=== PATIENT | male | born 1970 | race Two or more races ===

== ENCOUNTER 2021-08-29 07:50 | Outpatient (REF) | payer MEDICARE, OTHER, SELFPAY ==
--- NOTE | ~2021-08-29 | XR_ITS ---
EXAMINATION: RIGHT SHOULDER. CLINICAL INFORMATION: Right shoulder pain COMPARISON: None TECHNIQUE: 2 views. FINDINGS: The glenohumeral joint space is maintained normal. No bony erosive changes seen. There is loss of joint space with inferior spurring right AC joint. The soft tissues are normal. XR/XR shoulder RT min 2V IMPRESSION: Moderate arthritic changes right AC joint. No visible acute fracture, loose bodies or joint effusion
--- NOTE | ~2021-08-29 | XR_ITS ---
EXAMINATION: RIGHT SHOULDER. CLINICAL INFORMATION: Right shoulder pain COMPARISON: None TECHNIQUE: 2 views. FINDINGS: The glenohumeral joint space is maintained normal. No bony erosive changes seen. There is loss of joint space with inferior spurring right AC joint. The soft tissues are normal. XR/XR shoulder LT min 2V IMPRESSION: Moderate arthritic changes right AC joint. No visible acute fracture, loose bodies or joint effusion
== END 2021-08-29 07:51 | disposition home or self-care (01) ==
LOC: HO.XRAY 07:50
PROVIDERS: PCP Nurse Practitioner Primary Care; Visit Provider Nurse Practitioner Primary Care
DX: M25.511 Pain in right shoulder (principal); M25.512 Pain in left shoulder
CPT/HCPCS: 73030

== ENCOUNTER → 2021-09-22 13:43 | Outpatient (BNVA) | payer MEDICARE, OTHER, SELFPAY | PROVIDERS: PCP Nurse Practitioner Primary Care; Visit Provider Physician Assistant | DX: K59.09 Other constipation (principal); K21.9 Gastro-esophageal reflux disease without esophagitis | CPT/HCPCS: 99202 ==

== ENCOUNTER 2021-09-24 07:25 | Outpatient (REF) | payer MEDICARE, OTHER, SELFPAY ==
[2021-09-24 08:01] LABS: MANUAL DIFF FLAG NO
[2021-09-24 08:39] LABS: Basophils Absolute Auto 0.1 X10*3/uL (0.0-0.2); Basophils Percent Auto 0.5 % (0-2); Eosinophils Absolute Auto 0.4 X10*3/uL (0.0-0.4); Eosinophils Percent Auto 3.7 % (0-4); Hematocrit 42.2 % (42.0-52.0); Imm Gran Abs Auto 0.04 X10*3/uL (0.00-0.03); Imm Gran Pct Auto 0.4 % (0.0-0.4); Lymphocytes Absolute Auto 2.4 X10*3/uL (1.2-4.9); Lymphocytes Percent Auto 20.9 % (20-40); Mean Corpuscular HGB Conc 33.2 g/dl (31.0-36.0); Mean Corpuscular Hemoglobin 31.3 pg (27.0-33.0); Mean Corpuscular Volume 94.4 fL (80.0-98.0); Mean Platelet Volume 11.9 fL (9.4-12.4); Monocytes Absolute Auto 0.7 X10*3/uL (0.1-1.2); Monocytes Percent Auto 6.3 % (2-11); Neutrophils Absolute Auto 7.8 x10*3/uL (2.0-8.3); Neutrophils Percent Auto 68.2 % (45-73); Platelet Count 229 X10*3/uL (160-400); Red Blood Count 4.47 X10*6/uL (4.60-5.80); Red Cell Distribution Width 13.2 % (11.0-16.0); White Blood Count 11.4 X10*3/uL (4.8-10.8)
[2021-09-24 09:05] LABS: Estimated Average Glucose 105 mg/dL; Hemoglobin A1c % 5.3 %
[2021-09-24 09:15] LABS: Alanine Aminotransferase 20 U/L (0-40); Alkaline Phosphatase 93 U/L (39-117); Anion Gap 11 (12-20); Aspartate Amino Transferase 16 U/L (5-37); Bilirubin Total 0.3 mg/dL (0.0-1.0); Blood Urea Nitrogen 10 mg/dL (9-16); Carbon Dioxide 23 mmol/L (22-29); Chloride 109 mmol/L (96-108); Cholesterol 172 mg/dL; Estimated Glomerular Filt Rate > 60; Glucose Fasting 95 mg/dL (60-99); HDL Cholesterol 34 mg/dL; LDL Cholesterol Calculated 119 mg/dl; Potassium 4.2 mmol/L (3.3-5.1); Sodium 139 mmol/L (135-145); Total Protein 7.3 g/dL (6.5-8.0); Triglycerides 96 mg/dL
[2021-09-24 09:23] LABS: TSH reflex Free T4 0.82 uIU/mL (0.32-4.0); Vitamin D 25-OH Total 14.7 ng/mL (>30)
[2021-09-24 09:30] LABS: Thyroid Stimulating Hormone 0.83 uIU/mL (0.32-4.0)
[2021-09-26 03:59] LABS: ~HepC Num1 0.07 S/CO (0.00-0.79); ~Hepatitis C Antibody Nonreactive (Nonreactive)
[2021-09-26 04:00] LABS: HIV AB/AG Nonreactive (Nonreactive); HIV Num 1 0.06 S/CO (0.00-0.99)
[2021-10-01 14:00] LABS: RPR Quantitative Non-Reactive (Nonreactive); T.Pallidum Particle Agg Test Non-Reactive (Nonreactive)
== END 2021-09-24 07:26 | disposition home or self-care (01) ==
LOC: HO.LAB 07:25
PROVIDERS: Absent Provider Nurse Practitioner Primary Care; PCP Nurse Practitioner Primary Care; Visit Provider Physician Assistant
DX: Z00.00 Encounter for general adult medical examination without abnormal findings (principal); Z11.4 Encounter for screening for human immunodeficiency virus [HIV]; K21.9 Gastro-esophageal reflux disease without esophagitis; K59.09 Other constipation; E55.9 Vitamin D deficiency, unspecified; I10 Essential (primary) hypertension
CPT/HCPCS: 36415; 80053; 80061; 82306; 83036; 84443; 85025; 86592; 86780; 86803; 87389

== ENCOUNTER → 2021-10-24 07:38 | Outpatient (REF) | payer MEDICARE, OTHER, SELFPAY ==
--- NOTE | 2021-10-24 07:57 | ECG_ITS ---
Test Reason : CHEST PAIN, UNSPEC Blood Pressure : / mmHG Vent. Rate : 064 BPM Atrial Rate : 064 BPM P-R Int : 154 ms QRS Dur : 090 ms QT Int : 392 ms P-R-T Axes : 052 019 185 degrees QTc Int : 404 ms Normal sinus rhythm Nonspecific ST and T wave abnormality Abnormal ECG When compared with ECG of 22-JUN-2011 06:30, Premature ventricular complexes are no longer Present ST now depressed in Lateral leads Nonspecific T wave abnormality, worse in Inferior leads Nonspecific T wave abnormality now evident in Lateral leads Referred By: Kristen Hanna Electronically Signed By:LEFTY COOLEY MD
== END ==
LOC: HO.CARD 07:38
PROVIDERS: PCP Nurse Practitioner Primary Care; Visit Provider Nurse Practitioner Primary Care
DX: R07.9 Chest pain, unspecified (principal)
CPT/HCPCS: 93005

== ENCOUNTER 2021-10-25 05:08 | Observation (INO) | payer MEDICARE, OTHER, SELFPAY ==
[2021-10-25] VITALS (14 sets, daily range): BP systolic 102–157; BP diastolic 63–98; PULSE 60–92; RESP 12–19; TEMP 36.1–36.9; O2SAT 97–100; BMI 24.7
--- NOTE | 2021-10-25 | CA_ITS ---
Acquisition Time: 2021-10-26 09:14:15 Total Exercise Time: 00:02:00 Test Indications: Abnormal ECG ELEVATED TROP Medications: SEE EMAR Protocol: LEXISCAN Max HR: 112 BPM 67% of Pred: 167 BPM Max BP: 142/088 mmHG Max Work Load: 1.6 METS Pharmacologcial stress test with Lexiscan injection, while walking slow on treadmilll for 2 min, with report of 7/10 epigastric with radiation to his mid chest which occurred following Lexiscan and resolved with belching, without sob, without arrythmia, with normotensive response to injection, with EKG changes that meet criteria for ischemia, Horizontal ST depression 1 mm inferiorly and downsloping ST with borderline depression V4-V6 with gradual improvement back to baseline. Baseline EKG does showminimal ST abnormalities in those same leads. In recovery he was treated with Aminophylline 75mg IVP to reverse Lexiscan. He was recovered for over 10 min and then reported no symptoms. EKGs back to baseline. Nuclear images pending. Test reviewed with Dr Head Referred By: Don Allen Overread By: MOSES HUTCHINSON
--- NOTE | 2021-10-25 | ECG_ITS ---
Test Reason : ELEVATED TROPONIN Blood Pressure : / mmHG Vent. Rate : 059 BPM Atrial Rate : 059 BPM P-R Int : 162 ms QRS Dur : 092 ms QT Int : 384 ms P-R-T Axes : 000 -09 207 degrees QTc Int : 380 ms Unusual P axis, possible ectopic atrial bradycardia Low voltage QRS Nonspecific ST and T wave abnormality Abnormal ECG When compared with ECG of 25-OCT-2021 05:04, No significant change was found Referred By: Generic ED Physician Electronically Signed By:LEFTY COOLEY MD
--- NOTE | ~2021-10-25 | NM_ITS ---
Myocardial perfusion study Indication: Acute coronary syndrome Technique: The patient was brought in for a Lexiscan perfusion study on 10/26/2021. Patient performed low-level exercise and was injected 0.4 mg of Lexiscan intravenously. Within a minute of injection, 25 mCi of sestamibi was given intravenously. Images were obtained using the SPECT gamma camera interlaced with the gating device. Images were obtained in supine position. Resting perfusion study was performed on 10/25/2021. Patient was administered 25 mCi of sestamibi intravenously at rest. Images were then obtained in supine position. Images obtained with and without CT attenuation. Total DLP 81 mGy-cm. Images were processed with the software and compared side to side in short axis, horizontal long axis and vertical long axis views. Findings: Both stress and rest images are limited due to intense subdiaphragmatic uptake interfering with inferior wall uptake The stress perfusion study showed non attenuated images show moderate size mildly to moderately reduced uptake in the inferolateral as well as basal and mid inferior wall of the LV myocardium. Remainder of the LV myocardium is normally perfused. Attenuation corrected images show moderately large area of moderate to severely reduced uptake in the inferolateral and lateral wall of the LV myocardium extending into the adjacent inferior wall of the LV myocardium. The gated study shows normal LV systolic function with calculated LVEF of 64%. LV cavity is normal in size. The gated study shows normal systolic wall thickening and contraction of segments. Resting study shows non attenuated images show improved uptake in the inferolateral as well as basal and mid inferior wall of the LV myocardium. Similarly there is improved uptake in the inferolateral and lateral wall of the LV myocardium on attenuated corrected images. Gating at rest reveals normal systolic wall motion with ejection fraction at 59%. The findings are consistent with moderately large area of inferolateral, lateral and adjacent inferior ischemia in circumflex territory. NM/NM gurinder perf SPECT rest & str Impression: 1. Myocardial perfusion imaging study shows moderately large area of moderate intensity ischemia in circumflex territory 2. Gated LVEF is 44% 3. Transient ischemic dilatation not present EKG is positive for ischemia
--- NOTE | 2021-10-25 05:19 | ED.CHESTPAIN ---
HPI - Chest Pain General Chief Complaint: Chest Pain Stated Complaint: Chest pain Time Seen by Provider: 10/25/21 05:19 Source: patient Mode of arrival: ambulatory Limitations: no limitations History of Present Illness HPI narrative: Patient comes to the emergency room complaining of epigastric burning sensation. Patient states that he has had intermittent symptoms for about a week, much worse at night. Tonight, the symptoms started 23:00, and have been ongoing for 6 hours. Patient states that he has been seen by his Gastroenterology, has an appointment pending in couple of months for an upper endoscopy and a colonoscopy. In the meantime, patient was prescribed omeprazole which she takes continuously. Patient states that lately because of the abdominal burning pain with food, he has not been eating. Patient denies chest pain Related Data Home Medications Medication Instructions Recorded Confirmed albuterol sulfate 90 mcg/actuation 2 puff PO Q4-6H PRN 09/22/21 aerosol inhaler (ProAir HFA) fluticasone propionate 110 1 puff PO BID 09/22/21 mcg/actuation HFA aerosol inhaler (Flovent HFA) omeprazole 20 mg capsule,delayed 40 mg PO DAILY 09/22/21 release oxycodone-acetaminophen 7.5 mg-325 1 tab PO Q6H PRN 09/22/21 mg tablet Previous Rx's Medication Instructions Recorded bisacodyl 5 mg tablet,delayed 10 mg PO ONCE colonoscopy prep 1 09/22/21 release (Dulcolax (bisacodyl)) day #2 tabs polyethylene glycol 3350 17 238 g PO ONCE 1 day #238 grams 09/22/21 gram/dose oral powder (Miralax) Allergies Allergy/AdvReac Type Severity Reaction Status Date / Time amoxicillin Allergy Mild unknown Verified 09/22/21 13:48 latex Allergy Unknown itching Uncoded 06/05/18 00:00 Review of Systems Review of Systems: Constitutional : No Weight loss, No Fever, No Chills, No Night Sweats, No Fatigue, No Malaise ENT/Mouth : No Hearing loss, No Ear Pain, No Nasal Congestion, No Sinus Pain, No Hoarseness, No sore throat, No Rhinorrhea, No Swallowing Difficulty Eyes: No Eye Pain, No Swelling, No Redness, No Foreign Body, No Discharge, No Vision Changes Cardiovascular : No Chest Pain, No SOB, No Dyspnea on Exertion, No Orthopnea, No Edema, No Palpitations Respiratory : No Cough, No Sputum, No Wheezing, No Smoke Exposure, No Dyspnea Gastrointestinal : No Nausea, No Vomiting, No Diarrhea, No Constipation, complaining of burning sensation in the epigastric area radiating upwards Genitourinary : no irregular bleeding, No Dysuria, No Urinary Frequency, No Hematuria, No Urinary Incontinence, No Urgency, No Flank Pain, No Urinary Flow Changes, No Hesitancy Musculoskeletal : No joint pain, No Myalgias, No Joint Swelling Skin : No Skin Lesions, No rash Neuro : No Weakness, No Numbness, No Paresthesias, No Loss of Consciousness, No Dizziness, No Headache Psych : No Anxiety/Panic, No Depression, No SI/HI/AH/VH, No Social Issues, Heme/Lymph: No Bruising, No Bleeding,No Lymphadenopathy Endocrine : No Polyuria, No Polydipsia, No Temperature Intolerance [facility] Past Medical History Medical History (Updated 10/25/21 @ 06:38 by Sandhya Donohue MD) Collapsed lung GERD (gastroesophageal reflux disease) Surgical History History of esophagogastroduodenoscopy (EGD) History of foot surgery Family History Family History Mother Diverticulitis HTN (hypertension) Brother Diverticulitis Brother Diverticulitis HTN (hypertension) Brother Diverticulitis HTN (hypertension) Diabetes Brother Diverticulitis Sister HTN (hypertension) Sister Diverticulitis HTN (hypertension) Diabetes Sister HTN (hypertension) Family/Other Cancer Social History Social History (Updated 09/22/21 @ 14:24 by Sandra Espino PA-C) Household Members: Family Alcohol intake: never Tobacco use type: Cigarette Cigarettes Per Day: 3 Substance Use Type: Marijuana Advance Directives: No Current occupational status: disabled Physical Exam Vital Signs: Vital Signs: Last Vital Signs Temp 97.6 F 10/25/21 05:14 Pulse 61 10/25/21 06:09 Resp 16 10/25/21 06:09 BP 126/85 10/25/21 06:09 Pulse Ox 99 10/25/21 06:09 O2 Del Method 10/25/21 06:09 BMI result Body Mass Index 24.7 Const: Other: Appearance: Alert. Oriented X3. No acute distress. Eyes: Pupils equal, round and reactive to light. ENT: Pharynx normal. Neck: Normal inspection. Neck supple. No lymph nodes noted. No crepitus CVS: Normal heart rate and rhythm. Pulses normal. Normal S1 and S2 Respiratory: No respiratory distress. Breath sounds normal. No Wheezing. No rales Abdomen: Soft , tenderness to palpation in the epigastric area Skin: Skin warm and dry. Normal skin color. Normal skin turgor. Extremities: No lower extremity edema. No Lacerations. No Rash Neuro: Oriented X 3. No motor deficit. No sensory deficit. Moving all extremities. No slurred speech. CN 2 through 12 grossly intact Psych: calm, cooperative, normal affect Course Course Course Narrative: Patient was given IV famotidine, p.o. Maalox and viscous lidocaine. All of the labs pending. EKG shows minimal ST segment depressions in V3 through V6, no changes from EKG 2 days ago I discussed the EKG and 1st troponin with Dr. Head. At this time, we will repeat troponins. Patient's vitals are stable, states that this time he has no chest pain or burning sensation after GI cocktail. 2nd set of troponins 2 at 08:30 Sign-out given to Dr. Cachorro [facility] - Chest Pain Lab Data Result diagrams: 10/25/21 05:31 10/25/21 05:31 Labs: Lab Results 10/25/21 10/25/21 10/25/21 Range/Units 05:31 05:31 05:31 WBC 12.0 H (4.8-10.8) X10*3/uL RBC 4.60 (4.60-5.80) X10*6/uL Hgb 14.7 (14.0-18.0) g/dl Hct 42.4 (42.0-52.0) % MCV 92.2 (80.0-98.0) fL MCH 32.0 (27.0-33.0) pg MCHC 34.7 (31.0-36.0) g/dl RDW 13.0 (11.0-16.0) % Plt Count 251 (160-400) X10*3/uL MPV 10.8 (9.4-12.4) fL Immature Gran % (Auto) 0.4 (0.0-0.4) % Neut % (Auto) 58.8 (45-73) % Lymph % (Auto) 28.8 (20-40) % [place] % (Auto) 7.9 (2-11) % Eos % (Auto) 3.8 (0-4) % Baso % (Auto) 0.3 (0-2) % Lymph # (Auto) 3.5 (1.2-4.9) X10*3/uL [place] # (Auto) 1.0 (0.1-1.2) X10*3/uL Eos # (Auto) 0.5 H (0.0-0.4) X10*3/uL Baso # (Auto) 0.0 (0.0-0.2) X10*3/uL Abs Immat Gran (auto) 0.05 H (0.00-0.03) X10*3/uL Absolute Neuts (auto) 7.0 (2.0-8.3) x10*3/uL Absolute Nucleated RBC 0.000 (0.0-0.012) X10*3/uL Nucleated RBC % (auto) 0.0 (0.0-0.2) /100WBC Sodium 139 (135-145) mmol/L Potassium 3.8 (3.3-5.1) mmol/L Chloride 104 (96-108) mmol/L Carbon Dioxide 26 (22-29) mmol/L Anion Gap 13 (12-20) BUN 9 (9-16) mg/dL Creatinine 0.79 (0.5-1.4) mg/dL Estim Creat Clear Calc 111.6 Estimated GFR > 60 Random Glucose 104 (60-115) mg/dL Calcium 9.4 (8.4-10.2) mg/dL Total Bilirubin 0.8 (0.0-1.0) mg/dL Direct Bilirubin 0.3 (0.0-0.5) mg/dL AST 15 (5-37) U/L ALT 17 (0-40) U/L Alkaline Phosphatase 89 (39-117) U/L Troponin I High Sens 221.4 H* (<3.5-35.0) ng/L Total Protein 7.7 (6.5-8.0) g/dL Albumin 4.3 (3.5-5.0) g/dL Lipase 11 (8-78) U/L Discharge Plan Discharge Clinical Impression: Acid reflux, Elevated troponin Patient Disposition: Still a Patient Prescriptions: No Action albuterol sulfate [ProAir HFA] 90 mcg/actuation HFA aerosol inhaler 2 puff PO Q4-6H PRN omeprazole 20 mg capsule,delayed release(DR/EC) 40 mg PO DAILY oxycodone-acetaminophen 7.5-325 mg tablet 1 tab PO Q6H PRN Flovent HFA 110 mcg/actuation HFA aerosol inhaler 1 puff PO BID bisacodyl [Dulcolax (bisacodyl)] 5 mg tablet,delayed release (DR/EC) 10 mg PO ONCE 1 Days Qty: 2 0RF Rx Instructions: Take 2 tablets by mouth at 12:00pm the day before your procedure. polyethylene glycol 3350 [Miralax] 17 gram/dose powder 238 g PO ONCE 1 Days Qty: 238 0RF Rx Instructions: Take as directed by mouth the day before your procedure.
[2021-10-25 05:36] LABS: Basophils Percent Auto 0.3 % (0-2); Eosinophils Absolute Auto 0.5 X10*3/uL (0.0-0.4); Eosinophils Percent Auto 3.8 % (0-4); Hematocrit 42.4 % (42.0-52.0); Hemoglobin 14.7 g/dl (14.0-18.0); Imm Gran Abs Auto 0.05 X10*3/uL (0.00-0.03); Imm Gran Pct Auto 0.4 % (0.0-0.4); Lymphocytes Absolute Auto 3.5 X10*3/uL (1.2-4.9); Lymphocytes Percent Auto 28.8 % (20-40); MANUAL DIFF FLAG NO; Mean Corpuscular HGB Conc 34.7 g/dl (31.0-36.0); Mean Corpuscular Volume 92.2 fL (80.0-98.0); Mean Platelet Volume 10.8 fL (9.4-12.4); Monocytes Percent Auto 7.9 % (2-11); Neutrophils Percent Auto 58.8 % (45-73); Platelet Count 251 X10*3/uL (160-400)
[2021-10-25] MEDS: Lidocaine HCl Viscous 2 % 15 ML SOLUTION MUCOUS MEM (05:39)
[2021-10-25] MEDS: Famotidine/PF 20 MG/2 ML VIAL IVPUSH (05:39)
[2021-10-25] MEDS: Magnesium Hydrox/Alum Hydrox 30 ML ORAL.SUSP PO (05:39)
[2021-10-25 05:55] LABS: Alanine Aminotransferase 17 U/L (0-40); Albumin Level 4.3 g/dL (3.5-5.0); Alkaline Phosphatase 89 U/L (39-117); Anion Gap 13 (12-20); Aspartate Amino Transferase 15 U/L (5-37); Bilirubin Direct 0.3 mg/dL (0.0-0.5); Bilirubin Total 0.8 mg/dL (0.0-1.0); Blood Urea Nitrogen 9 mg/dL (9-16); Calcium 9.4 mg/dL (8.4-10.2); Carbon Dioxide 26 mmol/L (22-29); Chloride 104 mmol/L (96-108); Creatinine Clr Calc Pharmacy 111.6; Estimated Glomerular Filt Rate > 60; Glucose Random 104 mg/dL (60-115); Lipase 11 U/L (8-78); Potassium 3.8 mmol/L (3.3-5.1); Sodium 139 mmol/L (135-145); Total Protein 7.7 g/dL (6.5-8.0)
[2021-10-25 05:58] LABS: Troponin-I High Sensitivity 221.4 ng/L (<3.5-35.0)
--- NOTE | 2021-10-25 06:11 | PC.NURSE ---
Per Dr. Donohue, repeat trop 2 hours after initial at 0800.
--- NOTE | 2021-10-25 06:11 | PC.NURSE ---
Assumed care of pt Pt c/o midsternal CP, intermittent x 5 days but last night started at 2300. per pt, worse when laying down. Pt denies any SOB Hx of reflux AxO x 4, clear and complete sentences
[2021-10-25] MEDS: Aspirin Enteric Coated 325 MG TABLET.DR PO (06:18)
--- NOTE | 2021-10-25 06:53 | ECG_ITS ---
Test Reason : CP Blood Pressure : / mmHG Vent. Rate : 071 BPM Atrial Rate : 071 BPM P-R Int : 148 ms QRS Dur : 086 ms QT Int : 372 ms P-R-T Axes : 062 016 072 degrees QTc Int : 404 ms Normal sinus rhythm Nonspecific ST and T wave abnormality Abnormal ECG When compared with ECG of 24-OCT-2021 07:56, No significant change was found Referred By: Generic ED Physician Electronically Signed By:LEFTY COOLEY MD
[2021-10-25 07:37] LABS: INTERNATIONAL NORM RATIO 1.2 (0.9-1.1); Prothrombin Time 13.3 SEC (9.9-13.0)
[2021-10-25 07:39] LABS: Partial Thromboplastin Time 38.9 SEC (24.1-38.0)
--- NOTE | 2021-10-25 07:47 | PC.NURSE ---
patient alert and orientated. lungs clear . heart rate on monitor sinus regular at 60- 62 . positive bowel sounds in all four quadrants . patient complains of abdominal discomfort . patient aware of plan of care .
[2021-10-25 07:50] LABS: COVID-19 Test Negative (Negative); IDNOW Serial# 16C4AD1C
[2021-10-25 08:04] LABS: Troponin-I High Sensitivity 255.4 ng/L (<3.5-35.0)
--- NOTE | 2021-10-25 08:58 | CA_ITS ---
Transthoracic Echocardiogram Patient (Last, First, Middle): Stanislav Hernandez, Gender: Male Date of : 1970 Age: 51 Procedure Date: 10/25/2021 Procedure Type: Transthoracic Echocardiogram Location: ER Height: 177.8 cm Weight: 78.02 kg BSA: 1.96 m2 Heart Rate: 63 bpm BP: 113 / 77 mmHg Document Specialist: PITER Referring MD: Kristina Ivory DO Social Service Technician: Pérez Head MD Symptoms: chest pain, EKG changes Study Quality: Adequate ECG Rhythm: Sinus Conclusions: - 1. Normal LV systolic function with grade 1 diastolic dysfunction 2. Normal cardiac valvular Doppler 3. No gross pericardial effusion Findings Left Ventricle Normal left ventricular size, thickness, and systolic function. The visually estimated ejection fraction is between 60-65%. There is no evidence of regional wall motion abnormalities. Spectral Doppler is indicative of an impaired relaxation filling pattern. E/E prime ratio is <8, consistent with normal filling pressures. Evidence suggests grade I (mild) diastolic dysfunction. Right Ventricle Normal right ventricular cavity size and systolic function. Atria Both atria are normal in size. There is lipomatous hypertrophy of the interatrial septum. There is no evidence of interatrial shunt. Aortic Valve Normal aortic valve structure and function. There is no aortic valve stenosis. There is no aortic valve regurgitation. Mitral Valve Normal mitral valve structure and function. There is trace mitral valve regurgitation. There is no mitral valve stenosis. Pulmonic Valve The pulmonic valve is likely normal. There is trace pulmonic valve regurgitation. Tricuspid Valve Normal tricuspid valve structure. Tricuspid regurgitation envelope is inadequate for calculation of right ventricular systolic pressure. Normal right atrial pressure. Great Vessels All visible segments of the aorta are normal in size. The pulmonary artery was not well visualized. Venous The inferior vena cava is normal in size and collapses greater than 50% with inspiration. Pericardium/Pleural There is no evidence of pericardial effusion. Prior Study Comparison No prior study available for comparison. Measurements 2D Linear Measurements IVSd: 0.60 0.6-0.9/0.6-1.0 cm LVIDd: 4.99 3.9-5.3/4.2-5.9 cm LVIDd Index: 2.55 2.4-3.2/2.2-3.1 cm/m2 LVIDs: 3.58 2.0-3.6 cm LVPWd: 0.62 0.7-1.1 cm LA Diam: 3.10 2.7-3.8/3.0-4.0 cm LAIDs Index: 1.58 1.5-2.3 cm/m2 LV Mass: 119.84 67-162/88-224 g LV Mass Index: 61.14 43-95/49-115 g/m2 LVOT Diam: 2.50 3.0+(-)1.3 cm 2D Systolic Function EF 4C: 65.70 >55% Mitral Valve MV Pk E: 0.53 MV PK A: 0.49 MV Decel Time: 318.00 E/A: 1.10 E'Lateral: 11.40 E'Medial: 8.16 E/E' Med: 6.50 E/E' Lat: 4.60 PHT: 93.00 MVA PHT: 2.37 Decel [place]iscoe: 1.66 Aortic Valve AoV Pk Dago: 1.09 AoV Mn Dago: 0.73 AoV VTI: 0.21 AoV Pk Grad: 5.00 Aov Mn Grad: 2.00 JUD Cont.VTI: 4.66 LVOT LVOT Pk Dago: 1.06 LVOT Mn Dago: 0.72 LVOT VTI: 0.20 LVOT Pk Grad: 4.00 LVOT Mn Grad: 2.00 LVOT Diam: 2.50 LVOT Area: 4.91 Diastolic Function MV Pk E: 0.53 MV Pk A: 0.49 E/A: 1.10 E'Medial: 8.16 E/E' Med: 6.50 E' Laterial: 11.40 E/E' Lat: 4.60 Right Ventricle TAPSE (mm): 21.90 TVS' Dago: 11.50 Tricuspid Valve RA Press: 3.00 Great Vessels Aorta Sinus of Valsalva: 3.80 2.0-3.5 cm Pulmonary Valve PV Pk Dago: 0.82 Peak PV Grad: 3.00 Updated in Other Vendor System with Status of Final Pérez Head MD electronically signed on 10/25/2021 12:35:14 PM with status of Final
--- NOTE | 2021-10-25 11:04 | PC.NURSE ---
research engineer marine equipment at bedside echo being preformed.
--- NOTE | 2021-10-25 11:20 | PHA.MEDREC ---
Pharmacy Consult ? Medication Reconciliation Pharmacy has completed the medication reconciliation. Patient confirmed all medications. Patient reports he no longer used the Spriv[employer]. Ericka Gr, CarrollD
--- NOTE | 2021-10-25 11:39 | PM.CNCAR ---
History of Present Illness History of Present Illness Date of Service: 10/25/21 Requesting physician: Kristina Ivory Consult reason: chest pain and troponin elevation Chief complaint: Chest pain Narrative: I was consulted to see Stanislav in cardiology consultation today for symptoms of chest discomfort. Patient 51-year-old male with prior history of acid reflux disease for many years, labile blood pressure but never diagnosed with hypertension. Over the last week or so he has been getting epigastric discomfort then radiating into the chest mostly at nighttime. He has been taking additional Prilosec truly with symptoms. Symptoms usually resolve within few hours. He present hospital because yesterday night he developed this symptoms radiating to the center of the chest associated diaphoresis and shortness of breath and discomfort in his teeth. He could not tolerate the symptoms and therefore presently emergency room at about 04:30 am. He had taken additional omeprazole at home. When he came to the Emergency be got aspirin, GI cocktail and subsequently symptoms resolved. His initial troponin was in the 200 range with 2nd troponin slightly higher but without any significant delta. His initial EKG showed mild ST sagging in the lateral leads which have improved on subsequent EKG. Cardiology consult was therefore called because of her abnormal EKG and troponin elevation although flat. Echo being performed with bedside although could not reviewed completely showed normal LV systolic function. Strong family history of brother having LA it age 56 requiring stents with now ischemic cardiomyopathy. He smokes but is cutting down. Never had cardiovascular issues of his own. Review of Systems Constitutional: Constitutional: Reports no additional constitutional complaints Eyes: Eyes: Reports no additional eye complaints Cardiovascular: Cardiovascular: Reports chest pain at rest, Denies chest pain with activity, Denies syncope, Denies leg edema, Denies lightheadedness, Denies Loss of Consciousness, Denies palpitations and Reports dyspnea Respiratory: Respiratory: Reports dyspnea Gastrointestinal: Gastrointestinal: Reports abdominal pain Genitourinary: Genitourinary: Denies no additional male genitourinary complaints Musculoskeletal: Musculoskeletal: Denies no additional musculoskeletal complaints Integumentary/Breasts: Skin/Breast: Denies system reviewed and no additional complaints, except as docu Neurologic: Denies system reviewed and no additional complaints, except as documented and Denies syncope Psychiatric: Psychiatric: Denies no additional psychiatric complaints Endocrine: Endocrine: Denies no additional endocrine complaints and Denies palpitations Hematologic/Lymphatic: Hematologic/Lymphatic: Reports no additional hematologic/lymphatic complaints Allergic/Immunologic: Allergic/Immunologic: Reports no additional allergic/immunologic complaints [facility] Past Medical History Medical History Collapsed lung GERD (gastroesophageal reflux disease) Family History Family History Mother Diverticulitis HTN (hypertension) Brother Diverticulitis Brother Diverticulitis HTN (hypertension) Brother Diverticulitis HTN (hypertension) Diabetes Brother Diverticulitis Sister HTN (hypertension) Sister Diverticulitis HTN (hypertension) Diabetes Sister HTN (hypertension) Family/Other Cancer Surgical History Surgical History History of esophagogastroduodenoscopy (EGD) History of foot surgery Social History Social History Household Members: Family Alcohol intake: former Patient Tobacco Use Status: Current someday Tobacco user Tobacco use type: Cigarette Cigarettes Per Day: 3 Substance Use Type: Marijuana Substance Use Frequency: Occasionally Advance Directives: No Current occupational status: disabled Meds Allergies Allergy/AdvReac Type Severity Reaction Status Date / Time amoxicillin Allergy Mild unknown Verified 09/22/21 13:48 latex Allergy Unknown itching Uncoded 06/05/18 00:00 Active Medications: Current Medications Pharmacy Consult (Consult Rx Perform Med Rec) 1 each MISCELLANE ONCE PRN PRN Reason: Consult order Home Medications Medication Instructions Recorded Confirmed Last Taken Type albuterol sulfate 90 mcg/actuation 2 puff PO Q4-6H PRN Wheezing 09/22/21 10/25/21 Unknown History aerosol inhaler (ProAir HFA) fluticasone propionate 110 1 puff PO BID 09/22/21 10/25/21 10/24/21 History mcg/actuation HFA aerosol inhaler (Flovent HFA) omeprazole 20 mg capsule,delayed 20 mg PO BID 09/22/21 10/25/21 10/24/21 History release oxycodone-acetaminophen 7.5 mg-325 1 tab PO Q6H PRN Pain 09/22/21 10/25/21 Unknown History mg tablet cholecalciferol (vitamin D3) 1,250 1 cap PO WE 10/25/21 10/25/21 10/24/21 History mcg (50,000 unit) capsule famotidine 20 mg tablet 1 tab PO BID 10/25/21 10/25/21 10/25/21 History ibuprofen 200 mg tablet 400 mg PO Q6H PRN Pain 10/25/21 10/25/21 Unknown History Physical Exam Vital Signs: Vital Signs: Last Vital Signs Temp 98.2 F 10/25/21 10:02 Pulse 63 10/25/21 10:02 Resp 16 10/25/21 10:02 BP 145/98 H 10/25/21 10:02 Pulse Ox 99 10/25/21 10:02 O2 Del Method 10/25/21 10:02 BMI result Body Mass Index 24.7 Const: General: cooperative, comfortable, no acute distress, well developed, alert and awake Nutritional Appearance: average body habitus Orientation/consciousness: patient oriented x3 Limitations: no limitations HEENT: Head: Yes normocephalic and Yes atraumatic Neck: Neck: Yes trachea midline, Yes supple and Yes no JVD Chest: Chest palpation & inspection: normal inspection of the chest Resp: Effort & Inspection: normal respiratory effort Auscultation: clear to auscultation bilaterally Cardio: Jugular venous distension: no JVD Palpation: normal PMI Rate: regular rate Rhythm: regular rhythm Heart sounds: S1 normal heart sound present, S2 normal heart sound present, no click, no gallops, no murmurs and no rubs GI: Auscultation: normal bowel sounds Skin: General skin exam: no rashes or lesions noted Neuro: General: patient oriented x3 and no focal motor deficits Extrem: General: Yes no clubbing, cyanosis or edema Objective Labs and Meds Result diagrams: 10/25/21 05:31 10/25/21 05:31 Lab results: Laboratory Results - last 24 hr 10/25/21 10/25/21 10/25/21 05:31 05:31 05:31 WBC 12.0 H RBC 4.60 Hgb 14.7 Hct 42.4 MCV 92.2 MCH 32.0 MCHC 34.7 RDW 13.0 Plt Count 251 MPV 10.8 Immature Gran % (Auto) 0.4 Neut % (Auto) 58.8 Lymph % (Auto) 28.8 [place] % (Auto) 7.9 Eos % (Auto) 3.8 Baso % (Auto) 0.3 Lymph # (Auto) 3.5 [place] # (Auto) 1.0 Eos # (Auto) 0.5 H Baso # (Auto) 0.0 Abs Immat Gran (auto) 0.05 H Absolute Neuts (auto) 7.0 Absolute Nucleated RBC 0.000 Nucleated RBC % (auto) 0.0 PT INR APTT Sodium 139 Potassium 3.8 Chloride 104 Carbon Dioxide 26 Anion Gap 13 BUN 9 Creatinine 0.79 Estim Creat Clear Calc 111.6 Estimated GFR > 60 Random Glucose 104 Calcium 9.4 Total Bilirubin 0.8 Direct Bilirubin 0.3 AST 15 ALT 17 Alkaline Phosphatase 89 Troponin I High Sens 221.4 H* Total Protein 7.7 Albumin 4.3 Lipase 11 COVID-19 (JOHNNY) COVID-19 [employer] Master Com 10/25/21 10/25/21 10/25/21 07:22 07:24 07:24 WBC RBC Hgb Hct MCV MCH MCHC RDW Plt Count MPV Immature Gran % (Auto) Neut % (Auto) Lymph % (Auto) [place] % (Auto) Eos % (Auto) Baso % (Auto) Lymph # (Auto) [place] # (Auto) Eos # (Auto) Baso # (Auto) Abs Immat Gran (auto) Absolute Neuts (auto) Absolute Nucleated RBC Nucleated RBC % (auto) PT 13.3 H INR 1.2 H APTT 38.9 H Sodium Potassium Chloride Carbon Dioxide Anion Gap BUN Creatinine Estim Creat Clear Calc Estimated GFR Random Glucose Calcium Total Bilirubin Direct Bilirubin AST ALT Alkaline Phosphatase Troponin I High Sens 255.4 H* Total Protein Albumin Lipase COVID-19 (JOHNNY) Negative COVID-19 Clin Com See Note Assessment and Plan (1) Chest pain: Qualifiers: Chest pain type: precordial pain Qualified Code(s): R07.2 - Precordial pain Status: Acute Patient with chest pain syndrome which is suggestive GI origin and acid reflux with possibly esophageal spasm as a cause of his chest discomfort. However he has mildly abnormal EKG with some dynamic changes as well as elevated troponin. He has risk factors for coronary disease including labile blood pressure is a strong family history. Echocardiogram is being performed will review it. No need for IV heparin at this point time as his symptoms have resolved and his troponins are flat. I think however require ischemic evaluation. Will perform resting perfusion study today and stress perfusion study tomorrow and determine further treatment options. If stress test is within normal limits, would strongly recommend GI follow-up and upper endoscopy for further evaluation. His blood pressure is elevated a consider treating with Norkeeleyc. Will follow with you Procedures Date of Service Date of Service: 10/25/21
--- NOTE | 2021-10-25 12:15 | P.HPHOSP_ITS ---
History of Present Illness Date of Service: 10/25/21 Chief Complaint: Chest Pain 51 year old male with HTN not on meds, Asthma that is controled, GERD on Pepcid who presents, early family history of CAD, brother had GA at 57. He presents with 1 and half week of intermittent chest pain, mostly happening at night a ssocated with vomitting and sweating, locates the pain mid sternal area variable intensity but worse with exertion and was particulary bad last night prompting him to come in. He has been omeprazole without relieve. ECG shows some lateral changes and troponin I 255 essentially unchanged from prior. Cardiology is recommending inpatient stress Review of Systems Review of Systems: Gen: no fever Resp: no sob, no cough CV: + chest, + MILES, no leg edema GI: No n/v, no abd pain Neuro: No confusion Yes all other systems are reviewed and are negative [facility] Medical History Collapsed lung GERD (gastroesophageal reflux disease) Family History Mother Diverticulitis HTN (hypertension) Brother Diverticulitis Brother Diverticulitis HTN (hypertension) Brother Diverticulitis HTN (hypertension) Diabetes Brother Diverticulitis Sister HTN (hypertension) Sister Diverticulitis HTN (hypertension) Diabetes Sister HTN (hypertension) Family/Other Cancer Surgical History History of esophagogastroduodenoscopy (EGD) History of foot surgery Social History Household Members: Family Alcohol intake: former Patient Tobacco Use Status: Current someday Tobacco user Tobacco use type: Cigarette Cigarettes Per Day: 3 Substance Use Type: Marijuana Substance Use Frequency: Occasionally Advance Directives: No Current occupational status: disabled Meds Allergies Allergy/AdvReac Type Severity Reaction Status Date / Time amoxicillin Allergy Mild unknown Verified 09/22/21 13:48 latex Allergy Unknown itching Uncoded 06/05/18 00:00 Active Medications: Current Medications Albuterol Sulfate (Albuterol Sulfate 90 Mcg 8 Gm Inhaler) 2 puff INHALE Q4H PRN PRN Reason: Wheezing Famotidine (Famotidine 20 Mg Tablet) 20 mg PO BID [facility] Fluticasone Propionate (Fluticasone Propionate 100 Mcg Blst.W.Dev) 1 puff INHALE RBID [facility] Non-Formulary Medication (Cholecalciferol (Vitamin D3)) 1 cap PO WE [facility] Non-Formulary Medication (Oxycodone-Acetaminophen) 1 tab PO Q6H PRN PRN Reason: Pain Omeprazole (Omeprazole 20 Mg Capsule.) 20 mg PO BID@0630,1630 [facility] Pharmacy Consult (Consult Rx Perform Med Rec) 1 each MISCELLANE ONCE PRN PRN Reason: Consult order Home Medications Medication Instructions Recorded Confirmed Last Taken Type albuterol sulfate 90 mcg/actuation 2 puff PO Q4-6H PRN Wheezing 09/22/21 10/25/21 Unknown History aerosol inhaler (ProAir HFA) fluticasone propionate 110 1 puff PO BID 09/22/21 10/25/21 10/24/21 History mcg/actuation HFA aerosol inhaler (Flovent HFA) omeprazole 20 mg capsule,delayed 20 mg PO BID 09/22/21 10/25/21 10/24/21 History release oxycodone-acetaminophen 7.5 mg-325 1 tab PO Q6H PRN Pain 09/22/21 10/25/21 Unknown History mg tablet cholecalciferol (vitamin D3) 1,250 1 cap PO WE 10/25/21 10/25/21 10/24/21 History mcg (50,000 unit) capsule famotidine 20 mg tablet 1 tab PO BID 10/25/21 10/25/21 10/25/21 History ibuprofen 200 mg tablet 400 mg PO Q6H PRN Pain 10/25/21 10/25/21 Unknown History Physical Exam Vital Signs and Narrative: Vital Signs: Last Vital Signs Temp 98.2 F 10/25/21 10:02 Pulse 63 10/25/21 10:02 Resp 16 10/25/21 10:02 BP 145/98 H 10/25/21 10:02 Pulse Ox 99 10/25/21 10:02 O2 Del Method 10/25/21 10:02 BMI result Body Mass Index 24.7 Const: Other: Constitutional: Alert, in no distress Mental Status: Oriented to person, place and time. Eyes: Pupils are equal, round and reactive to light. Ear, Nose and Throat: Oropharynx clear, mucous membranes moist. Respiratory: Clear to auscultation. No wheezing, rales or rhonchi. Cardiovascular: S1 S2 regular. No murmurs, rubs or gallops. Gastrointestinal: Abdomen soft, non-tender, non-distended. Normal bowel sounds.? Neurologic: Cranial nerves II-XII grossly intact. No focal neurological deficits. Moves all extremities spontaneously.? Skin: No rashes or lesions.? Musculoskeletal: No cyanosis or clubbing. Psychiatric: Normal mood and affect? Results Labs CBC and Chem 7: 10/25/21 05:31 10/25/21 05:31 Labs: Laboratory Results - last 24 hr 10/25/21 10/25/21 10/25/21 05:31 05:31 05:31 MCV 92.2 MCH 32.0 MCHC 34.7 RDW 13.0 Plt Count 251 MPV 10.8 Immature Gran % (Auto) 0.4 Neut % (Auto) 58.8 Lymph % (Auto) 28.8 [place] % (Auto) 7.9 Eos % (Auto) 3.8 Baso % (Auto) 0.3 Lymph # (Auto) 3.5 [place] # (Auto) 1.0 Eos # (Auto) 0.5 H Baso # (Auto) 0.0 Abs Immat Gran (auto) 0.05 H Absolute Neuts (auto) 7.0 Absolute Nucleated RBC 0.000 Nucleated RBC % (auto) 0.0 PT INR APTT Anion Gap 13 Estim Creat Clear Calc 111.6 Estimated GFR > 60 Random Glucose 104 Calcium 9.4 Total Bilirubin 0.8 Direct Bilirubin 0.3 AST 15 ALT 17 Alkaline Phosphatase 89 Troponin I High Sens 221.4 H* Total Protein 7.7 Albumin 4.3 Lipase 11 COVID-19 (JOHNNY) COVID-19 Clin Com 10/25/21 10/25/21 10/25/21 07:22 07:24 07:24 MCV MCH MCHC RDW Plt Count MPV Immature Gran % (Auto) Neut % (Auto) Lymph % (Auto) [place] % (Auto) Eos % (Auto) Baso % (Auto) Lymph # (Auto) [place] # (Auto) Eos # (Auto) Baso # (Auto) Abs Immat Gran (auto) Absolute Neuts (auto) Absolute Nucleated RBC Nucleated RBC % (auto) PT 13.3 H INR 1.2 H APTT 38.9 H Anion Gap Estim Creat Clear Calc Estimated GFR Random Glucose Calcium Total Bilirubin Direct Bilirubin AST ALT Alkaline Phosphatase Troponin I High Sens 255.4 H* Total Protein Albumin Lipase COVID-19 (JOHNNY) Negative COVID-19 Clin Com See Note Assessment and Plan (1) Elevated troponin: Status: Acute (2) Chest pain: Qualifiers: Chest pain type: precordial pain Qualified Code(s): R07.2 - Precordial pain Status: Acute (3) Nonspecific ST-T wave electrocardiographic changes: Status: Acute Plan 51/m with elevated chest pain, elevate trop but flat and non-sepecific ECG changes plan: Observation, serial trops and ECG, stress test tomorrow, check lipid tomorrow, Metoprolol 25 bid for HTN Quality Stroke Does the patient have a stroke diagnosis?: No VTE Prior VTE?: No VTE Risk Level:: Medical - low VTE Device Contraindication: Treatment Not Indicated VTE Drug Contraindication: Treatment Not Indicated
[2021-10-25 13:51] LABS: Troponin-I High Sensitivity 480.5 ng/L (<3.5-35.0)
[2021-10-25 13:59] LABS: Cholesterol 166 mg/dL; HDL Cholesterol 37 mg/dL; LDL Cholesterol Calculated 111 mg/dl; Triglycerides 93 mg/dL
--- NOTE | 2021-10-25 14:12 | PC.NURSE ---
patient went to at 130 to nuclear med to have stress test done . patient aware of plan of care .
--- NOTE | 2021-10-25 14:22 | PC.NURSE ---
RN to RN report given to Brandi
[2021-10-25] MEDS: 0.9 % Sodium Chloride Flush 3 ML SYRINGE IVFLUSH ×2 (16:39→21:00)
[2021-10-25] MEDS: ondansetron HCL 4 MG/2 ML VIAL IVPUSH (18:45)
[2021-10-25] MEDS: Famotidine 20 MG TABLET PO (20:59)
[2021-10-25] MEDS: Metoprolol Tartrate 25 MG TABLET PO (20:59)
--- NOTE | 2021-10-26 | ECG_ITS ---
Test Reason : nstemi Blood Pressure : / mmHG Vent. Rate : 058 BPM Atrial Rate : 058 BPM P-R Int : 146 ms QRS Dur : 084 ms QT Int : 406 ms P-R-T Axes : 057 019 216 degrees QTc Int : 398 ms Sinus bradycardia Nonspecific ST and T wave abnormality Abnormal ECG When compared with ECG of 25-OCT-2021 05:57, Sinus rhythm has replaced Ectopic atrial rhythm Referred By: Don Allen Electronically Signed By:LEFTY COOLEY MD
[2021-10-26 04:00] VITALS: BP 105/63; PULSE 62; RESP 18; TEMP 36.9; O2SAT 100
[2021-10-26 07:47] VITALS: BP 118/80; PULSE 59; RESP 18; TEMP 36.8; O2SAT 99
[2021-10-26 09:35] LABS: Troponin-I High Sensitivity 199.5 ng/L (<3.5-35.0)
--- NOTE | 2021-10-26 09:51 | P.PNIM_ITS ---
Subjective Subjective Date of Service: 10/26/21 Interval History: f/u on NSTEMI, chest pain Interval history: no chest pain, hemodynamically stable Review of Systems no sob, no chest pain Physical Exam Vital Signs: Vital Signs: Last Vital Signs Temp 98.3 F 10/26/21 07:47 Pulse 59 10/26/21 07:47 Resp 18 10/26/21 07:47 BP 118/80 10/26/21 07:47 Pulse Ox 99 10/26/21 07:47 O2 Del Method 10/26/21 07:47 BMI result Body Mass Index 24.7 Const: Other: General: AO X 3, no acute distress Resp: CTA bilateral CVS: S1,S2,RRR GI: +BS, NT, no distention Skin: No rash Neuro: motor grossly intact Psych: appropriate affect Objective Data Active Medications Acetaminophen (Acetaminophen Supp 650 Mg Supp.Rect) 650 mg MS Q6H PRN PRN Reason: Pain, Mild (Pain Scale 1-3) Albuterol Sulfate (Albuterol Sulfate 90 Mcg 8 Gm Inhaler) 2 puff INHALE Q4H PRN PRN Reason: Wheezing Aspirin (Aspirin 81 Mg Tab.Chew) 81 mg PO DAILY [facility] Enoxaparin Sodium (Enoxaparin Sodium 80 Mg/0.8 Ml Syringe) 80 mg SUBCUT Q12H [facility] Last Admin: 10/26/21 04:33 Dose: Not Given Documented By: SALMA Non-Admin Reason: Patient Refused Famotidine (Famotidine 20 Mg Tablet) 20 mg PO BID [facility] Last Admin: 10/25/21 20:59 Dose: 20 mg Documented By: SALMA Fluticasone Propionate (Fluticasone Propionate 100 Mcg Blst.W.Dev) 1 puff INHALE RBID [facility] Last Admin: 10/26/21 08:25 Dose: Not Given Documented By: WINNIE Non-Admin Reason: Med Not Available Melatonin (Melatonin 3 Mg Tablet) 6 mg PO BEDTIME PRN PRN Reason: Insomnia Metoprolol Tartrate (Metoprolol Tartrate 25 Mg Tablet) 25 mg PO BID [facility]; Protocol Last Admin: 10/25/21 20:59 Dose: 25 mg Documented By: SALMA Omeprazole (Omeprazole 20 Mg Capsule.Dr) 20 mg PO BID@0630,1630 [facility] Last Admin: 10/26/21 05:53 Dose: Not Given Documented By: SALMA Non-Admin Reason: Patient Refused Ondansetron HCl (Ondansetron Hcl 4 Mg/2 Ml Vial) 4 mg IVPUSH Q8H PRN PRN Reason: Nausea and Vomiting Last Admin: 10/25/21 18:45 Dose: 4 mg Documented By: LOYDA Oxycodone HCl (Oxycodone Hcl Immed Release 5 Mg Tablet) 7.5 mg PO Q6H PRN PRN Reason: Pain Pharmacy Consult (Consult Rx Perform Med Rec) 1 each MISCELLANE ONCE PRN PRN Reason: Consult order Sodium Chloride (0.9 % Sodium Chloride Flush 3 Ml Syringe) 3 ml IVFLUSH QSHIFT [facility] Last Admin: 10/25/21 21:00 Dose: 3 ml Documented By: SALMA Labs CBC & Chem 7: 10/25/21 05:31 10/25/21 05:31 Labs: Laboratory Results - last 24 hr 10/25/21 10/25/21 10/26/21 13:19 13:19 08:15 Troponin I High Sens 480.5 H* D 199.5 H* D Triglycerides 93 Cholesterol 166 LDL Cholesterol, Calc 111 HDL Cholesterol 37 Assessment and Plan (1) Elevated troponin: Status: Acute (2) NSTEMI (non-ST elevated myocardial infarction): Status: Acute Plan 51/m with elevated chest pain, elevate trop but flat and non-sepecific ECG changes Chest pain, elevated troponin/NSTEMI--continue Lovneox, aspirin, stain, statin, metoprolol for HTN. Stress by cardiology to determine further work up. Change status to inpatient Quality Stroke Does the patient have a stroke diagnosis?: No VTE Prior VTE?: No VTE Risk Level:: Medical - low VTE Device Contraindication: Treatment Not Indicated VTE Drug Contraindication: Treatment Not Indicated
[2021-10-26] MEDS: Famotidine 20 MG TABLET PO (10:44)
[2021-10-26] MEDS: 0.9 % Sodium Chloride Flush 3 ML SYRINGE IVFLUSH ×2 (10:44→17:24)
[2021-10-26] MEDS: Metoprolol Tartrate 25 MG TABLET PO (10:44)
[2021-10-26] MEDS: Aspirin 81 MG TAB.CHEW PO (10:45)
[2021-10-26 11:16] VITALS: BP 159/97; PULSE 66; RESP 18; TEMP 37.1; O2SAT 100
--- NOTE | 2021-10-26 11:35 | MHC.CLN ---
NUTRITION DIET CHANGED TO CARDIAC DUE TO DX NSTEMI.
--- NOTE | 2021-10-26 12:42 | PM.PNCARD ---
Subjective Subjective Date of Service: 10/26/21 <LEE Cheung - Last Filed: 10/26/21 12:55> 10/26/21 <Pérez Head MD - Last Filed: 10/26/21 13:57> Principal diagnosis: CP, elevated troponin <LEE Cheung - Last Filed: 10/26/21 12:55> Interval history: Seen at 1000. Today he reports feeling well. No recurrent epigastric or chest area discomfort since admission. Breathing normal. Troponin last deanne up to 480, this am 199. On Lovenox now. Tele stable SR 50-70s. Nuclear stress test being completed today. <LEE Cheung - Last Filed: 10/26/21 12:55> Review of Systems Review of Systems as above <LEE Cheung - Last Filed: 10/26/21 12:55> Yes all other systems are reviewed and are negative <LEE Cheung - Last Filed: 10/26/21 12:55> Physical Exam Vital Signs: Last Vital Signs Temp 98.7 F 10/26/21 11:16 Pulse 66 10/26/21 11:16 Resp 18 10/26/21 11:16 BP 159/97 H 10/26/21 11:16 Pulse Ox 100 10/26/21 11:16 O2 Del Method 10/26/21 11:16 BMI result Body Mass Index 24.7 <LEE Cheung - Last Filed: 10/26/21 12:55> Const General: cooperative, healthy appearing, no acute distress, alert and awake <LEE Cheung - Last Filed: 10/26/21 12:55> Orientation/consciousness: patient oriented x3 <LEE Cheung - Last Filed: 10/26/21 12:55> Neck Neck: Yes normal visual inspection and Yes no JVD <LEE Cheung - Last Filed: 10/26/21 12:55> Resp Effort & Inspection: normal respiratory effort, able to speak in complete sentences and not labored <LEE Cheung - Last Filed: 10/26/21 12:55> Auscultation: clear to auscultation bilaterally, no crackles, no rales, no rhonchi and no wheezes <Yolis Paez YANIQUE - Last Filed: 10/26/21 12:55> Cardio Palpation: normal PMI <Yolis Paez NP - Last Filed: 10/26/21 12:55> Rate: regular rate <Yolis Paez FREIGHT CONDUCTOR - Last Filed: 10/26/21 12:55> Rhythm: regular rhythm <Yolis Paez FREIGHT CONDUCTOR - Last Filed: 10/26/21 12:55> Heart sounds: S1 normal heart sound present and S2 normal heart sound present <Yolis Paez FREIGHT CONDUCTOR - Last Filed: 10/26/21 12:55> GI Inspection: Yes normal to inspection <Yolis PaezMINO - Last Filed: 10/26/21 12:55> Neuro General: patient oriented x3 <Yolis Paez FREIGHT CONDUCTOR - Last Filed: 10/26/21 12:55> Extrem General: Yes normal to inspection and No edema <Yolis PaezMINO - Last Filed: 10/26/21 12:55> Objective Labs and Meds Result diagrams: : 10/25/21 05:31 10/25/21 05:31 <Yolis PaezMINO - Last Filed: 10/26/21 12:55> Lab results: Laboratory Results - last 24 hr 10/25/21 10/25/21 10/26/21 13:19 13:19 08:15 Troponin I High Sens 480.5 H* D 199.5 H* D Triglycerides 93 Cholesterol 166 LDL Cholesterol, Calc 111 HDL Cholesterol 37 <Yolis Paez FREIGHT CONDUCTOR - Last Filed: 10/26/21 12:55> Progress Note: A&P Assessment and plan (1) NSTEMI (non-ST elevated myocardial infarction): Status: Acute <Yolis PaezMINO - Last Filed: 10/26/21 12:55> Assessment and Plan: Admit with epigastric discomfort that radiates up to chest. Has been occurring intermittently x1 week. Hx of GERD and he tells me he believes the symptom to be reflux related. EKG shows SR, slight ST abnormalities in lead II, V4-V6. Troponin initially 221 and did rise to 480 last deanne, down to 199 this am. Echo shows EF 60-65%, no regional WMA, no valve abn. He has no cardiac history. Cardiac risk of family hx early CAD with brother having [place] age 57. His discomfort sounds atypical but his rise in troponin meet criteria for NSTEMI. He is being anticoagulated with Lovenox. He is on aspirin and metoprolol. Labs showed LDL 111. Pharmacological Nuclear stress test is being completed today: Pt did report having his epigastric and chest discomfort following Lexiscan injection ( during stress test) and did have EKG changes meeting criteria for ischemia. Myocardial pefusion results still pending. We will follow. <Yolis Paez, LEE - Last Filed: 10/26/21 12:55> Admit with epigastric discomfort that radiates up to chest. Has been occurring intermittently x1 week. Hx of GERD and he tells me he believes the symptom to be reflux related. EKG shows SR, slight ST abnormalities in lead II, V4-V6. Troponin initially 221 and did rise to 480 last deanne, down to 199 this am. Echo shows EF 60-65%, no regional WMA, no valve abn. He has no cardiac history. Cardiac risk of family hx early CAD with brother having [place] age 57. His discomfort sounds atypical but his rise in troponin meet criteria for NSTEMI. He is being anticoagulated with Lovenox. He is on aspirin and metoprolol. Labs showed LDL 111. Pharmacological Nuclear stress test is being completed today: Pt did report having his epigastric and chest discomfort following Lexiscan injection ( during stress test) and did have EKG changes meeting criteria for ischemia. Myocardial pefusion results still pending. We will follow. Patient seen and examined. Case discussed with Yolis Paez. Patient developed chest pain with Lexiscan with abnormal EKG suggestive ischemia. Myocardial perfusion imaging consistent with ischemia in the circumflex territory. Will continue anticoagulation. Continue low-dose aspirin therapy. Switch to high-intensity statin therapy with atorvastatin 80 mg daily. Continue metoprolol therapy. Patient recommended to undergo cardiac catheterization to further evaluate coronary anatomy and treatment if necessary. This was discussed with him. He was hesitant to be transferred to [facility]. If agrees will transfer to [facility] for further evaluation and treatment. Thank you for allowing us to partake in his care <Pérez Head MD - Last Filed: 10/26/21 13:57> (2) Chest pain: Status: Acute <LEE Cheung - Last Filed: 10/26/21 12:55> (3) Elevated troponin: Status: Acute <LEE Cheung - Last Filed: 10/26/21 12:55> (4) Nonspecific ST-T wave electrocardiographic changes: Status: Acute <LEE Cheung - Last Filed: 10/26/21 12:55> (5) Acid reflux: Status: Acute <LEE Cheung - Last Filed: 10/26/21 12:55> Time Spent With Patient Time: Total time spent is greater than 50% in coordination of care (as documented) at patient's floor/unit and/or counseling patient: 20 <LEE Cheung - Last Filed: 10/26/21 12:55> Progress Note: Quality Stroke Does the patient have a stroke diagnosis?: No <LEE Cheung - Last Filed: 10/26/21 12:55> Procedures Date of Service Date of Service: 10/26/21 <LEE Cheung - Last Filed: 10/26/21 12:55>
[2021-10-26 15:01] VITALS: BP 136/82; PULSE 55; RESP 18; TEMP 36.6; O2SAT 100
--- NOTE | 2021-10-26 15:03 | P.DS_ITS ---
DS: Providers Provider Date of Service: 10/26/21 Date of admission: 10/25/21 12:11 Primary care physician: Kristen Hanna NP Consults: 10/25/21 08:58 Consult to Cardiology Routine Consulting Provider: Pérez Head Reason for consultation: chest pain, EKG changes Has provider been notified: Yes DS: Diagnosis Discharge Diagnosis (1) NSTEMI (non-ST elevated myocardial infarction): Status: Acute (2) Chest pain: Status: Acute (3) Elevated troponin: Status: Acute (4) Nonspecific ST-T wave electrocardiographic changes: Status: Acute (5) Acid reflux: Status: Acute DS: Summary Hospital Course Hospital Course: Chief Complaint: Chest Pain 51 year old male with HTN not on meds, Asthma that is controled, GERD on Pepcid who presents, early family history of CAD, brother had [place] at 57. He presents with 1 and half week of intermittent chest pain, mostly happening at night assocated with vomitting and sweating, locates the pain mid sternal area variable intensity but worse with exertion and was particulary bad last night prompting him to come in. He has been omeprazole without relieve. ECG shows some lateral changes and troponin I 255 essentially unchanged from prior. Cardiology is recommending inpatient stress. Hospital course: Patient presented with chest pain that was mostly atypical but some typical features and non specific ecg changes. His troponin I started @ 220 and peaked at 480 and has come down to 199. He was treated medically with Lovenox, metoprolol, asprin, statin and next day underwent Lexican stress which showed: 1.? Myocardial perfusion imaging study shows moderately large area of moderate intensity ischemia in circumflex territory 2.? Gated LVEF is 44% 3. Transient ischemic dilatation not present. He will therefore be transfered to [facility] for cardiac cath. Time Spent with Patient Time attestation: Total time spent providing and/or coordinating discharge services: Discharge coordination time: Greater than 30 minutes Quality: Safe Use of Opioids Does Pt have an Active Cancer Diagnosis on the Problem List?: No Quality: Stroke Does the patient have a stroke diagnosis?: No Physical Exam Vital Signs: Vital Signs: Last Vital Signs Temp 97.8 F 10/26/21 15:01 Pulse 55 10/26/21 15:01 Resp 18 10/26/21 15:01 BP 136/82 10/26/21 15:01 Pulse Ox 100 06/22/22 15:01 O2 Del Method 10/26/21 15:01 BMI result Body Mass Index 24.7 DS: Data Data Completed and Pending Labs on day of discharge: Laboratory Results - last 24 hr 10/26/21 08:15 Troponin I High Sens 199.5 H* D Discharge Plan Discharge Anticipated Discharge Date/Time: 10/26/21 14:58 Patient Disposition: Xfer Acute Care Hospital Discharge Diagnosis: NSTEMI Referrals: Kristen Hanna RESIDENT CARE AIDE [Primary Care Provider] - 1 Week Discharge Medications: Continued famotidine 20 mg tablet 1 tab PO BID cholecalciferol (vitamin D3) 1,250 mcg (50,000 unit) capsule 1 cap PO WE ibuprofen 200 mg Tablet 400 mg PO Q6H PRN (Reason: Pain) albuterol sulfate [ProAir HFA] 90 mcg/actuation HFA aerosol inhaler 2 puff PO Q4-6H PRN (Reason: Wheezing) omeprazole 20 mg capsule,delayed release(DR/EC) 20 mg PO BID oxycodone-acetaminophen 7.5-325 mg tablet 1 tab PO Q6H PRN (Reason: Pain) Flovent HFA 110 mcg/actuation HFA aerosol inhaler 1 puff PO BID Diet: advance to usual diet Activity on Discharge: As tolerated Stand Alone Forms: Patient Portal Discharge page Care Plan Goals: Transfer to [facility] for cardiac cath Health Concerns: NSTEMI Plan of Treatment: Transfer to [facility] for cardiac cath Assessment: As above
[2021-10-26] MEDS: Omeprazole 20 MG CAPSULE.DR PO (17:23)
== END 2021-10-26 19:30 | disposition short-term general hospital (02) ==
LOC: HO.ED 11:03 → HO.EDOVER 12:43 → HO.IMC 13:48
PROVIDERS: Emergency Medicine; Admitting Provider Internal Medicine; Emergency Provider Emergency Medicine; PCP Nurse Practitioner Primary Care; Visit Provider Internal Medicine
DX: R07.2 Precordial pain (principal); R77.8 Other specified abnormalities of plasma proteins; I21.4 Non-ST elevation (NSTEMI) myocardial infarction; R00.1 Bradycardia, unspecified; I10 Essential (primary) hypertension; R10.13 Epigastric pain; K21.9 Gastro-esophageal reflux disease without esophagitis; J98.19 Other pulmonary collapse; F17.210 Nicotine dependence, cigarettes, uncomplicated; Z20.822 Contact with and (suspected) exposure to COVID-19; Z82.49 Family history of ischemic heart disease and other diseases of the circulatory system; Z83.79 Family history of other diseases of the digestive system; Z88.0 Allergy status to penicillin; Z88.1 Allergy status to other antibiotic agents; Z91.040 Latex allergy status; Z79.899 Other long term (current) drug therapy
CPT/HCPCS: 36415; 78452; 80048; 80061; 80076; 83690; 84484; 85025; 85610; 85730; 87635; 93005; 93017; 93306; 96372; 96374; 96375; 99219; 99285; A9500; J0280; J2405; J2785; Q9957

== ENCOUNTER → 2021-11-10 13:41 | Outpatient (BNVA) | payer MEDICARE, OTHER, SELFPAY | PROVIDERS: PCP Nurse Practitioner Primary Care; Referring Provider Nurse Practitioner Primary Care; Visit Provider Nurse Practitioner Family | DX: I21.4 Non-ST elevation (NSTEMI) myocardial infarction (principal); Z95.5 Presence of coronary angioplasty implant and graft; Z79.82 Long term (current) use of aspirin; Z79.899 Other long term (current) drug therapy | CPT/HCPCS: 99212 ==

== ENCOUNTER → 2022-03-10 10:49 | Outpatient (BNVA) | payer MEDICARE, SELFPAY | PROVIDERS: PCP Nurse Practitioner Primary Care; Referring Provider Nurse Practitioner Primary Care; Visit Provider Internal Medicine Cardiovascular Disease | DX: I25.10 Atherosclerotic heart disease of native coronary artery without angina pectoris (principal) | CPT/HCPCS: 99212 ==

== ENCOUNTER → 2022-05-17 09:43 | Outpatient (BNVA) | payer MEDICARE, OTHER, SELFPAY | PROVIDERS: PCP Nurse Practitioner Primary Care; Visit Provider Physician Assistant | DX: M75.81 Other shoulder lesions, right shoulder (principal); M19.011 Primary osteoarthritis, right shoulder | CPT/HCPCS: 99202 ==

== ENCOUNTER 2022-12-26 13:37 | Outpatient (AMB) | payer OTHER, MEDICAID, SELFPAY ==
--- NOTE | 2022-12-26 13:38 | MHC.OFFVIS ---
Intake Vital Signs 12/26/22 13:40 Height 5 ft 10 in Weight 147 lb 11.355 oz BMI 21.2 BP 120/82 Blood Pressure Location Lt brachial Position Sitting Pulse 64 Intake Visit Reasons: 6 month follow up Intake Note: 6 month follow-up hearts ok need dential extraction will need ok on blood thinners stopping and ok to have done Biomathematician Required: No Allergies amoxicillin Allergy (Mild, Verified 05/17/22 10:11) unknown latex Allergy (Unknown, Uncoded 03/10/22 11:02) itching Medication List - Last Reconciled 12/26/22 by Pérez Head MD albuterol sulfate 90 mcg/actuation (ProAir HFA) 2 puffs PO Q4-6H PRN aspirin 81 mg PO DAILY atorvastatin (Lipitor) 40 mg PO BEDTIME famotidine 20 mg PO BID metoprolol tartrate 12.5 mg See Protocol PO BID 90 days naloxone 4 mg/actuation 0 sprays intranasal oxycodone-acetaminophen 7.5-325 mg 1 tab PO Q6H PRN pantoprazole 20 mg PO BID ticagrelor (Brilinta) 90 mg PO BID HPI HPI Comments History of Present Illness Details Stanislav comes for follow-up. He has been doing well from cardiac perspective. He said he is breathing is much improved although he also says a cut down smoking to about 3 cigarettes a day now. He takes all his medications. He said he is planning to undergo major oral surgery in the near future. He denies any chest pain. No other bleeding issues. [facility] Medical History Acid reflux Collapsed lung GERD (gastroesophageal reflux disease) NSTEMI (non-ST elevated myocardial infarction) On anticoagulant therapy On beta tri at home Surgical History History of esophagogastroduodenoscopy (EGD) History of foot surgery Stented coronary artery Family History Mother Diverticulitis HTN (hypertension) Brother Diverticulitis Brother Diverticulitis HTN (hypertension) Brother Diverticulitis HTN (hypertension) Diabetes Brother Diverticulitis Sister HTN (hypertension) Sister Diverticulitis HTN (hypertension) Diabetes Sister HTN (hypertension) Family/Other Cancer Social History Household Members: Family Housing: Apartment Alcohol intake: former Patient Tobacco Use Status: Current everyday Tobacco user Tobacco use type: Cigarette Cigarettes Per Day: 3 Years Smoked: 30+/- Substance Use Type: Marijuana service: No Current occupational status: disabled Review of Systems Const Denies chills, Denies fatigue, Denies fever(s), Denies frequent falls, Denies weakness, Denies weight gain and Denies weight loss ENT Denies dizziness Card Denies chest pain, Denies leg edema, Denies lightheadedness, Denies palpitations, Denies dyspnea, Denies dyspnea on exertion, Denies orthopnea and Denies other (loss of consciousness) Resp Denies cough, Denies dyspnea and Denies dyspnea on exertion GI Denies hematochezia and Denies change in stool character Musc Denies abnormal gait, Denies muscle weakness, Denies numbness, Denies radiating pain into limb and Denies tingling Neuro Denies abnormal gait, Denies dizziness, Denies frequent falls, Denies numbness, Denies tingling and Denies weakness Endo Denies fatigue and Denies palpitations Physical Exam Vital Signs: Last Vital Signs Pulse 64 12/26/22 13:40 BP 120/82 12/26/22 13:40 BMI result Body Mass Index 21.2 Const General: cooperative, healthy appearing, comfortable and no acute distress Nutritional Appearance: thin and underweight Orientation/consciousness: patient oriented x3 Neck Neck: Yes normal visual inspection and Yes no JVD Resp Effort & Inspection: normal respiratory effort Auscultation: clear to auscultation bilaterally, no crackles, no rales, no rhonchi and no wheezes Cardio Jugular venous distension: no JVD Rate: regular rate Rhythm: regular rhythm Heart sounds: S1 normal heart sound present, S2 normal heart sound present, no gallops, no murmurs and no rubs Peripheral pulses: Peripheral pulses 2+ throughout GI Inspection: Yes normal to inspection Neuro General: patient oriented x3 Extrem Other: Right radial catheterization site well healed General: Yes normal to inspection, No no pedal edema and No calf tenderness Psych Appearance: grossly normal Mental Status: mental status grossly normal Speech and movement: Normal speech and movement present Office Procedures EKG Details: EKG shows normal sinus rhythm nonspecific T-wave changes [id number], Complete Assessment & Plan Assessment & Plan (1) CAD (coronary artery disease): Code(s): I25.10 - Atherosclerotic heart disease of [place] coronary artery without angina pectoris Plan: CAD with drug-eluting stent to the mid circumflex artery for acute coronary syndrome. Has done well with no recurrent symptoms. He is intentionally cutting down smoking and is down to 3 cigarettes a day. Recommend to completely stop smoking in the future. He said he is going to continue to try. His blood pressure is currently well optimized. We discussed about pathophysiology coronary artery disease. Currently on high-intensity statin therapy but no lipids have been done in a long time. Advised lipid panel near future. Target goal LDL closer to 60 mg/dL. Continue dual antiplatelet therapy as per dad study given his age and low risk of bleeding to reduce long-term small risk of stent thrombosis. Will reduce Brilinta to 60 mg b.i.d.. However if he has to undergo noncardiac surgery with oral surgery that increases bleeding risk is antiplatelets can be held for 5 days prior to the procedure and resumed as soon as possible after the procedure. Will follow up in the clinic in 1 year's time, sooner p.r.n.. Thank you for allowing me to partake in his care Orders: Orders Lipid Panel Today I25.10 - Atherosclerotic heart disease of [place] coronary artery without angina pectoris Medications: New ticagrelor (Brilinta) 60 mg PO BID 60 tabs 11RF Discontinued ticagrelor (Brilinta) Discontinued Reason: Doctor's Order 90 mg PO BID 60 tabs 1RF Coding Level of Care Code Est Pt Level 4 (68634) Diagnoses CAD (coronary artery disease) I25.10 CPT Codes EKG - CPT: 22166-[id number], Complete ([id number])
[2022-12-26 13:40] VITALS: BP 120/82; PULSE 64; BMI 21.2
== END 2022-12-26 14:01 | disposition home or self-care (01) ==
PROVIDERS: PCP Nurse Practitioner Primary Care; Referring Provider Nurse Practitioner Primary Care; Visit Provider Internal Medicine Cardiovascular Disease
DX: I25.10 Atherosclerotic heart disease of native coronary artery without angina pectoris (principal)
CPT/HCPCS: 93010; 99214

== ENCOUNTER → 2022-12-26 13:37 | Outpatient (BNVA) | payer OTHER, MEDICAID, SELFPAY | PROVIDERS: PCP Nurse Practitioner Primary Care; Referring Provider Nurse Practitioner Primary Care; Visit Provider Internal Medicine Cardiovascular Disease | DX: I25.10 Atherosclerotic heart disease of native coronary artery without angina pectoris (principal) | CPT/HCPCS: 93005; 99212 ==

== ENCOUNTER 2022-12-29 06:58 | Outpatient (REF) | payer OTHER, SELFPAY ==
[2022-12-29 09:03] LABS: Cholesterol 102 mg/dL (<200); HDL Cholesterol 37 mg/dL (>40); LDL Cholesterol Calculated 48 mg/dL (<100); Triglycerides 88 mg/dL (<150)
== END 2022-12-29 06:59 | disposition home or self-care (01) ==
LOC: HO.LAB 06:58
PROVIDERS: Visit Provider Internal Medicine Cardiovascular Disease
DX: I25.10 Atherosclerotic heart disease of native coronary artery without angina pectoris (principal)
CPT/HCPCS: 36415; 80061

== ENCOUNTER 2023-04-13 06:28 | Emergency (ER) | payer OTHER, SELFPAY ==
--- NOTE | ~2023-04-13 | CT_ITS ---
EXAMINATION: CT ABDOMEN AND PELVIS WITHOUT CONTRAST CLINICAL INFORMATION: Flank pain COMPARISON: None available. TECHNIQUE: Multidetector volumetric imaging was performed from the superior aspect of the liver through the pubic symphysis. Sagittal and coronal reformatted images were obtained on the technologist's workstation. This CT examination was performed using dose optimization techniques as appropriate, variously including the following: *Automated exposure control *Adjustment of mA and/or kV according to patient size (this includes techniques or standardized protocols for targeted exams where dose is matched to indication/reason for exam; i.e. extremities or head) *Use of iterative reconstruction technique DLP: 406 mGy-cm FINDINGS: BATTERY INSTALLER: Left base atelectasis. Nonobstructive bowel pattern. LUNG BASES: Subpleural groundglass opacities identified in the visualized right middle, lingular and bilateral lower lobes. Small cystic spaces also identified within the groundglass opacities bilateral lower lobes, possibly bronchiectasis. 5 mm right lower lobe nodule identified in close association with the right major fissure, 3:9. LIVER, GALLBLADDER, AND BILIARY TREE: The liver is normal in size, shape, and attenuation. No focal hepatic lesion or biliary ductal dilatation is present. The gallbladder is unremarkable with no evidence of radiopaque gallstones, gallbladder wall thickening, or obvious pericholecystic inflammatory changes. PANCREAS: Unremarkable. SPLEEN: Unremarkable. ADRENAL GLANDS: Unremarkable. KIDNEYS AND URETERS: Right kidney measures 11.4 cm in longest sagittal projection. No right renal, ureteral calculi, hydroureteronephrosis or perinephric stranding. Left kidney is mildly enlarged and edematous appearing with mild intrarenal collecting system and ureteral prominence to 3 mm proximal/mid ureteral stone. Mild perinephric or periureteral stranding. Tiny nonobstructing left upper pole renal calculus. Possible too small to characterize small lower pole medial exophytic cyst. BLADDER: Decompressed. GASTROINTESTINAL TRACT: Stomach not ideally distended. Nonobstructive bowel pattern. Unremarkable terminal ileum and appendix. Diverticulosis without diverticulitis. ABDOMINAL WALL: Small fat filled umbilical hernia. LYMPH NODES: No pathologic lymphadenopathy. VASCULAR: Ectatic distal abdominal aorta and common iliac arteries with atherosclerotic calcifications. Normal caliber inferior vena cava. PELVIC VISCERA: Prominent prostate with calcifications. OSSEOUS STRUCTURES: 2.5 cm mixed sclerotic and lucent right iliac bone without aggressive features. CT/CT abdomen pelvis wo IV con IMPRESSION: 3 mm left proximal/mid ureteral calculus with proximal hydroureter, mild intrarenal collecting system prominence, edematous appearing kidney, perinephric or periureteral stranding. Subpleural groundglass opacities and cystic changes. 5 mm right lower lobe pulmonary nodule. Correlate with symptomatology/pulmonary function status. Diverticulosis without diverticulitis.
[2023-04-13 06:36] VITALS: BP 165/90; PULSE 64; RESP 16; TEMP 36.5; O2SAT 100; BMI 22.0
--- NOTE | 2023-04-13 06:45 | ED_ITS ---
HPI - General Adult General Chief complaint: Abdominal Pain Stated complaint: side pain Time Seen by Provider: 04/13/23 06:41 Source: patient Mode of arrival: ambulatory Limitations: no limitations History of Present Illness HPI narrative: Patient is a 53 year old assigned male at with a history of CAD and kidney stones presenting to the emergency department today with left sided flank pain, nausea, and vomiting. Patient states that over the last 2 hours he has had left sided flank pain with some nausea and after chugging a bottle of water, he threw up. Patient denies any dizziness, lightheadedness, fever, chills, blurry vision, double vision, loss of vision, chest pain, difficulty breathing, shortness of breath, back pain, night sweats, pain with urination, increased urinary frequency, increased urinary urgency, blood in his urine or stool, syncope or a near syncopal episode, recent trauma or falls, bowel incontinence, bladder incontinence, bowel retention, bladder retention, or any other complaints at this time. Onset (ago): hour(s) Location: left (flank) Radiation: non-radiation Severity: mild Severity scale (1-10): 3 Quality: aching and dull Pain Consistency: constant Relieving factors: none Exacerbating factors: none Associated symptoms: denies other symptoms Treatments prior to arrival: none Related Data Home Medications Medication Instructions Recorded Confirmed albuterol sulfate 90 mcg/actuation 2 puff PO Q4-6H PRN Wheezing 09/22/21 12/26/22 aerosol inhaler (ProAir HFA) oxycodone-acetaminophen 7.5 mg-325 1 tab PO Q6H PRN Pain 09/22/21 12/26/22 mg tablet famotidine 20 mg tablet 20 mg PO BID 11/10/21 12/26/22 pantoprazole 20 mg tablet,delayed 20 mg PO BID 11/10/21 12/26/22 release naloxone 4 mg/actuation nasal spray 0 spray intranasal 03/10/22 12/26/22 Previous Rx's Medication Instructions Recorded metoprolol tartrate 25 mg tablet 12.5 mg PO BID 90 days #90 tabs 07/13/22 atorvastatin 40 mg tablet (Lipitor) 40 mg PO BEDTIME #90 tabs 11/13/22 ticagrelor 60 mg tablet (Brilinta) 60 mg PO BID #60 tabs 12/26/22 aspirin 81 mg tablet,delayed 81 mg PO DAILY #90 tabs 04/11/23 release prednisone 20 mg tablet 20 mg PO DAILY 7 days #7 tabs 04/13/23 tamsulosin 0.4 mg capsule 0.4 mg PO DAILY #7 caps 04/13/23 Allergies Allergy/AdvReac Type Severity Reaction Status Date / Time amoxicillin Allergy Mild unknown Verified 04/13/23 06:38 latex Allergy Unknown itching Uncoded 04/13/23 06:38 Review of Systems 2 Constitutional: Constitutional: Reports no additional constitutional complaints, Denies chills, Denies fever(s) and Denies night sweats Eyes: Eyes: Reports no additional eye complaints, Denies blurry vision, Denies change in vision, Denies diplopia, Denies eye discharge, Denies loss of vision and Denies eye pain ENT: Denies dizziness Cardiovascular: Cardiovascular: Reports no additional cardiovascular complaints, Denies chest pain, Denies lightheadedness, Denies Loss of Consciousness and Denies dyspnea Respiratory: Respiratory: Reports no additional respiratory complaints and Denies dyspnea Gastrointestinal: Gastrointestinal: Reports no additional gastrointestinal complaints, Denies abdominal pain, Denies melena, Denies hematochezia, Denies change in bowel habits, Denies change in stool character, Reports nausea and Reports vomiting Genitourinary: Genitourinary: Reports no additional male genitourinary complaints, Denies hematuria, Denies oliguria, Denies difficulty urinating, Denies dysuria, Denies urinary frequency, Denies urinary hesitancy, Denies urinary incontinence and Denies urinary urgency Comments: left flank pain Musculoskeletal: Musculoskeletal: Reports no additional musculoskeletal complaints, Denies numbness and Denies tingling Neurologic: Denies dizziness, Denies loss of vision, Denies numbness and Denies tingling Psychiatric: Psychiatric: Reports no additional psychiatric complaints Endocrine: Endocrine: Reports no additional endocrine complaints Hematologic/Lymphatic: Hematologic/Lymphatic: Reports no additional hematologic/lymphatic complaints Allergic/Immunologic: Allergic/Immunologic: Reports no additional allergic/immunologic complaints PMFSH Past Medical History Attestation statement: The following information was validated with the patient. Source: old records reviewed and nursing notes reviewed Medical History On anticoagulant therapy On beta tri at home NSTEMI (non-ST elevated myocardial infarction) GERD (gastroesophageal reflux disease) Acid reflux Collapsed lung Surgical History Stented coronary artery History of esophagogastroduodenoscopy (EGD) History of foot surgery Family History Family History Mother Diverticulitis HTN (hypertension) Brother Diverticulitis Brother Diverticulitis HTN (hypertension) Brother Diverticulitis HTN (hypertension) Diabetes Brother Diverticulitis Sister HTN (hypertension) Sister Diverticulitis HTN (hypertension) Diabetes Sister HTN (hypertension) Family/Other Cancer Social History Social History Household Members: Family Housing: Apartment Alcohol intake: former Patient Tobacco Use Status: Current everyday Tobacco user Tobacco use type: Cigarette Cigarettes Per Day: 3 Years Smoked: 30+/- Smoked in Last 30 Days: Yes Use of substances other than those prescribed or required for medical reasons: No Substance Use Type: Marijuana Advance Directives: Yes Advance Directives Information Provided: Yes Advance Directives on File: No service: No Current occupational status: disabled Physical Exam ED Vital Signs: Vital Signs - 24 hr 04/13/23 06:36 04/13/23 07:32 04/13/23 08:17 Temperature 97.7 F 97.8 F Pulse Rate 64 63 60 Respiratory Rate 16 18 20 Blood Pressure 165/90 H 144/78 H 144/78 H Pulse Oximetry 100 100 98 Oxygen Delivery Method Room Air Room Air 04/13/23 09:43 Temperature Pulse Rate 62 Respiratory Rate 19 Blood Pressure 123/68 Pulse Oximetry 98 Oxygen Delivery Method BMI result Body Mass Index 22.0 Const General: cooperative, no acute distress, alert and awake Nutritional Appearance: well nourished Orientation/consciousness: patient oriented x3 Limitations: no limitations HENMT Head: Yes normal to inspection and Yes atraumatic Ears: hearing grossly normal bilaterally and external ears normal General nose exam: Normal external nose present, no nasal discharge noted and no epistaxis Face and sinus: Yes normal facial exam, No abrasion and No laceration Mouth: Normal oral and palatal mucosa present, no drooling and no muffled voice Eyes General: appearance normal, both eyes and all related structures Periorbital: periorbital findings normal Eyelids: Yes eyelids normal Conjunctivae: conjunctivae normal Pupils: Equal, round and reactive pupils present EOM: EOMs intact bilaterally Neck Neck: Yes normal visual inspection, Yes full ROM and Yes no lymphadenopathy Chest Chest palpation & inspection: normal inspection of the chest Resp Effort & Inspection: normal respiratory effort and able to speak in complete sentences Auscultation: clear to auscultation bilaterally Cardio Rate: regular rate Rhythm: regular rhythm GI Inspection: Yes normal to inspection Palpation (GI): Soft to palpation, not firm, nontender and no guarding General: Yes no CVA tenderness Back/Spine/Pelvis Back: no CVA tenderness Neuro General: patient oriented x3 and moves all extremities Cranial nerves: Yes Equal, round and reactive pupils present Cognition (Neuro): normal cognition Motor exam (neuro): 5/5 motor strength present throughout Sensory Exam: Normal double simultaneous stimulation for sensation Coordination: [id number] test normal Extrem General: Yes normal to inspection, Yes full ROM and Yes capillary refill normal Psych Appearance: grossly normal Mental Status: mental status grossly normal Affect: normal affect Attitude: cooperative Thought process: Normal thought process present Thought content: Normal thought content present Insight: Good insight present (Psych) Medications Administered Discontinued Medications Generic Name Dose Route Start Last Admin Trade Name Freq PRN Reason Stop Dose Admin Sodium Chloride 1,000 mls @ 999 mls/hr 04/13/23 08:15 04/13/23 08:16 Ns IV 04/13/23 09:15 999 mls/hr .Q1H1M CITLALLI Administration Morphine Sulfate 4 mg 04/13/23 08:03 04/13/23 08:15 Morphine Sulfate 4 Mg/Ml Cartridge IVPUSH 04/13/23 08:04 4 mg ONCE ONE Administration Protocol Ondansetron HCl 4 mg 04/13/23 08:03 04/13/23 08:14 Ondansetron Hcl 4 Mg/2 Ml Vial IVPUSH 04/13/23 08:04 4 mg ONCE ONE Administration Medical Decision Making Medical Decision Making MDM Narrative: Patient is a 53 year old assigned male at with a history of CAD on anti- coagulation medication, CKD, and kidney stones presenting to the emergency department today with left flank pain. Patient's physical exam was unremarkable. Patient's blood work showed an elevated WBC count of 17 which I attribute to a stress reaction. The remaining lab results were unremarkable. Patient's urine showed blood but was otherwise unremarkable. Patient's CT abdomen/pelvis showed a 3mm left proximal/mid ureteral calculus with proximal hydroureter, mild intrarenal collecting system prominence, edematous appearing kidney, and perinephric / periureteral stranding. I consulted with the urologist who recommended discharge with prednisone and tamsulosin and to have the patient follow up outpatient. I explained my physical exam findings as well as all test results to the patient. I answered all questions asked by the patient. Patient received IV pain medication and fluids which he stated helped his symptoms significantly. I stressed the importance of the patient taking his medication as prescribed. I stressed the importance of the patient following up with his primary care provider and a urologist. I stressed the importance of the patient returning to the emergency department immediately if his symptoms were to worsen or if he were to develop any dizziness, shortness of breath, difficulty breathing, chest pain, blurry vision, loss of vision, nausea, vomiting, abdominal pain, fever, chills, back pain, or any other complaints. Patient verbalized agreement and understanding with this treatment plan and discharge. Differential Diagnosis Differential Diagnoses: The differential diagnosis associated with the presentation includes Kidney stone UTI Flank pain Admission/Observation Consideration of admission/observation: Escalation of care including admission/observation considered Patient would have been admitted to the hospital had his work up had any findings where hospital admission was appropriate and his clinical presentation warranted hospital admission. Consult Healthcare Provider Management of the patient was discussed with: Bleach Supervisor (I spoke with urology as noted in the MDM Rationale portion of this note.) Lab Data [facility] Lab Attestation statement: I reviewed the patient's lab results. My interpretation of these results are in the MDM Rationale portion of this note. 04/13/23 07:44 04/13/23 07:44 Labs: Lab Results 04/13/23 04/13/23 Range/Units 06:52 07:44 WBC 17.0 H (4.8-10.8) X10*3/uL RBC 4.64 (4.60-5.80) X10*6/uL Hgb 14.4 (14.0-18.0) g/dl Hct 42.9 (42.0-52.0) % MCV 92.5 (80.0-98.0) fL MCH 31.0 (27.0-33.0) pg MCHC 33.6 (31.0-36.0) g/dl RDW 13.4 (11.0-16.0) % Plt Count 230 (160-400) X10*3/uL MPV 11.9 (9.4-12.4) fL Immature Gran % (Auto) 0.4 (0.0-0.4) % Neut % (Auto) 77.7 H (45-73) % Lymph % (Auto) 11.9 L (20-40) % Dane % (Auto) 5.0 (2-11) % Eos % (Auto) 4.6 H (0-4) % Baso % (Auto) 0.4 (0-2) % Lymph # (Auto) 2.0 (1.2-4.9) X10*3/uL Dane # (Auto) 0.9 (0.1-1.2) X10*3/uL Eos # (Auto) 0.8 H (0.0-0.4) X10*3/uL Baso # (Auto) 0.1 (0.0-0.2) X10*3/uL Abs Immat Gran (auto) 0.07 H (0.00-0.03) X10*3/uL Absolute Neuts (auto) 13.2 H (2.0-8.3) x10*3/uL Absolute Nucleated RBC 0.000 (0.0-0.012) X10*3/uL Nucleated RBC % (auto) 0.0 (0.0-0.2) /100WBC Sodium 141 (135-145) mmol/L Potassium 3.9 (3.3-5.1) mmol/L Chloride 109 H (96-108) mmol/L Carbon Dioxide 25 (22-29) mmol/L Anion Gap 11 L (12-20) BUN 16 (9-16) mg/dL Creatinine 0.95 (0.5-1.4) mg/dL Estim Creat Clear Calc 86.2 Estimated GFR > 60 Random Glucose 97 (60-115) mg/dL Calcium 9.4 (8.4-10.2) mg/dL Total Bilirubin 0.5 (0.0-1.0) mg/dL Direct Bilirubin 0.2 (0.0-0.5) mg/dL AST 16 (5-37) U/L ALT 16 (0-40) U/L Alkaline Phosphatase 106 (39-117) U/L Total Protein 8.2 H (6.5-8.0) g/dL Albumin 4.3 (3.5-5.0) g/dL Lipase 38 (8-78) U/L Urine Color Dark Yellow Urine Appearance Clear Urine pH 5.5 (5.0-9.0) Ur Specific [place] >= 1.030 H (1.005-1.025) Urine Protein 30 (1+) H (Neg-Trace) mg/dL Urine Glucose (UA) Negative (Negative) mg/dL Urine Ketones Trace (Negative) mg/dL Urine Blood Large (3+) H (Negative) Urine Nitrite Negative (Negative) Ur Leukocyte Esterase Negative (Negative) Urine RBC >20 H (0-2) /HPF Urine WBC 0-5 (0-5) /HPF Ur Squamous Epith Cells 0-2 (0-2) /HPF Urine Bacteria None Seen (None Seen) Hyaline Casts 0-2 (0-2) /LPF Independent Interpretation I performed an independent interpretation of an: CT Scan Interpretation: My interpretation is in agreement with the radiologist's impression of this imaging study. - EXAMINATION: CT ABDOMEN AND PELVIS WITHOUT CONTRAST CLINICAL INFORMATION: Flank pain COMPARISON: None available. TECHNIQUE: Multidetector volumetric imaging was performed from the superior aspect of the liver through the pubic symphysis. Sagittal and coronal reformatted images were obtained on the technologist's workstation. This CT examination was performed using dose optimization techniques as appropriate, variously including the following: *Automated exposure control *Adjustment of mA and/or kV according to patient size (this includes techniques or standardized protocols for targeted exams where dose is matched to indication/reason for exam; i.e. extremities or head) *Use of iterative reconstruction technique DLP: 406 mGy-cm FINDINGS: SENIOR CUSTOMER SERVICE REPRESENTATIVE: Left base atelectasis. Nonobstructive bowel pattern. LUNG BASES: Subpleural groundglass opacities identified in the visualized right middle, lingular and bilateral lower lobes. Small cystic spaces also identified within the groundglass opacities bilateral lower lobes, possibly bronchiectasis. 5 mm right lower lobe nodule identified in close association with the right major fissure, 3:9. LIVER, GALLBLADDER, AND BILIARY TREE: The liver is normal in size, shape, and attenuation. No focal hepatic lesion or biliary ductal dilatation is present. The gallbladder is unremarkable with no evidence of radiopaque gallstones, gallbladder wall thickening, or obvious pericholecystic inflammatory changes. PANCREAS: Unremarkable. SPLEEN: Unremarkable. ADRENAL GLANDS: Unremarkable. KIDNEYS AND URETERS: Right kidney measures 11.4 cm in longest sagittal projection. No right renal, ureteral calculi, hydroureteronephrosis or perinephric stranding. Left kidney is mildly enlarged and edematous appearing with mild intrarenal collecting system and ureteral prominence to 3 mm proximal/mid ureteral stone. Mild perinephric or periureteral stranding. Tiny nonobstructing left upper pole renal calculus. Possible too small to characterize small lower pole medial exophytic cyst. BLADDER: Decompressed. GASTROINTESTINAL TRACT: Stomach not ideally distended. Nonobstructive bowel pattern. Unremarkable terminal ileum and appendix. Diverticulosis without diverticulitis. ABDOMINAL WALL: Small fat filled umbilical hernia. LYMPH NODES: No pathologic lymphadenopathy. VASCULAR: Ectatic distal abdominal aorta and common iliac arteries with atherosclerotic calcifications. Normal caliber inferior vena cava. PELVIC VISCERA: Prominent prostate with calcifications. OSSEOUS STRUCTURES: 2.5 cm mixed sclerotic and lucent right iliac bone without aggressive features. CT/CT abdomen pelvis wo IV con IMPRESSION: 3 mm left proximal/mid ureteral calculus with proximal hydroureter, mild intrarenal collecting system prominence, edematous appearing kidney, perinephric or periureteral stranding. Subpleural groundglass opacities and cystic changes. 5 mm right lower lobe pulmonary nodule. Correlate with symptomatology/pulmonary function status. Diverticulosis without diverticulitis. Dictated By: Jessi Jackson MD Signed By: Electronically signed by Jessi Jackson MD 04/13/23 0820 Radiology Impression Discussion of test interpretation with radiology: I have reviewed the radiologist's reading. Critical Care Time Critical Care Time Critical Care Time: Yes Total Critical Care Time: 45 Attestation: I spent 45 minutes of Critical Care Time with this patient. This does not include time spent on separately reported billable procedures. Discharge Plan Discharge Clinical Impression: Kidney stone Patient Disposition: Home, Self-Care Instructions: Kidney Stones (ED) Additional Instructions: Follow up with your primary care provider and a urologist. Return to the emergency department immediately if your symptoms worsen or if you develop any dizziness, shortness of breath, difficulty breathing, chest pain, blurry vision, loss of vision, nausea, vomiting, abdominal pain, fever, chills, back pain, or any other complaints. Prescriptions: New prednisone 20 mg tablet 20 mg PO DAILY 7 Days Qty: 7 0RF tamsulosin 0.4 mg capsule 0.4 mg PO DAILY Qty: 7 0RF No Action metoprolol tartrate 25 mg tablet 12.5 mg PO BID 90 Days Qty: 90 3RF Protocol: Hold for SBP/HR < HOLD for SBP < : 90 HOLD for HR < : 60 atorvastatin [Lipitor] 40 mg tablet 40 mg PO BEDTIME Qty: 90 3RF aspirin 81 mg tablet,delayed release (DR/EC) 81 mg PO DAILY Qty: 90 3RF famotidine 20 mg tablet 20 mg PO BID pantoprazole 20 mg tablet,delayed release (DR/EC) 20 mg PO BID naloxone 4 mg/actuation spray,non-aerosol 0 spray intranasal albuterol sulfate [ProAir HFA] 90 mcg/actuation HFA aerosol inhaler 2 puff PO Q4-6H PRN (Reason: Wheezing) oxycodone-acetaminophen 7.5-325 mg tablet 1 tab PO Q6H PRN (Reason: Pain) Brilinta 60 mg tablet 60 mg PO BID Qty: 60 11RF Referrals: [facility] [Provider Group] (Call to establish and follow up with a urologist.) Kristen Hanna NP [Primary Care Provider] - Interventions: ED Discharge Assessment Last Done: 04/13/23 09:51 Discharge Date/Time: 04/13/23 09:51 Print Language: Citizen Of [place]
[2023-04-13 07:09] LABS: Appearance Urine Clear; Color Urine Dark Yellow; Glucose Urine UA Negative (Negative); Leukocyte Esterase Urine Negative (Negative); Nitrite Urine Negative (Negative); PH 5.5 (5.0-9.0); Specific Gravity - Urine >= 1.030 (1.005-1.025); UMIC TRIGGER UACC YES; Urine Blood Large (3+) (Negative); Urine Ketones Trace mg/dL (Negative); Urine Protein 30 (1+) mg/dL (Neg-Trace)
[2023-04-13 07:14] LABS: Bacteria Urine None Seen (None Seen); Hyaline Casts Urine 0-2 /LPF (0-2); RBC Urine >20 /HPF (0-2); Squamous Epithelial Cell Urine 0-2 /HPF (0-2); WBC Urine 0-5 /HPF (0-5)
[2023-04-13 07:32] VITALS: BP 144/78; PULSE 63; RESP 18; TEMP 36.6; O2SAT 100
[2023-04-13 07:49] LABS: MANUAL DIFF FLAG NO
[2023-04-13 08:00] LABS: Basophils Absolute Auto 0.1 X10*3/uL (0.0-0.2); Basophils Percent Auto 0.4 % (0-2); Eosinophils Absolute Auto 0.8 X10*3/uL (0.0-0.4); Eosinophils Percent Auto 4.6 % (0-4); Hematocrit 42.9 % (42.0-52.0); Hemoglobin 14.4 g/dl (14.0-18.0); Imm Gran Abs Auto 0.07 X10*3/uL (0.00-0.03); Imm Gran Pct Auto 0.4 % (0.0-0.4); Lymphocytes Percent Auto 11.9 % (20-40); Mean Corpuscular HGB Conc 33.6 g/dl (31.0-36.0); Mean Corpuscular Volume 92.5 fL (80.0-98.0); Mean Platelet Volume 11.9 fL (9.4-12.4); Monocytes Absolute Auto 0.9 X10*3/uL (0.1-1.2); Neutrophils Absolute Auto 13.2 x10*3/uL (2.0-8.3); Neutrophils Percent Auto 77.7 % (45-73); Platelet Count 230 X10*3/uL (160-400); Red Blood Count 4.64 X10*6/uL (4.60-5.80); Red Cell Distribution Width 13.4 % (11.0-16.0)
[2023-04-13 08:11] LABS: Alanine Aminotransferase 16 U/L (0-40); Albumin Level 4.3 g/dL (3.5-5.0); Alkaline Phosphatase 106 U/L (39-117); Anion Gap 11 (12-20); Aspartate Amino Transferase 16 U/L (5-37); Bilirubin Direct 0.2 mg/dL (0.0-0.5); Bilirubin Total 0.5 mg/dL (0.0-1.0); Blood Urea Nitrogen 16 mg/dL (9-16); Calcium 9.4 mg/dL (8.4-10.2); Carbon Dioxide 25 mmol/L (22-29); Chloride 109 mmol/L (96-108); Creatinine Clr Calc Pharmacy 86.2; Estimated Glomerular Filt Rate > 60; Glucose Random 97 mg/dL (60-115); Lipase 38 U/L (8-78); Potassium 3.9 mmol/L (3.3-5.1); Sodium 141 mmol/L (135-145); Total Protein 8.2 g/dL (6.5-8.0)
[2023-04-13] MEDS: ondansetron HCL 4 MG/2 ML VIAL IVPUSH (08:14)
[2023-04-13] MEDS: Morphine Sulfate 4 MG/ML CARTRIDGE IVPUSH (08:15)
[2023-04-13] MEDS: 0.9 % Sodium Chloride 1,000 ML 999 ML IV (08:16)
[2023-04-13 08:17] VITALS: BP 144/78; PULSE 60; RESP 20; O2SAT 98
[2023-04-13 09:43] VITALS: BP 123/68; PULSE 62; RESP 19; O2SAT 98
== END 2023-04-13 09:51 | disposition home or self-care (01) ==
PROVIDERS: Emergency Provider Emergency Medicine; PCP Nurse Practitioner Primary Care
DX: N20.0 Calculus of kidney (principal); R10.32 Left lower quadrant pain; Z79.899 Other long term (current) drug therapy
CPT/HCPCS: 36415; 74176; 80053; 81001; 81003; 82248; 83690; 85025; 96374; 96375; 99284; J2270; J2405

== ENCOUNTER 2023-07-04 08:50 | Outpatient (AMB) | payer OTHER, SELFPAY ==
--- NOTE | 2023-07-04 08:56 | A.OFFVIS_ITS ---
Intake Vital Signs 07/04/23 09:04 Height 5 ft 10 in Weight 152 lb 1.903 oz BMI 21.8 BP 134/84 Blood Pressure Location Lt brachial Position Sitting Pulse 63 Intake Visit Reasons: Colonoscopy Screening Intake Note: Patient is seen in office for colonoscopy screening. 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 Accompanied by: Self / Same As Patient Allergies amoxicillin Allergy (Mild, Verified 07/04/23 09:00) unknown latex Allergy (Unknown, Uncoded 07/04/23 09:00) itching Medication List - Last Reconciled 07/04/23 by Sandra Espino PA-C albuterol sulfate 90 mcg/actuation (ProAir HFA) 2 puffs PO Q4-6H PRN aspirin 81 mg PO DAILY atorvastatin (Lipitor) 40 mg PO BEDTIME famotidine 20 mg PO BID metoprolol tartrate 12.5 mg See Protocol PO BID 90 days oxycodone-acetaminophen 7.5-325 mg 1 tab PO Q6H PRN pantoprazole 20 mg PO BID ticagrelor (Brilinta) 60 mg PO BID HPI HPI Comments History of Present Illness Details 53-year-old male s/p AZ- 10/2021-follow w ith Dr. Head- referred back for screening colonoscopy-episode bright red blood on TP after BM. Seen in September 2021- had [place] a month later- after being scheduled for EGD/ colo- obviously- this was canceled- Seen in December by Dr. Head-12/2022-Brilinta 60 mg -his planned dental surgery and is okay to discontinue Brilinta for surgery/procedures 5 days-he is holding off on dental at this time No other associated symptoms Typically bowels are normal- if he has loose stool- he notes blood when wiping Appetite is good [facility] Medical History (Updated 07/05/23 @ 09:37 by Sandra Espino PA-C) On anticoagulant therapy On beta tri at home NSTEMI (non-ST elevated myocardial infarction) GERD (gastroesophageal reflux disease) Acid reflux Collapsed lung Surgical History Stented coronary artery History of esophagogastroduodenoscopy (EGD) History of foot surgery Family History Mother Diverticulitis HTN (hypertension) Brother Diverticulitis Brother Diverticulitis HTN (hypertension) Brother Diverticulitis HTN (hypertension) Diabetes Brother Diverticulitis Sister HTN (hypertension) Sister Diverticulitis HTN (hypertension) Diabetes Sister HTN (hypertension) Family/Other Cancer Social History Household Members: Family Housing: Apartment Alcohol intake: former Patient Tobacco Use Status: Current everyday Tobacco user Tobacco use type: Cigarette Cigarettes Per Day: 3 Years Smoked: 30+/- Substance Use Type: Marijuana service: No Current occupational status: disabled Review of Systems Const All systems reviewed & are unremarkable except as noted in HPI and below Card Denies chest pain, Denies rapid heart rate, Denies irregular heart rhythm and Reports dyspnea Resp Reports dyspnea GI Denies abdominal pain, Reports hematochezia, Denies GI cramping, Reports heartburn, Reports loose stools, Denies nausea and Denies vomiting Physical Exam Vital Signs: Last Vital Signs Pulse 63 07/04/23 09:04 BP 134/84 07/04/23 09:04 BMI result Body Mass Index 21.8 Const General: cooperative, comfortable and no acute distress Orientation/consciousness: patient oriented x3 Limitations: no limitations HEENT Teeth and gingiva: abnormal dentition Eyes Sclerae: sclerae normal Resp Effort & Inspection: normal respiratory effort and able to speak in complete sentences Auscultation: clear to auscultation bilaterally, no rales, no rhonchi and no wheezes Cardio Rate: regular rate Rhythm: regular rhythm Heart sounds: S1 normal heart sound present and S2 normal heart sound present GI Palpation (GI): Soft to palpation and nontender Auscultation: normal bowel sounds Skin General skin exam: no rashes or lesions noted Neuro General: patient oriented x3 Extrem General: Yes full ROM Psych Appearance: well kempt Mental Status: mental status grossly normal Speech and movement: Normal speech and movement present and Clear speech present Affect: normal affect Attitude: cooperative Thought process: Normal thought process present Thought content: Normal thought content present Insight: Good insight present (Psych) Judgement: Good judgement present (Psych) Results Reviewed Results Reviewed: 12/26/2022- Dr. Head Will reduce Brilinta to 60 mg b.i.d.. However if he has to undergo noncardiac surgery with oral surgery that increases bleeding risk is antiplatelets can be held for 5 days prior to the procedure and resumed as soon as possible after the procedure. Will follow up in the clinic in 1 year's time, sooner p.r.n.. Thank you for allowing me to partake in his care Assessment & Plan Assessment & Plan (1) BRBPR (bright red blood per rectum): Comment: anticoags- Code(s): K62.5 - Hemorrhage of anus and rectum Plan: HFD (2) On anticoagulant therapy: Comment: Brilinta typically discontinue 7 days prior to procedure- Dr. 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 238 grams PO ONCE 1 day PRN 238 grams 0RF laxative effect Patient Instructions: 53-year-old pleasant, male s/p [place]- anticoagulation therapy, bright red blood per rectum-acid reflux- Reviewed procedures, indications as well as risks he understands he must be escorted due to anesthesia he will be scheduled for an EGD and colonoscopy Reviewed cardiology note-Brilinta will be discontinued 5 days prior to procedure, however he will follow-up with Dr. Head prior to procedure and he will confirm Encouraged to call with any questions concerns or change in health No major barriers to understanding were identified She the opportunity assist in care of the patient Coding Level of Care Code New Pt Level 4 (71922) Diagnoses BRBPR (bright red blood per rectum) K62.5 On anticoagulant therapy Z79.01 GERD (gastroesophageal reflux disease) K21.9 Time Spent (min) 30
[2023-07-04 09:04] VITALS: BP 134/84; PULSE 63; BMI 21.8
== END 2023-07-04 09:38 | disposition home or self-care (01) ==
PROVIDERS: PCP Nurse Practitioner Primary Care; Visit Provider Physician Assistant
DX: K62.5 Hemorrhage of anus and rectum (principal); Z79.01 Long term (current) use of anticoagulants; K21.9 Gastro-esophageal reflux disease without esophagitis
CPT/HCPCS: 99214

== ENCOUNTER → 2023-07-04 08:50 | Outpatient (BNVA) | payer OTHER, SELFPAY | PROVIDERS: PCP Nurse Practitioner Primary Care; Visit Provider Physician Assistant | DX: K62.5 Hemorrhage of anus and rectum (principal); K21.9 Gastro-esophageal reflux disease without esophagitis; Z79.01 Long term (current) use of anticoagulants | CPT/HCPCS: 99212 ==

== ENCOUNTER 2023-12-13 20:02 | Observation (INO) | payer OTHER, SELFPAY ==
--- NOTE | 2023-12-13 | ECG_ITS ---
Test Reason : SYNCOPE Blood Pressure : / mmHG Vent. Rate : 085 BPM Atrial Rate : 085 BPM P-R Int : 164 ms QRS Dur : 084 ms QT Int : 386 ms P-R-T Axes : 067 023 072 degrees QTc Int : 459 ms Sinus rhythm with occasional Premature ventricular complexes Otherwise normal ECG When compared with ECG of 26-OCT-2021 08:05, Premature ventricular complexes are now Present Nonspecific T wave abnormality no longer evident in Inferior leads T wave amplitude has decreased in Anterior leads T wave inversion no longer evident in Lateral leads QT has lengthened Referred By: Generic ED Physician Electronically Signed By:LEFTY COOLEY MD
--- NOTE | ~2023-12-13 | CT_ITS ---
EXAMINATION: CTA CHEST PE STUDY, CT ABDOMEN AND PELVIS CLINICAL INFORMATION: Chest pain. Abd pain COMPARISON: No pertinent prior studies are available for comparison. TECHNIQUE: Prior to contrast administration, noncontrast localization images were obtained. After the administration of 85 mL of Omnipaque nonionic IV contrast, contiguous thin slice helical images were obtained through the thorax. Following this the examination was continued through the abdomen and then pelvis. Reformatted MIP images in the coronal and sagittal planes as well as thin slice reformatted images of coronal and sagittal planes were obtained at the acquisition workstation. This CT examination was performed using dose optimization techniques as appropriate, variously including the following: *Automated exposure control *Adjustment of mA and/or kV according to patient size (this includes techniques or standardized protocols for targeted exams where dose is matched to indication/reason for exam; i.e. extremities or head) *Use of iterative reconstruction technique DLP: 964 mGy-cm. FINDINGS: CHEST: The bolus timing on this study was acceptable for visualization of the pulmonary arterial tree. There are no intraluminal pulmonary arterial filling defects present to suggest pulmonary embolism. Pain acinar and centrilobular emphysematous changes are seen more so in the upper lobes. Bibasilar dependent airspace change likely reflects superimposed atelectasis. I do not appreciate any dense consolidation or focal central airway obstruction. No abnormal pulmonary nodules or masses are appreciated. No significant hilar or mediastinal adenopathy. There is no evidence of pleural effusion or pneumothorax. The heart is normal in size. No evidence of ventricular septal bowing or right heart strain. Vascular calcification within the coronary vessels. There is no pericardial effusion or pericardial thickening. ABDOMEN/PELVIS: Liver, Gallbladder and Biliary Tree: The liver is normal in size, shape, and attenuation. No focal hepatic lesion or biliary ductal dilatation is present. The gallbladder is unremarkable with no evidence of radiopaque gallstones, gallbladder wall thickening, or obvious pericholecystic inflammatory changes. Pancreas: Unremarkable. Spleen: Unremarkable. Adrenal Glands: Unremarkable. Kidneys and Ureters: The kidneys are normal in size, shape, and attenuation. No hydronephrosis, hydroureter, or calculi seen. No perinephric stranding. Bladder: Unremarkable. Gastrointestinal Tract: Scattered colonic diverticulosis more so in the sigmoid colon. I do not appreciate any definitive pericolonic inflammatory change or fluid. The appendix is unremarkable. Abdominal Wall: No significant hernia is appreciated. Lymphovascular Structures: Mild vascular calcification within the aorta iliac system. Fusiform dilatation of the infrarenal abdominal aorta measuring up to 2.5 cm with atherosclerotic soft and calcified plaques seen throughout. Pelvic Viscera: Unremarkable. Osseous Structures: Unremarkable. CT/CT angio chest PE protocol IMPRESSION: 1. No evidence for pulmonary emboli. Emphysematous changes in the lungs. No dense consolidation. 2. No acute abnormality within the abdomen or pelvis. There is diverticulosis but no obvious diverticulitis. 3. VTE: Negative.
--- NOTE | ~2023-12-13 | CT_ITS ---
EXAMINATION: CT CERVICAL SPINE WITHOUT CONTRAST CLINICAL INFORMATION: Neck pain, trauma. On blood thinner COMPARISON: None available. TECHNIQUE: Multiple helical unenhanced images were acquired through the cervical spine. Multiplanar computer reformatted images were acquired from the dataset in the sagittal and coronal plane. This CT examination was performed using dose optimization techniques as appropriate, variously including the following: *Automated exposure control *Adjustment of mA and/or kV according to patient size (this includes techniques or standardized protocols for targeted exams where dose is matched to indication/reason for exam; i.e. extremities or head) *Use of iterative reconstruction technique DLP: 272 mGy-cm FINDINGS: CT examination of the cervical spine shows no prevertebral soft tissue swelling. Vertebral body height and alignment are maintained. No acute fracture or subluxation is evident. The odontoid process, cervicothoracic and cervical medullary junctions are normal. There are no bone lesions. Considerable emphysema is noted in the apices of both lungs. CT/CT cervical spine wo IV con IMPRESSION: 1. No acute cervical spine fracture or subluxation. 2. Considerable bilateral upper lobe emphysema. Fleischner guidelines were followed.
--- NOTE | ~2023-12-13 | CT_ITS ---
EXAMINATION: CT HEAD WITHOUT CONTRAST CLINICAL INFORMATION: Head trauma, fall, on blood thinners COMPARISON: None available. TECHNIQUE: Contiguous axial imaging was performed from the skull base to vertex without intravenous administration of contrast. This CT examination was performed using dose optimization techniques as appropriate, variously including the following: *Automated exposure control *Adjustment of mA and/or kV according to patient size (this includes techniques or standardized protocols for targeted exams where dose is matched to indication/reason for exam; i.e. extremities or head) *Use of iterative reconstruction technique DLP: 638 mGy-cm FINDINGS: The ventricles and sulci are normal in size and configuration. No acute hemorrhage, mass effect or shift is evident. Henao-white differentiation is maintained. In the posterior fossa, the brainstem, cerebellum and fourth ventricle image normally. The orbits and calvarium are intact. The paranasal sinuses and mastoid air cells are well pneumatized and clear. CT/CT head/brain wo IV con IMPRESSION: 1. Unremarkable noncontrast brain CT. No acute hemorrhage, mass effect or shift.
[2023-12-13 20:04] VITALS: BP 141/72; PULSE 88; O2SAT 100
[2023-12-13 20:18] VITALS: BP 132/68; PULSE 61; RESP 20; TEMP 36.4; O2SAT 100; BMI 21.3
[2023-12-13 20:32] LABS: MANUAL DIFF FLAG NO
[2023-12-13 20:42] LABS: Basophils Absolute Auto 0.1 X10*3/uL (0.0-0.2); Basophils Percent Auto 0.3 % (0-2); Eosinophils Absolute Auto 0.6 X10*3/uL (0.0-0.4); Eosinophils Percent Auto 3.5 % (0-4); Hematocrit 39.1 % (42.0-52.0); Hemoglobin 13.6 g/dl (14.0-18.0); INTERNATIONAL NORM RATIO 1.2 (0.9-1.1); Imm Gran Abs Auto 0.07 X10*3/uL (0.00-0.03); Imm Gran Pct Auto 0.4 % (0.0-0.4); Lymphocytes Absolute Auto 2.5 X10*3/uL (1.2-4.9); Lymphocytes Percent Auto 15.6 % (20-40); Mean Corpuscular HGB Conc 34.8 g/dl (31.0-36.0); Mean Corpuscular Hemoglobin 31.9 pg (27.0-33.0); Mean Corpuscular Volume 91.6 fL (80.0-98.0); Mean Platelet Volume 11.9 fL (9.4-12.4); Monocytes Absolute Auto 0.9 X10*3/uL (0.1-1.2); Monocytes Percent Auto 5.8 % (2-11); Neutrophils Absolute Auto 11.7 x10*3/uL (2.0-8.3); Neutrophils Percent Auto 74.4 % (45-73); Platelet Count 193 X10*3/uL (160-400); Prothrombin Time 14.6 SEC (11.1-13.3); Red Blood Count 4.27 X10*6/uL (4.60-5.80); Red Cell Distribution Width 13.4 % (11.0-16.0); White Blood Count 15.8 X10*3/uL (4.8-10.8)
[2023-12-13 20:47] LABS: Alanine Aminotransferase 14 U/L (0-40); Albumin Level 4.1 g/dL (3.5-5.0); Alkaline Phosphatase 97 U/L (39-117); Anion Gap 12 (12-20); Aspartate Amino Transferase 16 U/L (5-37); Bilirubin Total 0.4 mg/dL (0.0-1.0); Blood Urea Nitrogen 15 mg/dL (9-16); Calcium 9.1 mg/dL (8.4-10.2); Carbon Dioxide 25 mmol/L (22-29); Chloride 107 mmol/L (96-108); Creatinine Clr Calc Pharmacy 101.8; Estimated Glomerular Filt Rate > 60; Glucose Random 120 mg/dL (60-115); Magnesium 1.8 mg/dL (1.6-2.6); Potassium 3.8 mmol/L (3.3-5.1); Sodium 140 mmol/L (135-145); Total Protein 7.5 g/dL (6.5-8.0)
[2023-12-13 20:54] LABS: Troponin-I High Sensitivity < 2.7 ng/L (<3.5-35.0)
[2023-12-13 21:41] LABS: D Dimer High Sensitivity 210 NG/ML
[2023-12-13 21:44] LABS: Lactic Acid 2.3 mmol/L (0.5-2.0)
[2023-12-13 21:45] LABS: Amphetamine Screen Urine Not Detected (Not Detect); Barbiturates, Urine Not Detected (Not Detect); Benzodiazepines Screen Urine Not Detected (Not Detect); Buprenorphine Scr Not Detected (Not Detect); Cannabinoid Screen Urine POSITIVE (Not Detect); Cocaine Screen Urine Not Detected (Not Detect); Fentanyl, urine Not Detected (Not Detect); Methadone Screen, Urine Not Detected (Not Detect); Opiate Screen Urine Not Detected (Not Detect); Oxycodone Screen Urine Positive (Not Detect); Phencyclidine Screen Urine Not Detected (Not Detect)
[2023-12-13] MEDS: iohexoL 350 MG/ML 100 ML INFUS..BTL 85 ML IV (21:46)
--- NOTE | 2023-12-13 22:31 | ED.SYNCOPE ---
HPI - Syncope General Chief Complaint: Syncope Stated Complaint: 2 WIT SYNCOPAL EPISODES, CHEST PAIN,SHOULDER PAIN Time Seen by Provider: 12/13/23 20:51 Source: patient Mode of arrival: EMS Limitations: no limitations History of Present Illness ED Provider: Yung POOLE narrative: 53-year-old male with past medical history of hypertension, asthma, CAD presenting for syncope. Patient suffered 2 syncopal episodes earlier this evening. The 1st one occurred while he was in the kitchen reaching for an item. He denies prodrome, chest pain, head pain and syncopized fell with head strike. His brother picked him up off the ground inpatient came to to however syncopized again while his brother was holding him and was laid down to the ground. Patient states that he has also been experiencing abdominal pain and pulse sensation in his abdomen for the past 4 days. He states he has not had a bowel movement during this time however he is still passing gas. He has no urinary complaints. He denies fevers, chills, shortness breath, chest pain. MD complaint: loss of consciousness Onset (ago): minute(s) Related Data Home Medications ?Medication ?Instructions ?Recorded ?Confirmed albuterol sulfate 90 mcg/actuation 2 puff PO Q4-6H PRN Wheezing 09/22/21 12/26/22 aerosol inhaler (ProAir HFA) oxycodone-acetaminophen 7.5 mg-325 1 tab PO Q6H PRN Pain 09/22/21 12/26/22 mg tablet famotidine 20 mg tablet 20 mg PO BID 11/10/21 12/26/22 pantoprazole 20 mg tablet,delayed 20 mg PO BID 11/10/21 12/26/22 release Previous Rx's ?Medication ?Instructions ?Recorded ticagrelor 60 mg tablet (Brilinta) 60 mg PO BID #60 tabs 12/26/22 aspirin 81 mg tablet,delayed 81 mg PO DAILY #90 tabs 04/24/23 release bisacodyl 5 mg tablet,delayed 20 mg (4 x 5 mg) PO ONCE PRN 07/04/23 release (Dulcolax (bisacodyl)) colonoscopy prep 1 day #4 tabs polyethylene glycol 3350 17 238 g PO ONCE PRN laxative effect 07/04/23 gram/dose oral powder (Miralax) 1 day #238 grams metoprolol tartrate 25 mg tablet 12.5 mg (1/2 x 25 mg) PO BID #90 07/11/23 tabs atorvastatin 40 mg tablet (Lipitor) 40 mg PO BEDTIME #90 tabs 11/06/23 Allergies Allergy/AdvReac Type Severity Reaction Status Date / Time amoxicillin Allergy Mild unknown Verified 12/13/23 20:20 latex Allergy Unknown itching Uncoded 12/13/23 20:20 Review of Systems Review of Systems: Patient endorses abdominal pain, constipation, left shoulder pain Patient denies head pain, neck pain, chest pain, shortness of breath, urinary symptoms [facility] Past Medical History Attestation statement: The following information was validated with the patient. [facility] Narrative: CAD, acid reflux Source: old records reviewed Medical History On anticoagulant therapy On beta tri at home NSTEMI (non-ST elevated myocardial infarction) GERD (gastroesophageal reflux disease) Acid reflux Collapsed lung Surgical History Stented coronary artery History of esophagogastroduodenoscopy (EGD) History of foot surgery Family History Family History Mother Diverticulitis HTN (hypertension) Brother Diverticulitis Brother Diverticulitis HTN (hypertension) Brother Diverticulitis HTN (hypertension) Diabetes Brother Diverticulitis Sister HTN (hypertension) Sister Diverticulitis HTN (hypertension) Diabetes Sister HTN (hypertension) Family/Other Cancer Social History Social History Household Members: Family Housing: Apartment Alcohol intake: former Patient Tobacco Use Status: Current everyday Tobacco user Tobacco use type: Cigarette Cigarettes Per Day: 3 Years Smoked: 30+/- Substance Use Type: Marijuana Advance Directives: No Advance Directives Information Provided: No Do you have a plan to hurt others: No Plan service: No Current occupational status: disabled Physical Exam Vital Signs: Vital Signs: Last Vital Signs Temp 97.9 F 12/13/23 23:20 Pulse 63 12/14/23 01:02 Resp 17 12/13/23 23:20 BP 132/83 12/14/23 01:02 Pulse Ox 99 12/13/23 23:20 O2 Del Method Room Air 12/13/23 23:20 BMI result Body Mass Index 21.3 Head normocephalic atraumatic; no midline C-spine tenderness No focal neurologic deficits Lungs: Clear bilaterally; normal S1-S2 regular rate rhythm Mildly enlarged RV on bedside echo; aortic root less than 4 cm Epigastric tenderness to palpation; and otherwise soft and nondistended Medications Administered Discontinued Medications Generic Name Dose Route Start Last Admin Trade Name Cinthia PRN Reason Stop Dose Admin Acetaminophen 650 mg 12/13/23 23:34 12/13/23 23:42 Acetaminophen 325 Mg Tablet PO 12/13/23 23:35 650 mg ONCE ONE Administration Sodium Chloride 1,000 mls @ 999 mls/hr 12/13/23 23:30 12/14/23 01:02 Ns IV 12/14/23 00:30 Infused .Q1H1M CITLALLI Infusion Iohexol 85 ml 12/13/23 21:46 12/13/23 21:46 Iohexol 350 Mg/Ml 100 Ml Infus..Btl IV 12/13/23 21:47 85 ml ONCE ONE Administration Medical Decision Making Medical Decision Making [facility] Narrative: 53-year-old male presenting for syncope Concern for the following; cardiac arrhythmia, PE, seizure, traumatic head/neck injury, SBO, diverticulutiis Labs CT PE ordered --> negative Troponins flat Given patient's history of MT I feel he should be admitted to medicine and spoke with hospitalist who accepted him Patient has rbs in urine; could be due to recent or active stone passing Differential Diagnosis Differential Diagnoses: The differential diagnosis associated with the presentation includes Syncope, cardiac arrhythmia, seizure, traumatic head/neck injury, nephrolithiasis Consult Healthcare Provider Management of the patient was discussed with: Hospitalist Patient admitted Lab Data [facility] Lab Attestation statement: I reviewed the patient's lab results. Elevated lactate 12/14/23 00:59 12/13/23 20:27 Labs: Lab Results 12/13/23 12/13/23 12/13/23 Range/Units 20:27 21:24 23:38 WBC 15.8 H (4.8-10.8) X10*3/uL RBC 4.27 L (4.60-5.80) X10*6/uL Hgb 13.6 L (14.0-18.0) g/dl Hct 39.1 L (42.0-52.0) % MCV 91.6 (80.0-98.0) fL MCH 31.9 (27.0-33.0) pg MCHC 34.8 (31.0-36.0) g/dl RDW 13.4 (11.0-16.0) % Plt Count 193 (160-400) X10*3/uL MPV 11.9 (9.4-12.4) fL Immature Gran % (Auto) 0.4 (0.0-0.4) % Neut % (Auto) 74.4 H (45-73) % Lymph % (Auto) 15.6 L (20-40) % [place] % (Auto) 5.8 (2-11) % Eos % (Auto) 3.5 (0-4) % Baso % (Auto) 0.3 (0-2) % Lymph # (Auto) 2.5 (1.2-4.9) X10*3/uL [place] # (Auto) 0.9 (0.1-1.2) X10*3/uL Eos # (Auto) 0.6 H (0.0-0.4) X10*3/uL Baso # (Auto) 0.1 (0.0-0.2) X10*3/uL Abs Immat Gran (auto) 0.07 H (0.00-0.03) X10*3/uL Absolute Neuts (auto) 11.7 H (2.0-8.3) x10*3/uL Absolute Nucleated RBC 0.000 (0.0-0.012) X10*3/uL Nucleated RBC % (auto) 0.0 (0.0-0.2) /100WBC PT 14.6 H (11.1-13.3) SEC INR 1.2 H (0.9-1.1) D-Dimer High Sensitivty 210 NG/ML Sodium 140 (135-145) mmol/L Potassium 3.8 (3.3-5.1) mmol/L Chloride 107 (96-108) mmol/L Carbon Dioxide 25 (22-29) mmol/L Anion Gap 12 (12-20) BUN 15 (9-16) mg/dL Creatinine 0.78 (0.5-1.4) mg/dL Estim Creat Clear Calc 101.8 Estimated GFR > 60 Random Glucose 120 H (60-115) mg/dL Lactic Acid 2.3 H* (0.5-2.0) mmol/L Lactic Acid F/U @ 2Hr 1.1 (0.5-2.0) mmol/L Calcium 9.1 (8.4-10.2) mg/dL Magnesium 1.8 (1.6-2.6) mg/dL Total Bilirubin 0.4 (0.0-1.0) mg/dL AST 16 (5-37) U/L ALT 14 (0-40) U/L Alkaline Phosphatase 97 (39-117) U/L Troponin I High Sens < 2.7 < 2.7 (<3.5-35.0) ng/L Total Protein 7.5 (6.5-8.0) g/dL Albumin 4.1 (3.5-5.0) g/dL Urine Opiates Screen Not Detected (Not Detect) Ur Buprenorphine Scrn Not Detected (Not Detect) ng/mL Ur Oxycodone Screen Positive H (Not Detect) ng/mL Urine Methadone Screen Not Detected (Not Detect) ng/mL Urine Fentanyl Screen Not Detected (Not Detect) Ur Barbiturates Screen Not Detected (Not Detect) Ur Phencyclidine Scrn Not Detected (Not Detect) Ur Amphetamines Screen Not Detected (Not Detect) U Benzodiazepines Scrn Not Detected (Not Detect) Urine Cocaine Screen Not Detected (Not Detect) U Marijuana (THC) Screen POSITIVE H (Not Detect) 12/14/23 Range/Units 00:59 WBC 12.3 H (4.8-10.8) X10*3/uL RBC 3.83 L (4.60-5.80) X10*6/uL Hgb 12.3 L (14.0-18.0) g/dl Hct 35.0 L (42.0-52.0) % MCV 91.4 (80.0-98.0) fL MCH 32.1 (27.0-33.0) pg MCHC 35.1 (31.0-36.0) g/dl RDW 13.4 (11.0-16.0) % Plt Count 180 (160-400) X10*3/uL MPV 11.6 (9.4-12.4) fL Immature Gran % (Auto) 0.3 (0.0-0.4) % Neut % (Auto) 65.0 (45-73) % Lymph % (Auto) 23.5 (20-40) % [place] % (Auto) 7.6 (2-11) % Eos % (Auto) 3.3 (0-4) % Baso % (Auto) 0.3 (0-2) % Lymph # (Auto) 2.9 (1.2-4.9) X10*3/uL [place] # (Auto) 0.9 (0.1-1.2) X10*3/uL Eos # (Auto) 0.4 (0.0-0.4) X10*3/uL Baso # (Auto) 0.0 (0.0-0.2) X10*3/uL Abs Immat Gran (auto) 0.04 H (0.00-0.03) X10*3/uL Absolute Neuts (auto) 8.0 (2.0-8.3) x10*3/uL Absolute Nucleated RBC 0.000 (0.0-0.012) X10*3/uL Nucleated RBC % (auto) 0.0 (0.0-0.2) /100WBC PT (11.1-13.3) SEC INR (0.9-1.1) D-Dimer High Sensitivty NG/ML Sodium (135-145) mmol/L Potassium (3.3-5.1) mmol/L Chloride (96-108) mmol/L Carbon Dioxide (22-29) mmol/L Anion Gap (12-20) BUN (9-16) mg/dL Creatinine (0.5-1.4) mg/dL Estim Creat Clear Calc Estimated GFR Random Glucose (60-115) mg/dL Lactic Acid (0.5-2.0) mmol/L Lactic Acid F/U @ 2Hr (0.5-2.0) mmol/L Calcium (8.4-10.2) mg/dL Magnesium (1.6-2.6) mg/dL Total Bilirubin (0.0-1.0) mg/dL AST (5-37) U/L ALT (0-40) U/L Alkaline Phosphatase (39-117) U/L Troponin I High Sens (<3.5-35.0) ng/L Total Protein (6.5-8.0) g/dL Albumin (3.5-5.0) g/dL Urine Opiates Screen (Not Detect) Ur Buprenorphine Scrn (Not Detect) ng/mL Ur Oxycodone Screen (Not Detect) ng/mL Urine Methadone Screen (Not Detect) ng/mL Urine Fentanyl Screen (Not Detect) Ur Barbiturates Screen (Not Detect) Ur Phencyclidine Scrn (Not Detect) Ur Amphetamines Screen (Not Detect) U Benzodiazepines Scrn (Not Detect) Urine Cocaine Screen (Not Detect) U Marijuana (THC) Screen (Not Detect) Independent Interpretation I performed an independent interpretation of an: EKG and CT Scan Interpretation: PVCs on EKG I did appreciate any head bleed on CT scan I did not appreciate SBO on CT abdomen pelvis Radiology Impression Discussion of test interpretation with radiology: I have reviewed the radiologist's reading. Radiologist Impression: No acute intracranial abnormality Negative CT abdomen pelvis Discharge Plan Discharge Clinical Impression: Syncope Patient Disposition: Admitted As Inpatient
[2023-12-13 23:20] VITALS: BP 112/75; PULSE 69; RESP 17; TEMP 36.6; O2SAT 99
[2023-12-13 23:27] LABS: Reflex Lactate? Lactic Acid Added
[2023-12-13] MEDS: 0.9 % Sodium Chloride 1,000 ML 999 ML IV (23:31)
[2023-12-13] MEDS: Acetaminophen 325 MG TABLET 650 MG PO (23:42)
[2023-12-13 23:58] LABS: ~Lactic Acid-LAB USE ONLY 1.1 mmol/L (0.5-2.0)
[2023-12-14] VITALS (8 sets, daily range): BP systolic 101–132; BP diastolic 63–86; PULSE 61–80; RESP 16–18; TEMP 36.4–36.9; O2SAT 95–100
[2023-12-14 00:03] LABS: Troponin-I High Sensitivity < 2.7 ng/L (<3.5-35.0)
[2023-12-14 01:02] LABS: MANUAL DIFF FLAG NO
[2023-12-14 01:11] LABS: Basophils Percent Auto 0.3 % (0-2); Eosinophils Absolute Auto 0.4 X10*3/uL (0.0-0.4); Eosinophils Percent Auto 3.3 % (0-4); Hemoglobin 12.3 g/dl (14.0-18.0); Imm Gran Abs Auto 0.04 X10*3/uL (0.00-0.03); Imm Gran Pct Auto 0.3 % (0.0-0.4); Lymphocytes Absolute Auto 2.9 X10*3/uL (1.2-4.9); Lymphocytes Percent Auto 23.5 % (20-40); Mean Corpuscular HGB Conc 35.1 g/dl (31.0-36.0); Mean Corpuscular Hemoglobin 32.1 pg (27.0-33.0); Mean Corpuscular Volume 91.4 fL (80.0-98.0); Mean Platelet Volume 11.6 fL (9.4-12.4); Monocytes Absolute Auto 0.9 X10*3/uL (0.1-1.2); Monocytes Percent Auto 7.6 % (2-11); Platelet Count 180 X10*3/uL (160-400); Red Blood Count 3.83 X10*6/uL (4.60-5.80); Red Cell Distribution Width 13.4 % (11.0-16.0); White Blood Count 12.3 X10*3/uL (4.8-10.8)
--- NOTE | 2023-12-14 01:12 | PM.IMHP ---
History of Present Illness Date of Service: 12/14/23 Chief Complaint: syncope 53M PMH CAD, hfpef, htn, gerd, copd, chronic shoulder pain on chronic opiates, presented with syncope. patient reports over last 4 days has been having epigastric palpitations . on and off, limitted in duration. also complaining of consitpation over 4 days. went to pcp who prescribed laxative. on day of presentation patient had 2 syncopal events witnessed by his brother that he does not remember well but were brief. first episode was while standing in kitchen, then brother picked him up off floor and briefly passed out again. no trauma. in ED CTA chest and abd negative. trops negative. ekg unremarkable Review of Systems Review of Systems: Yes all other systems are reviewed and are negative [facility] Medical History On anticoagulant therapy On beta tri at home NSTEMI (non-ST elevated myocardial infarction) GERD (gastroesophageal reflux disease) Acid reflux Collapsed lung Family History Mother Diverticulitis HTN (hypertension) Brother Diverticulitis Brother Diverticulitis HTN (hypertension) Brother Diverticulitis HTN (hypertension) Diabetes Brother Diverticulitis Sister HTN (hypertension) Sister Diverticulitis HTN (hypertension) Diabetes Sister HTN (hypertension) Family/Other Cancer Surgical History Stented coronary artery History of esophagogastroduodenoscopy (EGD) History of foot surgery Social History Household Members: Family Housing: Apartment Alcohol intake: former Patient Tobacco Use Status: Current everyday Tobacco user Tobacco use type: Cigarette Cigarettes Per Day: 3 Years Smoked: 30+/- Substance Use Type: Marijuana Advance Directives: No Advance Directives Information Provided: No Do you have a plan to hurt others: No Plan service: No Current occupational status: disabled Meds Allergies Allergy/AdvReac Type Severity Reaction Status Date / Time amoxicillin Allergy Mild unknown Verified 12/13/23 20:20 latex Allergy Unknown itching Uncoded 12/13/23 20:20 Home Medications ?Medication ?Instructions ?Recorded ?Confirmed ?Last Taken ?Type albuterol sulfate 90 mcg/actuation 2 puff PO Q4-6H PRN Wheezing 09/22/21 12/26/22 Unknown History aerosol inhaler (ProAir HFA) oxycodone-acetaminophen 7.5 mg-325 1 tab PO Q6H PRN Pain 09/22/21 12/26/22 Unknown History mg tablet famotidine 20 mg tablet 20 mg PO BID 11/10/21 12/26/22 10/25/21 History pantoprazole 20 mg tablet,delayed 20 mg PO BID 11/10/21 12/26/22 Unknown History release Physical Exam Vital Signs and Narrative: Vital Signs: Last Vital Signs Temp 97.9 F 12/13/23 23:20 Pulse 63 12/14/23 01:02 Resp 17 12/13/23 23:20 BP 132/83 12/14/23 01:02 Pulse Ox 99 12/13/23 23:20 O2 Del Method Room Air 12/13/23 23:20 BMI result Body Mass Index 21.3 General: AO X 3, no acute distress Resp: CTA bilateral, no accessory muscles used CVS: S1,S2,RRR GI: soft, non tender, non distended Neuro: motor grossly intact, alert Psych: appropriate affect, appropriate insight Results Labs 12/14/23 00:59 12/13/23 20:27 Labs: Laboratory Results - last 24 hr 12/13/23 12/13/23 12/13/23 20:27 21:24 23:38 MCV 91.6 MCH 31.9 MCHC 34.8 RDW 13.4 Plt Count 193 MPV 11.9 Immature Gran % (Auto) 0.4 Neut % (Auto) 74.4 H Lymph % (Auto) 15.6 L [place] % (Auto) 5.8 Eos % (Auto) 3.5 Baso % (Auto) 0.3 Lymph # (Auto) 2.5 [place] # (Auto) 0.9 Eos # (Auto) 0.6 H Baso # (Auto) 0.1 Abs Immat Gran (auto) 0.07 H Absolute Neuts (auto) 11.7 H Absolute Nucleated RBC 0.000 Nucleated RBC % (auto) 0.0 PT 14.6 H INR 1.2 H D-Dimer High Sensitivty 210 Anion Gap 12 Estim Creat Clear Calc 101.8 Estimated GFR > 60 Random Glucose 120 H Lactic Acid 2.3 H* Lactic Acid F/U @ 2Hr 1.1 Calcium 9.1 Magnesium 1.8 Total Bilirubin 0.4 AST 16 ALT 14 Alkaline Phosphatase 97 Troponin I High Sens < 2.7 < 2.7 Total Protein 7.5 Albumin 4.1 Urine Opiates Screen Not Detected Ur Buprenorphine Scrn Not Detected Ur Oxycodone Screen Positive H Urine Methadone Screen Not Detected Urine Fentanyl Screen Not Detected Ur Barbiturates Screen Not Detected Ur Phencyclidine Scrn Not Detected Ur Amphetamines Screen Not Detected U Benzodiazepines Scrn Not Detected Urine Cocaine Screen Not Detected U Marijuana (THC) Screen POSITIVE H 12/14/23 00:59 MCV 91.4 MCH 32.1 MCHC 35.1 RDW 13.4 Plt Count 180 MPV 11.6 Immature Gran % (Auto) 0.3 Neut % (Auto) 65.0 Lymph % (Auto) 23.5 [place] % (Auto) 7.6 Eos % (Auto) 3.3 Baso % (Auto) 0.3 Lymph # (Auto) 2.9 [place] # (Auto) 0.9 Eos # (Auto) 0.4 Baso # (Auto) 0.0 Abs Immat Gran (auto) 0.04 H Absolute Neuts (auto) 8.0 Absolute Nucleated RBC 0.000 Nucleated RBC % (auto) 0.0 PT INR D-Dimer High Sensitivty Anion Gap Estim Creat Clear Calc Estimated GFR Random Glucose Lactic Acid Lactic Acid F/U @ 2Hr Calcium Magnesium Total Bilirubin AST ALT Alkaline Phosphatase Troponin I High Sens Total Protein Albumin Urine Opiates Screen Ur Buprenorphine Scrn Ur Oxycodone Screen Urine Methadone Screen Urine Fentanyl Screen Ur Barbiturates Screen Ur Phencyclidine Scrn Ur Amphetamines Screen U Benzodiazepines Scrn Urine Cocaine Screen U Marijuana (THC) Screen Imaging Radiologist's Impressions: Impressions Cervical Spine CT 12/13/23 20:49 IMPRESSION: 1. No acute cervical spine fracture or subluxation. 2. Considerable bilateral upper lobe emphysema. Fleischner guidelines were followed. Head CT 12/13/23 20:49 IMPRESSION: 1. Unremarkable noncontrast brain CT. No acute hemorrhage, mass effect or shift. Abdomen/Pelvis CT 12/13/23 21:47 IMPRESSION: 1. No evidence for pulmonary emboli. Emphysematous changes in the lungs. No dense consolidation. 2. No acute abnormality within the abdomen or pelvis. There is diverticulosis but no obvious diverticulitis. 3. VTE: Negative. Chest CTA 12/13/23 21:47 IMPRESSION: 1. No evidence for pulmonary emboli. Emphysematous changes in the lungs. No dense consolidation. 2. No acute abnormality within the abdomen or pelvis. There is diverticulosis but no obvious diverticulitis. 3. VTE: Negative. Assessment and Plan (1) CAD (coronary artery disease): Status: Acute Plan 53M PMH CAD, hfpef, htn, gerd, copd, chronic shoulder pain on chronic opiates, presented with syncope syncope concern for cardiogenic give cad and recent palpiations check echo, tele, cardio eval orthostatic negative CAD dapl, statin hfpef on sawdust drier side, given ivf in ED copd stable gerd ppi, h2 tri htn lopressor chronic pain oxy prn dvt prophylaxis - lovenox full code Quality Stroke Does the patient have a stroke diagnosis?: No VTE Prior VTE?: No VTE Risk Level:: Medical - moderate - high VTE Device Contraindication: Treatment Not Indicated VTE Drug Contraindication: N/A - Med Ordered
[2023-12-14] MEDS: Omeprazole 20 MG CAPSULE.DR PO (06:25)
--- NOTE | 2023-12-14 07:00 | CA_ITS ---
Transthoracic Echocardiogram Patient (Last, First, Middle): Stanislav Hernandez, Gender: Male Date of : 1970 Age: 53 Procedure Date: 12/14/2023 Procedure Type: Transthoracic Echocardiogram Location: ER Height: 177.8 cm Weight: 67.13 kg BSA: 1.84 m2 Heart Rate: 62 bpm BP: 122 / 75 mmHg Data Lead: PITER Referring MD: Efrain Nagy MD Managing Attorney: Pérez Head MD Symptoms: syncope Study Quality: Adequate ECG Rhythm: Sinus Conclusions: - Normal study with mild dilatation of the aortic root Findings Left Ventricle Normal left ventricular size, thickness, and systolic function. The visually estimated ejection fraction is between 65-70%. Spectral Doppler is indicative of a normal filling pattern. Right Ventricle Normal right ventricular cavity size and systolic function. Atria Both atria are normal in size. There is lipomatous hypertrophy of the interatrial septum. There is no evidence of interatrial shunt. Aortic Valve Normal aortic valve structure and function. There is no aortic valve stenosis. There is no aortic valve regurgitation. Mitral Valve Normal mitral valve structure and function. There is trace mitral valve regurgitation. There is no mitral valve stenosis. Pulmonic Valve The pulmonic valve is likely normal. There is trace pulmonic valve regurgitation. Tricuspid Valve Normal tricuspid valve structure. There is trace tricuspid valve regurgitation. The right ventricular systolic pressure is normal. The right ventricular systolic pressure is 19 mmHg. Normal right atrial pressure. There is no evidence of pulmonary hypertension. Great Vessels The pulmonary artery was not well visualized. There is mild dilatation of the sinuses of Valsalva measuring 3.90 cm. Venous The inferior vena cava is normal in size and collapses greater than 50% with inspiration. Pericardium/Pleural There is no evidence of pericardial effusion. Measurements 2D Linear Measurements IVSd: 0.73 0.6-0.9/0.6-1.0 cm LVIDd: 5.08 3.9-5.3/4.2-5.9 cm LVIDd Index: 2.76 2.4-3.2/2.2-3.1 cm/m2 LVIDs: 3.46 2.0-3.6 cm LVPWd: 0.76 0.7-1.1 cm LA Diam: 3.10 2.7-3.8/3.0-4.0 cm LAIDs Index: 1.68 1.5-2.3 cm/m2 LV Mass: 158.06 67-162/88-224 g LV Mass Index: 85.90 43-95/49-115 g/m2 LVOT Diam: 2.60 3.0+(-)1.3 cm 2D Systolic Function EF 4C: 67.40 >55% EF 2C: 69.80 >55% EF BiP: 69.10 >55% Mitral Valve MV Pk E: 0.74 MV PK A: 0.42 MV Decel Time: 261.00 E/A: 1.80 E'Lateral: 10.90 E'Medial: 9.68 E/E' Med: 7.70 E/E' Lat: 6.80 PHT: 77.00 MVA PHT: 2.86 Decel [place]: 2.83 Aortic Valve AoV Pk Dago: 0.91 AoV Pk Grad: 3.00 JUD: 4.75 LVOT LVOT Pk Dago: 0.87 LVOT Mn Dago: 0.50 LVOT VTI: 0.15 LVOT Pk Grad: 3.00 LVOT Mn Grad: 1.00 LVOT Diam: 2.60 LVOT Area: 5.31 Diastolic Function MV Pk E: 0.74 MV Pk A: 0.42 E/A: 1.80 E'Medial: 9.68 E/E' Med: 7.70 E' Laterial: 10.90 E/E' Lat: 6.80 Right Ventricle TAPSE (mm): 22.20 TVS' Dago: 12.90 Tricuspid Valve TR Pk Dago: 2.00 TR Pk Grad: 16.00 RA Press: 3.00 RVSP: 19.00 Great Vessels Aorta Sinus of Valsalva: 3.90 2.0-3.5 cm Pulmonary Valve PV Pk Dago: 0.75 Peak PV Grad: 2.00 Updated in Other Vendor System with Status of Final Pérez Head MD electronically signed on 12/14/2023 11:09:18 AM with status of Final
--- NOTE | 2023-12-14 08:26 | P.PNIM_ITS ---
Subjective Subjective Date of Service: 12/14/23 Interval History: f/u syncope palpitation he states that he has been having palpitations, usually after eating but passed out yesterday. No arrythmia noted, hemodynamicall stable. Physical Exam 2 Vital Signs: Vital Signs: Last Vital Signs Temp 97.5 F 12/14/23 06:00 Pulse 63 12/14/23 06:00 Resp 16 12/14/23 06:00 BP 114/64 12/14/23 06:00 Pulse Ox 95 12/14/23 06:00 O2 Del Method Room Air 12/14/23 06:00 BMI result Body Mass Index 21.3 General: AO X 3, no acute distress Resp: CTA bilateral CVS: S1,S2,RRR GI: +BS, NT, no distention Skin: No rash Neuro: motor grossly intact Psych: appropriate affect Objective Data Active Medications Acetaminophen (Acetaminophen 325 Mg Tablet) 650 mg PO Q6H PRN PRN Reason: Pain, Mild (Pain Scale 1-3), fever or headache Aspirin (Aspirin Enteric Coated 81 Mg Tablet.) 81 mg PO DAILY [facility] Atorvastatin Calcium (Atorvastatin Calcium 40 Mg Tablet) 40 mg PO BEDTIME [facility] Calcium Carbonate (Calcium Carbonate 750 Mg Tab.Chew) 750 mg PO Q4H PRN PRN Reason: Heartburn Enoxaparin Sodium (Enoxaparin Sodium 40 Mg/0.4 Ml Syringe) 40 mg SUBCUT Q24H [facility] Famotidine (Famotidine 20 Mg Tablet) 20 mg PO BID [facility] Magnesium Hydroxide (Milk Of Magnesia 30 Ml Oral.Susp) 30 ml PO DAILY PRN PRN Reason: Constipation Melatonin (Melatonin 3 Mg Tablet) 6 mg PO BEDTIME PRN PRN Reason: Insomnia Metoprolol Tartrate (Metoprolol Tartrate 12.5 Mg Halftab) 12.5 mg PO BID [facility]; Protocol Omeprazole (Omeprazole 20 Mg Capsule.) 20 mg PO DAILY@0630 [facility] Last Admin: 12/14/23 06:25 Dose: 20 mg Documented By: RICHARD Oxycodone HCl (Oxycodone Hcl Immed Release 5 Mg Tablet) 7.5 mg PO Q6H PRN PRN Reason: moderate pain Sodium Chloride (0.9 % Sodium Chloride Flush 3 Ml Syringe) 3 ml IVFLUSH QSHIFT [facility] Ticagrelor (Ticagrelor 90 Mg Tablet) 60 mg PO BID [facility] Labs 12/14/23 00:59 12/13/23 20:27 Labs: Laboratory Results - last 24 hr 12/13/23 12/13/23 12/13/23 20:27 21:24 23:38 MCV 91.6 MCH 31.9 MCHC 34.8 RDW 13.4 Plt Count 193 MPV 11.9 Immature Gran % (Auto) 0.4 Neut % (Auto) 74.4 H Lymph % (Auto) 15.6 L [place] % (Auto) 5.8 Eos % (Auto) 3.5 Baso % (Auto) 0.3 Lymph # (Auto) 2.5 [place] # (Auto) 0.9 Eos # (Auto) 0.6 H Baso # (Auto) 0.1 Abs Immat Gran (auto) 0.07 H Absolute Neuts (auto) 11.7 H Absolute Nucleated RBC 0.000 Nucleated RBC % (auto) 0.0 PT 14.6 H INR 1.2 H D-Dimer High Sensitivty 210 Anion Gap 12 Estim Creat Clear Calc 101.8 Estimated GFR > 60 Random Glucose 120 H Lactic Acid 2.3 H* Lactic Acid F/U @ 2Hr 1.1 Calcium 9.1 Magnesium 1.8 Total Bilirubin 0.4 AST 16 ALT 14 Alkaline Phosphatase 97 Troponin I High Sens < 2.7 < 2.7 Total Protein 7.5 Albumin 4.1 Urine Opiates Screen Not Detected Ur Buprenorphine Scrn Not Detected Ur Oxycodone Screen Positive H Urine Methadone Screen Not Detected Urine Fentanyl Screen Not Detected Ur Barbiturates Screen Not Detected Ur Phencyclidine Scrn Not Detected Ur Amphetamines Screen Not Detected U Benzodiazepines Scrn Not Detected Urine Cocaine Screen Not Detected U Marijuana (THC) Screen POSITIVE H 12/14/23 00:59 MCV 91.4 MCH 32.1 MCHC 35.1 RDW 13.4 Plt Count 180 MPV 11.6 Immature Gran % (Auto) 0.3 Neut % (Auto) 65.0 Lymph % (Auto) 23.5 [place] % (Auto) 7.6 Eos % (Auto) 3.3 Baso % (Auto) 0.3 Lymph # (Auto) 2.9 [place] # (Auto) 0.9 Eos # (Auto) 0.4 Baso # (Auto) 0.0 Abs Immat Gran (auto) 0.04 H Absolute Neuts (auto) 8.0 Absolute Nucleated RBC 0.000 Nucleated RBC % (auto) 0.0 PT INR D-Dimer High Sensitivty Anion Gap Estim Creat Clear Calc Estimated GFR Random Glucose Lactic Acid Lactic Acid F/U @ 2Hr Calcium Magnesium Total Bilirubin AST ALT Alkaline Phosphatase Troponin I High Sens Total Protein Albumin Urine Opiates Screen Ur Buprenorphine Scrn Ur Oxycodone Screen Urine Methadone Screen Urine Fentanyl Screen Ur Barbiturates Screen Ur Phencyclidine Scrn Ur Amphetamines Screen U Benzodiazepines Scrn Urine Cocaine Screen U Marijuana (THC) Screen Assessment and Plan (1) Syncope: Status: Acute Plan 53M PMH CAD, hfpef, htn, gerd, copd, chronic shoulder pain on chronic opiates, presented with syncope syncope concern for cardiogenic give cad and recent palpiations check echo, tele, cardio eval orthostatic negative CAD dapl, statin hfpef on snuff drier side, given ivf in ED copd stable gerd ppi, h2 tri htn lopressor chronic pain oxy prn dvt prophylaxis - lovenox full code Quality Stroke Does the patient have a stroke diagnosis?: No VTE Prior VTE?: No VTE Risk Level:: Medical - moderate - high VTE Device Contraindication: Treatment Not Indicated VTE Drug Contraindication: N/A - Med Ordered
--- NOTE | 2023-12-14 09:23 | PHA.MEDREC ---
Addendum entered by Emerson Cage RPh 12/14/23 10:15: MED REC CHECKED BY [facility] Original Note: Pharmacy Consult ? Medication Reconciliation Pharmacy has completed the medication reconciliation.Confirmed medications with patient. Patient confirmed he is on Brilinta 60mg BID and he last took that one yesterday 12/14/23.
--- NOTE | 2023-12-14 09:39 | PM.CNCAR ---
History of Present Illness History of Present Illness Date of Service: 12/14/23 Requesting physician: Efrain Nagy Consult reason: other (Syncope) Chief complaint: syncope Narrative: I was consulted to see Stanislav in cardiology evaluation for syncope. Patient is a 53-year-old male with prior history of CAD status post circumflex stenting for acute coronary syndrome about 2 years ago. Last seen in the office last December. Patient said he with doing well overall and has had no recent cardiac symptoms however over the last few days started noticing symptoms of possible palpitations or abnormal sounds in his epigastric area. He said he would feel not well with it. He did try to call or office to get an appointment although he other recent upcoming appointment and then he ended up seeing primary care physician who felt that he was constipated and gave him treatment for the same. Yesterday morning while he was standing in the kitchen counter his brother picked him up from the floor, he had lost consciousness. When he got up he lost consciousness again briefly. Then he got up and he felt better but then his symptoms of epigastric abnormality came back again. Brother called 911 and brought him to the emergency room. He said after putting the IV and getting IV fluids his symptoms have completely dissipated and he feels better including his epigastric symptoms. These epigastric symptoms are not similar to his acute coronary syndrome symptoms. He denies any chest pain. Denies any shortness of breath. Denies any prolonged palpitation irregular heartbeat. His blood pressure is stabilized after IV fluids and no overnight arrhythmias have been noted. Review of Systems Constitutional: Constitutional: Reports no additional constitutional complaints Eyes: Eyes: Reports no additional eye complaints Cardiovascular: Cardiovascular: Denies chest pain, Denies rapid heart rate, Denies leg edema, Reports Loss of Consciousness, Denies palpitations, Denies dyspnea, Denies slow heart rate and Reports other (Epigastric pulsation) Respiratory: Respiratory: Denies no additional respiratory complaints and Denies dyspnea Gastrointestinal: Gastrointestinal: Denies no additional gastrointestinal complaints and Reports constipation Integumentary/Breasts: Skin/Breast: Denies system reviewed and no additional complaints, except as docu Neurologic: Denies system reviewed and no additional complaints, except as documented Psychiatric: Psychiatric: Denies no additional psychiatric complaints Endocrine: Endocrine: Denies palpitations PMFSH Past Medical History Medical History On anticoagulant therapy On beta tri at home NSTEMI (non-ST elevated myocardial infarction) GERD (gastroesophageal reflux disease) Acid reflux Collapsed lung Family History Family History Mother Diverticulitis HTN (hypertension) Brother Diverticulitis Brother Diverticulitis HTN (hypertension) Brother Diverticulitis HTN (hypertension) Diabetes Brother Diverticulitis Sister HTN (hypertension) Sister Diverticulitis HTN (hypertension) Diabetes Sister HTN (hypertension) Family/Other Cancer Surgical History Surgical History Stented coronary artery History of esophagogastroduodenoscopy (EGD) History of foot surgery Social History Social History Household Members: Family Housing: Apartment Alcohol intake: former Patient Tobacco Use Status: Former Tobacco user Tobacco use type: Cigarette Cigarettes Per Day: 3 Years Smoked: 30+/- Substance Use Type: Marijuana service: No Current occupational status: disabled Meds Allergies Allergy/AdvReac Type Severity Reaction Status Date / Time amoxicillin Allergy Mild unknown Verified 12/13/23 20:20 latex Allergy Unknown itching Uncoded 12/13/23 20:20 Active Medications: Current Medications Acetaminophen (Acetaminophen 325 Mg Tablet) 650 mg PO Q6H PRN PRN Reason: Pain, Mild (Pain Scale 1-3), fever or headache Aspirin (Aspirin Enteric Coated 81 Mg Tablet.) 81 mg PO DAILY CITLALLI Atorvastatin Calcium (Atorvastatin Calcium 40 Mg Tablet) 40 mg PO BEDTIME CITLALLI Calcium Carbonate (Calcium Carbonate 750 Mg Tab.Chew) 750 mg PO Q4H PRN PRN Reason: Heartburn Enoxaparin Sodium (Enoxaparin Sodium 40 Mg/0.4 Ml Syringe) 40 mg SUBCUT Q24H CITLALLI Famotidine (Famotidine 20 Mg Tablet) 20 mg PO BID CITLALLI Magnesium Hydroxide (Milk Of Magnesia 30 Ml Oral.Susp) 30 ml PO DAILY PRN PRN Reason: Constipation Melatonin (Melatonin 3 Mg Tablet) 6 mg PO BEDTIME PRN PRN Reason: Insomnia Metoprolol Tartrate (Metoprolol Tartrate 12.5 Mg Halftab) 12.5 mg PO BID CITLALLI; Protocol Omeprazole (Omeprazole 20 Mg Capsule.) 20 mg PO DAILY@0630 [facility] Last Admin: 12/14/23 06:25 Dose: 20 mg Oxycodone HCl (Oxycodone Hcl Immed Release 5 Mg Tablet) 7.5 mg PO Q6H PRN PRN Reason: moderate pain Sodium Chloride (0.9 % Sodium Chloride Flush 3 Ml Syringe) 3 ml IVFLUSH QSHIFT [facility] Last Admin: 12/14/23 08:52 Dose: Not Given Ticagrelor (Ticagrelor 90 Mg Tablet) 60 mg PO BID [facility] Home Medications ?Medication ?Instructions ?Recorded ?Confirmed ?Last Taken ?Type albuterol sulfate 90 mcg/actuation 2 puff PO Q4-6H PRN Wheezing 09/22/21 12/14/23 Unknown History aerosol inhaler (ProAir HFA) oxycodone-acetaminophen 7.5 mg-325 1 tab PO Q6H PRN Pain 09/22/21 12/14/23 12/13/23 History mg tablet famotidine 20 mg tablet 20 mg PO BID 11/10/21 12/14/23 12/13/23 History pantoprazole 20 mg tablet,delayed 20 mg PO BID 11/10/21 12/14/23 12/13/23 History release docusate sodium 100 mg capsule 100 mg PO DAILY 12/14/23 12/14/23 12/13/23 History ibuprofen 200 mg tablet 200 mg PO BID PRN Inflammation/Pain 12/14/23 12/14/23 12/13/23 History Physical Exam Vital Signs: Vital Signs: Last Vital Signs Temp 97.5 F 12/14/23 06:00 Pulse 63 12/14/23 06:00 Resp 16 12/14/23 06:00 BP 114/64 12/14/23 06:00 Pulse Ox 95 12/14/23 06:00 O2 Del Method Room Air 12/14/23 06:00 BMI result Body Mass Index 21.3 Const: General: cooperative, comfortable and no acute distress; No well developed, alert or awake Nutritional Appearance: not well nourished and not thin Orientation/consciousness: patient oriented x3 Limitations: no limitations HEENT: Head: Yes normocephalic and Yes atraumatic Neck: Neck: Yes trachea midline, Yes supple and Yes no JVD Resp: Effort & Inspection: normal respiratory effort Auscultation: clear to auscultation bilaterally Cardio: Jugular venous distension: no JVD Palpation: normal PMI Rate: regular rate Rhythm: regular rhythm Heart sounds: S1 normal heart sound present, S2 normal heart sound present, no click, no gallops, no murmurs and no rubs GI: Auscultation: normal bowel sounds Skin: General skin exam: no rashes or lesions noted Neuro: General: patient oriented x3 and no focal motor deficits Extrem: General: Yes no clubbing, cyanosis or edema Objective Labs and Meds 12/14/23 00:59 12/13/23 20:27 Lab results: Laboratory Results - last 24 hr 12/13/23 12/13/23 12/13/23 20:27 21:24 23:38 WBC 15.8 H RBC 4.27 L Hgb 13.6 L Hct 39.1 L MCV 91.6 MCH 31.9 MCHC 34.8 RDW 13.4 Plt Count 193 MPV 11.9 Immature Gran % (Auto) 0.4 Neut % (Auto) 74.4 H Lymph % (Auto) 15.6 L [place] % (Auto) 5.8 Eos % (Auto) 3.5 Baso % (Auto) 0.3 Lymph # (Auto) 2.5 [place] # (Auto) 0.9 Eos # (Auto) 0.6 H Baso # (Auto) 0.1 Abs Immat Gran (auto) 0.07 H Absolute Neuts (auto) 11.7 H Absolute Nucleated RBC 0.000 Nucleated RBC % (auto) 0.0 PT 14.6 H INR 1.2 H D-Dimer High Sensitivty 210 Sodium 140 Potassium 3.8 Chloride 107 Carbon Dioxide 25 Anion Gap 12 BUN 15 Creatinine 0.78 Estim Creat Clear Calc 101.8 Estimated GFR > 60 Random Glucose 120 H Lactic Acid 2.3 H* Lactic Acid F/U @ 2Hr 1.1 Calcium 9.1 Magnesium 1.8 Total Bilirubin 0.4 AST 16 ALT 14 Alkaline Phosphatase 97 Troponin I High Sens < 2.7 < 2.7 Total Protein 7.5 Albumin 4.1 Urine Opiates Screen Not Detected Ur Buprenorphine Scrn Not Detected Ur Oxycodone Screen Positive H Urine Methadone Screen Not Detected Urine Fentanyl Screen Not Detected Ur Barbiturates Screen Not Detected Ur Phencyclidine Scrn Not Detected Ur Amphetamines Screen Not Detected U Benzodiazepines Scrn Not Detected Urine Cocaine Screen Not Detected U Marijuana (THC) Screen POSITIVE H 12/14/23 00:59 WBC 12.3 H RBC 3.83 L Hgb 12.3 L Hct 35.0 L MCV 91.4 MCH 32.1 MCHC 35.1 RDW 13.4 Plt Count 180 MPV 11.6 Immature Gran % (Auto) 0.3 Neut % (Auto) 65.0 Lymph % (Auto) 23.5 [place] % (Auto) 7.6 Eos % (Auto) 3.3 Baso % (Auto) 0.3 Lymph # (Auto) 2.9 [place] # (Auto) 0.9 Eos # (Auto) 0.4 Baso # (Auto) 0.0 Abs Immat Gran (auto) 0.04 H Absolute Neuts (auto) 8.0 Absolute Nucleated RBC 0.000 Nucleated RBC % (auto) 0.0 PT INR D-Dimer High Sensitivty Sodium Potassium Chloride Carbon Dioxide Anion Gap BUN Creatinine Estim Creat Clear Calc Estimated GFR Random Glucose Lactic Acid Lactic Acid F/U @ 2Hr Calcium Magnesium Total Bilirubin AST ALT Alkaline Phosphatase Troponin I High Sens Total Protein Albumin Urine Opiates Screen Ur Buprenorphine Scrn Ur Oxycodone Screen Urine Methadone Screen Urine Fentanyl Screen Ur Barbiturates Screen Ur Phencyclidine Scrn Ur Amphetamines Screen U Benzodiazepines Scrn Urine Cocaine Screen U Marijuana (THC) Screen sinus rhythm with occasional PVCs. Imaging Radiologist's impression: Impressions Cervical Spine CT 12/13/23 20:49 IMPRESSION: 1. No acute cervical spine fracture or subluxation. 2. Considerable bilateral upper lobe emphysema. Fleischner guidelines were followed. Head CT 12/13/23 20:49 IMPRESSION: 1. Unremarkable noncontrast brain CT. No acute hemorrhage, mass effect or shift. Abdomen/Pelvis CT 12/13/23 21:47 IMPRESSION: 1. No evidence for pulmonary emboli. Emphysematous changes in the lungs. No dense consolidation. 2. No acute abnormality within the abdomen or pelvis. There is diverticulosis but no obvious diverticulitis. 3. VTE: Negative. Chest CTA 12/13/23 21:47 IMPRESSION: 1. No evidence for pulmonary emboli. Emphysematous changes in the lungs. No dense consolidation. 2. No acute abnormality within the abdomen or pelvis. There is diverticulosis but no obvious diverticulitis. 3. VTE: Negative. Assessment and Plan (1) Syncope: Status: Acute Syncopal episodes in this middle-aged man with prior history of CAD with circumflex stenting with no symptoms suggestive of ischemia with no ischemic EKG changes negative troponin. Symptoms are most likely suggestive of hypovolemic orthostatic hypotension. Symptoms have improved including his epigastric pulsation sensation after IV fluids. Epigastric pulsations most likely due to PVCs. The no overnight arrhythmias noted. He was noted initially to have lactic acidosis although I think this might be related to hypoperfusion as well. Recheck lactic acid level. He is encouraged to increase his fluid intake along with salt intake. Continue all his cardiac meds. I do not see any clear significant malignant etiology for his syncope at this point in time. He can be discharged home. Will set him up for outpatient follow-up with a Holter monitor and see him in the clinic in his usual visit. He is advised to seek emergency care for recurrent symptoms. Will follow up with him in 3 weeks. Procedures Date of Service Date of Service: 12/14/23
[2023-12-14] MEDS: Metoprolol Tartrate 12.5 MG HALFTAB PO (09:44)
[2023-12-14] MEDS: Aspirin Enteric Coated 81 MG TABLET.DR PO (09:44)
[2023-12-14] MEDS: Famotidine 20 MG TABLET PO (09:44)
--- NOTE | 2023-12-14 09:44 | P.DS_ITS ---
DS: Providers Provider Date of Service: 12/14/23 Date of admission: 12/14/23 01:08 Date of discharge: 12/14/23 Primary care physician: Kristen Hanna NP Consults: 12/14/23 01:08 Consult to Cardiology Routine Consulting Provider: [facility] Reason for consultation: cad, syncope Has provider been notified: Yes DS: Diagnosis Discharge Diagnosis (1) Syncope: Status: Acute DS: Summary Hospital Course Hospital Course: admission hpi Chief Complaint: syncope 53M PMH CAD, hfpef, htn, gerd, copd, chronic shoulder pain on chronic opiates, presented with syncope. patient reports over last 4 days has been having epigastric palpitations . on and off, limitted in duration. also complaining of consitpation over 4 days. went to pcp who prescribed laxative. on day of presentation patient had 2 syncopal events witnessed by his brother that he does not remember well but were brief. first episode was while standing in kitchen, then brother picked him up off floor and briefly passed out again. no trauma. in ED CTA chest and abd negative. trops negative. ekg unremarkable Hospital course: The patient presented with a syncopal episode and self-reported palpitations. The ECG showed no arrhythmia, and although orthostatic hypotension was suspected, the test was negative. Cardiology has evaluated him and recommends a Holter monitor on an outpatient basis. Time Attestation Discharge Coordination Time (in mins): 35 Quality: Safe Use of Opioids Does Pt have an Active Cancer Diagnosis on the Problem List?: No Quality: Stroke Does the patient have a stroke diagnosis?: No Physical Exam Vital Signs: Vital Signs: Last Vital Signs Temp 98.1 F 12/14/23 09:42 Pulse 61 12/14/23 09:42 Resp 16 12/14/23 09:42 BP 130/64 12/14/23 09:42 Pulse Ox 100 12/14/23 09:42 O2 Del Method Room Air 12/14/23 09:42 BMI result Body Mass Index 21.3 DS: Data Data Completed and Pending Labs on day of discharge: Laboratory Results - last 24 hr 12/13/23 12/13/23 12/13/23 20:27 21:24 23:38 WBC 15.8 H RBC 4.27 L Hgb 13.6 L Hct 39.1 L MCV 91.6 MCH 31.9 MCHC 34.8 RDW 13.4 Plt Count 193 MPV 11.9 Immature Gran % (Auto) 0.4 Neut % (Auto) 74.4 H Lymph % (Auto) 15.6 L [place] % (Auto) 5.8 Eos % (Auto) 3.5 Baso % (Auto) 0.3 Lymph # (Auto) 2.5 [place] # (Auto) 0.9 Eos # (Auto) 0.6 H Baso # (Auto) 0.1 Abs Immat Gran (auto) 0.07 H Absolute Neuts (auto) 11.7 H Absolute Nucleated RBC 0.000 Nucleated RBC % (auto) 0.0 PT 14.6 H INR 1.2 H D-Dimer High Sensitivty 210 Sodium 140 Potassium 3.8 Chloride 107 Carbon Dioxide 25 Anion Gap 12 BUN 15 Creatinine 0.78 Estim Creat Clear Calc 101.8 Estimated GFR > 60 Random Glucose 120 H Lactic Acid 2.3 H* Lactic Acid F/U @ 2Hr 1.1 Calcium 9.1 Magnesium 1.8 Total Bilirubin 0.4 AST 16 ALT 14 Alkaline Phosphatase 97 Troponin I High Sens < 2.7 < 2.7 Total Protein 7.5 Albumin 4.1 Urine Opiates Screen Not Detected Ur Buprenorphine Scrn Not Detected Ur Oxycodone Screen Positive H Urine Methadone Screen Not Detected Urine Fentanyl Screen Not Detected Ur Barbiturates Screen Not Detected Ur Phencyclidine Scrn Not Detected Ur Amphetamines Screen Not Detected U Benzodiazepines Scrn Not Detected Urine Cocaine Screen Not Detected U Marijuana (THC) Screen POSITIVE H 12/14/23 00:59 WBC 12.3 H RBC 3.83 L Hgb 12.3 L Hct 35.0 L MCV 91.4 MCH 32.1 MCHC 35.1 RDW 13.4 Plt Count 180 MPV 11.6 Immature Gran % (Auto) 0.3 Neut % (Auto) 65.0 Lymph % (Auto) 23.5 [place] % (Auto) 7.6 Eos % (Auto) 3.3 Baso % (Auto) 0.3 Lymph # (Auto) 2.9 [place] # (Auto) 0.9 Eos # (Auto) 0.4 Baso # (Auto) 0.0 Abs Immat Gran (auto) 0.04 H Absolute Neuts (auto) 8.0 Absolute Nucleated RBC 0.000 Nucleated RBC % (auto) 0.0 PT INR D-Dimer High Sensitivty Sodium Potassium Chloride Carbon Dioxide Anion Gap BUN Creatinine Estim Creat Clear Calc Estimated GFR Random Glucose Lactic Acid Lactic Acid F/U @ 2Hr Calcium Magnesium Total Bilirubin AST ALT Alkaline Phosphatase Troponin I High Sens Total Protein Albumin Urine Opiates Screen Ur Buprenorphine Scrn Ur Oxycodone Screen Urine Methadone Screen Urine Fentanyl Screen Ur Barbiturates Screen Ur Phencyclidine Scrn Ur Amphetamines Screen U Benzodiazepines Scrn Urine Cocaine Screen U Marijuana (THC) Screen Discharge Plan Discharge Anticipated Discharge Date/Time: 12/14/23 09:42 Patient Disposition: Home Health Service Discharge Diagnosis: syncope, orthostatic type Referrals: Kristen Hanna PROFESSIONAL APPLICATION DESIGNER [Primary Care Provider] - 1 Week Discharge Medications: Continued aspirin 81 mg tablet,delayed release (DR/EC) 81 mg PO DAILY Qty: 90 3RF metoprolol tartrate 25 mg tablet 12.5 mg PO BID Qty: 90 3RF atorvastatin [Lipitor] 40 mg tablet 40 mg PO BEDTIME Qty: 90 3RF famotidine 20 mg tablet 20 mg PO BID docusate sodium 100 mg capsule 100 mg PO DAILY ibuprofen 200 mg Tablet 200 mg PO BID PRN (Reason: Inflammation/Pain ) pantoprazole 20 mg tablet,delayed release (DR/EC) 20 mg PO BID albuterol sulfate [ProAir HFA] 90 mcg/actuation HFA aerosol inhaler 2 puff PO Q4-6H PRN (Reason: Wheezing) oxycodone-acetaminophen 7.5-325 mg tablet 1 tab PO Q6H PRN (Reason: Pain) Brilinta 60 mg tablet 60 mg PO BID Qty: 60 11RF polyethylene glycol 3350 [Miralax] 17 gram/dose powder 238 g PO ONCE PRN (Reason: laxative effect) 1 Days Qty: 238 0RF Rx Instructions: Take as directed by mouth the day before your procedure. Discharge Orders: Discharge Order (Routine); Ordered 12/14/23 Ordered By: Don Allen Diet: Advance to usual diet Activity on Discharge: As tolerated Stand Alone Forms: Patient Portal Discharge page Print Language: Uzbek Care Plan Goals: recovery from syncope, further workup for syncope. Health Concerns: Syncope Plan of Treatment: drink plenty of fluid Assessment: follow-up with the heart doctor for a Holter monitor
--- NOTE | 2023-12-14 09:44 | PC.NURSE ---
Medicated per MAR.
--- NOTE | 2023-12-14 10:04 | PC.NURSE ---
Pt. refused Lovenox. Education provided
== END 2023-12-14 09:58 | disposition home health service (06) ==
LOC: HO.ED 12-14 01:24 → HO.EDOVER 12-14 01:27
PROVIDERS: Admitting Provider Internal Medicine; Emergency Provider Student in an Organized Health Care Education/Training Program; PCP Nurse Practitioner Primary Care; Visit Provider Internal Medicine
DX: R55 Syncope and collapse (principal); R00.2 Palpitations; I25.10 Atherosclerotic heart disease of native coronary artery without angina pectoris; K59.00 Constipation, unspecified; M54.2 Cervicalgia; I11.0 Hypertensive heart disease with heart failure; I50.30 Unspecified diastolic (congestive) heart failure; J44.9 Chronic obstructive pulmonary disease, unspecified; G89.29 Other chronic pain; M25.519 Pain in unspecified shoulder; K21.9 Gastro-esophageal reflux disease without esophagitis; Z79.01 Long term (current) use of anticoagulants; Z79.899 Other long term (current) drug therapy
CPT/HCPCS: 36415; 70450; 71275; 72125; 74177; 80053; 80307; 83605; 83735; 84484; 85025; 85379; 85610; 93005; 93306; 96360; 96361; 99222; 99285; J1650; Q9967

== ENCOUNTER → 2023-12-13 20:22 | Outpatient (BNV) | payer OTHER, SELFPAY | PROVIDERS: Admitting Provider Internal Medicine; Emergency Provider Student in an Organized Health Care Education/Training Program; PCP Nurse Practitioner Primary Care; Visit Provider Internal Medicine Cardiovascular Disease | DX: R55 Syncope and collapse (principal) | CPT/HCPCS: 93010 ==

== ENCOUNTER → 2023-12-13 20:54 | Outpatient (BNV) | payer OTHER, SELFPAY | PROVIDERS: Emergency Provider Student in an Organized Health Care Education/Training Program; PCP Nurse Practitioner Primary Care; Visit Provider Internal Medicine | DX: I50.30 Unspecified diastolic (congestive) heart failure (principal); I25.10 Atherosclerotic heart disease of native coronary artery without angina pectoris; R55 Syncope and collapse | CPT/HCPCS: 99236; 99499 ==

== ENCOUNTER → 2023-12-14 01:08 | Outpatient (BNV) | payer OTHER, SELFPAY | PROVIDERS: Admitting Provider Internal Medicine; Emergency Provider Student in an Organized Health Care Education/Training Program; PCP Nurse Practitioner Primary Care; Visit Provider Internal Medicine Cardiovascular Disease | DX: R55 Syncope and collapse (principal); I77.810 Thoracic aortic ectasia | CPT/HCPCS: 93306; 99222 ==

== ENCOUNTER → 2023-12-19 10:46 | Outpatient (REF) | payer OTHER, SELFPAY ==
--- NOTE | 2023-12-19 11:26 | HM_ITS ---
* Total monitoring time 7 days. * Underlying rhythm is sinus with an average rate of 65/Min. * Occasional ventricular ectopy with a burden of 1.6%. Isolated beats with rare bigeminy and trigeminy. * Rare supraventricular ectopy. * No significant pauses or AV blocks. * Patient markers used in association with sinus rhythm, supraventricular and ventricular ectopy. * Palpitations/skipping in patient diary correlates with supraventricular and ventricular ectopy. MTDD
== END ==
LOC: HO.CARD 10:46
PROVIDERS: PCP Nurse Practitioner Primary Care; Visit Provider Internal Medicine Cardiovascular Disease
DX: R55 Syncope and collapse (principal); I25.10 Atherosclerotic heart disease of native coronary artery without angina pectoris
CPT/HCPCS: 93242

== ENCOUNTER → 2023-12-19 11:26 | Outpatient (BNV) | payer OTHER, SELFPAY | PROVIDERS: PCP Nurse Practitioner Primary Care; Visit Provider Internal Medicine | DX: I47.10 Supraventricular tachycardia, unspecified (principal); I49.3 Ventricular premature depolarization | CPT/HCPCS: 93244 ==

== ENCOUNTER 2023-12-27 09:20 | Outpatient (AMB) | payer OTHER, SELFPAY ==
--- NOTE | 2023-12-27 09:30 | MHC.OFFVIS ---
Vital Signs 12/27/23 09:31 Height 5 ft 10 in Weight 143 lb 4.807 oz BMI 20.6 BP 128/62 Blood Pressure Location Lt brachial Position Sitting Pulse 63 Pulse Source Monitor Intake Visit Reasons: 1 yr f/up Allergies amoxicillin Allergy (Mild, Verified 12/13/23 20:20) unknown latex Allergy (Unknown, Uncoded 12/13/23 20:20) itching Medication List - Last Reconciled 12/27/23 by Pérez Head MD albuterol sulfate 90 mcg/actuation (ProAir HFA) 2 puffs PO Q4-6H PRN aspirin 81 mg PO DAILY atorvastatin (Lipitor) 40 mg PO BEDTIME famotidine 20 mg PO BID ibuprofen 200 mg PO BID PRN metoprolol tartrate 12.5 mg (1/2 x 25 mg) PO BID oxycodone-acetaminophen 7.5-325 mg 1 tab PO Q6H PRN pantoprazole 20 mg PO BID ticagrelor (Brilinta) 60 mg PO BID HPI Comments Details: Stanislav comes for follow-up. Continues to have intermittent pulsating sensation in his epigastric area especially after he eats. He said he has lost about 25 lb. He said he is afraid of eating. He is currently taking dual antiplatelet therapy. He was recently admitted with syncope preceded by the symptoms of pulsating sensation in his epigastric area. It was felt that this orthostatic syncope related to dehydration. He was then aggressively hydrated, monitored on the floor without any arrhythmias. He underwent a Holter monitor, results are not still pending as he returned the monitor yesterday. He denies any exertional chest pain or shortness of breath. He said he continue still be bothered by these symptoms in his epigastric area. He is trying to increase his fluid intake. Unfortunately continues to smoke although he has cut down a lot [facility] Medical History (Updated 12/27/23 @ 12:19 by Pérez Head MD) CAD (coronary artery disease) On anticoagulant therapy On beta tri at home NSTEMI (non-ST elevated myocardial infarction) GERD (gastroesophageal reflux disease) Acid reflux Collapsed lung Surgical History Stented coronary artery History of esophagogastroduodenoscopy (EGD) History of foot surgery Family History Mother Diverticulitis HTN (hypertension) Brother Diverticulitis Brother Diverticulitis HTN (hypertension) Brother Diverticulitis HTN (hypertension) Diabetes Brother Diverticulitis Sister HTN (hypertension) Sister Diverticulitis HTN (hypertension) Diabetes Sister HTN (hypertension) Family/Other Cancer Social History Household Members: Family Housing: Apartment Alcohol intake: former Patient Tobacco Use Status: Former Tobacco user Tobacco use type: Cigarette Cigarettes Per Day: 3 Years Smoked: 30+/- Substance Use Type: Marijuana service: No Current occupational status: disabled Review of Systems Const Denies weakness ENT Denies dizziness Card Denies chest pain, Denies chest pain with activity, Denies syncope, Denies rapid heart rate, Denies pedal edema, Denies edema, Denies leg edema, Denies lightheadedness, Denies palpitations, Denies dyspnea, Denies dyspnea on exertion and Denies orthopnea Resp Denies cough, Denies dyspnea and Denies dyspnea on exertion GI Denies hematochezia and Denies change in stool character Musc Denies abnormal gait, Denies muscle cramps, Denies muscle weakness, Denies numbness, Denies radiating pain into limb and Denies tingling Neuro Denies abnormal gait, Denies dizziness, Denies syncope, Denies numbness, Denies tingling and Denies weakness Endo Denies palpitations Physical Exam Vital Signs: Last Vital Signs Pulse 63 12/27/23 09:31 BP 128/62 12/27/23 09:31 BMI result Body Mass Index 20.6 Const General: cooperative, healthy appearing, comfortable and no acute distress Nutritional Appearance: thin and underweight Orientation/consciousness: patient oriented x3 Neck Neck: Yes normal visual inspection and Yes no JVD Resp Effort & Inspection: normal respiratory effort Auscultation: clear to auscultation bilaterally, no crackles, no rales, no rhonchi and no wheezes Cardio Jugular venous distension: no JVD Rate: regular rate Rhythm: regular rhythm Heart sounds: S1 normal heart sound present, S2 normal heart sound present, no gallops, no murmurs and no rubs Peripheral pulses: Peripheral pulses 2+ throughout GI Inspection: Yes normal to inspection Neuro General: patient oriented x3 Extrem Other: Right radial catheterization site well healed General: Yes normal to inspection, No no pedal edema and No calf tenderness Psych Appearance: grossly normal Mental Status: mental status grossly normal Speech and movement: Normal speech and movement present Office Procedures EKG Details: EKG shows normal sinus rhythm with normal EKG [id number], Complete Assessment & Plan Assessment & Plan (1) Syncope: Code(s): R55 - Syncope and collapse Category: Medical Plan: Patient with recent hospitalization syncope which appears to be orthostatic in nature due to intravascular volume depletion and dehydration. I have strongly recommended him to increase his water and salt intake. Advised to monitor blood pressure at home and maintain a log. Awaiting report of his Holter monitor to further assess these pulsating sensation in his epigastric area. Question this represent mesenteric angina. Will obtain abdominal ultrasound to evaluate for mesenteric circulation. (2) CAD (coronary artery disease): Code(s): I25.10 - Atherosclerotic heart disease of [place] coronary artery without angina pectoris Category: Medical Plan: Coronary artery disease with drug-eluting stent to circumflex artery 2 years ago. Continue dual antiplatelet therapy for total of 30 months. Beyond that continue low-dose aspirin therapy. Continue high-intensity statin therapy. Target goal LDL closer to 60 mg/dL. Blood pressure is well optimized at this point time. Complete smoking cessation was advised. Will follow up in the clinic in 1 year's time, sooner p.r.n.. Thank you for allowing me to partake in his care Orders: Orders ECG Tilt Table Test Today R55 - Syncope and collapse US abdomen complete Today K55.1 - Chronic vascular disorders of intestine Coding Level of Care Code Est Pt Level 4 (67749) Diagnoses Syncope R55 CAD (coronary artery disease) I25.10 CPT Codes EKG - CPT: 26973-[id number], Complete ([id number])
[2023-12-27 09:31] VITALS: BP 128/62; PULSE 63; BMI 20.6
== END 2023-12-27 09:58 | disposition home or self-care (01) ==
PROVIDERS: PCP Nurse Practitioner Primary Care; Visit Provider Internal Medicine Cardiovascular Disease
DX: R55 Syncope and collapse (principal); I25.10 Atherosclerotic heart disease of native coronary artery without angina pectoris
CPT/HCPCS: 93010; 99214

== ENCOUNTER → 2023-12-27 09:20 | Outpatient (BNVA) | payer OTHER, SELFPAY | PROVIDERS: PCP Nurse Practitioner Primary Care; Visit Provider Internal Medicine Cardiovascular Disease | DX: I25.10 Atherosclerotic heart disease of native coronary artery without angina pectoris (principal); R55 Syncope and collapse; K55.1 Chronic vascular disorders of intestine; Z87.891 Personal history of nicotine dependence | CPT/HCPCS: 93005; 99212 ==

== ENCOUNTER 2024-01-09 10:18 | Outpatient (REF) | payer OTHER, SELFPAY ==
--- NOTE | ~2024-01-09 | US_ITS ---
CLINICAL INDICATION: Chronic vascular disorders of intestine, weight loss TECHNIQUE: Real-time ultrasound examination of the aorta and mesenteric arteries was attempted of including duplex Doppler evaluation of the origins of the celiac, superior mesenteric and inferior mesenteric arteries. FINDINGS: The visualized portion of the abdominal aorta does not demonstrate obvious plaque. Peak systolic velocity in the abdominal aorta measures 118 cm/sec. Celiac artery: Inspiration supine: 169 cm/sec Inspiration erect: 107 cm/sec Expiration supine: 188 cm/sec Expiration erect: 144 cm/sec Superior mesenteric artery: Proximal: 179 cm/sec Mid: 200 cm/sec Distal: 106 cm/sec Inferior mesenteric artery: 70.9 cm/sec Splenic artery: 122 cm/sec Hepatic artery: 133 cm/sec US/US SMA IMPRESSION: No evidence of stenosis involving the origins of the celiac or superior mesenteric arteries. If clinical suspicion persists, CTA may be of use for further evaluation. Electronically signed by: Parag Lacey MD 01/12/2024 04:22 PM EDT
== END 2024-01-09 10:19 | disposition home or self-care (01) ==
LOC: HO.US 10:18
PROVIDERS: PCP Nurse Practitioner Primary Care; Visit Provider Internal Medicine Cardiovascular Disease
DX: K55.1 Chronic vascular disorders of intestine (principal)
CPT/HCPCS: 93976

== ENCOUNTER 2024-03-14 13:45 | Outpatient (REF) | payer OTHER, SELFPAY ==
[2024-03-14 14:17] VITALS: BP 134/83; PULSE 55; RESP 20; TEMP 36.2; O2SAT 100
--- NOTE | 2024-03-14 14:58 | P.BOP_ITS ---
Brief Operative Note Date of Service: 03/14/24 Pre-op diagnosis: Syncope Post-op diagnosis: same Procedure: Placement of implantable loop recorder Implants: After obtaining consent patient was brought to the minor surgery suite. Patient was then laid on the operating table supine. Patient is precordial area was then prepped and draped in a sterile fashion. Patient was then given 2% lido isabelle with epinephrine intradermally and subcutaneously in the 4th intercostal space. A small incision was made. A Lucidity (Member[employer]) LINQ 2 implantable loop recorder with serial number [id number] was then implanted in the subcutaneous space using modified Seldinger technique. Measured R-wave with 0.72 mV were noted. The wound was then closed with the Steri-Strips and pressure dressing applied. Surgeon: Pérez Head MD Anesthesia: local Was an Shopper Insights Manager used for this Procedure?: No Estimated blood loss (mL): 2 Pathology: none sent Condition: stable Disposition: same day
== END 2024-03-14 13:46 | disposition home or self-care (01) ==
LOC: HO.MS 13:45
PROVIDERS: PCP Nurse Practitioner Primary Care; Visit Provider Internal Medicine Cardiovascular Disease
PROC: (CPT 33285; principal; 2024-03-14 14:30)
DX: R00.2 Palpitations (principal)
CPT/HCPCS: 33285; C1764; J2004

== ENCOUNTER → 2024-03-14 13:45 | Outpatient (BNV) | payer OTHER, SELFPAY | PROVIDERS: PCP Nurse Practitioner Primary Care; Visit Provider Internal Medicine Cardiovascular Disease | DX: R55 Syncope and collapse (principal) | CPT/HCPCS: 33285 ==

== ENCOUNTER → 2024-03-21 08:59 | Outpatient (BNVA) | payer OTHER, SELFPAY | PROVIDERS: PCP Nurse Practitioner Primary Care; Visit Provider Internal Medicine Cardiovascular Disease ==

== ENCOUNTER → 2024-04-13 23:59 | Outpatient (BNV) | payer OTHER, SELFPAY ==
--- NOTE | 2024-04-16 15:27 | MHC.OFFVIS ---
Intake Visit Reasons: Remote ILR check- [employer] Allergies amoxicillin Allergy (Mild, Verified 12/13/23 20:20) unknown latex Allergy (Unknown, Uncoded 12/13/23 20:20) itching [facility] Medical History (Updated 04/16/24 @ 15:28 by Pérez Head MD) CAD (coronary artery disease) On anticoagulant therapy On beta tri at home NSTEMI (non-ST elevated myocardial infarction) GERD (gastroesophageal reflux disease) Acid reflux Collapsed lung Surgical History Stented coronary artery History of esophagogastroduodenoscopy (EGD) History of foot surgery Family History Mother Diverticulitis HTN (hypertension) Brother Diverticulitis Brother Diverticulitis HTN (hypertension) Brother Diverticulitis HTN (hypertension) Diabetes Brother Diverticulitis Sister HTN (hypertension) Sister Diverticulitis HTN (hypertension) Diabetes Sister HTN (hypertension) Family/Other Cancer Social History Household Members: Family Housing: Apartment Alcohol intake: former Patient Tobacco Use Status: Former Tobacco user Tobacco use type: Cigarette Cigarettes Per Day: 3 Years Smoked: 30+/- Substance Use Type: Marijuana service: No Current occupational status: disabled Office Procedures Cardiac Device Check Cardiac Device Check Details: Remote implantable loop recorder report generated 04/13/2024. No pauses or atrial fibrillation noted. Frequent PVCs noted with total burden of 8.7%, mostly isolated [id number] Cardiac Interrogation, subcut cardiac rhythm monitor Procedure code (CPT) selection complete Assessment & Plan Assessment & Plan (1) Implantable loop recorder present: Code(s): Z95.818 - Presence of other cardiac implants and grafts Category: Medical Plan: See above Coding Level of Care Code Procedure Only Diagnoses Implantable loop recorder present Z95.818 CPT Codes Cardiac Device Check - Cardiac Device 16: [id number]-[id number] Cardiac Interrogation, subcut cardiac rhythm monitor ([id number])
== END ==
PROVIDERS: PCP Nurse Practitioner Primary Care; Visit Provider Internal Medicine Cardiovascular Disease
DX: I49.3 Ventricular premature depolarization (principal); Z95.818 Presence of other cardiac implants and grafts
CPT/HCPCS: 93298

== ENCOUNTER → 2024-05-13 23:59 | Outpatient (BNV) | payer OTHER, SELFPAY ==
--- NOTE | 2024-05-23 17:12 | A.OFFVIS_ITS ---
Intake Visit Reasons: Remote ILR check- [employer] Allergies amoxicillin Allergy (Mild, Verified 12/13/23 20:20) unknown latex Allergy (Unknown, Uncoded 12/13/23 20:20) itching [facility] Medical History (Updated 04/16/24 @ 15:28 by Pérez Head MD) CAD (coronary artery disease) On anticoagulant therapy On beta tri at home NSTEMI (non-ST elevated myocardial infarction) GERD (gastroesophageal reflux disease) Acid reflux Collapsed lung Surgical History Stented coronary artery History of esophagogastroduodenoscopy (EGD) History of foot surgery Family History Mother Diverticulitis HTN (hypertension) Brother Diverticulitis Brother Diverticulitis HTN (hypertension) Brother Diverticulitis HTN (hypertension) Diabetes Brother Diverticulitis Sister HTN (hypertension) Sister Diverticulitis HTN (hypertension) Diabetes Sister HTN (hypertension) Family/Other Cancer Social History Household Members: Family Housing: Apartment Alcohol intake: former Patient Tobacco Use Status: Former Tobacco user Tobacco use type: Cigarette Cigarettes Per Day: 3 Years Smoked: 30+/- Substance Use Type: Marijuana service: No Current occupational status: disabled Office Procedures Cardiac Device Check Cardiac Device Check Details: Remote implantable loop recorder report generated 05/13/2024. No atrial fibrillation or pauses noted. Frequent isolated PVCs noted, total burden of 7.5% [id number] Cardiac Interrogation, subcut cardiac rhythm monitor Procedure code (CPT) selection complete Assessment & Plan Assessment & Plan (1) Implantable loop recorder present: Code(s): Z95.818 - Presence of other cardiac implants and grafts Category: Medical Plan: See above Coding Level of Care Code Procedure Only Diagnoses Implantable loop recorder present Z95.818 CPT Codes Cardiac Device Check - Cardiac Device 16: [id number] Cardiac Interrogation, subcut cardiac rhythm monitor ([id number])
== END ==
PROVIDERS: PCP Nurse Practitioner Primary Care; Visit Provider Internal Medicine Cardiovascular Disease
DX: I49.3 Ventricular premature depolarization (principal); Z95.818 Presence of other cardiac implants and grafts
CPT/HCPCS: 93298

== ENCOUNTER 2024-05-28 10:50 | Outpatient (REF) | payer OTHER, SELFPAY ==
[2024-05-28 12:27] LABS: Hematocrit 41.5 % (42.0-52.0); Hemoglobin 14.2 g/dl (14.0-18.0); Mean Corpuscular HGB Conc 34.2 g/dl (31.0-36.0); Mean Corpuscular Hemoglobin 31.8 pg (27.0-33.0); Platelet Count 215 X10*3/uL (160-400); Red Blood Count 4.46 X10*6/uL (4.60-5.80); Red Cell Distribution Width 13.8 % (11.0-16.0); White Blood Count 7.5 X10*3/uL (4.8-10.8)
--- OUTSIDE RECORDS SUMMARY | 2024-05-28 13:24 | XMS_ITS | Clinical Summary ---
Author Organization [employer] Address [address] [place] [address] Care Team Providers Care Tractor Crane Engineer Name Role Phone Kristen Hanna BERNADETTE Primary Care Provider [phone] Allergies Active Allergy Reactions Criticality Noted Date Comments Amoxicillin Hives,Swelling 03/30/2021 Other reaction(s): Itching Medications aspirin 81 MG EC tablet Take 1 tablet by mouth in the morning. Active atorvastatin (Lipitor) 40 MG tablet Take 1 tablet by mouth in the morning. Active cholecalciferol (Vitamin D-3) 1.25 MG (49569 UT) capsule Take 1 capsule by mouth 1 (one) time per week. 09/27/19 22 Active metoprolol tartrate (Lopressor) 25 MG tablet Take 12.5 mg by mouth in the morning and at bedtime. 04/24/20 22 Active tamsulosin (Flomax) 0.4 MG 24 hr capsule Take 0.4 mg by mouth in the morning. 04/13/20 23 Active Brilinta 60 MG tablet Take 60 mg by mouth 2 times daily. 08/27/19 24 Active docusate sodium (Colace) 100 MG capsuleIndicatio ns:Chronic constipation Take 1 capsule (100 mg) by mouth Once per day. 30 capsule 11 12/12/19 24 2024 Active polyethylene glycol, PEG, 3350 (MiraLax) 17 GM/SCOOP powderIndication s:Chronic constipation Take 17 g by mouth Once per day. 527 g 2 12/12/19 24 Active naloxone (Narcan) 4 mg/0.1 mL nasal sprayIndications :Other chronic pain Administer 1 spray (4 mg) into affected nostril(s) if needed in the morning and at bedtime for opioid reversal. 2 each 2 01/02/20 24 Active pantoprazole (ProtoNix) 20 MG EC tabletIndication s:Chronic GERD TAKE 1 TABLET BY MOUTH ONCE DAILY 90 tablet 1 01/15/20 24 Active ibuprofen 600 MG tablet Take 1 tablet (600 mg) by mouth every 6 (six) hours if needed for mild pain for up to 20 doses. 20 tablet 01/22/20 24 Active albuterol (Ventolin HFA) 108 (90 Base) MCG/ACT inhalerIndicatio ns:Mild persistent asthma, uncomplicated INHALE 2 PUFFS BY MOUTH EVERY 4 HOURS NEEDED FOR WHEEZING OR SHORTNESS OF BREATH 18 g 2 04/07/20 24 Active famotidine (Pepcid) 20 MG tabletIndication s:Chronic GERD Take 1 tablet as needed for acid reflux 90 tablet 1 04/17/20 24 Active oxyCODONE-acetam inophen (Percocet) 10-325 MG tabletIndication s:Other chronic pain Take 1 tablet by mouth every 6 (six) hours if needed for severe pain. 112 tablet 05/20/19 25 Active oxyCODONE-acetam inophen (Percocet) 10-325 MG tabletIndication s:Other chronic pain Take 1 tablet by mouth every 6 (six) hours if needed for severe pain. Do not start before April 23, 2024. 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 Head at [facility] Coronary artery disease with drug-eluting stent to circumflex artery 2 years ago 10/2021. Continue dual antiplatelet therapy for total of 30 months. Beyond that continue low-dose aspirin therapy. Continue high-intensity statin therapy. Target goal LDL closer to 60 mg/dL. Blood pressure is well optimized at this point time. Complete smoking cessation was advised. Myocardial infarction 10/31/2021 Overview (01/15/2024): 10/2021, s/p GLENNA to circumflex artery Mild persistent asthma 07/06/2015 Finding of above normal blood pressure 6 Smoking 07/06/2015 Overview (01/15/2024): LDCT (started smoking at 14 until OR in 10/2021, now 2-3 cigs/d) (did have Chest CTA 12/13/23, can defer sending until next year) 37 PYH Resolved Problems Problem Noted Date Diagnosed Date Resolved Date Bacterial urinary infection 11/20/2022 01/15/2024 Encounters Date Type Department Care Team Description 05/28/2024 Orders Only GENERIC EXTERNAL DATA DEPARTMENT Provider, Generic External Data 05/20/2024 Refill [facility] [address] [place] [address] Kristen Hanna ANP Other chronic pain 05/19/2024 Telephone [facility] [address] [place] [address] Loly Erwin MA July recall 04/22/2024 Refill [facility] [address] [place] [address] Kristen Hanna ANP Other chronic pain 04/22/2024 Telephone [facility] [address] [place] [address] Kristen Hanna ANP Med Refill 04/21/2024 Refill [facility] [address] [place] [address] Naty Barth RN Other chronic pain 04/21/2024 Telephone [facility] [address] [place] [address] Kristen Hanna ANP 04/18/2024 Telephone [facility] [address] [place] [address] Srinivasa, Betsy, RN Appointment Confirmation 04/17/2024 9:15 AM EST Office Visit [address] [address] Kristen Hanna ANP Chronic GERD (Primary Dx); Moderate protein-calorie malnutrition (CMS/HCC); Other chronic pain; detention (current) use of opiate analgesic 04/17/2024 Travel 04/08/2024 Patient Outreach [address] [address] Kristen Hanna ANP Pre-visit Planning ([facility] screening was completed on 12/27/2023) 04/03/[address] [address] Kristen Hanna ANP Mild persistent asthma, uncomplicated 03/24/2024 Refill [facility] [address] [place] [address] Kristen Hanna ANP Other chronic pain 03/22/[address] [address] 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, 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 Question 03/03/[address] [address] 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, LUIS Results 02/29/2024 10:30 AM EDT Clinical Support [address] [address] 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, RN Other chronic pain 02/29/2024 Travel 02/27/2024 Refill [facility] [address] [place] [address] Naty Barth RN Other chronic pain 02/27/[address] [address] Kristen Hanna ANP Med Refill 02/26/2024 Refill [facility] [address] [place] [address] Kristen Hanna ANP Other chronic pain (Primary Dx) from Last 3 Months Immunizations Name Administration Dates Next Due Isidro SARS-CoV-2 Vaccination 10/26/2020 Tdap 04/13/2021 Family History Medical History Relation Name Comments Lung cancer Brother Relation Name Status Comments Brother Social History Tobacco Use Types Packs/Day Years Used Date Smoking Tobacco: Every Day Cigarettes 0.3 0.5 Passive Smoke Exposure: Never Smokeless Tobacco: Former Tobacco Cessation:Ready to Q uit: Not Asked; Counseling Given: Not Answered Alcohol Use Standard Drinks/Week Comments Never 0 (1 standard drink = 0.6 oz pur e alcohol) Depression Answer Date Recorded Patient Health Questionnaire-9 Score 5 12/27/2023 Patient Health Questionnaire-9 Score 5 12/27/2023 Last PHQ-9: Questionnaire Data Not on file 0 12/27/2023 Housing Stability Answer Date Recorded What is your housing situation today? I have facundo wu 12/27/[address] you li ve. Do you have problems with any of the following? None of the above 12/27/2023 Food Insecurity Answer Date Recorded Within the past 12 months, y ou worried that your food would run out before you got money to buy more: Never True 12/27/2023 Within the past 12 months,th e food you bought just didn't last and you didn't have enough money to get more: Never True Transportation Answer Date Recorded In the past 12 months, has l ack of transportation kept you from medical appts, meetings, work or from getting things needed for daily living? No 12/27/2023 Utilities Answer Date Recorded In the past 12 months, has t he electric, gas, oil or water company threatened to shut off services in your home? No 12/27/2023 Depression Answer Date Recorded Patient Health Questionnaire-2 Score 2 12/27/2023 Internet Access Answer Date Recorded Internet Access Q1 Yes 01/04/2024 Internet Access Q2 Not on file 01/04/2024 Sex and Gender Information Value Date Recorded Sex Assigned at Male 03/06/2022 10:29 AM EDT Legal Sex Male 10:29 AM EDT Gender Identity Male 03/06/2022 10:29 AM EDT Sexual Orientation Choose not to disclose 2021 10:29 AM EDT Last Filed Vital Signs Vital Sign Reading Time Taken Comments Blood Pressure 150/78 04/17/2024 9:25 AM EST Pulse 52 04/17/2024 9:25 AM EST Temperature 36.3 ??C (97.3 ??F) 04/17/2024 9:25 AM ES T Respiratory Rate 14 04/17/2024 9:25 AM EST Oxygen Saturation 99% 01/15/2024 9:59 AM EDT Inhaled Oxygen Concentration - - Weight 73.1 kg (161 lb 3.2 oz) 04/17/2024 9:25 A M EST Height 177.8 cm (5' 10 ) 01/15/2024 9:59 AM EDT Body Mass Index 23.13 01/15/2024 9:59 AM EDT Plan of Treatment Upcoming Encounters Date Type Department Care Team (Late st Contact Info) Description 07/22/2024 11:00 AM EDT Office Visit [facility] [address] [place], [place] [phone] Kristen Hanna, ANP [address] [place], [place] [phone] Health Maintenance Due Date Last Done Comments CT Colonography 1968 Colonoscopy 1968 Colorectal Cancer Screening 1968 Dental Oral Exam 1968 Dental Prophylaxis 1968 Dental X-Ray: Bitewings 1968 FIT DNA/Cologuard 1968 FIT 1968 FOBT 1968 Sigmoidoscopy 1968 Hepatitis B Vaccines (1 of 3 - 19+ 3-dose series) 01/21/1987 Zoster Vaccines (1 of 2) 01/21/2018 Influenza Vaccine (#1) 2024 Postp oned from 01/06/2024 (Patient Refused) Depression Screening 12/26/2024 12/27/2023, 12/27/2023 SDOH Screening 12/26/2024 12/27/2023 Alcohol/Substance Use Screening 04/17/2025 04/17/2024 COVID-19 Vaccine (2 - 2023-2 5 season) 2025 10/26/2020 Postponed from 01/05 (Patient Refused) Pneumococcal Vaccine: Pediatrics (0 to 5 Years) and At-Risk Patients (6 to 64 Years) (1 of 2 - PCV) 04/17/2025 Postponed from (Patient Refused) Tobacco Screening 04/17/2025 04/17/2024 Dental X-Ray: Full Mouth 2027 024, 12/28/2022, 07/21/2022 Lipid Panel 10/12/2027 10/11/2022, 09/24/2021, 05/11/2020 DTaP/Tdap/Td Vaccines (2 - T d or Tdap) 04/13/2031 04/13/2021 RSV Patients and Patients Aged 60 years or older (1 - 1-dose 75+ series) 01/21/2043 HIV Screening Completed 09/24/2021 Hepatitis C Screening Completed 09/24/2021 HIB Vaccines Aged Out No longer eligi ble based on patient's age to complete this topic HPV Vaccines Aged Out No longer eligi ble based on patient's age to complete this topic Hepatitis A Vaccines Aged Out No long er eligible based on patient's age to complete this topic IPV Vaccines Aged Out No longer eligi ble based on patient's age to complete this topic Meningococcal Vaccine Aged Out No inga znadra eligible based on patient's age to complete this topic RSV under 20 months Aged Out No longe r eligible based on patient's age to complete this topic Rotavirus Vaccines Aged Out No longer eligible based on patient's age to complete this topic Procedures Procedure Name Priority Date/Time Associated Diagnosis Comments CBC Routine 05/28/2024 11:59 AM EST POCT ZAKI-14 URINE DRUG SCREEN Routine 02/29/2024 11:04 AM EDT Other chronic pain PANORAMIC RADIOGRAPHIC IMAGE Routine 2024 8:30 AM EDT LIPID PANEL, STANDARD Routine 10/11/2022 8:25 AM EDT Coronary artery disease involving [place] coronary artery of [place] heart without angina pectoris ZZZ HISTORICAL HEPATITIS C ANTIBODY RFLX Routine 09/24/2021 7:59 AM EDT ZZZ HISTORICAL HIV AB/AG Routine 09/24/2021 7:59 AM EDT from Last 3 Months or Most Recently Relevant to Health Maintenance Results * (ABNORMAL) CBC (05/28/2024 11:59 AM EST) Pathologist [facility] White Blood Count 7.5 4.8 - 10.8 X10*3/uL [facility] Red Blood Count 4.46(L) 4.60 - 5.80 X10*6/uL [facility] Hemoglobin 14.2 14.0 - 18.0 g/dl [facility] Hematocrit 41.5(L) 42.0 - 52.0 % [facility] Mean Corpuscular Volume 93.0 80.0 - 98.0 fL [facility] Mean Corpuscular Hemoglobin 31.8 27.0 - 33.0 pg [facility] Mean Corpuscular HGB Conc 34.2 31.0 - 36.0 g/dl [facility] Red Cell Distribution Width 13.8 11.0 - 16.0 % [facility] Platelet Count 215 160 - 400 X10*3/uL [facility] Mean Platelet Volume 12.0 9.4 - 12.4 fL [facility] NRBC Pct Auto 0.0 0.0 - 0.2 /100WBC [facility] NRBC Abs Auto 0.000 0.0 - 0.012 X10*3/uL [facility] 05/28/2024 11:5 9 AM EST 05/28/2024 11:59 AM EST us Generic External Data Provider LAB BLOOD ORDERAB LES Final Result Performing Organization Address City/State/[facility] Co de Phone Number [facility] [address] [place] [phone] * POCT ZAKI-14 Urine Drug Screen (02/29/2024 11:04 AM EDT) [facility] THC Positive Cocaine Screen, Urine Negative Opiate Screen, Urine Negative Methamphetamine Screen Urine Negative Amphetamine Screen, Urine Negative Benzodiazepines Screen, Urine Negative Barbiturate Screen, Urine Negative Methadone Screen, Urine Negative Buprenophine Screen, Urine Negative TCA, Urine Negative MDMA Urine Negative ng/mL Oxycodone Screen, Urine Positive Phencyclidine (PCP), Urine Negative Propoxyphene, Urine Negative Urine Temperature 97 QC Media Lot # [id number]# Expiration Date Urine Urine specimen obtained by clean catch procedure / Unknown 02/29/2024 11:04 AM EDT us Kristen FLEMING POINT OF CARE TEST ENTER/EDIT OR DERABLES Final Result * Lipid Panel, Standard (10/11/2022 8:25 AM EDT) Cholesterol, Total 115 <200 mg/dL [facility] HDL Cholesterol 41 > OR = 40 mg/dL [facility] Triglycerides 81 <150 mg/dL [facility] LDL Cholesterol 58 mg/dL (calc) [email or web address] Comment: Reference range: <100 Desirable range <100 mg/dL for primary prevention; ?? <70 mg/dL for patients with CHD or diabetic patients with > or = 2 CHD risk factors. LDL-C is now calculated using the Kojo-Kenton calculation, which is a validated novel method providing better accuracy than the Friedewald equation in the estimation of LDL-C. Kojo SS et al. BRITTANY. 2013;310(19): 4044-2371 (http://education.Zane Prep/faq/ZUT797) Chol/HDLC Ratio 2.8 <5.0 (calc) [facility] Non-HDL Cholesterol 74 <130 mg/dL (calc) [facility] Comment: For patients with diabetes plus 1 major ASCVD risk factor, treating to a non-HDL-C goal of <100 mg/dL (LDL-C of <70 mg/dL) is considered a therapeutic option. Blood Venous blood specimen / Unknown 10/11/2022 8:25 AM EDT 10/11/2022 8:25 AM EDT Narrative [facility] - 10/11/2022 9:21 PM EDT FASTING:YES FASTING: YES us Kristen Hanna ANP LAB BLOOD ORDERABLES Final Resul t [facility] [address], [place] [address] [facility] [address] [place] [address] * HEPATITIS C ANTIBODY RFLX (09/24/2021 7:59 AM EDT) Pathologist [facility] Hepatitis C Antibody Nonreactive Nonreactive [facility] Comment: Antibodies to HCV not detected; does not exclude early acute HCV infection. 09/24/2021 7:59 AM EDT Kristen Hanna ANP HISTORICAL/NON ORDERABLE LABS Fi nal Result Performing Organization Address [facility] Phone Number [facility] [address] * HIV AB/AG (09/24/2021 7:59 AM EDT) Pathologist [facility] HIV AB/AG Nonreactive Nonreactive [facility] Comment: HIV-1 p24 Ag and/or HIV-1/HIV-2 Ab not detected. ?? A test result that is nonreactive does not exclude the possibility of exposure to or infection with HIV-1 and/or HIV-2. Nonreactive results in this assay for individuals with prior exposure to HIV-1 and/or HIV-2 may be due to antigen and antibody levels that are below the limit of detection of this assay. ?? The [employer] HIV Ag/Ab Combo assay result and supplemental assay results should be interpreted in conjunction with the patient's clinical presentation, history and other laboratory results. ??If the results are inconsistent with clinical evidence, additional testing is suggested to confirm the result. 09/24/2021 7:59 AM EDT Kristen Hanna ANP HISTORICAL/NON ORDERABLE LABS Fi nal Result Performing Organization Address [facility] Phone Number [facility] [address] from Last 3 Months or Most Recently Relevant to Health Maintenance Insurance DENTAL - [facility] Care Teams Tractor Crane Engineer Relationship Specialty Start Date End Date Kristen Hanna ANP [address] [place] [address] PCP - General Family Medicine 10/23/19
--- OUTSIDE RECORDS SUMMARY | 2024-05-28 13:25 | XMS_ITS | Encounter Summary ---
Author Organization [employer] Address [address] [facility] [facility] [address] 7t [place] [address] Care Team Providers Care Content Production Specialist Name Role Phone Kristen Hanna Primary Care Provider [phone] Reason for Visit * Reason Onset Date Comments Med Refill 04/22/2024 Encounter Details Date Type Department Care Team (Late st Contact Info) Description 04/22/2024 Refill [facility]INE [address] [place], [place] [phone] Kristen Hanna ANP [address] [place], [place] [phone] Other chronic pain Social History Tobacco Use Types Packs/Day Years Used Date Smoking Tobacco: Every Day Cigarettes 0.3 0.5 Passive Smoke Exposure: Never Smokeless Tobacco: Former Alcohol Use Standard Drinks/Week Comments Never 0 [...] not to disclose 2021 10:29 AM EDT documented as of this encounter Plan of Treatment Upcoming Encounters Date Type Department Care Team (Late st Contact Info) Description 07/22/2024 11:00 AM EDT Office Visit [facility] MED[facility]INE [address] [place] [address] Kristen Hanna ANP 230 [place] [address] documented as of this encounter Visit Diagnoses Diagnosis Other chronic pain documented in this encounter Additional Health Concerns Assessment Noted Time PHQ-9 Depression Total Score: 5 12/27/19 24 2:52 PM EDT documented as of this encounter Care Teams Content Production Specialist Relationship Specialty Start Date End Date Kristen Hanna ANP [address] [place] [address] PCP - General Family Medicine 10/23/19 documented as of this encounter
--- OUTSIDE RECORDS SUMMARY | 2024-05-28 13:25 | XMS_ITS | Encounter Summary ---
Author Organization [employer] Address [address] [facility] [address] 7t [place] [address] Care Team Providers Care Ammunition Storage Superintendent Name Role Phone Kristen Hanna Primary Care Provider Reason for Visit * Reason Onset Date Comments Med Refill 04/22/2024 Encounter Details Date Type Department Care Team ([facility] st Contact Info) Description 04/22/2024 Telephone [facility] 230 [place], [place] [phone] Kristen Hanna ANP 230 [place], [place] [phone] Med Refill Social History Tobacco Use Types Packs/Day Years [...] AM EDT documented as of this encounter Miscellaneous Notes * Telephone Encounter - Rian Canales - 04/22/2024 11:54 AM EST TC from pt requesting medication refill. Medications needing refill: oxyCODONE-acetaminophen (Percocet) 10-325 MG tablet To be sent to: [facility] - [place], [place] - [address] [place] [address] documented in this encounter Plan of Treatment Upcoming Encounters Date Type Department Care Team ([facility] st Contact Info) Description 07/22/2024 11:00 AM EDT Office Visit [facility] [address] [place] [address] Kristen Hanna ANP [address] [place] [address] documented as of this encounter Visit Diagnoses Not on filedocumented in this encounter Additional Health Concerns Assessment Noted Time PHQ-9 Depression Total Score: 5 12/27/19 24 2:52 PM EDT documented as of this encounter Care Teams Ammunition Storage Superintendent Relationship Specialty Start Date End Date Kristen Hanna ANP [address] [place] [address] PCP - General Family Medicine 6/18/20 documented as of this encounter
--- OUTSIDE RECORDS SUMMARY | 2024-05-28 13:25 | XMS_ITS | Encounter Summary ---
Author Organization [employer] Address [address] [facility] [address] 7t [place] [address] Care Team Providers Care Payroll Administrative Assistant Name Role Phone Kristen Hanna BERNADETTE Primary Care Provider [phone] Reason for Visit * Reason Onset Date Comments July recall 05/19/2024 Encounter Details Date Type Department Care Team (Late st Contact Info) Description 05/19/2024 Telephone [facility] MED[facility]INE 230 [place], [place] [phone] Loly Erwin MA July recall Social History Tobacco Use Types Packs/Day Years [...] encounter Miscellaneous Notes * Telephone Encounter - Loly Erwin MA - 05/19/2024 4:08 PM EST T/C to pt to schedule a recall f/u GERD/Pain. No answer LVM to call clinic to schedule appt. Mailedrecall letter. documented in this encounter Plan of Treatment Upcoming Encounters Date Type Department Care Team (Late st Contact Info) Description 07/22/2024 11:00 AM EDT Office Visit [facility]INE 230 [place] [address] Kristen Hanna ANP 230 [place] [address] documented as of this encounter Visit Diagnoses Not on filedocumented in this encounter Additional Health Concerns Assessment Noted Time PHQ-9 Depression Total Score: 5 12/27/19 24 2:52 PM EDT documented as of this encounter Care Teams Payroll Administrative Assistant Relationship Specialty Start Date End Date Kristen Hanna ANP [address] [place] [address] PCP - General Family Medicine 10/23/19 documented as of this encounter
--- OUTSIDE RECORDS SUMMARY | 2024-05-28 13:25 | XMS_ITS | Encounter Summary ---
Author Organization [employer] Address [address] [facility] [address] [facility] [address] 7t [place] [address] Care Team Providers Care Tractor Engine Assembler Name Role Phone Kristen Hanna BERNADETTE Primary Care Provider [phone] Encounter Details Date Type Department Care Team (Late st Contact Info) Description 05/28/2024 Orders Only GENERIC EXTERNAL DATA DEPARTMENT Provider, Generic External Data Social History Tobacco Use Types Packs/Day Years [...] is your housing situation today? I have fcaundo wu 12/27/[address] you [...] Description 07/22/2024 11:00 AM EDT Office Visit [facility] MEDICINE 230 [place], [place] [phone] Kristen Hanna ANP 230 [place] [address] documented as of this encounter Procedures Procedure Name Priority Date/Time Associated Diagnosis Comments CBC Routine 05/28/2024 11:59 AM EST documented in this encounter Results * (ABNORMAL) CBC (05/28/2024 11:59 AM EST) White Blood Count 7.5 4.8 - 10.8 X10*3/uL [facility] Red Blood Count 4.46(L) 4.60 - 5.80 X10*6/uL [facility] Hemoglobin 14.2 14.0 - 18.0 g/dl [facility] Hematocrit 41.5(L) 42.0 - 52.0 % [facility] Mean Corpuscular Volume 93.0 80.0 - 98.0 fL [facility] Mean Corpuscular Hemoglobin 31.8 27.0 - 33.0 pg [facility] Mean Corpuscular HGB Conc 34.2 31.0 - 36.0 g/dl [facility] Red Cell Distribution Width 13.8 11.0 - 16.0 % [facility] Platelet Count 215 160 - 400 X10*3/uL [facility] Mean Platelet Volume 12.0 9.4 - 12.4 fL [facility] NRBC Pct Auto 0.0 0.0 - 0.2 /100WBC [facility] NRBC Abs Auto 0.000 0.0 - 0.012 X10*3/uL [facility] 05/28/2024 11:5 9 AM EST 05/28/2024 11:59 AM EST us Generic External Data Provider LAB BLOOD ORDERAB LES Final Result [facility] [address] [place] [address] [phone] documented in this encounter Visit Diagnoses Not on filedocumented in this encounter Additional Health Concerns Assessment Noted Time PHQ-9 Depression Total Score: 5 12/27/19 24 2:52 PM EDT documented as of this encounter Care Teams Tractor Engine Assembler Relationship Specialty Start Date End Date Kristen Hanna ANP [address] [place] [address] PCP - General Family Medicine 10/23/19 documented as of this encounter
--- OUTSIDE RECORDS SUMMARY | 2024-05-28 13:25 | XMS_ITS | Encounter Summary ---
Author Organization [employer] Address [address] [facility] [address] 7t [place] [address] Care Team Providers Care Top And Seat Cover Fitter Name Role Phone Kristen Hanna Primary Care Provider [phone] Reason for Visit * Reason Onset Date Comments Med Refill 05/20/2024 Encounter Details Date Type Department Care Team (Late st Contact Info) Description 05/20/2024 Refill [facility] MEDICINE 230 [place], [place] [phone] Kristen Hanna ANP 230 [place], [place] [phone] Other chronic pain Social History Tobacco Use [...] encounter Miscellaneous Notes * Telephone Encounter - Guido Cramer - 05/20/2024 9:14 AM EST TC from pt requesting medication refill. Medications needing refill : oxyCODONE-acetaminophen (Percocet) 10-325 MG tablet To be sent to: [facility] pharmacy documented in this encounter Plan of Treatment Upcoming Encounters Date Type Department Care Team (Late st Contact Info) Description 07/22/2024 11:00 AM EDT Office Visit [facility] MED[facility]INE 230 [place] [address] Kristen Hanna ANP [address] [place] [address] documented as of this encounter Visit Diagnoses Diagnosis Other chronic pain documented in this encounter Additional Health Concerns Assessment Noted Time PHQ-9 Depression Total Score: 5 12/27/19 24 2:52 PM EDT documented as of this encounter Care Teams Top And Seat Cover Fitter Relationship Specialty Start Date End Date Kristen Hanna ANP [address] [place] [address] PCP - General Family Medicine 10/23/19 documented as of this encounter
--- OUTSIDE RECORDS SUMMARY | 2024-05-28 13:26 | XMS_ITS | Encounter Summary ---
Author Organization [employer] Address [address] [facility] 7t [place] [address] Care Team Providers Care Utilities Service Investigator Name Role Phone Kristen Hanna Primary Care Provider [phone] Reason for Visit * Reason Comments Med Refill Encounter Details Date Type Department Care Team ([facility] st Contact Info) Description 05/17/2023 Refill [facility] 230 [place], [place] [phone] Kristen Hanna ANP 230 [place], [place] [phone] Other chronic pain Social History Tobacco Use Types Packs/Day Years Used Date Smoking Tobacco: Every Day Cigarettes 0.3 0.5 Passive Smoke Exposure: Never Smokeless Tobacco: Former Alcohol Use Standard Drinks/Week Comments Never 0 (1 standard drink = 0.6 oz pur e alcohol) Depression Answer Date Recorded Patient Health Questionnaire-9 Score 11 03/23/2023 Patient Health Questionnaire-9 Score 11 03/23/2023 Last PHQ-9: Questionnaire Data Not on file 1 05/23/2022 Housing Stability Answer Date Recorded What is your housing situation today? I have facundo wu 02/20/[address] you li ve. Do you have problems with any of the following? None of the above 02/20/2023 Food Insecurity Answer Date Recorded Within the past 12 months, y ou worried that your food would run out before you got money to buy more: Never True 02/20/2023 Within the past 12 months,th e food you bought just didn't last and you didn't have enough money to get more: Never True Transportation Answer Date Recorded In the past 12 months, has l ack of transportation kept you from medical appts, meetings, work or from getting things needed for daily living? No 02/20/2023 Utilities Answer Date Recorded In the past 12 months, has t he electric, gas, oil or water company threatened to shut off services in your home? No 02/20/2023 Depression Answer Date Recorded Patient Health Questionnaire-2 Score 6 03/23/2023 Sex and Gender Information Value Date Recorded [...] Description 07/22/2024 11:00 AM EDT Office Visit [facility] [address] [place] [address] Kristen Hanna ANP [address] [place] [address] documented as of this encounter Visit Diagnoses Diagnosis Other chronic pain documented in this encounter Additional Health Concerns Assessment Noted Time PHQ-9 Depression Total Score: 11 023 9:39 AM EST documented as of this encounter Care Teams Utilities Service Investigator Relationship Specialty Start Date End Date Kristen Hanna ANP [address] [place] [address] PCP - General Family Medicine 10/23/19 documented as of this encounter
--- OUTSIDE RECORDS SUMMARY | 2024-05-28 13:26 | XMS_ITS | Encounter Summary ---
Author Organization [employer] Address [address] [facility] [address] [facility] [address] 7t [place] [address] Care Team Providers Care Apprentice Funeral Director Name Role Phone Kristen Hanna Primary Care Provider [phone] Reason for Visit * Reason Comments Med Refill Encounter Details Date Type Department Care Team ([facility] st Contact Info) Description 05/22/2023 Refill [facility] MEDICINE 230 [place], [place] [phone] Kristen Hanna ANP 230 [place], [place] [phone] Other chronic pain Social History Tobacco Use [...] Description 07/22/2024 11:00 AM EDT Office Visit [facility] MEDICINE [address] [place] [address] Kristen Hanna ANP [address] [place] [address] documented as of this encounter Visit Diagnoses Diagnosis Other chronic pain documented in this encounter Additional Health Concerns Assessment Noted Time PHQ-9 Depression Total Score: 11 023 9:39 AM EST documented as of this encounter Care Teams Apprentice Funeral Director Relationship Specialty Start Date End Date Kristen Hanna ANP [address] [place] [address] PCP - General Family Medicine 10/23/19 documented as of this encounter
--- OUTSIDE RECORDS SUMMARY | 2024-05-28 13:26 | XMS_ITS | Encounter Summary ---
Author Organization [employer] Address [address] [facility] [address] 7t [place] [address] Care Team Providers Care National Opelint Analyst Name Role Phone Kristen Hanna Primary Care Provider [phone] Reason for Visit * Reason Comments Med Refill Encounter Details Date Type Department Care Team ([facility] st Contact Info) Description 12/04/2023 Refill [facility] 230 [place], [place] [phone] Kristen Hanna ANP 230 [place], [place] [phone] Other chronic pain Social History Tobacco Use [...] Description 07/22/2024 11:00 AM EDT Office Visit [facility] [address] [place] [address] Kristen Hanna ANP [address] [place] [address] documented as of this encounter Visit Diagnoses Diagnosis Other chronic pain documented in this encounter Additional Health Concerns Assessment Noted Time PHQ-9 Depression Total Score: 11 023 9:39 AM EST documented as of this encounter Care Teams National Opelint Analyst Relationship Specialty Start Date End Date Kristen Hanna ANP [address] [place] [address] PCP - General Family Medicine 10/23/19 documented as of this encounter
--- OUTSIDE RECORDS SUMMARY | 2024-05-28 13:26 | XMS_ITS | Encounter Summary ---
Author Organization [employer] Address [address] 7t [place] [address] Care Team Providers Care Manager Product Support Name Role Phone Kristen Hanna Primary Care Provider [phone] Reason for Visit * Reason Comments Med Refill Encounter Details Date Type Department Care Team ([facility] st Contact Info) Description 07/16/2023 Refill [facility] MED[facility]INE 230 [place], [place] [phone] Kristen Hanna ANP 230 [place], [place] [phone] Other chronic pain Social History Tobacco Use [...] Description 07/22/2024 11:00 AM EDT Office Visit [facility] MED[facility]INE [address] [place] [address] Kristen Hanna ANP [address] [place] [address] documented as of this encounter Visit Diagnoses Diagnosis Other chronic pain documented in this encounter Additional Health Concerns Assessment Noted Time PHQ-9 Depression Total Score: 11 023 9:39 AM EST documented as of this encounter Care Teams Manager Product Support Relationship Specialty Start Date End Date Kristen Hanna ANP [address] [place] [address] PCP - General Family Medicine 10/23/19 documented as of this encounter
--- OUTSIDE RECORDS SUMMARY | 2024-05-28 13:26 | XMS_ITS | Encounter Summary ---
Author Organization [employer] Address [address] [facility] [address] 7t [place] [address] Care Team Providers Care Chucking Machine Operator Name Role Phone Kristen Hanna Primary Care Provider [phone] Reason for Visit * Reason Comments Med Refill Encounter Details Date Type Department Care Team ([facility] st Contact Info) Description 11/05/2023 Refill [facility] 230 [place], [place] [phone] Kristen Hanna ANP 230 [place], [place] [phone] Mild persistent asthma, uncomplicated Social History Tobacco Use Types Packs/Day Years [...] Description 07/22/2024 11:00 AM EDT Office Visit [facility]INE [address] [place] [address] Kristen Hanna ANP [address] [place] [address] documented as of this encounter Visit Diagnoses Diagnosis Mild persistent asthma, uncomplicated documented in this encounter Additional Health Concerns Assessment Noted Time PHQ-9 Depression Total Score: 11 023 9:39 AM EST documented as of this encounter Care Teams Chucking Machine Operator Relationship Specialty Start Date End Date Kristen Hanna ANP [address] [place] [address] PCP - General Family Medicine 10/23/19 documented as of this encounter
--- OUTSIDE RECORDS SUMMARY | 2024-05-28 13:26 | XMS_ITS | Encounter Summary ---
Author Organization [employer] Address [address] [facility] [address] [facility] [address] 7t [place] [address] Care Team Providers Care Founder & Ceo Name Role Phone Kristen Hanna Primary Care Provider [phone] Reason for Visit * Reason Comments Med Refill Encounter Details Date Type Department Care Team ([facility] st Contact Info) Description 04/24/2023 Refill [facility] MEDICINE 230 [place], [place] [phone] Kristen Hanna ANP 230 [place], [place] [phone] Other chronic pain Social History Tobacco Use [...] Description 07/22/2024 11:00 AM EDT Office Visit [facility] MEDICINE [address] [place] [address] Kristen Hanna ANP [address] [place] [address] documented as of this encounter Visit Diagnoses Diagnosis Other chronic pain documented in this encounter Additional Health Concerns Assessment Noted Time PHQ-9 Depression Total Score: 11 023 9:39 AM EST documented as of this encounter Care Teams Founder & Ceo Relationship Specialty Start Date End Date Kristen Hanna ANP [address] [place] [address] PCP - General Family Medicine 10/23/19 documented as of this encounter
--- OUTSIDE RECORDS SUMMARY | 2024-05-28 13:26 | XMS_ITS | Encounter Summary ---
Author Organization [employer] Address [address] [facility] [address] 7[address] [place] [address] Care Team Providers Care Medical Sales Representative Name Role Phone Kristen Hanna Primary Care Provider [phone] Reason for Visit * Reason Onset Date Comments Med Refill 02/27/2024 Encounter Details Date Type Department Care Team ([facility] st Contact Info) Description 02/27/2024 Telephone [facility] MEDICINE 230 [place], [place] [phone] Kristen Hanna ANP 230 [place], [place] [phone] Med Refill Social History Tobacco Use Types [...] encounter Miscellaneous Notes * Telephone Encounter - Duglas Tyler - 02/27/2024 9:07 AM EDT Tc from pt requesting a refill for oxyCODONE-acetaminophen (Percocet) 10-325 MG tablet documented in this encounter Plan of Treatment Upcoming Encounters Date Type Department Care Team (Late st Contact Info) Description 07/22/2024 11:00 AM EDT Office Visit [facility] MEDICINE [address] [place] [address] Kristen Hanna ANP 230 [place] [address] documented as of this encounter Visit Diagnoses Not on filedocumented in this encounter Additional Health Concerns Assessment Noted Time PHQ-9 Depression Total Score: 5 12/27/19 24 2:52 PM EDT documented as of this encounter Care Teams Medical Sales Representative Relationship Specialty Start Date End Date Kristen Hanna ANP [address] [place] [address] PCP - General Family Medicine 10/23/19 documented as of this encounter
--- OUTSIDE RECORDS SUMMARY | 2024-05-28 13:26 | XMS_ITS | Encounter Summary ---
Author Organization [employer] Address [address] [facility] [address] 7t [place] [address] Care Team Providers Care Infusion Rn Name Role Phone Kristen Hanna Primary Care Provider [phone] Encounter Details Date Type Department Care Team (Late st Contact Info) Description 04/03/2023 Telephone [facility] MEDICINE 230 [place] [address] Kristen Hanna ANP 230 [place] [address] Social History Tobacco Use Types Packs/Day Years [...] Description 07/22/2024 11:00 AM EDT Office Visit [facility] MEDICINE [address] [place] [address] Kristen Hanna ANP 230 [place] [address] documented as of this encounter Visit Diagnoses Not on filedocumented in this encounter Additional Health Concerns Assessment Noted Time PHQ-9 Depression Total Score: 11 023 9:39 AM EST documented as of this encounter Care Teams Infusion Rn Relationship Specialty Start Date End Date Kristen Hanna ANP [address] [place] [address] PCP - General Family Medicine 10/23/19 documented as of this encounter
--- OUTSIDE RECORDS SUMMARY | 2024-05-28 13:26 | XMS_ITS | Encounter Summary ---
Author Organization [employer] Address [address] [facility] 7t [place] [address] Care Team Providers Care Project Construction Assistant Manager Name Role Phone Kristen Hanna Primary Care Provider [phone] Reason for Visit * Reason Onset Date Comments Med Refill 12/07/2023 Encounter Details Date Type Department Care Team ([facility] st Contact Info) Description 12/07/2023 Telephone [facility] MEDICINE 230 [place], [place] [phone] Kristen Hanna ANP 230 [place], [place] [phone] Med Refill Social History Tobacco Use Types [...] * Telephone Encounter - Duglas Tyler - 12/07/2023 10:11 AM EDT Tc from pt requesting a refill for oxyCODONE-acetaminophen (Percocet) 7.5-325 MG tablet , pt is also requesting a call back to r/s SCREENING TECH RN appt. Pleaser contact at [phone] documented in this encounter Plan of Treatment Upcoming Encounters Date Type Department Care Team (Late st Contact Info) Description 07/22/2024 11:00 AM EDT Office Visit [facility] MEDICINE 230 [place] [address] Kristen Hanna ANP 230 [place] [address] documented as of this encounter Visit Diagnoses Not on filedocumented in this encounter Additional Health Concerns Assessment Noted Time PHQ-9 Depression Total Score: 11 03/23/ 023 9:39 AM EST documented as of this encounter Care Teams Project Construction Assistant Manager Relationship Specialty Start Date End Date Kristen Hanna ANP 230 [place] [address] PCP - General Family Medicine 10/23/19 documented as of this encounter
--- OUTSIDE RECORDS SUMMARY | 2024-05-28 13:26 | XMS_ITS | Encounter Summary ---
Author Organization [employer] Address [address] [facility] [address] [place] [address] Care Team Providers Care Rodent Exterminator Name Role Phone Kristen Hanna Primary Care Provider [phone] Reason for Visit * Reason Onset Date Comments Prior Authorization 10/08/2023 Encounter Details Date Type Department Care Team ([facility] st Contact Info) Description 10/08/2023 Telephone [facility] [address] [place], [place] [phone] Kristen Hanna ANP 230 [place], [place] [phone] Prior Authorization Social History Tobacco Use Types Packs/Day Years [...] encounter Miscellaneous Notes * Telephone Encounter - Deni Hinton RN - 10/26/2023 4:25 PM EDT PA for oxy generated signed and faxed to [facility]. Awaiting response. PA scanned into chart under media. * Telephone Encounter - BERNADETTE Lazcano - 10/23/2023 4:06 PM EDT Please initiate * Telephone Encounter - Kaylene Monet - 10/08/2023 9:38 AM EDT Tc from pt states PA is needed for oxyCODONE-acetaminophen (Percocet) 7.5-325 MG tablet documented in this encounter Plan of Treatment Upcoming Encounters Date Type Department Care Team (Late st Contact Info) Description 07/22/2024 11:00 AM EDT Office Visit [facility] [address] [place] [address] Kristen Hanna ANP [address] [place] [address] documented as of this encounter Visit Diagnoses Not on filedocumented in this encounter Additional Health Concerns Assessment Noted Time PHQ-9 Depression Total Score: 11 023 9:39 AM EST documented as of this encounter Care Teams Rodent Exterminator Relationship Specialty Start Date End Date Kristen Hanna ANP 230 [place] [address] PCP - General Family Medicine 10/23/19 documented as of this encounter
--- OUTSIDE RECORDS SUMMARY | 2024-05-28 13:26 | XMS_ITS | Encounter Summary ---
Author Organization [employer] Address [address] [facility] 7t [place] [address] Care Team Providers Care Gas Substation Operator Name Role Phone Kristen Hanna Primary Care Provider [phone] Reason for Visit * Reason Onset Date Comments Med Refill 06/20/2023 Encounter Details Date Type Department Care Team ([facility] st Contact Info) Description 06/20/2023 Telephone [facility] 230 [place], [place] [phone] Kristen Hanna ANP 230 [place], [place] [phone] Med Refill Social History Tobacco Use Types [...] * Telephone Encounter - Duglas Tyler - 06/20/2023 9:10 AM EST Tc from pt requesting a refill for oxyCODONE-acetaminophen (Percocet) 7.5-325 MG tablet documented in this encounter Plan of Treatment Upcoming Encounters Date Type Department Care Team (Late st Contact Info) Description 07/22/2024 11:00 AM EDT Office Visit [facility] MEDICINE [address] [place] [address] Kristen Hanna ANP [address] [place] [address] documented as of this encounter Visit Diagnoses Not on filedocumented in this encounter Additional Health Concerns Assessment Noted Time PHQ-9 Depression Total Score: 11 03/23/ 023 9:39 AM EST documented as of this encounter Care Teams Gas Substation Operator Relationship Specialty Start Date End Date Kristen Hanna ANP [address] [place] [address] PCP - General Family Medicine 10/23/19 documented as of this encounter
--- OUTSIDE RECORDS SUMMARY | 2024-05-28 13:26 | XMS_ITS | Encounter Summary ---
Author Organization [employer] Address [address] [facility] [address] [place] [address] Care Team Providers Care Eating Disorder Specialist Name Role Phone Kristen Hanna Primary Care Provider [phone] Reason for Visit * Reason Comments Med Refill Encounter Details Date Type Department Care Team ([facility] st Contact Info) Description 01/21/2024 Refill [facility] 230 [place], [place] [phone] Kristen Hanna ANP 230 [place], [place] [phone] Mild persistent asthma, uncomplicated Social History Tobacco [...] Description 07/22/2024 11:00 AM EDT Office Visit [facility] [address] [place] [address] Kristen Hanna ANP 230 [place] [address] documented as of this encounter Visit Diagnoses Diagnosis Mild persistent asthma, uncomplicated documented in this encounter Additional Health Concerns Assessment Noted Time PHQ-9 Depression Total Score: 5 12/27/19 24 2:52 PM EDT documented as of this encounter Care Teams Eating Disorder Specialist Relationship Specialty Start Date End Date Kristen Hanna ANP [address] [place] [address] PCP - General Family Medicine 10/23/19 documented as of this encounter
--- OUTSIDE RECORDS SUMMARY | 2024-05-28 13:27 | XMS_ITS | Encounter Summary ---
Author Organization [employer] Address [address] [facility] 7t [place] [address] Care Team Providers Care Dental Technology Advisor Name Role Phone Kristen Hanna Primary Care Provider [phone] Reason for Visit * Reason Onset Date Comments Lab Orders 09/22/2022 Encounter Details Date Type Department Care Team ([facility] st Contact Info) Description 09/22/2022 Telephone [facility] 230 [place], [place] [phone] Kristen Hanna ANP 230 [place], [place] [phone] Lab Orders Social History Tobacco Use Types Packs/Day Years Used Date Smoking Tobacco: Former Cigarettes 0.3 0.5 Passive Smoke Exposure: Never Smokeless Tobacco: Former Alcohol Use Standard Drinks/Week Comments Never 0 (1 standard drink = 0.6 oz pur e alcohol) Sex and Gender Information Value Date Recorded Sex Assigned at Male 03/06/2022 10:29 AM EDT Legal Sex Male 10:29 AM EDT Gender Identity Male 03/06/2022 10:29 AM EDT Sexual Orientation Choose not to disclose 2021 10:29 AM EDT COVID-19 Exposure Response Date Recorded In the last 10 days, have yo u been in contact with someone who was confirmed or suspected to have Coronavirus/COVID-19? No / Unsure 09/12/2022 9:07 AM EDT documented as of this encounter Miscellaneous Notes * Telephone Encounter - Leslie Jane - 09/22/2022 8:53 AM EDT Tc from patient requesting for all active lab orders to be sent to [facility]. Patient is requesting a call back when orders have been sent due to going to [facility] twice and no orders found. documented in this encounter Plan of Treatment Upcoming Encounters Date Type Department Care Team (Late st Contact Info) Description 07/22/2024 11:00 AM EDT Office Visit [facility] [address] [place] [address] Kristne Hanna ANP 230 [place] [address] documented as of this encounter Visit Diagnoses Not on filedocumented in this encounter Care Teams Dental Technology Advisor Relationship Specialty Start Date End Date Kristen Hanna ANP [address] [place] [address] PCP - General Family Medicine 10/23/19 documented as of this encounter
--- OUTSIDE RECORDS SUMMARY | 2024-05-28 13:27 | XMS_ITS | Encounter Summary ---
Author Organization [employer] Address [address] [facility] [address] 7[address] [place] [address] Care Team Providers Care Doughnut Icer Machine Name Role Phone Kristen Hanna Primary Care Provider [phone] Reason for Visit * Reason Onset Date Comments Med Refill 02/20/2023 Encounter Details Date Type Department Care Team ([facility] st Contact Info) Description 02/20/2023 Telephone [facility] 230 [place], [place] [phone] Kristen Hanna ANP 230 [place], [place] [phone] Med Refill Social History Tobacco Use Types Packs/Day Years Used Date Smoking Tobacco: Former Cigarettes 0.3 0.5 Passive Smoke Exposure: Never Smokeless Tobacco: Former Alcohol Use Standard Drinks/Week Comments Never 0 (1 standard drink = 0.6 oz pur e alcohol) Housing Stability Answer Date Recorded What is [...] off services in your home? No 02/20/2023 Sex and Gender Information Value Date Recorded Sex Assigned at Male 03/06/2022 10:29 AM EDT Legal Sex Male 10:29 AM EDT Gender Identity Male 03/06/2022 10:29 AM EDT Sexual Orientation Choose not to disclose 2021 10:29 AM EDT documented as of this encounter Miscellaneous Notes * Telephone Encounter - Seema Denton LPN - 02/20/2023 1:26 PM EDT Medication was sent to [facility] on 01/11/23 with 1 refill. * Telephone Encounter - Leatha Musa - 02/20/2023 1:24 PM EDT Tc from pt requesting med refill on Ventolin HFA 108 (90 Base) MCG/ACT inhaler documented in this encounter Plan of Treatment Upcoming Encounters Date Type Department Care Team (Late st Contact Info) Description 07/22/2024 11:00 AM EDT Office Visit [facility] [address] [place] [address] Kristen Hanna ANP [address] [place] [address] documented as of this encounter Visit Diagnoses Not on filedocumented in this encounter Care Teams Doughnut Icer Machine Relationship Specialty Start Date End Date Kristen Hanna ANP [address] [place] [address] PCP - General Family Medicine 10/23/19 documented as of this encounter
--- OUTSIDE RECORDS SUMMARY | 2024-05-28 13:27 | XMS_ITS | Encounter Summary ---
Author Organization [employer] Address [address] [facility] 7t [place] [address] Care Team Providers Care Electric Tool Repairer Name Role Phone Kristen Hanna Primary Care Provider [phone] Reason for Visit * Reason Onset Date Comments Appointment Request 08/14/2022 Encounter Details Date Type Department Care Team ([facility] st Contact Info) Description 08/14/2022 Telephone [facility] 230 [place], [place] [phone] Kristen Hanna ANP 230 [place], [place] [phone] Appointment Request Social History Tobacco Use Types Packs/Day Years [...] suspected to have Coronavirus/COVID-19? No / Unsure 07/21/2022 9:44 AM EDT documented as of this encounter Miscellaneous Notes * Telephone Encounter - Duglas Grahamjia - 08/14/2022 1:20 PM EDT Tc from pt requesting to r/s office visit scheduled for 08/04/22 with PCP , appt was a a no show, policy writer typist attempted to r/s zero availablity. Please contact at [phone] documented in this encounter Plan of Treatment Upcoming Encounters Date Type Department Care Team (Late st Contact Info) Description 07/22/2024 11:00 AM EDT Office Visit [facility] [address] [place] [address] Kristen Hanna ANP 230 [place] [address] documented as of this encounter Visit Diagnoses Not on filedocumented in this encounter Care Teams Electric Tool Repairer Relationship Specialty Start Date End Date Kristen Hanna ANP 230 [place] [address] PCP - General Family Medicine 10/23/19 documented as of this encounter
--- OUTSIDE RECORDS SUMMARY | 2024-05-28 13:27 | XMS_ITS | Encounter Summary ---
Author Organization [employer] Address [address] [facility] 7t [place] [address] Care Team Providers Care Sugar Chipper Machine Operator Name Role Phone Kristen Hanna Primary Care Provider [phone] Reason for Visit * Reason Comments Med Refill Encounter Details Date Type Department Care Team (Late Contact Info) Description 12/29/2022 Refill [facility] [address] [place] [phone] Kristen Hanna ANP 230 [place], [place] [phone] Mild persistent asthma, uncomplicated Social History Tobacco [...] Description 07/22/2024 11:00 AM EDT Office Visit [facility] [address] [place] [phone] Kristen Hanna ANP 230 [place], [place] [phone] documented as of this encounter Visit Diagnoses Diagnosis Mild persistent asthma, uncomplicated documented in this encounter Care Teams Sugar Chipper Machine Operator Relationship Specialty Start Date End Date Kristen Hanna ANP 230 [place] [address] PCP - General Family Medicine 10/23/19 documented as of this encounter
--- OUTSIDE RECORDS SUMMARY | 2024-05-28 13:27 | XMS_ITS | Encounter Summary ---
Author Organization [employer] Address [address] [facility] 7t [place] [address] Care Team Providers Care Punch Operator Name Role Phone Kristen Hanna Primary Care Provider Reason for Visit * Reason Onset Date Comments Med Refill 11/28/2022 Encounter Details Date Type Department Care Team ([facility] st Contact Info) Description 11/28/2022 Telephone [facility] 230 [place], [place] [phone] Kristen Hanna ANP 230 [place], [place] [phone] Med Refill Social History Tobacco Use Types [...] suspected to have Coronavirus/COVID-19? No / Unsure 11/13/2022 1:51 PM EDT documented as of this encounter Miscellaneous Notes * Telephone Encounter - Duglas Tyler - 11/28/2022 10:41 AM EDT Tc from pt requesting a med refill for oxyCODONE-acetaminophen (Percocet) 7.5- 325 MG tablet documented in this encounter Plan of Treatment Upcoming Encounters Date Type Department Care Team (Late st Contact Info) Description 07/22/2024 11:00 AM EDT Office Visit [facility] [address] [place] [address] Kristen Hanna ANP [address] [place] [address] documented as of this encounter Visit Diagnoses Not on filedocumented in this encounter Care Teams Punch Operator Relationship Specialty Start Date End Date Kristen Hanna ANP 230 [place] [address] PCP - General Family Medicine 10/23/19 documented as of this encounter
--- OUTSIDE RECORDS SUMMARY | 2024-05-28 13:27 | XMS_ITS | Encounter Summary ---
Author Organization [employer] Address [address] [facility] [address] 7[address] [place] [address] Care Team Providers Care Apprentice Pattern Maker Name Role Phone Kristen Hanna Primary Care Provider [phone] Reason for Visit * Reason Onset Date Comments Med Refill 02/27/2023 Encounter Details Date Type Department Care Team ([facility] st Contact Info) Description 02/27/2023 Telephone [facility] 230 [place], [place] [phone] Kristen Hanna ANP 230 [place], [place] [phone] Med Refill Social History Tobacco Use Types [...] encounter Miscellaneous Notes * Telephone Encounter - Orion Us - 02/27/2023 9:31 AM EDT Tc from patient requesting med re fill for oxyCODONE-acetaminophen (Percocet) 7.5-[address] Hanna documented in this encounter Plan of Treatment Upcoming Encounters Date Type Department Care Team (Late st Contact Info) Description 07/22/2024 11:00 AM EDT Office Visit [facility] [address] [place] [address] Kristen Hanna ANP [address] [place] [address] documented as of this encounter Visit Diagnoses Not on filedocumented in this encounter Care Teams Apprentice Pattern Maker Relationship Specialty Start Date End Date Kristen Hanna ANP [address] [place] [address] PCP - General Family Medicine 10/23/19 documented as of this encounter
[2024-05-28 13:33] LABS: Alanine Aminotransferase 29 U/L (0-40); Albumin Level 4.3 g/dL (3.5-5.0); Alkaline Phosphatase 114 U/L (39-117); Anion Gap 13 (12-20); Aspartate Amino Transferase 32 U/L (5-37); Bilirubin Total 0.6 mg/dL (0.0-1.0); Blood Urea Nitrogen 11 mg/dL (9-16); Calcium 9.9 mg/dL (8.4-10.2); Carbon Dioxide 22 mmol/L (22-29); Chloride 108 mmol/L (96-108); Estimated Glomerular Filt Rate > 60; Glucose Random 80 mg/dL (60-115); Iron 79 mcg/dL (45-160); Percent Iron Saturation 23 % (15-50); Potassium 3.8 mmol/L (3.3-5.1); Sodium 139 mmol/L (135-145); Total Iron Binding Capacity 341 mcg/dL (228-428); Total Protein 8.3 g/dL (6.5-8.0); Unsaturated Iron Binding 262 ug/dL
[2024-05-28 13:39] LABS: Ferritin 39 ng/mL (20-250)
[2024-05-28 13:48] LABS: Folate 9.7 ng/mL (> or = 4.0); Vitamin B12 417 pg/mL (200-900)
[2024-05-29 22:44] LABS: Immunoglobulin A 286 mg/dL (47-310)
[2024-05-30 19:48] LABS: Transglutaminase IgA <1.0 U/mL
== END 2024-05-28 10:51 | disposition home or self-care (01) ==
LOC: HO.LAB 10:50
PROVIDERS: PCP Nurse Practitioner Primary Care; Visit Provider Internal Medicine
DX: R19.5 Other fecal abnormalities (principal); R10.9 Unspecified abdominal pain; I25.10 Atherosclerotic heart disease of native coronary artery without angina pectoris; R63.4 Abnormal weight loss; K21.9 Gastro-esophageal reflux disease without esophagitis; R68.81 Early satiety; D64.9 Anemia, unspecified; Z79.01 Long term (current) use of anticoagulants
CPT/HCPCS: 36415; 80053; 82607; 82728; 82746; 82784; 83540; 85027; 86364; 99212

== ENCOUNTER → 2024-06-12 23:59 | Outpatient (BNV) | payer OTHER, SELFPAY ==
--- NOTE | 2024-06-16 11:01 | A.OFFVIS_ITS ---
Intake Visit Reasons: Remote ILR check- [employer] Allergies amoxicillin Allergy (Mild, Verified 05/28/24 10:52) unknown latex Allergy (Unknown, Uncoded 05/28/24 10:52) itching [facility] Medical History (Updated 05/28/24 @ 14:40 by Annelise Yen MD) CAD (coronary artery disease) On anticoagulant therapy On beta tri at home NSTEMI (non-ST elevated myocardial infarction) GERD (gastroesophageal reflux disease) Acid reflux Collapsed lung Surgical History Stented coronary artery History of esophagogastroduodenoscopy (EGD) History of foot surgery Family History Mother Diverticulitis HTN (hypertension) Brother Diverticulitis Brother Diverticulitis HTN (hypertension) Brother Diverticulitis HTN (hypertension) Diabetes Brother Diverticulitis Sister HTN (hypertension) Sister Diverticulitis HTN (hypertension) Diabetes Sister HTN (hypertension) Family/Other Cancer Social History Household Members: Family Housing: Apartment Alcohol intake: former Patient Tobacco Use Status: Former Tobacco user Tobacco use type: Cigarette Cigarettes Per Day: 3 Years Smoked: 30+/- Substance Use Type: Marijuana service: No Current occupational status: disabled Office Procedures Cardiac Device Check Cardiac Device Check Details: Remote implantable loop recorder report noted 06/12/2024. No pauses or atrial fibrillation noted. Frequent PVCs noted with total burden of 7.8%, unchanged [id number] Cardiac Interrogation, subcut cardiac rhythm monitor Procedure code (CPT) selection complete Assessment & Plan Assessment & Plan (1) Implantable loop recorder present: Code(s): Z95.818 - Presence of other cardiac implants and grafts Category: Medical Plan: See above Coding Level of Care Code Procedure Only Diagnoses Implantable loop recorder present Z95.818 CPT Codes Cardiac Device Check - Cardiac Device 16: [id number] Cardiac Interrogation, subcut cardiac rhythm monitor ([id number])
== END ==
PROVIDERS: PCP Nurse Practitioner Primary Care; Visit Provider Internal Medicine Cardiovascular Disease
DX: I49.3 Ventricular premature depolarization (principal); Z95.818 Presence of other cardiac implants and grafts
CPT/HCPCS: 93298

== ENCOUNTER 2024-06-25 09:21 | Outpatient (AMB) | payer OTHER, SELFPAY ==
--- NOTE | 2024-06-25 09:29 | A.OFFVIS_ITS ---
Vital Signs 06/25/24 09:30 Height 5 ft 1 in Weight 158 lb BMI 29.9 BP 128/68 Blood Pressure Location Lt brachial Position Sitting Pulse 64 Pulse Source Pulse Oximeter Intake Visit Reasons: 6m follow up/tilt table/abd US Allergies amoxicillin Allergy (Mild, Verified 05/28/24 10:52) unknown latex Allergy (Unknown, Uncoded 05/28/24 10:52) itching Medication List - Last Reconciled 06/25/24 by Pérez Head MD albuterol sulfate 90 mcg/actuation (ProAir HFA) 2 puffs PO Q4-6H PRN aspirin 81 mg PO QAM atorvastatin (Lipitor) 40 mg PO BEDTIME esomeprazole magnesium 20 mg PO BID 90 days metoprolol tartrate 25 mg PO BID 90 days oxycodone-acetaminophen 10-325 mg 1 tab PO QID PRN sodium,potassium,mag sulfates 17.5-3.13-1.6 gram (Suprep Bowel Prep Kit) DILUTE; drink full amount early evening before AND next morning at least 2 hr before procedure; follow w 960 mL water PO sucralfate 10 mL PO QIDACHS 2 weeks ticagrelor (Brilinta) 60 mg PO BID HPI Comments Details: Stanislav comes for follow-up. He said he has symptoms of palpitations have got a lot better since he has been prescribed GI medicines. He says his feeling of pulsating in his epigastric area has improved. He has continues to have frequent PVCs with total burden of 7.6% although he said he is not having as much symptoms. No lightheadedness, syncope. No exertional chest pain. Takes all his medications. Last LDL is 48 mg/dL. [facility] Medical History CAD (coronary artery disease) On beta tri at home NSTEMI (non-ST elevated myocardial infarction) GERD (gastroesophageal reflux disease) Acid reflux Collapsed lung Surgical History Stented coronary artery History of esophagogastroduodenoscopy (EGD) History of foot surgery Family History Mother Diverticulitis HTN (hypertension) Brother Diverticulitis Brother Diverticulitis HTN (hypertension) Brother Diverticulitis HTN (hypertension) Diabetes Brother Diverticulitis Sister HTN (hypertension) Sister Diverticulitis HTN (hypertension) Diabetes Sister HTN (hypertension) Family/Other Cancer Social History Household Members: Family Housing: Apartment Alcohol intake: former Patient Tobacco Use Status: Former Tobacco user Tobacco use type: Cigarette Cigarettes Per Day: 3 Years Smoked: 30+/- Substance Use Type: Marijuana service: No Current occupational status: disabled Review of Systems Const Denies weakness ENT Denies dizziness Card Denies chest pain, Denies chest pain with activity, Denies syncope, Denies rapid heart rate, Denies pedal edema, Denies edema, Denies leg edema, Denies lightheadedness, Denies palpitations, Denies dyspnea, Denies dyspnea on exertion and Denies orthopnea Resp Denies cough, Denies dyspnea and Denies dyspnea on exertion GI Denies hematochezia and Denies change in stool character Musc Denies abnormal gait, Denies muscle cramps, Denies muscle weakness, Denies numbness, Denies radiating pain into limb and Denies tingling Neuro Denies abnormal gait, Denies dizziness, Denies syncope, Denies numbness, Denies tingling and Denies weakness Endo Denies palpitations Physical Exam Vital Signs: Last Vital Signs Pulse 64 06/25/24 09:30 BP 128/68 06/25/24 09:30 BMI result Body Mass Index 29.9 Const General: cooperative, healthy appearing, comfortable and no acute distress Nutritional Appearance: thin and underweight Orientation/consciousness: patient oriented x3 Neck Neck: Yes normal visual inspection and Yes no JVD Resp Effort & Inspection: normal respiratory effort Auscultation: clear to auscultation bilaterally, no crackles, no rales, no rhonchi and no wheezes Cardio Jugular venous distension: no JVD Rate: regular rate Rhythm: regular rhythm Heart sounds: S1 normal heart sound present, S2 normal heart sound present, no gallops, no murmurs and no rubs Peripheral pulses: Peripheral pulses 2+ throughout GI Inspection: Yes normal to inspection Neuro General: patient oriented x3 Extrem Other: Right radial catheterization site well healed General: Yes normal to inspection, No no pedal edema and No calf tenderness Psych Appearance: grossly normal Mental Status: mental status grossly normal Speech and movement: Normal speech and movement present Office Procedures Cardiac Device Check Cardiac Device Check Details: [employer] implantable loop recorder in place. Presenting rhythm is normal sinus rhythm. Total PVC burden in his 9.6%. No pauses or sustained ventricular arrhythmias noted. Battery life is good [id number] Cardiac Device Check, subcut cardiac rhythm monitor Procedure code (CPT) selection complete Assessment & Plan Assessment & Plan (1) CAD (coronary artery disease): Code(s): I25.10 - Atherosclerotic heart disease of [place] coronary artery without angina pectoris Category: Medical Plan: CAD status post drug-eluting stent to LAD more than 30 months ago for acute coronary syndrome. Can stop dual antiplatelet therapy and continue aspirin for life. Continue high-intensity statin therapy with target goal LDL less than 55 mg/dL. Advised lipid panel near future. Advised to maintain activity level as tolerated. Complete smoking abstinence was discussed. Advised to call me with any new symptoms. (2) PVC (premature ventricular contraction): Code(s): I49.3 - Ventricular premature depolarization Category: Medical Plan: Symptoms of PVCs which are significantly improved after GI treatment although he continues to have burden of PVCs. Continue metoprolol therapy. Avoidance of stimulants was discussed. Stress mitigation strategies were discussed. (3) Implantable loop recorder present: Code(s): Z95.818 - Presence of other cardiac implants and grafts Category: Medical Plan: Implantable loop recorder in place. This was implanted for syncope. No pauses or significant ventricular arrhythmias noted. Will continue monitor remotely. Will follow up in the clinic in 6 months time, sooner p.r.n.. Thank you for allowing me to partake in his care Medications: Discontinued ticagrelor (Brilinta) Discontinued Reason: Doctor's Order 60 mg PO BID 60 tabs 11RF Coding Level of Care Code Est Pt Level 4 (43246) Complex EM visit Add On G2211 Diagnoses CAD (coronary artery disease) I25.10 PVC (premature ventricular contraction) I49.3 Implantable loop recorder present Z95.818 CPT Codes Cardiac Device Check - Cardiac Device 7: 80916-VD Cardiac Device Check, subcut cardiac rhythm monitor ([id number])
[2024-06-25 09:30] VITALS: BP 128/68; PULSE 64; BMI 29.9
--- OUTSIDE RECORDS SUMMARY | 2024-06-25 09:35 | XMS_ITS | Encounter Summary ---
Author Organization [employer] Address [address] [address] [place] [address] Care Team Providers Care Dinkey Engine Mechanic Name Role Phone Kristen Hanna Primary Care Provider [phone] Reason for Visit * Reason Onset Date Comments Med Refill 02/27/2023 Encounter Details Date Type Department Care Team ([facility] st Contact Info) Description 02/27/2023 Telephone [facility] MEDICINE [address] [place], [place] [phone] Kristen Hanna ANP [address] [place], [place] [phone] Med Refill Social History Tobacco Use Types [...] Description 07/22/2024 11:00 AM EDT Office Visit [facility] MEDICINE [address] [place] [address] Kristen Hanna ANP [address] [place] [address] documented as of this encounter Visit Diagnoses Not on filedocumented in this encounter Care Teams Dinkey Engine Mechanic Relationship Specialty Start Date End Date Kristen Hanna ANP [address] [place] [address] PCP - General Family Medicine 10/23/19 documented as of this encounter
--- OUTSIDE RECORDS SUMMARY | 2024-06-25 09:35 | XMS_ITS | Encounter Summary ---
Author Organization [employer] Address [address] [facility] [address] [place] [address] Care Team Providers Care Weight Recorder Name Role Phone Kristen Hanna Primary Care Provider [phone] Reason for Visit * Reason Onset Date Comments Med Refill 02/20/2023 Encounter Details Date Type Department Care Team ([facility] st Contact Info) Description 02/20/2023 Telephone [facility] MEDICINE [address] [place], [place] [phone] Kristen Hanna ANP [address] [place], [place] [phone] Med Refill Social History Tobacco Use Types [...] 1:26 PM EDT Medication was sent to [facility] on 01/11/23 with 1 refill. * Telephone Encounter - Leatha Musa - 02/20/2023 1:24 PM EDT Tc from pt requesting med refill on Ventolin HFA 108 (90 Base) MCG/ACT inhaler documented in this encounter Plan of Treatment Upcoming Encounters Date Type Department Care Team (Late st Contact Info) Description 07/22/2024 11:00 AM EDT Office Visit [facility] MEDICINE [address] [place] [address] Kristen Hanna ANP [address] [place] [address] documented as of this encounter Visit Diagnoses Not on filedocumented in this encounter Care Teams Weight Recorder Relationship Specialty Start Date End Date Kristen Hanna ANP [address] [place] [address] PCP - General Family Medicine 10/23/19 documented as of this encounter
--- OUTSIDE RECORDS SUMMARY | 2024-06-25 09:36 | XMS_ITS | Encounter Summary ---
Author Organization [employer] Address [address] [address] [place] [address] Care Team Providers Care Slat Basket Top Maker Name Role Phone Kristen Hanna BERNADETTE Primary Care Provider [phone] Encounter Details Date Type Department Care Team [...] 11:00 AM EDT Office Visit [facility] MEDICINE [address] [place], [place] [phone] Kristen Hanna, ANP [address] [place] [address] documented as of this encounter Procedures Procedure Name Priority Date/Time Associated Diagnosis Comments VITAMIN B12/FOLATE, SERUM PANEL Routine 05/28/2024 11:59 AM EST IRON AND TOTAL IRON BINDING CAPACITY Routine 05/28/2024 11:59 AM EST TISSUE TRANSGLUTAMINASE AB, IGA Routine 05/28/2024 11:59 AM EST CBC Routine 05/28/2024 11:59 AM EST IMMUNOGLOBULIN A Routine 05/28/2024 11:5 9 AM EST FERRITIN Routine 05/28/2024 11:59 AM EST COMPREHENSIVE METABOLIC PANEL Routine 05/28/2024 11:59 AM EST documented in this encounter Results * Tissue Transglutaminase Antibody, IgA (05/28/2024 11:59 AM EST) Transglutaminase IgA <1.0 U/mL [facility] Comment:Value Interpretation ----- <15.0 Antibody not detected> or = 15.0 Antibody detectedTHIS TEST WAS PERFORMED AT:[employer] [address] [id number] WHITMAN MD 05/28/2024 11:5 9 AM EST 05/28/2024 11:59 AM EST Generic External Data Provider LAB BLOOD ORDERAB LES Final Result Performing Organization Address [facility] Co de Phone Number [facility] [address] [place] [phone] * Immunoglobulin A (05/28/2024 11:59 AM EST) Pathologist [facility] Immunoglobulin A 286 47 - 310 mg/dL [facility] Comment:THIS TEST WAS PERFOR MED AT:[employer] [address] [id number] WHITMAN MD 05/28/2024 11:5 9 AM EST 05/28/2024 11:59 AM EST Generic External Data Provider LAB BLOOD ORDERAB LES Final Result Performing Organization Address [facility] de Phone Number [facility] [address] [place] [phone] * Vitamin B12 (Cobalamin) and Folate Panel, Serum (05/28/2024 11:59 AM EST) Vitamin B12 417 200 - 900 pg/mL [facility] Comment:NORMAL 200-900 PG/ML INDETERMINATE 160-199 PG/ML DEFICIENT < 160 PG/ML Folate 9.7 > or = 4.0 ng/mL [facility] Comment:Reference Values:> o r = 4.0 ng/mL< 4.0 ng/mL suggests folate deficiency Methotrexate, aminopterin and folinic acid(leucovorin) are chemotherapeutic agents whose molecularstructures are similar to folate; therefore, the Architectfolate assay cannot be used for patients using these drugs. 05/28/2024 11:5 9 AM EST 05/28/2024 11:59 AM EST us Generic External Data Provider LAB BLOOD ORDERAB LES Final Result Performing Organization Address [facility] Co de Phone Number [facility] [address] [place] [address] [phone] * Ferritin (05/28/2024 11:59 AM EST) Ferritin 39 20 - 250 ng/mL [facility] 05/28/2024 11:5 9 AM EST 05/28/2024 11:59 AM EST Generic External Data Provider LAB BLOOD ORDERAB LES Final Result Performing Organization Address [facility] Phone Number [facility] [address] [place] [address] [phone] * Iron And Total Iron Binding Capacity (05/28/2024 11:59 AM EST) Iron 79 45 - 160 mcg/dL [facility] Total Iron Binding Capacity 341 228 - 428 mcg/dL [facility] Percent Iron Saturation 23 15 - 50 % [facility] Unsaturated Iron Binding 262 ug/dL [facility] 05/28/2024 11:5 9 AM EST 05/28/2024 11:59 AM EST us Generic External Data Provider LAB BLOOD ORDERAB LES Final Result Performing Organization Address [facility] Co de Phone Number [facility] [address] [place] [phone] * (ABNORMAL) Comprehensive Metabolic Panel (05/28/2024 11:59 AM EST) Sodium 139 135 - 145 mmol/L [facility] Potassium 3.8 3.3 - 5.1 mmol/L [facility] Chloride 108 96 - 108 mmol/L [facility] Carbon Dioxide 22 22 - 29 mmol/L [facility] Anion Gap 13 12 - 20 [facility] Urea Nitrogen (BUN) 11 9 - 16 mg/dL [facility] Creatinine, Serum 0.70 0.5 - 1.4 mg/dL [facility] Estimated Glomerular Filt Rate >60 [facility] Comment:Chronic Kidney Disea se: Estimated GFR < 60 mL/min/[id number] Kidney Disease: Estimated GFR < 15 mL/min/1.73m2 Glucose 80 60 - 115 mg/dL [facility] Calcium 9.9 8.4 - 10.2 mg/dL [facility] Bilirubin, Total 0.6 0.0 - 1.0 mg/dL [facility] Aspartate Amino Transferase 32 5 - 37 U/L [facility] Alanine Aminotransferase 29 0 - 40 U/L [facility] Total Protein 8.3(H) 6.5 - 8.0 g/dL [facility] Albumin Level 4.3 3.5 - 5.0 g/dL [facility] Alkaline Phosphatase 114 39 - 117 U/L [facility] 05/28/2024 11:5 9 AM EST 05/28/2024 11:59 AM EST us Generic External Data Provider LAB BLOOD ORDERAB LES Final Result [facility] [address] [place] [phone] * (ABNORMAL) CBC (05/28/2024 11:59 AM EST) White Blood Count 7.5 4.8 - 10.8 X10*3/uL [facility] Red Blood Count 4.46(L) 4.60 - 5.80 X10*6/uL [facility] Hemoglobin 14.2 14.0 - 18.0 g/dl [facility] Hematocrit 41.5(L) 42.0 - 52.0 % [facility] Mean Corpuscular Volume 93.0 80.0 - 98.0 fL [facility] Mean Corpuscular Hemoglobin 31.8 27.0 - 33.0 pg [facility] Mean Corpuscular HGB Conc 34.2 31.0 - 36.0 g/dl [facility] Red Cell Distribution Width 13.8 11.0 - 16.0 % [facility] Platelet Count 215 160 - 400 X10*3/uL [facility] Mean Platelet Volume 12.0 9.4 - 12.4 fL [facility] NRBC Pct Auto 0.0 0.0 - 0.2 /100WBC [facility] NRBC Abs Auto 0.000 0.0 - 0.012 X10*3/uL [facility] 05/28/2024 11:5 9 AM EST 05/28/2024 11:59 AM EST us Generic External Data Provider LAB BLOOD ORDERAB LES Final Result Performing Organization Address City/State/[facility] Co de Phone Number [facility] [address] [place] [phone] documented in this encounter Visit Diagnoses Not on filedocumented in this encounter Additional Health Concerns Assessment Noted Time PHQ-9 Depression Total Score: 5 12/27/19 24 2:52 PM EDT documented as of this encounter Care Teams Slat Basket Top Maker Relationship Specialty Start Date End Date Kristen Hanna ANP [address] [place] [phone] PCP - General Family Medicine 10/23/19 documented as of this encounter
--- OUTSIDE RECORDS SUMMARY | 2024-06-25 09:36 | XMS_ITS | Clinical Summary ---
Author Organization [employer] Address [address] [facility]t [place] [address] Care Team Providers Care Tire Manager Name Role Phone Kristen Hanna BERNADETTE Primary Care Provider [phone] Allergies Active Allergy Reactions Criticality Noted Date Comments Amoxicillin Hives,Swelling 03/30/2021 Other reaction(s): Itching Medications aspirin 81 MG EC tablet Take 1 tablet by mouth in the morning. Active atorvastatin (Lipitor) 40 MG tablet Take 1 tablet by mouth in the morning. Active cholecalciferol (Vitamin D-3) 1.25 MG (51578 UT) capsule Take 1 capsule by mouth [...] reversal. 2 each 2 01/02/20 24 Active ibuprofen 600 MG tablet Take 1 tablet (600 mg) by mouth every 6 (six) hours if needed for mild pain for up to 20 doses. 20 tablet 01/22/20 24 Active famotidine (Pepcid) 20 MG tabletIndication s:Chronic GERD Take 1 tablet as needed for acid reflux 90 tablet 1 04/17/20 24 Active pantoprazole (ProtoNix) 20 MG EC tabletIndication s:Chronic GERD TAKE 1 TABLET BY MOUTH TWICE DAILY 180 tablet 1 06/11/19 25 Active oxyCODONE-acetam inophen (Percocet) 10-325 MG tabletIndication s:Other chronic pain TAKE 1 TABLET BY MOUTH EVERY 6 HOURS NEEDED FOR SEVERE PAIN 112 tablet 06/17/19 25 Active albuterol (Ventolin HFA) 108 (90 Base) MCG/ACT inhalerIndicatio ns:Mild persistent asthma, uncomplicated INHALE 2 PUFFS BY MOUTH EVERY 4 HOURS NEEDED FOR WHEEZING OR SHORTNESS OF BREATH 18 g 2 06/24/19 25 Active pantoprazole (ProtoNix) 20 MG EC tabletIndication s:Chronic GERD TAKE 1 TABLET BY MOUTH ONCE DAILY 90 tablet 1 01/15/20 24 2024 Discontinued(R eorder (will not trigger notification to Pharmacy)) albuterol (Ventolin HFA) 108 (90 Base) MCG/ACT inhalerIndicatio ns:Mild persistent asthma, uncomplicated INHALE 2 PUFFS BY MOUTH EVERY 4 HOURS NEEDED FOR WHEEZING OR SHORTNESS OF BREATH 18 g 2 04/07/20 24 2024 Discontinued(R eorder (will not trigger notification to Pharmacy)) oxyCODONE-acetam inophen (Percocet) 10-325 MG tabletIndication s:Other chronic pain Take 1 tablet by mouth every 6 (six) hours if needed for severe pain. 112 tablet 05/20/19 25 2024 Discontinued Active Problems Problem Noted Date Diagnosed Date custodial (current) use of opiate analgesic 04/06 Chronic GERD 04/17/2024 Dental abscess 2024 Screening for malignant neoplasm of colon 2023 Overview (01/15/2024): Referred to [facility] 03/2023 Other chronic pain 10/26/2023 Microscopic hematuria 04/27/2022 Overview (01/15/2024): Negative on repeat UAs Stented coronary artery 10/31/2021 Overview (01/15/2024): Following w/ Dr. Head at [facility] cards Coronary artery disease with drug-eluting stent [...] (01/15/2024): LDCT (started smoking at 14 until NC in 10/2021, now 2-3 cigs/d) (did have Chest CTA 12/13/23, can defer sending until next year) 37 PYH Resolved Problems Problem Noted Date Diagnosed Date Resolved Date Bacterial urinary infection 11/20/2022 01/15/2024 Encounters Date Type Department Care Team Description 06/24/2024 Refill [facility] [address] [place] [address] Kristen Hanna ANP Mild persistent asthma, uncomplicated 06/16/2024 Refill [facility] [address] [facility] [address] Kristen Hanna ANP Other chronic pain 06/16/2024 Refill [facility] [address] [facility] [address] Kristen Hanna ANP Other chronic pain 06/11/2024 Orders Only [facility] [address] [place] [address] Kristen Hanna ANP 06/10/2024 Refill [facility] [address] [facility] [place] [address] Kristen Hanna ANP Chronic GERD 06/05/2024 Telephone [facility] [address] [place] [phone] Kristen Hanna ANP Nurse Triage 06/02/2024 Refill [facility] [address] [place] [phone] Kristen Hanna ANP Mild persistent asthma, uncomplicated 05/28/2024 Orders Only GENERIC EXTERNAL DATA DEPARTMENT Provider, Generic External Data 05/20/2024 Refill [facility] [address] [place] [address] Kristen Hanna ANP Other chronic pain 05/19/[address] [address] Loly [place] July04/22/2024 Refill [facility] [address] [place] [address] Kristen Hanna ANP Other chronic pain 04/22/[address] [address] Kristen Hanna ANP Med Refill 04/21/2024 Refill [facility] [address] [place] [address] Naty Barth RN Other chronic pain 04/21/2024 Telephone [facility] [address] [place] [address] Kristen Hanna ANP 04/18/2024 Telephone [facility] [address] [place] [phone] 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, RN Appointment Confirmation 04/17/2024 9:15 AM EST Office Visit [facility] [address] [place] [phone] Kristen Hanna ANP Chronic GERD (Primary Dx); Moderate protein-calorie malnutrition (CMS/HCC); Other chronic pain; custodial (current) use of opiate analgesic 04/17/2024 Travel 04/08/2024 Patient Outreach [facility] [address] [place] [phone] Kristen Hanna ANP Pre-visit Planning (SDOH screening was completed on 12/27/2023) 04/03/2024 Refill [facility] [address] [place] [address] Kristen Hanna ANP Mild persistent asthma, uncomplicated from Last 3 Months Immunizations Name Administration [...] Description 07/22/2024 11:00 AM EDT Office Visit [facility] [address] [place] [address] Kristen Hanna, ANP [address] [place] [address] Health Maintenance Due Date Last Done Comments CT Colonography 1968 Colonoscopy 1968 Colorectal Cancer Screening 1968 Dental Oral Exam 1968 Dental Prophylaxis 1968 Dental X-Ray: Bitewings 1968 FIT DNA/Cologuard 1968 FIT 1968 FOBT 1968 Sigmoidoscopy 1968 Hepatitis B Vaccines (1 of 3 - 19+ 3-dose series) 01/21/1987 Pneumococcal Vaccine: 50+ Years (1 of 2 - PCV) 01/21/1987 Zoster Vaccines (1 of 2) 01/21/2018 Influenza Vaccine (#1) 2024 Postp oned from 01/06/2024 (Patient Refused) Depression Screening 12/26/2024 12/27/2023, 12/27/2023 SDOH Screening 12/26/2024 12/27/2023 Alcohol/Substance Use Screening 04/17/2025 04/17/2024 COVID-19 Vaccine (2 - 2023-2 5 season) 2025 10/26/2020 Postponed from 01/05 (Patient Refused) Tobacco Screening 04/17/2025 04/17/2024 Dental [...] topic Meningococcal Vaccine Aged Out No inga zandra eligible based on patient's age to complete this topic RSV under 20 months Aged Out No longe r eligible based on patient's age to complete this topic Rotavirus Vaccines Aged Out No longer eligible based on patient's age to complete this topic Procedures Procedure Name Priority Date/Time Associated Diagnosis Comments TISSUE TRANSGLUTAMINASE AB, IGA Routine 05/28/2024 11:59 AM EST IMMUNOGLOBULIN A Routine 05/28/2024 11:5 9 AM EST VITAMIN B12/FOLATE, SERUM PANEL Routine 05/28/2024 11:59 AM EST FERRITIN Routine 05/28/2024 11:59 AM EST IRON AND TOTAL IRON BINDING CAPACITY Routine 05/28/2024 11:59 AM EST COMPREHENSIVE METABOLIC PANEL Routine 05/28/2024 11:59 AM EST CBC Routine 05/28/2024 11:59 AM EST PANORAMIC RADIOGRAPHIC IMAGE Routine 2024 8:30 AM EDT LIPID PANEL, STANDARD Routine 10/11/2022 8:25 AM EDT Coronary artery disease involving tulalip coronary artery of tulalip heart without angina pectoris [facility] HEPATITIS C ANTIBODY RFLX Routine 09/24/2021 7:59 AM EDT [facility] HIV AB/AG Routine 022 7:59 AM EDT from Last 3 Months or Most Recently Relevant to Health Maintenance Results * Vitamin B12 (Cobalamin) and Folate Panel, Serum (05/28/2024 11:59 AM EST) Vitamin B12 417 200 - 900 pg/mL [facility] Comment:NORMAL 200-900 PG/ML INDETERMINATE 160-199 PG/ML DEFICIENT < 160 PG/ML Folate 9.7 > or = 4.0 ng/mL [facility] Comment:Reference Values:> o r = 4.0 ng/mL< 4.0 ng/mL suggests folate deficiency Methotrexate, aminopterin and folinic acid(leucovorin) are chemotherapeutic agents whose molecularstructures are similar to folate; therefore, the Architectfolate assay cannot be used for patients using these drugs. 05/28/2024 11:5 9 AM EST 05/28/2024 11:59 AM EST us Generic External Data Provider LAB BLOOD ORDERAB LES Final Result [facility] [address] [place] [phone] * Iron And Total Iron Binding Capacity (05/28/2024 11:59 AM EST) Iron 79 45 - 160 mcg/dL [facility] Total Iron Binding Capacity 341 228 - 428 mcg/dL [facility] Percent Iron Saturation 23 15 - 50 % [facility] Unsaturated Iron Binding 262 ug/dL [facility] 05/28/2024 11:5 9 AM EST 05/28/2024 11:59 AM EST Generic External Data Provider LAB BLOOD ORDERAB LES Final Result Performing Organization Address [facility] de Phone Number [facility] [address] [place] [phone] * Tissue Transglutaminase Antibody, IgA (05/28/2024 11:59 AM EST) Transglutaminase IgA <1.0 U/mL [facility] Comment:Value Interpretation ----- <15.0 Antibody not detected> or = 15.0 Antibody detectedTHIS TEST WAS PERFORMED AT:[facility] [place] [id number] WHITMAN MD 05/28/2024 11:5 9 AM EST 05/28/2024 11:59 AM EST Generic External Data Provider LAB BLOOD ORDERAB LES Final Result Performing Organization Address [facility] de Phone Number [facility] [address] [place] [phone] * (ABNORMAL) CBC (05/28/2024 11:59 AM EST) White Blood Count 7.5 4.8 - 10.8 X10*3/uL [facility] Red Blood Count 4.46(L) 4.60 - 5.80 X10*6/uL [facility] Hemoglobin 14.2 14.0 - 18.0 g/dl [facility] Hematocrit 41.5(L) 42.0 - 52.0 % [facility] Mean Corpuscular Volume 93.0 80.0 - 98.0 fL [facility] Mean Corpuscular Hemoglobin 31.8 27.0 - 33.0 pg [facility] Mean Corpuscular HGB Conc 34.2 31.0 - 36.0 g/dl [facility] Red Cell Distribution Width 13.8 11.0 - 16.0 % [facility] Platelet Count 215 160 - 400 X10*3/uL [facility] Mean Platelet Volume 12.0 9.4 - 12.4 fL [facility] NRBC Pct Auto 0.0 0.0 - 0.2 /100WBC [facility] NRBC Abs Auto 0.000 0.0 - 0.012 X10*3/uL [facility] 05/28/2024 11:5 9 AM EST 05/28/2024 11:59 AM EST Generic External Data Provider LAB BLOOD ORDERAB LES Final Result Performing Organization Address [facility] de Phone Number [facility] [address] [place] [phone] * Immunoglobulin A (05/28/2024 11:59 AM EST) Immunoglobulin A 286 47 - 310 mg/dL [facility] Comment:THIS TEST WAS PERFOR MED AT:[facility] [place] [id number] WHITMAN MD 05/28/2024 11:5 9 AM EST 05/28/2024 11:59 AM EST us Generic External Data Provider LAB BLOOD ORDERAB LES Final Result Performing Organization Address [facility] Co de Phone Number [facility] [address] [place] [phone] * Ferritin (05/28/2024 11:59 AM EST) Ferritin 39 20 - 250 ng/mL [facility] 05/28/2024 11:5 9 AM EST 05/28/2024 11:59 AM EST Generic External Data Provider LAB BLOOD ORDERAB LES Final Result Performing Organization Address [facility]/ZIP Co de Phone Number [facility] [address] [place] [phone] * (ABNORMAL) Comprehensive Metabolic Panel (05/28/2024 11:59 AM EST) Sodium 139 135 - 145 mmol/L [facility] Potassium 3.8 3.3 - 5.1 mmol/L [facility] Chloride 108 96 - 108 mmol/L [facility] Carbon Dioxide 22 22 - 29 mmol/L [facility] Anion Gap 13 12 - 20 [facility] Urea Nitrogen (BUN) 11 9 - 16 mg/dL [facility] Creatinine, Serum 0.70 0.5 - 1.4 mg/dL [facility] Estimated Glomerular Filt Rate >60 [facility] Comment:Chronic Kidney Disea se: Estimated GFR < 60 mL/min/1.16x6Mqrubh Kidney Disease: Estimated GFR < 15 mL/min/1.73m2 Glucose 80 60 - 115 mg/dL [facility] Calcium 9.9 8.4 - 10.2 mg/dL [facility] Bilirubin, Total 0.6 0.0 - 1.0 mg/dL [facility] Aspartate Amino Transferase 32 5 - 37 U/L [facility] Alanine Aminotransferase 29 0 - 40 U/L [facility] Total Protein 8.3(H) 6.5 - 8.0 g/dL [facility] Albumin Level 4.3 3.5 - 5.0 g/dL [facility] Alkaline Phosphatase 114 39 - 117 U/L [facility] 05/28/2024 11:5 9 AM EST 05/28/2024 11:59 AM EST us Generic External Data Provider LAB BLOOD ORDERAB LES Final Result Performing Organization Address [facility]/ZIP Co de Phone Number [facility] [address] [place] [phone] * Lipid Panel, Standard (10/11/2022 8:25 AM EDT) Pathologist [facility] Cholesterol, Total 115 <200 mg/dL [facility] HDL Cholesterol 41 > OR = 40 mg/dL [facility] Triglycerides 81 <150 mg/dL [facility] LDL Cholesterol 58 mg/dL (calc) [facility] Comment: Reference range: <100 Desirable range <100 mg/dL for primary prevention; ?? <70 mg/dL for patients with CHD or diabetic patients with > or = 2 CHD risk factors. LDL-C is now calculated using the Russell calculation, which is a validated novel method providing better accuracy than the Friedewald equation in the estimation of LDL-C. Kojo SS et al. BRITTANY. 2013;310(66): 3604-1541 (http://education.LaFourchette/faq/KBY876) Chol/HDLC Ratio 2.8 <5.0 (calc) [facility] Non-HDL Cholesterol 74 <130 mg/dL (calc) [facility] Comment: For patients with diabetes plus 1 major ASCVD risk factor, treating to a non-HDL-C goal of <100 mg/dL (LDL-C of <70 mg/dL) is considered a therapeutic option. Blood Venous blood specimen / Unknown 10/11/2022 8:25 AM EDT 10/11/2022 8:25 AM EDT Narrative [facility] - 10/11/2022 9:21 PM EDT FASTING:YES FASTING: YES [facility] LAB BLOOD ORDERABLES Final Resul t [facility] [address], [place] [phone] [facility] [address] [place] [phone] * HEPATITIS C ANTIBODY RFLX (09/24/2021 7:59 AM EDT) Pathologist [facility] Hepatitis C Antibody Nonreactive Nonreactive [facility] Comment: Antibodies to HCV not detected; does not exclude early acute HCV infection. 09/24/2021 7:59 AM EDT Kristen Hanna ANP HISTORICAL/NON ORDERABLE LABS Fi nal Result Performing Organization Address [facility] de Phone Number [facility] [address] * HIV AB/AG (09/24/2021 7:59 AM EDT) [facility] HIV AB/AG Nonreactive Nonreactive [facility] Comment: HIV-1 p24 Ag and/or [...] detection of this assay. ?? The [employer] HIV Ag/Ab Combo assay result and supplemental assay results should be interpreted in conjunction with the patient's clinical presentation, history and other laboratory results. ??If the results are inconsistent with clinical evidence, additional testing is suggested to confirm the result. 09/24/2021 7:59 AM EDT Kristen Hanna ANP HISTORICAL/NON ORDERABLE LABS Fi nal Result Performing Organization Address [facility] Number [facility] [address] from Last 3 Months or Most Recently Relevant to Health Maintenance Insurance [facility] Care Teams Tire Manager Relationship Specialty Start Date End Date Kristen Hanna ANP [address] [place] [phone] PCP - General Family Medicine 10/23/19
--- OUTSIDE RECORDS SUMMARY | 2024-06-25 09:36 | XMS_ITS | Encounter Summary ---
Author Organization [employer] Address [address] [facility] 7t [place] [address] Care Team Providers Care Outside Sales Account Executive Name Role Phone Kristen Hanna Primary Care Provider [phone] Reason for Visit * Reason Onset Date Comments Lab Orders 09/22/2022 Encounter Details Date Type Department Care Team ([facility] st Contact Info) Description 09/22/2022 Telephone [facility] [address] [place], [place] [phone] Kristen Hanna ANP [address] [place], [place] [phone] Lab Orders Social History Tobacco Use Types [...] active lab orders to be sent to [facility]. Patient is requesting a call back when orders have been sent due to going to [facility] twice and no orders found. documented in this encounter Plan of Treatment Upcoming Encounters Date Type Department Care Team (Late st Contact Info) Description 07/22/2024 11:00 AM EDT Office Visit [facility] [address] [place] [address] Kristen Hanna ANP [address] [place] [address] documented as of this encounter Visit Diagnoses Not on filedocumented in this encounter Care Teams Outside Sales Account Executive Relationship Specialty Start Date End Date Kristen Hanna ANP [address] [place] [phone] PCP - General Family Medicine 10/23/19 documented as of this encounter
--- OUTSIDE RECORDS SUMMARY | 2024-06-25 09:36 | XMS_ITS | Encounter Summary ---
Author Organization [employer] Address [address] [facility] [facility] [address] 7[address] [place] [address] Care Team Providers Care Propulsion Machinery Service Engineer Name Role Phone Kristen Hanna Primary Care Provider [phone] Encounter Details Date Type Department Care Team (Late st Contact Info) Description 04/03/2023 Telephone [facility] [address] [place] [address] Kristen Hanna ANP [address] [place] [address] Social History Tobacco Use Types Packs/Day Years [...] Office Visit [facility] [address] [place] [phone] Kristen Hanna ANP [address] [place] [address] documented as of this encounter Visit Diagnoses Not on filedocumented in this encounter Additional Health Concerns Assessment Noted Time PHQ-9 Depression Total Score: 11 023 9:39 AM EST documented as of this encounter Care Teams Propulsion Machinery Service Engineer Relationship Specialty Start Date End Date Kristen Hanna ANP [address] [place] [phone] PCP - General Family Medicine 10/23/19 documented as of this encounter
--- OUTSIDE RECORDS SUMMARY | 2024-06-25 09:36 | XMS_ITS | Encounter Summary ---
Author Organization [employer] Address 75 [facility] 7t [place] [address] Care Team Providers Care Scrap Hoist Operator Name Role Phone Kristen Hanna Primary Care Provider [phone] Reason for Visit * Reason Onset Date Comments Appointment Request 08/14/2022 Encounter Details Date Type Department Care Team ([facility] st Contact Info) Description 08/14/2022 Telephone [facility] MED[facility]INE [address] [place], [place] [phone] Kristen Hanna ANP [address] [place], [place] [phone] Appointment Request Social History Tobacco Use Types [...] * Telephone Encounter - Duglas Tyler - 08/14/2022 1:20 PM EDT Tc from pt requesting to r/s office visit scheduled for 08/04/22 with PCP , appt was a a no show, abstract writer attempted to r/s zero availablity. Please contact at [phone] documented in this encounter Plan of Treatment Upcoming Encounters Date Type Department Care Team (Late st Contact Info) Description 07/22/2024 11:00 AM EDT Office Visit [facility] [address] [place] [address] Kristen Hanna ANP [address] [place] [address] documented as of this encounter Visit Diagnoses Not on filedocumented in this encounter Care Teams Scrap Hoist Operator Relationship Specialty Start Date End Date Kristen Hanna ANP [address] [place] [address] PCP - General Family Medicine 10/23/19 documented as of this encounter
--- OUTSIDE RECORDS SUMMARY | 2024-06-25 09:36 | XMS_ITS | Encounter Summary ---
Author Organization [employer] Address [address] [facility] [address] 7t [place] [address] Care Team Providers Care Brass Sorter Name Role Phone Kristen Hanna Primary Care Provider [phone] Reason for Visit * Reason Onset Date Comments Med Refill 04/22/2024 Encounter Details Date Type Department Care Team (Late st Contact Info) Description 04/22/2024 Refill [facility] MED[facility]INE [address] [place], [place] [phone] Kristen Hanna ANP [address] [place], [place] [phone] Other chronic pain Social History Tobacco Use [...] Description 07/22/2024 11:00 AM EDT Office Visit [facility] [address] [place] [phone] Kristen Hanna ANP [address] [place] [address] documented as of this encounter Visit Diagnoses Diagnosis Other chronic pain documented in this encounter Additional Health Concerns Assessment Noted Time PHQ-9 Depression Total Score: 5 12/27/19 24 2:52 PM EDT documented as of this encounter Care Teams Brass Sorter Relationship Specialty Start Date End Date Kristen Hanna ANP [address] [place] [phone] PCP - General Family Medicine 10/23/19 documented as of this encounter
--- OUTSIDE RECORDS SUMMARY | 2024-06-25 09:36 | XMS_ITS | Encounter Summary ---
Author Organization [employer] Address [address] [facility] 7t [place] [address] Care Team Providers Care Medical Assembler Name Role Phone Kristen Hanna Primary Care Provider [phone] Reason for Visit * Reason Onset Date Comments Med Refill 06/16/2024 Encounter Details Date Type Department Care Team (Late st Contact Info) Description 06/16/2024 Refill [facility] MEDICINE [address] [place], [place] [phone] Kristen Hanna ANP [address] [place], [place] [phone] Other chronic pain Social History Tobacco Use [...] is your housing situation today? I have afcundo wu 12/27/[address] you [...] Office Visit [facility] MEDICINE [address] [place] [phone] Kristen Hanna ANP [address] [place] [address] documented as of this encounter Visit Diagnoses Diagnosis Other chronic pain documented in this encounter Additional Health Concerns Assessment Noted Time PHQ-9 Depression Total Score: 5 12/27/19 24 2:52 PM EDT documented as of this encounter Care Teams Medical Assembler Relationship Specialty Start Date End Date Kristen Hanna ANP [address] [place] [phone] PCP - General Family Medicine 10/23/19 documented as of this encounter
--- OUTSIDE RECORDS SUMMARY | 2024-06-25 09:36 | XMS_ITS | Encounter Summary ---
Author Organization [employer] Address 75 [facility] 7t [place] [address] Care Team Providers Care Laborer Construction Or Leak Gang Name Role Phone Kristen Hanna Primary Care Provider [phone] Reason for Visit * Reason Onset Date Comments Nurse Triage 06/05/2024 Encounter Details Date Type Department Care Team ([facility] st Contact Info) Description 06/05/2024 Telephone [facility] [address] [place], [place] [phone] Kristen Hanna ANP 230 [place], [place] [phone] Nurse Triage Social History Tobacco Use Types Packs/Day Years [...] encounter Miscellaneous Notes * Telephone Encounter - Ros Staples RN - 06/05/2024 4:51 PM EST Images from the original note were not included. Call returned to Stanislav Hernandez for triage below. No answer LVM to return call to [facility] triage line [phone]. Rian Canales routed conversation to [place] Triage Nurse4 hours ago (12:28 PM) Stanislav Hernandez [facility] Medicine Clinical Support (supporting BERNADETTE Lazcano)5 hours ago (11:41 AM) I would like to know if I can see Kristen sooner than July to discuss my Hematocrit results..having symptoms of shortness of breath and fatigue..maybe we can discuss medication options, vitamin B12 ,vitamin c and iron..thank you documented in this encounter Plan of Treatment Upcoming Encounters Date Type Department Care Team (Late st Contact Info) Description 07/22/2024 11:00 AM EDT Office Visit [facility] 230 [place], [place] [phone] Kristen Hanna ANP [address] [place], [place] [phone] documented as of this encounter Visit Diagnoses Not on filedocumented in this encounter Additional Health Concerns Assessment Noted Time PHQ-9 Depression Total Score: 5 12/27/19 24 2:52 PM EDT documented as of this encounter Care Teams Laborer Construction Or Leak Gang Relationship Specialty Start Date End Date Kristen Hanna ANP 230 [place] [address] PCP - General Family Medicine 10/23/19 documented as of this encounter
--- OUTSIDE RECORDS SUMMARY | 2024-06-25 09:36 | XMS_ITS | Encounter Summary ---
Author Organization [employer] Address [address] [facility] [address] 7t [place] [address] Care Team Providers Care Medical Billing Coder Name Role Phone Kristen Hanna Primary Care Provider [phone] Reason for Visit * Reason Onset Date Comments Med Refill 06/24/2024 Encounter Details Date Type Department Care Team (Late st Contact Info) Description 06/24/[address] [facility] 230 [place], [place] [phone] Kristen Hanna ANP 230 [place], [place] [phone] Mild persistent asthma, uncomplicated Social History Tobacco [...] AM EDT Office Visit [facility] 230 [place] [address] Kristen Hanna ANP 230 [place] [address] documented as of this encounter Visit Diagnoses Diagnosis Mild persistent asthma, uncomplicated documented in this encounter Additional Health Concerns Assessment Noted Time PHQ-9 Depression Total Score: 5 12/27/19 24 2:52 PM EDT documented as of this encounter Care Teams Medical Billing Coder Relationship Specialty Start Date End Date Kristen Hanna ANP [address] [place] [address] PCP - General Family Medicine 10/23/19 documented as of this encounter
--- OUTSIDE RECORDS SUMMARY | 2024-06-25 09:36 | XMS_ITS | Encounter Summary ---
Author Organization [employer] Address [address] [facility] [address] 7t [place] [address] Care Team Providers Care Street Light Cleaner Name Role Phone Kristen Hanna Primary Care Provider [phone] Reason for Visit * Reason Comments Med Refill Encounter Details Date Type Department Care Team ([facility] st Contact Info) Description 07/16/2023 Refill [facility] 230 [place], [place] [phone] Kristen Hanna ANP 230 [place], [place] [phone] Other chronic pain Social History Tobacco Use [...] Description 07/22/2024 11:00 AM EDT Office Visit [facility] [address] [place] [address] Kristen Hanna ANP [address] [place] [address] documented as of this encounter Visit Diagnoses Diagnosis Other chronic pain documented in this encounter Additional Health Concerns Assessment Noted Time PHQ-9 Depression Total Score: 11 023 9:39 AM EST documented as of this encounter Care Teams Street Light Cleaner Relationship Specialty Start Date End Date Kristen Hanna ANP [address] [place] [address] PCP - General Family Medicine 10/23/19 documented as of this encounter
--- OUTSIDE RECORDS SUMMARY | 2024-06-25 09:36 | XMS_ITS | Encounter Summary ---
Author Organization [employer] Address [address] [facility] [address] 7t [place] [address] Care Team Providers Care Heat Treat Operator Name Role Phone Kristen Hanna Primary Care Provider [phone] Reason for Visit * Reason Comments Med Refill Encounter Details Date Type Department Care Team ([facility] st Contact Info) Description 06/16/2024 Refill [facility] 230 [place], [place] [phone] Kristen Hanna ANP 230 [place], [place] [phone] Other chronic pain Social History Tobacco Use [...] Description 07/22/2024 11:00 AM EDT Office Visit [facility] 230 [place] [address] Kristen Hanna ANP 230 [place] [address] documented as of this encounter Visit Diagnoses Diagnosis Other chronic pain documented in this encounter Additional Health Concerns Assessment Noted Time PHQ-9 Depression Total Score: 5 12/27/19 24 2:52 PM EDT documented as of this encounter Care Teams Heat Treat Operator Relationship Specialty Start Date End Date Kristen Hanna ANP [address] [place] [address] PCP - General Family Medicine 10/23/19 documented as of this encounter
--- OUTSIDE RECORDS SUMMARY | 2024-06-25 09:36 | XMS_ITS | Encounter Summary ---
Author Organization [employer] Address [address] [facility] [address] 7t [place] [address] Care Team Providers Care Associate Professor Of Archaeology Name Role Phone Kristen Hanna Primary Care Provider [phone] Reason for Visit * Reason Onset Date Comments Med Refill 06/10/2024 Encounter Details Date Type Department Care Team (Late st Contact Info) Description 06/10/2024 Refill [facility] 230 [place], [place] [phone] Kristen aHnna ANP 230 [place], [place] [phone] Chronic GERD Social History Tobacco Use Types Packs/Day Years [...] 11:00 AM EDT Office Visit [facility] 230 [place] [address] Kristen Hanna ANP 230 [place] [address] documented as of this encounter Visit Diagnoses Diagnosis Chronic GERD documented in this encounter Additional Health Concerns Assessment Noted Time PHQ-9 Depression Total Score: 5 12/27/19 24 2:52 PM EDT documented as of this encounter Care Teams Associate Professor Of Archaeology Relationship Specialty Start Date End Date Kristen Hanna ANP [address] [place] [address] PCP - General Family Medicine 10/23/19 documented as of this encounter
--- OUTSIDE RECORDS SUMMARY | 2024-06-25 09:36 | XMS_ITS | Encounter Summary ---
Author Organization [employer] Address [address] [facility] [address] 7t [place] [address] Care Team Providers Care Triage Specialist Name Role Phone Kristen Hanna Primary Care Provider [phone] Reason for Visit * Reason Comments Med Refill Encounter Details Date Type Department Care Team ([facility] st Contact Info) Description 11/05/2023 Refill [facility] 230 [place], [place] [phone] Kristen Hanna ANP 230 [place], [place] [phone] Mild persistent asthma, uncomplicated Social History Tobacco [...] Description 07/22/2024 11:00 AM EDT Office Visit [facility] MED[facility]INE [address] [place] [address] Kristen Hanna ANP [address] [place] [address] documented as of this encounter Visit Diagnoses Diagnosis Mild persistent asthma, uncomplicated documented in this encounter Additional Health Concerns Assessment Noted Time PHQ-9 Depression Total Score: 11 023 9:39 AM EST documented as of this encounter Care Teams Triage Specialist Relationship Specialty Start Date End Date Kristen Hanna ANP [address] [place] [address] PCP - General Family Medicine 10/23/19 documented as of this encounter
--- OUTSIDE RECORDS SUMMARY | 2024-06-25 09:36 | XMS_ITS | Encounter Summary ---
Author Organization [employer] Address [address] [facility] [address] 7t [place] [address] Care Team Providers Care Bull Driver Name Role Phone Kristen Hanna Primary Care Provider [phone] Reason for Visit * Reason Onset Date Comments Med Refill 04/22/2024 Encounter Details Date Type Department Care Team ([facility] st Contact Info) Description 04/22/2024 Telephone [facility] 230 [place], [place] [phone] Kristen Hanna ANP 230 [place], [place] [phone] Med Refill Social History Tobacco Use Types [...] 10-325 MG tablet To be sent to: [facility] - [place], [place] - [address] [place] [address] documented in this encounter Plan of Treatment Upcoming Encounters Date Type Department Care Team ([facility] st Contact Info) Description 07/22/2024 11:00 AM EDT Office Visit [facility] 230 [place] [address] Kristen Hanna ANP 230 [place] [address] documented as of this encounter Visit Diagnoses Not on filedocumented in this encounter Additional Health Concerns Assessment Noted Time PHQ-9 Depression Total Score: 5 12/27/19 24 2:52 PM EDT documented as of this encounter Care Teams Bull Driver Relationship Specialty Start Date End Date Kristen Hanna ANP [address] [place] [address] PCP - General Family Medicine 6/18/20 documented as of this encounter
--- OUTSIDE RECORDS SUMMARY | 2024-06-25 09:36 | XMS_ITS | Encounter Summary ---
Author Organization [employer] Address [address] [facility] [address] 7t [place] [address] Care Team Providers Care Absorption Plant Operator Name Role Phone Kristen Hanna Primary Care Provider [phone] Reason for Visit * Reason Onset Date Comments Prior Authorization 10/08/2023 Encounter Details Date Type Department Care Team ([facility] st Contact Info) Description 10/08/2023 Telephone [facility] 230 [place], [place] [phone] Kristen Hanna ANP 230 [place], [place] [phone] Prior Authorization Social History Tobacco Use Types [...] for oxy generated signed and faxed to [facility]. Awaiting response. PA scanned into chart under [...] 11:00 AM EDT Office Visit [facility] 230 [place] [address] Kristen Hanna ANP 230 [place] [address] documented as of this encounter Visit Diagnoses Not on filedocumented in this encounter Additional Health Concerns Assessment Noted Time PHQ-9 Depression Total Score: 11 023 9:39 AM EST documented as of this encounter Care Teams Absorption Plant Operator Relationship Specialty Start Date End Date Kristen Hanna ANP 230 [place] [address] PCP - General Family Medicine 10/23/19 documented as of this encounter
--- OUTSIDE RECORDS SUMMARY | 2024-06-25 09:36 | XMS_ITS | Encounter Summary ---
Author Organization [employer] Address [address] [facility] [address] 7t [place] [address] Care Team Providers Care Hired Hand Name Role Phone Kristen Hanna Primary Care Provider Reason for Visit * Reason Comments Med Refill Encounter Details Date Type Department Care Team ([facility] st Contact Info) Description 04/24/[address] [facility] 230 [place], [place] [phone] Kristen Hanna ANP 230 [place], [place] [phone] Other chronic pain Social History Tobacco Use [...] Description 07/22/2024 11:00 AM EDT Office Visit [facility]INE [address] [place] [address] Kristen Hanna ANP [address] [place] [address] documented as of this encounter Visit Diagnoses Diagnosis Other chronic pain documented in this encounter Additional Health Concerns Assessment Noted Time PHQ-9 Depression Total Score: 11 023 9:39 AM EST documented as of this encounter Care Teams Hired Hand Relationship Specialty Start Date End Date Kristen Hanna ANP [address] [place] [address] PCP - General Family Medicine 10/23/19 documented as of this encounter
--- OUTSIDE RECORDS SUMMARY | 2024-06-25 09:36 | XMS_ITS | Encounter Summary ---
Author Organization [employer] Address 75 [facility] 7t [place] [address] Care Team Providers Care Machinist Apprentice Wood Name Role Phone Kristen Hanna Primary Care Provider [phone] Reason for Visit * Reason Comments Med Refill Encounter Details Date Type Department Care Team (Late Contact Info) Description 12/29/2022 Refill [facility] [address] [place] [address] [phone] Kristen Hanna ANP 230 [place], [place] [phone] Mild persistent asthma, uncomplicated Social History Tobacco [...] 11:00 AM EDT Office Visit [facility] [address] [place] [address] [phone] Kristen Hanna ANP 230 [place], [place] [phone] documented as of this encounter Visit Diagnoses Diagnosis Mild persistent asthma, uncomplicated documented in this encounter Care Teams Machinist Apprentice Wood Relationship Specialty Start Date End Date Kristen Hanna ANP 230 [place] [address] PCP - General Family Medicine 10/23/19 documented as of this encounter
--- OUTSIDE RECORDS SUMMARY | 2024-06-25 09:36 | XMS_ITS | Encounter Summary ---
Author Organization [employer] Address [address] [facility] [address] 7t [place] [address] Care Team Providers Care Premium Service Representative Name Role Phone Kristen Hanna Primary Care Provider [phone] Reason for Visit * Reason Comments Med Refill Encounter Details Date Type Department Care Team ([facility] st Contact Info) Description 12/04/2023 Refill [facility] 230 [place], [place] [phone] Kristen Hanna ANP 230 [place], [place] [phone] Other chronic pain Social History Tobacco Use [...] Description 07/22/2024 11:00 AM EDT Office Visit [facility] [address] [place] [address] Kristen Hanna ANP [address] [place] [address] documented as of this encounter Visit Diagnoses Diagnosis Other chronic pain documented in this encounter Additional Health Concerns Assessment Noted Time PHQ-9 Depression Total Score: 11 023 9:39 AM EST documented as of this encounter Care Teams Premium Service Representative Relationship Specialty Start Date End Date Kristen Hanna ANP [address] [place] [address] PCP - General Family Medicine 10/23/19 documented as of this encounter
--- OUTSIDE RECORDS SUMMARY | 2024-06-25 09:36 | XMS_ITS | Encounter Summary ---
Author Organization [employer] Address 75 [facility] 7t [place] [address] Care Team Providers Care Photograph Finisher Name Role Phone Kristen Hanna Primary Care Provider [phone] Reason for Visit * Reason Onset Date Comments Med Refill 06/20/2023 Encounter Details Date Type Department Care Team ([facility] st Contact Info) Description 06/20/2023 Telephone [facility]INE 230 [place], [place] [phone] Kristen Hanna ANP 230 [place], [place] [phone] Med Refill Social History Tobacco Use Types [...] 11:00 AM EDT Office Visit [facility] MEDICINE [address] [place] [address] Kirsten Hanna ANP 230 [place] [address] documented as of this encounter Visit Diagnoses Not on filedocumented in this encounter Additional Health Concerns Assessment Noted Time PHQ-9 Depression Total Score: 11 03/23/ 023 9:39 AM EST documented as of this encounter Care Teams Photograph Finisher Relationship Specialty Start Date End Date Kristen Hanna ANP [address] [place] [address] PCP - General Family Medicine 10/23/19 documented as of this encounter
--- OUTSIDE RECORDS SUMMARY | 2024-06-25 09:36 | XMS_ITS | Encounter Summary ---
Author Organization [employer] Address [address] [facility] [address] 7t [place] [address] Care Team Providers Care Brake Operator Sheet Metal Name Role Phone Kristen Hanna Primary Care Provider [phone] Reason for Visit * Reason Comments Med Refill Encounter Details Date Type Department Care Team ([facility] st Contact Info) Description 06/02/2024 Refill [facility]INE 230 [place], [place] [phone] Kristen Hanna ANP 230 [place], [place] [phone] Mild persistent asthma, uncomplicated Social History Tobacco [...] Description 07/22/2024 11:00 AM EDT Office Visit [facility]INE 230 [place] [address] Kristen Hanna ANP 230 [place] [address] documented as of this encounter Visit Diagnoses Diagnosis Mild persistent asthma, uncomplicated documented in this encounter Additional Health Concerns Assessment Noted Time PHQ-9 Depression Total Score: 5 12/27/19 24 2:52 PM EDT documented as of this encounter Care Teams Brake Operator Sheet Metal Relationship Specialty Start Date End Date Kristen Hanna ANP [address] [place] [address] PCP - General Family Medicine 10/23/19 documented as of this encounter
--- OUTSIDE RECORDS SUMMARY | 2024-06-25 09:36 | XMS_ITS | Encounter Summary ---
Author Organization [email or web address] Address 75 [facility] [address] 7t [place] [address] Care Team Providers Care Detective Supervisor Name Role Phone Kristen Hanna Primary Care Provider [phone] Reason for Visit * Reason Comments Med Refill Encounter Details Date Type Department Care Team ([facility] st Contact Info) Description 05/17/2023 Refill [facility]INE 230 [place], [place] [phone] Kristen Hanna ANP 230 [place], [place] [phone] Other chronic pain Social History Tobacco Use [...] Description 07/22/2024 11:00 AM EDT Office Visit [facility] MEDICINE [address] [place] [address] Kristen Hanna ANP [address] [place] [address] documented as of this encounter Visit Diagnoses Diagnosis Other chronic pain documented in this encounter Additional Health Concerns Assessment Noted Time PHQ-9 Depression Total Score: 11 023 9:39 AM EST documented as of this encounter Care Teams Detective Supervisor Relationship Specialty Start Date End Date Kristen Hanna ANP [address] [place] [address] PCP - General Family Medicine 10/23/19 documented as of this encounter
--- OUTSIDE RECORDS SUMMARY | 2024-06-25 09:36 | XMS_ITS | Encounter Summary ---
Author Organization [employer] Address [address] [facility] [address] 7t [place] [address] Care Team Providers Care Photo Checker And Assembler Name Role Phone Kristen Hanna Primary Care Provider [phone] Reason for Visit * Reason Comments Med Refill Encounter Details Date Type Department Care Team ([facility] st Contact Info) Description 01/21/2024 Refill [facility] MED[facility]INE 230 [place], [place] [phone] Kristen Hanna ANP 230 [place], [place] 1848240 Mild persistent asthma, uncomplicated Social History Tobacco [...] Description 07/22/2024 11:00 AM EDT Office Visit [facility] MEDICINE 230 [place] [address] Kristen Hanna ANP 230 [place] [address] documented as of this encounter Visit Diagnoses Diagnosis Mild persistent asthma, uncomplicated documented in this encounter Additional Health Concerns Assessment Noted Time PHQ-9 Depression Total Score: 5 12/27/19 24 2:52 PM EDT documented as of this encounter Care Teams Photo Checker And Assembler Relationship Specialty Start Date End Date Kristen Hanna ANP [address] [place] [address] PCP - General Family Medicine 10/23/19 documented as of this encounter
--- OUTSIDE RECORDS SUMMARY | 2024-06-25 09:36 | XMS_ITS | Encounter Summary ---
Author Organization [employer] Address [address] [facility] [address] 7t [place] [address] Care Team Providers Care Manager Route Name Role Phone Kristen Hanna Primary Care Provider [phone] Encounter Details Date Type Department Care Team (Late st Contact Info) Description 06/11/2024 Orders Only [facility] 230 [place], [place] [phone] Kristen Hanna ANP 230 [place], [place] [phone] Social History Tobacco Use Types Packs/Day Years [...] AM EDT documented as of this encounter Progress Notes * BERNADETTE Lazcano - 06/11/2024 12:22 PM EST Called pt - re: PPI refill -he started Nexium via GI but felt this was giving him shortness of breath and abdominal pain. He stopped and switch back to Protonix but ran out so requested refill from me. I have sent this w BID dosing. He is also on sucralfate for the next few weeks via GI. He says this has been very helpful for his acid reflux and I asked him to call gastroenterology to let them know that sucralfate is effective and that the Nexium gave him side effects. He has ultrasound coming up with we think cardiology and CT scan abdomen pelvis -possibly for kidney stones? He will get labs drawn before next appointment and ask him to please let me know if shortness of breath does not improve with Protonix as he does have some emphysema on last chest CT and as a lifelong smoker may benefit from LAMA and pulmonary function testing. documented in this encounter Plan of Treatment Upcoming Encounters Date Type Department Care Team (Late st Contact Info) Description 07/22/2024 11:00 AM EDT Office Visit [facility] 230 [place] [address] Kristen Hanna ANP 230 [place] [address] documented as of this encounter Visit Diagnoses Not on filedocumented in this encounter Additional Health Concerns Assessment Noted Time PHQ-9 Depression Total Score: 5 12/27/19 24 2:52 PM EDT documented as of this encounter Care Teams Manager Route Relationship Specialty Start Date End Date Kristen Hanna ANP 230 [place] [address] PCP - General Family Medicine 10/23/19 documented as of this encounter
--- OUTSIDE RECORDS SUMMARY | 2024-06-25 09:36 | XMS_ITS | Encounter Summary ---
Author Organization [employer] Address [address] [facility] [address] 7t [place] [address] Care Team Providers Care Accountant Manager Name Role Phone Kristen Hanna Primary Care Provider [phone] Reason for Visit * Reason Comments Med Refill Encounter Details Date Type Department Care Team ([facility] st Contact Info) Description 05/22/2023 Refill [facility] MEDICINE 230 [place], [place] [phone] Kristen Hanna ANP 230 [place], [place] [phone] Other chronic pain Social History Tobacco Use [...] 11:00 AM EDT Office Visit [facility] MEDICINE [address] [place] [address] Kristen Hanna ANP [address] [place] [address] documented as of this encounter Visit Diagnoses Diagnosis Other chronic pain documented in this encounter Additional Health Concerns Assessment Noted Time PHQ-9 Depression Total Score: 11 023 9:39 AM EST documented as of this encounter Care Teams Accountant Manager Relationship Specialty Start Date End Date Kristen Hanna ANP [address] [place] [address] PCP - General Family Medicine 10/23/19 documented as of this encounter
--- OUTSIDE RECORDS SUMMARY | 2024-06-25 09:36 | XMS_ITS | Encounter Summary ---
Author Organization [employer] Address 75 [facility] 7t [place] [address] Care Team Providers Care Ecommerce Analyst Name Role Phone Kristen Hanna Primary Care Provider [phone] Reason for Visit * Reason Onset Date Comments Med Refill 11/28/2022 Encounter Details Date Type Department Care Team ([facility] st Contact Info) Description 11/28/2022 Telephone [facility] MEDICINE [address] [place], [place] [phone] Kristen Hanna ANP [address] [place], [place] [phone] Med Refill Social History Tobacco Use Types [...] 11:00 AM EDT Office Visit [facility] MEDICINE [address] [place] [address] Kristen Hanna ANP [address] [place] [address] documented as of this encounter Visit Diagnoses Not on filedocumented in this encounter Care Teams Ecommerce Analyst Relationship Specialty Start Date End Date Kristen Hanna ANP [address] [place] [address] PCP - General Family Medicine 10/23/19 documented as of this encounter
== END 2024-06-25 09:59 | disposition home or self-care (01) ==
PROVIDERS: PCP Nurse Practitioner Primary Care; Visit Provider Internal Medicine Cardiovascular Disease
DX: I25.10 Atherosclerotic heart disease of native coronary artery without angina pectoris (principal); I49.3 Ventricular premature depolarization; Z95.818 Presence of other cardiac implants and grafts
CPT/HCPCS: 93285; 99214; G2211

== ENCOUNTER → 2024-06-25 09:21 | Outpatient (BNVA) | payer MEDICARE, SELFPAY | PROVIDERS: PCP Nurse Practitioner Primary Care; Visit Provider Internal Medicine Cardiovascular Disease | DX: I25.10 Atherosclerotic heart disease of native coronary artery without angina pectoris (principal); I49.3 Ventricular premature depolarization; Z87.891 Personal history of nicotine dependence; Z95.818 Presence of other cardiac implants and grafts | CPT/HCPCS: 99212 ==

== ENCOUNTER → 2024-07-12 23:59 | Outpatient (BNV) | payer OTHER, SELFPAY ==
--- NOTE | 2024-07-16 15:01 | MHC.OFFVIS ---
Intake Visit Reasons: Remote ILR check- [employer] Allergies amoxicillin Allergy (Mild, Verified 05/28/24 10:52) unknown latex Allergy (Unknown, Uncoded 05/28/24 10:52) itching PFSH Medical History CAD (coronary artery disease) On beta tri at home NSTEMI (non-ST elevated myocardial infarction) GERD (gastroesophageal reflux disease) Acid reflux Collapsed lung Surgical History Stented coronary artery History of esophagogastroduodenoscopy (EGD) History of foot surgery Family History Mother Diverticulitis HTN (hypertension) Brother Diverticulitis Brother Diverticulitis HTN (hypertension) Brother Diverticulitis HTN (hypertension) Diabetes Brother Diverticulitis Sister HTN (hypertension) Sister Diverticulitis HTN (hypertension) Diabetes Sister HTN (hypertension) Family/Other Cancer Social History Household Members: Family Housing: Apartment Alcohol intake: former Patient Tobacco Use Status: Former Tobacco user Tobacco use type: Cigarette Cigarettes Per Day: 3 Years Smoked: 30+/- Substance Use Type: Marijuana service: No Current occupational status: disabled Office Procedures Cardiac Device Check Cardiac Device Check Details: Remote implantable loop recorder report generated 07/12/2024. No atrial fibrillation or pauses noted. Frequent PVCs noted with total burden of 9% [id number] Cardiac Interrogation, subcut cardiac rhythm monitor Procedure code (CPT) selection complete Assessment & Plan Assessment & Plan (1) Implantable loop recorder present: Code(s): Z95.818 - Presence of other cardiac implants and grafts Category: Medical Plan: See above Coding Level of Care Code Procedure Only Diagnoses Implantable loop recorder present Z95.818 CPT Codes Cardiac Device Check - Cardiac Device 16: [id number] Cardiac Interrogation, subcut cardiac rhythm monitor ([id number])
== END ==
PROVIDERS: PCP Nurse Practitioner Primary Care; Visit Provider Internal Medicine Cardiovascular Disease
DX: I49.3 Ventricular premature depolarization (principal); Z95.818 Presence of other cardiac implants and grafts
CPT/HCPCS: 93298

== ENCOUNTER 2024-07-23 08:23 | Outpatient (REF) | payer OTHER, SELFPAY ==
[2024-07-23 08:49] LABS: MANUAL DIFF FLAG NO
[2024-07-23 09:39] LABS: Basophils Absolute Auto 0.1 X10*3/uL (0.0-0.2); Basophils Percent Auto 0.5 % (0-2); Eosinophils Absolute Auto 0.3 X10*3/uL (0.0-0.4); Eosinophils Percent Auto 3.2 % (0-4); Hematocrit 42.1 % (42.0-52.0); Hemoglobin 14.2 g/dl (14.0-18.0); Imm Gran Abs Auto 0.02 X10*3/uL (0.00-0.03); Imm Gran Pct Auto 0.2 % (0.0-0.4); Lymphocytes Absolute Auto 2.5 X10*3/uL (1.2-4.9); Lymphocytes Percent Auto 23.7 % (20-40); Mean Corpuscular HGB Conc 33.7 g/dl (31.0-36.0); Mean Corpuscular Hemoglobin 30.9 pg (27.0-33.0); Mean Corpuscular Volume 91.7 fL (80.0-98.0); Mean Platelet Volume 12.4 fL (9.4-12.4); Monocytes Absolute Auto 0.7 X10*3/uL (0.1-1.2); Monocytes Percent Auto 6.4 % (2-11); Neutrophils Absolute Auto 6.9 x10*3/uL (2.0-8.3); Platelet Count 212 X10*3/uL (160-400); Red Blood Count 4.59 X10*6/uL (4.60-5.80); Red Cell Distribution Width 13.3 % (11.0-16.0); White Blood Count 10.5 X10*3/uL (4.8-10.8)
[2024-07-23 10:59] LABS: Anion Gap 13 (12-20); Blood Urea Nitrogen 10 mg/dL (9-16); Calcium 9.7 mg/dL (8.4-10.2); Carbon Dioxide 26 mmol/L (22-29); Chloride 106 mmol/L (96-108); Estimated Glomerular Filt Rate > 60; Glucose Random 111 mg/dL (60-115); Potassium 4.5 mmol/L (3.3-5.1); Sodium 140 mmol/L (135-145)
== END 2024-07-23 08:24 | disposition home or self-care (01) ==
LOC: HO.LAB 08:23
PROVIDERS: PCP Nurse Practitioner Primary Care; Visit Provider Internal Medicine
DX: R63.0 Anorexia (principal); R03.0 Elevated blood-pressure reading, without diagnosis of hypertension
CPT/HCPCS: 36415; 80048; 85025

== ENCOUNTER 2024-07-24 08:10 | Outpatient (REF) | payer OTHER, SELFPAY ==
--- NOTE | ~2024-07-24 | CT_ITS ---
CLINICAL HISTORY: R63.4 - Abnormal weight loss CT angiography abdomen and pelvis with contrast. 3-D post processing. Comparison: 12/13/2023 Findings: Aorta, mesenteric/renal arteries, and iliofemoral systems are within normal limits. No consolidation or effusion. There is bilateral lower lobe bronchiectasis more pronounced on the right. Unremarkable gallbladder and solid organs. No urolithiasis. No bowel obstruction, pneumoperitoneum, or pneumatosis. Pelvic contents unremarkable. Normal appendix. The bones are intact. IMPRESSION: No acute findings. This document has been electronically signed by: Vasquez Briceno MD on 07/25/2024 08:07:01
--- OUTSIDE RECORDS SUMMARY | 2024-07-24 08:18 | XMS_ITS | Encounter Summary ---
Author Organization [employer] Address [address] [facility] [address] 7[address] [place] [address] Care Team Providers Care Transfer Car Operator Name Role Phone Kristen Hanna Primary Care Provider Reason for Visit * Reason Onset Date Comments Med Refill 02/27/2023 Encounter Details Date Type Department Care Team ([facility] st Contact Info) Description 02/27/2023 Telephone [facility] MEDICINE 230 [place], [place] [phone] Kristen Hanna ANP 230 [place], [place] [phone] Med Refill Social History Tobacco Use Types [...] Care Team (Late st Contact Info) Description 10/24/2024 9:15 AM EDT Office Visit [facility]INE 230 [place] [address] Kristen Hanna ANP 230 [place] [address] documented as of this encounter Visit Diagnoses Not on filedocumented in this encounter Care Teams Transfer Car Operator Relationship Specialty Start Date End Date Kristen Hanna ANP [address] [place] [address] PCP - General Family Medicine 10/23/19 documented as of this encounter
--- OUTSIDE RECORDS SUMMARY | 2024-07-24 08:18 | XMS_ITS | Encounter Summary ---
Author Organization [employer] Address [address] [facility] [address] 7t [place] [address] Care Team Providers Care Blueprint Tracer Name Role Phone Kristen Hanna Primary Care Provider [phone] Reason for Visit * Reason Comments Med Refill Encounter Details Date Type Department Care Team ([facility] st Contact Info) Description 01/21/2024 Refill [facility] MEDICINE 230 [place], [place] [phone] Kristen Hanna ANP 230 [place], [place] [phone] Mild persistent asthma, uncomplicated Social History Tobacco [...] Description 10/24/2024 9:15 AM EDT Office Visit [facility] MEDICINE 230 [place] [address] Kristen Hanna ANP 230 [place] [address] documented as of this encounter Visit Diagnoses Diagnosis Mild persistent asthma, uncomplicated documented in this encounter Additional Health Concerns Assessment Noted Time PHQ-9 Depression Total Score: 5 12/27/19 24 2:52 PM EDT documented as of this encounter Care Teams Blueprint Tracer Relationship Specialty Start Date End Date Kristen Hanna ANP [address] [place] [address] PCP - General Family Medicine 10/23/19 documented as of this encounter
--- OUTSIDE RECORDS SUMMARY | 2024-07-24 08:18 | XMS_ITS | Encounter Summary ---
Author Organization [employer] Address [address] [facility] [address] 7[address] [place] [address] Care Team Providers Care Mechatronics Technologist Name Role Phone Kristen Hanna Primary Care Provider Reason for Visit * Reason Comments Med Refill Encounter Details Date Type Department Care Team ([facility] st Contact Info) Description 12/04/2023 Refill [facility] MEDICINE 230 [place], [place] [phone] Kristen Hanna ANP 230 [place], [place] [phone] Other chronic pain Social History Tobacco Use [...] Description 10/24/2024 9:15 AM EDT Office Visit [facility] MEDICINE [address] [place] [address] Kristen Hanna ANP [address] [place] [address] documented as of this encounter Visit Diagnoses Diagnosis Other chronic pain documented in this encounter Additional Health Concerns Assessment Noted Time PHQ-9 Depression Total Score: 11 023 9:39 AM EST documented as of this encounter Care Teams Mechatronics Technologist Relationship Specialty Start Date End Date Kristen Hanna ANP [address] [place] [address] PCP - General Family Medicine 10/23/19 documented as of this encounter
--- OUTSIDE RECORDS SUMMARY | 2024-07-24 08:18 | XMS_ITS | Encounter Summary ---
Author Organization [employer] Address [address] [facility] [address] 7t [place] [address] Care Team Providers Care Rubber Press Tender Name Role Phone Kristen Hanna Primary Care Provider [phone] Reason for Visit * Reason Comments Med Refill Encounter Details Date Type Department Care Team ([facility] st Contact Info) Description 05/22/2023 Refill [facility] MEDICINE 230 [place], [place] [phone] Kristen Hanna ANP 230 [place], [place] [phone] Other chronic pain Social History Tobacco Use [...] Description 10/24/2024 9:15 AM EDT Office Visit [facility] MEDICINE [address] [place] [address] Kristen Hanna ANP [address] [place] [address] documented as of this encounter Visit Diagnoses Diagnosis Other chronic pain documented in this encounter Additional Health Concerns Assessment Noted Time PHQ-9 Depression Total Score: 11 023 9:39 AM EST documented as of this encounter Care Teams Rubber Press Tender Relationship Specialty Start Date End Date Kristen Hanna ANP [address] [place] [address] PCP - General Family Medicine 10/23/19 documented as of this encounter
--- OUTSIDE RECORDS SUMMARY | 2024-07-24 08:18 | XMS_ITS | Encounter Summary ---
Author Organization [employer] Address 75 [facility] 7t [place] [address] Care Team Providers Care Sign Out Clerk Name Role Phone Kristen Hanna Primary Care Provider [phone] Reason for Visit * Reason Comments Med Refill Encounter Details Date Type Department Care Team (Late Contact Info) Description 12/29/2022 Refill [facility] MEDICINE [address] [place] [address] Kristen Hanna ANP 230 [place], [place] [phone] Mild persistent asthma, uncomplicated Social History Tobacco [...] Description 10/24/2024 9:15 AM EDT Office Visit [facility] MEDICINE 230 [place], [place] [phone] Kristen Hanna ANP 230 [place], [place] [phone] documented as of this encounter Visit Diagnoses Diagnosis Mild persistent asthma, uncomplicated documented in this encounter Care Teams Sign Out Clerk Relationship Specialty Start Date End Date Kristen Hanna ANP 230 [place] [address] PCP - General Family Medicine 10/23/19 documented as of this encounter
--- OUTSIDE RECORDS SUMMARY | 2024-07-24 08:18 | XMS_ITS | Encounter Summary ---
Author Organization [employer] Address [address] [facility] [address] 7t [place] [address] Care Team Providers Care Grey Goods Marker Name Role Phone Kristen Hanna Primary Care Provider [phone] Reason for Visit * Reason Onset Date Comments Med Refill 04/22/2024 Encounter Details Date Type Department Care Team (Late st Contact Info) Description 04/22/2024 Refill [facility] MEDICINE 230 [place], [place] [phone] Kristen Hanna ANP 230 [place], [place] [phone] Other chronic pain Social History Tobacco Use [...] Description 10/24/2024 9:15 AM EDT Office Visit [facility] MED[facility]INE [address] [place] [address] Kristen Hanna ANP 230 [place] [address] documented as of this encounter Visit Diagnoses Diagnosis Other chronic pain documented in this encounter Additional Health Concerns Assessment Noted Time PHQ-9 Depression Total Score: 5 12/27/19 24 2:52 PM EDT documented as of this encounter Care Teams Grey Goods Marker Relationship Specialty Start Date End Date Kristen Hanna ANP [address] [place] [address] PCP - General Family Medicine 10/23/19 documented as of this encounter
--- OUTSIDE RECORDS SUMMARY | 2024-07-24 08:18 | XMS_ITS | Encounter Summary ---
Author Organization [employer] Address [address] [facility] [address] 7t [place] [address] Care Team Providers Care Supervisor Major Appliance Assembly Name Role Phone Kristen Hanna Primary Care Provider [phone] Reason for Visit * Reason Comments Med Refill Encounter Details Date Type Department Care Team ([facility] st Contact Info) Description 05/17/2023 Refill [facility] MEDICINE 230 [place], [place] [phone] Kristen Hanna ANP 230 [place], [place] [phone] Other chronic pain Social History Tobacco Use [...] Description 10/24/2024 9:15 AM EDT Office Visit [facility] MED[facility]INE [address] [place] [address] Kristen Hanna ANP [address] [place] [address] documented as of this encounter Visit Diagnoses Diagnosis Other chronic pain documented in this encounter Additional Health Concerns Assessment Noted Time PHQ-9 Depression Total Score: 11 023 9:39 AM EST documented as of this encounter Care Teams Supervisor Major Appliance Assembly Relationship Specialty Start Date End Date Kristen Hanna ANP [address] [place] [address] PCP - General Family Medicine 10/23/19 documented as of this encounter
--- OUTSIDE RECORDS SUMMARY | 2024-07-24 08:18 | XMS_ITS | Encounter Summary ---
Author Organization [employer] Address [address] [facility] [address] 7t [place] [address] Care Team Providers Care Engineering Officer Name Role Phone Kristen Hanna Primary Care Provider [phone] Encounter Details Date Type Department Care Team (Late st Contact Info) Description 04/03/2023 Telephone [facility] MEDICINE 230 [place] [address] Kristen Hanna ANP 230 [place] [address] Social History Tobacco Use Types Packs/Day Years [...] Description 10/24/2024 9:15 AM EDT Office Visit [facility] MEDICINE [address] [place] [address] Kristen Hanna ANP 230 [place] [address] documented as of this encounter Visit Diagnoses Not on filedocumented in this encounter Additional Health Concerns Assessment Noted Time PHQ-9 Depression Total Score: 11 023 9:39 AM EST documented as of this encounter Care Teams Engineering Officer Relationship Specialty Start Date End Date Kristen Hanna ANP [address] [place] [address] PCP - General Family Medicine 10/23/19 documented as of this encounter
--- OUTSIDE RECORDS SUMMARY | 2024-07-24 08:18 | XMS_ITS | Encounter Summary ---
Author Organization [employer] Address 75 [facility] 7t [place] [address] Care Team Providers Care Handle Assembler Name Role Phone Kristen Hanna Primary Care Provider [phone] Reason for Visit * Reason Onset Date Comments Lab Orders 09/22/2022 Encounter Details Date Type Department Care Team ([facility] st Contact Info) Description 09/22/2022 Telephone [facility] MEDICINE 230 [place], [place] [phone] Kristen Hanna ANP 230 [place], [place] [phone] Lab Orders Social History Tobacco Use Types [...] active lab orders to be [place] [facility] Patient is requesting a call back when orders have been sent due to going [place] [facility] twice and no orders found. documented in this encounter Plan of Treatment Upcoming Encounters Date Type Department Care Team (Late st Contact Info) Description 10/24/2024 9:15 AM EDT Office Visit [facility] MEDICINE 230 [place] [address] Kristen Hanna ANP 230 [place] [address] documented as of this encounter Visit Diagnoses Not on filedocumented in this encounter Care Teams Handle Assembler Relationship Specialty Start Date End Date Kristen Hanna ANP [address] [place] [address] PCP - General Family Medicine 10/23/19 documented as of this encounter
--- OUTSIDE RECORDS SUMMARY | 2024-07-24 08:18 | XMS_ITS | Encounter Summary ---
Author Organization [employer] Address [address] [facility] [address] 7t [place] [address] Care Team Providers Care Payroll Processor Name Role Phone Kristen Hanna Primary Care Provider [phone] Reason for Visit * Reason Onset Date Comments Med Refill 07/10/2024 Encounter Details Date Type Department Care Team (Late st Contact Info) Description 07/10/2024 Refill [facility] 230 [place], [place] [phone] Kristen Hanna ANP 230 [place], [place] [phone] Other chronic pain Social History Tobacco Use [...] Description 10/24/2024 9:15 AM EDT Office Visit [facility] MED[facility] [address] [place] [address] Kristen Hanna ANP 230 [place] [address] documented as of this encounter Visit Diagnoses Diagnosis Other chronic pain documented in this encounter Additional Health Concerns Assessment Noted Time PHQ-9 Depression Total Score: 5 12/27/19 24 2:52 PM EDT documented as of this encounter Care Teams Payroll Processor Relationship Specialty Start Date End Date rKisten Hanna ANP [address] [place] [address] PCP - General Family Medicine 10/23/19 documented as of this encounter
--- OUTSIDE RECORDS SUMMARY | 2024-07-24 08:18 | XMS_ITS | Encounter Summary ---
Author Organization [employer] Address [address] [facility] [address] 7t [place] [address] Care Team Providers Care Babbitter Name Role Phone Kristen Hanan Primary Care Provider [phone] Reason for Visit * Reason Onset Date Comments Med Refill 06/24/2024 Encounter Details Date Type Department Care Team (Late st Contact Info) Description 06/24/2024 Refill [facility] MEDICINE 230 [place], [place] [phone] Kristen Hanna ANP 230 [place], [place] [phone] Mild persistent asthma, uncomplicated Social History Tobacco [...] Description 10/24/2024 9:15 AM EDT Office Visit [facility] MEDICINE 230 [place] [address] Kristen Hanna ANP 230 [place] [address] documented as of this encounter Visit Diagnoses Diagnosis Mild persistent asthma, uncomplicated documented in this encounter Additional Health Concerns Assessment Noted Time PHQ-9 Depression Total Score: 5 12/27/19 24 2:52 PM EDT documented as of this encounter Care Teams Babbitter Relationship Specialty Start Date End Date Kristen Hanna ANP [address] [place] [address] PCP - General Family Medicine 10/23/19 documented as of this encounter
--- OUTSIDE RECORDS SUMMARY | 2024-07-24 08:18 | XMS_ITS | Encounter Summary ---
Author Organization [employer] Address [address] [facility] [address] 7t [place] [address] Care Team Providers Care Hand Icer Name Role Phone Kristen Hanna Primary Care Provider [phone] Encounter Details Date Type Department Care Team (Latest Contact Info) Description 07/22/2024 11:00 AM EDT Office Visit [facility] MEDICINE 230 [place], [place] [phone] Kristen Hanna ANP [address] [place], [place] [phone] Gastroesophageal reflux disease, unspecified whether esophagitis present (Primary Dx); Elevated blood pressure reading Social History Tobacco Use Types Packs/Day Years [...] AM EDT documented as of this encounter Last Filed Vital Signs Vital Sign Reading Time Taken Comments Blood Pressure 151/85 07/22/2024 10:58 AM EDT Pulse 58 07/22/2024 10:58 AM EDT Temperature 36.3 ??C (97.3 ??F) 07/22/2024 10:58 AM E DT Respiratory Rate 20 07/22/2024 10:58 AM EDT Oxygen Saturation 99% 07/22/2024 10:58 AM EDT Inhaled Oxygen Concentration - - Weight 71.7 kg (158 lb) 07/22/2024 10:58 AM EDT Height 177.8 cm (5' 10 ) 07/22/2024 10:58 AM EDT Body Mass Index 22.67 07/22/2024 10:58 AM EDT documented in this encounter Progress Notes * BERNADETTE Lazcano - 07/22/2024 11:00 AM EDT Subjective Patient ID: Stanislav Hernandez is a 54 y.o. male who presents for follow-up. HPI He requires nexium as pantoprazole is not effective at all and gives him side effects such as constipation and palpitations. He did take omeprazole in the past which was partially effective. Nexium is the most effective and he really felt good on this. He did also have good effect when taking nexium with sucralfate. He would agree to EGD but he does not want to get c-scope. GI is planning for this but wants him tohave both. He does have CTA scheduled and he did US as well. He needs labs b/f CTA and I think this is BMP. Dr. Head is removing interface developer in December. His loop monitor shows 9% PVCs but otherwise good.Stanislav tells me Brilinta was stopped and ASA is to continue. Smoking cigs. Review of Systems Constitutional: Negative for chills and fever. HENT: Negative for sore throat. Respiratory: Negative for cough, chest tightness, shortness of breath and wheezing. Cardiovascular: Negative for chest pain. Gastrointestinal: Positive for abdominal pain and constipation. Negative for blood in stool and diarrhea. +acid reflux Endocrine: Negative for polydipsia, polyphagia and polyuria. Genitourinary: Negative for dysuria. Musculoskeletal: Negative for back pain. Objective BP (!) 151/85 (BP Location: Left arm, Patient Position: Sitting, BP Cuff Size: Adult) Pulse 58 Temp 97.3 ??F (36.3 ??C) (Temporal) Resp 20 Ht 5' 10 (1.778 m) Wt 158 lb (71.7 kg) SpO2 99% BMI 22.67 kg/m?? Physical Exam Vitals reviewed. Constitutional: General: He is not in acute distress. Appearance: Normal appearance. He is not ill-appearing. HENT: Head: Normocephalic and atraumatic. Eyes: General: No scleral icterus. Extraocular Movements: Extraocular movements intact. Pupils: Pupils are equal, round, and reactive to light. Cardiovascular: Rate and Rhythm: Normal rate and regular rhythm. Pulmonary: Effort: Pulmonary effort is normal. No accessory muscle usage or respiratory distress. Neurological: Mental Status: He is alert and oriented to person, place, and time. Psychiatric: Mood and Affect: Mood normal. Behavior: Behavior normal. Assessment/Plan Diagnoses and all orders for this visit: Gastroesophageal reflux disease, unspecified whether esophagitis present Needs nexium. Other PPIs are not effective. Will pursue PA. He would like to stop famotidine d/t also not helpful. His sx are quite severe and refractory. He does follow w/ GI. May need sucralfate onongoing basis, will await nexium. - esomeprazole (NexIUM) [address] capsule; Take 1 capsule (20 mg) by mouth 2 times daily. Do not open capsule. Elevated blood pressure reading - Basic Metabolic Panel; Future documented in this encounter Plan of Treatment Upcoming Encounters Date Type Department Care Team (Late st Contact Info) Description 10/24/2024 9:15 AM EDT Office Visit [facility] MEDICINE [address] [place], [place] [phone] Kristen Hanna ANP [address] [place] [address] documented as of this encounter Procedures Procedure Name Priority Date/Time Associated Diagnosis Comments BASIC METABOLIC PANEL Routine 07/23/2024 8:46 AM EDT Elevated blood pressure reading documented in this encounter Results * Basic Metabolic Panel (07/23/2024 8:46 AM EDT) Sodium 140 135 - 145 mmol/L [facility] Potassium 4.5 3.3 - 5.1 mmol/L [facility] Chloride 106 96 - 108 mmol/L [facility] Carbon Dioxide 26 22 - 29 mmol/L [facility] Anion Gap 13 12 - 20 [facility] Urea Nitrogen (BUN) 10 9 - 16 mg/dL [facility] Creatinine, Serum 0.78 0.5 - 1.4 mg/dL [facility] Estimated Glomerular Filt Rate >60 [facility] Comment:Chronic Kidney Disea se: Estimated GFR < 60 mL/min/[id number] Kidney Disease: Estimated GFR < 15 mL/min/1.73m2 Glucose 111 60 - 115 mg/dL [facility] Calcium 9.7 8.4 - 10.2 mg/dL [facility] Blood Venous blood specimen / Unknown 07/23/2024 8:46 AM EDT 07/23/2024 8:46 AM EDT Kristen FLEMING LAB BLOOD ORDERABLES Final Resul t [facility] [address] [place] [address] [phone] documented in this encounter Visit Diagnoses Diagnosis Gastroesophageal reflux disease, unspecified whether esophagitis present- Primary Elevated blood pressure reading Elevated blood pressure reading without diagnosis of hypertension documented in this encounter Additional Health Concerns Assessment Noted Time PHQ-9 Depression Total Score: 5 12/27/19 24 2:52 PM EDT documented as of this encounter Care Teams Hand Icer Relationship Specialty Start Date End Date Kristen Hanna ANP [address] [place] [address] PCP - General Family Medicine 10/23/19 documented as of this encounter
--- OUTSIDE RECORDS SUMMARY | 2024-07-24 08:18 | XMS_ITS | Encounter Summary ---
Author Organization [employer] Address [address] [place] [address] Care Team Providers Care Chemical Compounder Name Role Phone Kristen Hanna Primary Care Provider [phone] Reason for Visit * Reason Onset Date Comments Med Refill 02/20/2023 Encounter Details Date Type Department Care Team ([facility] st Contact Info) Description 02/20/2023 Telephone [facility] [address] [place], [place] [phone] Kristen Hanna ANP [address] [place], [place] [phone] Med Refill Social History Tobacco Use Types [...] 1:26 PM EDT Medication was sent to [facility] on 01/11/23 with 1 refill. * Telephone Encounter - Leatha Musa - 02/20/2023 1:24 PM EDT Tc from pt requesting med refill on Ventolin HFA 108 (90 Base) MCG/ACT inhaler documented in this encounter Plan of Treatment Upcoming Encounters Date Type Department Care Team (Late st Contact Info) Description 10/24/2024 9:15 AM EDT Office Visit [facility] [address] [place] [address] Kristen aHnna ANP [address] [place] [address] documented as of this encounter Visit Diagnoses Not on filedocumented in this encounter Care Teams Chemical Compounder Relationship Specialty Start Date End Date Kristen Hanna ANP [address] [place] [address] PCP - General Family Medicine 10/23/19 documented as of this encounter
--- OUTSIDE RECORDS SUMMARY | 2024-07-24 08:18 | XMS_ITS | Encounter Summary ---
Author Organization [employer] Address [address] [place] [address] Care Team Providers Care Risk Officer Name Role Phone Jacques Kristen FLEMING Primary Care Provider [phone] Encounter Details Date Type Department Care Team (Latest Contact Info) Description 07/22/2024 Travel Social History Tobacco Use Types Packs/Day Years [...] Description 10/24/2024 9:15 AM EDT Office Visit [facility] [address] [place] [address] Kristen Hanna ANP [address] [place] [phone] documented as of this encounter Visit Diagnoses Not on filedocumented in this encounter Additional Health Concerns Assessment Noted Time PHQ-9 Depression Total Score: 5 12/27/19 24 2:52 PM EDT documented as of this encounter Care Teams Risk Officer Relationship Specialty Start Date End Date Kristen Hanna ANP [address] [place] [phone] PCP - General Family Medicine 10/23/19 documented as of this encounter
--- OUTSIDE RECORDS SUMMARY | 2024-07-24 08:18 | XMS_ITS | Encounter Summary ---
Author Organization [employer] Address [address] [place] [address] Care Team Providers Care Veneer Glue Jointer Feedback Name Role Phone Kristen Hanna Primary Care Provider [phone] Reason for Visit * Reason Comments Med Refill Encounter Details Date Type Department Care Team ([facility] st Contact Info) Description 04/24/[address] [facility]INE [address] [place], [place] [phone] Kristen Hanna ANP [address] [place], [place] [phone] Other chronic pain Social History Tobacco Use [...] Description 10/24/2024 9:15 AM EDT Office Visit [facility] [address] [place] [address] Kristen Hanna ANP [address] [place] [phone] documented as of this encounter Visit Diagnoses Diagnosis Other chronic pain documented in this encounter Additional Health Concerns Assessment Noted Time PHQ-9 Depression Total Score: 11 023 9:39 AM EST documented as of this encounter Care Teams Veneer Glue Jointer Feedback Relationship Specialty Start Date End Date Kristen Hanna ANP [address] [place] [address] PCP - General Family Medicine 10/23/19 documented as of this encounter
--- OUTSIDE RECORDS SUMMARY | 2024-07-24 08:18 | XMS_ITS | Encounter Summary ---
Author Organization [employer] Address [address] [facility] 7t [place] [address] Care Team Providers Care Chuck Wagon Cook Name Role Phone Kristen Hanna Primary Care Provider [phone] Reason for Visit * Reason Onset Date Comments Prior Authorization 07/23/2024 Nexium Encounter Details Date Type Department Care Team ([facility] Contact Info) Description 07/23/[address] [facility] [address] [place], [place] [phone] Kristen Hanna ANP [address] [place], [place] [phone] Prior Authorization (Nexium) Social History Tobacco Use Types Packs/Day Years [...] encounter Miscellaneous Notes * Telephone Encounter - Jackeline Martinez - 07/23/2024 11:38 AM EDT PA for Nexium from [facility] placed on PCP desk for review and signature. * Telephone Encounter - Jackeline Martinez - 07/23/2024 11:38 AM EDT ----- Message from Kristen Hanna sent at 07/22/2024 11:30 AM EDT ----- Please pursue PA for nexium documented in this encounter Plan of Treatment Upcoming Encounters Date Type Department Care Team (Late st Contact Info) Description 10/24/2024 9:15 AM EDT Office Visit [facility] [address] [place], [place] [phone] Kristen Hanna ANP [address] [place], [place] [phone] documented as of this encounter Visit Diagnoses Not on filedocumented in this encounter Additional Health Concerns Assessment Noted Time PHQ-9 Depression Total Score: 5 12/27/19 24 2:52 PM EDT documented as of this encounter Care Teams Chuck Wagon Cook Relationship Specialty Start Date End Date Kristen Hanna ANP [address] [place] [address] PCP - General Family Medicine 10/23/19 documented as of this encounter
--- OUTSIDE RECORDS SUMMARY | 2024-07-24 08:18 | XMS_ITS | Encounter Summary ---
Author Organization [employer] Address [address] 7[address] [place] [address] Care Team Providers Care Consultant In Ergonomics And Safety Name Role Phone Jacques Kristen FLEMING Primary Care Provider [phone] Reason for Visit * Reason Onset Date Comments Med Refill 07/10/2024 Encounter Details Date Type Department Care Team ([facility] st Contact Info) Description 07/10/2024 Refill [facility] [address] [place] [address] Naty Barth, RN [address] [place] [address] Other chronic pain Social History Tobacco Use [...] encounter Miscellaneous Notes * Telephone Encounter - BERNADETTE Lazcano - 07/10/2024 4:08 PM EST duplicate documented in this encounter Plan of Treatment Upcoming Encounters Date Type Department Care Team (Late st Contact Info) Description 10/24/2024 9:15 AM EDT Office Visit [facility] MED[facility]INE [address] [place] [address] Kristen Hanna ANP [address] [place] [address] documented as of this encounter Visit Diagnoses Diagnosis Other chronic pain documented in this encounter Additional Health Concerns Assessment Noted Time PHQ-9 Depression Total Score: 5 12/27/19 24 2:52 PM EDT documented as of this encounter Care Teams Consultant In Ergonomics And Safety Relationship Specialty Start Date End Date Kristen Hanna ANP [address] [place] [phone] PCP - General Family Medicine 10/23/19 documented as of this encounter
--- OUTSIDE RECORDS SUMMARY | 2024-07-24 08:18 | XMS_ITS | Encounter Summary ---
Author Organization [employer] Address [address] 7[address] [place] [address] Care Team Providers Care Vp Hr Diversity Name Role Phone Kristen Hanna Primary Care Provider [phone] Reason for Visit * Reason Comments Med Refill Encounter Details Date Type Department Care Team ([facility] st Contact Info) Description 11/05/2023 Refill [facility] [address] [place], [place] [phone] Kristen Hanna ANP [address] [place], [place] [phone] Mild persistent asthma, uncomplicated Social History Tobacco [...] your housing situation today? I have facundo uw 02/20/[address] you li [...] Description 10/24/2024 9:15 AM EDT Office Visit [facility] [address] [place] [address] Kristen Hanna ANP [address] [place] [address] documented as of this encounter Visit Diagnoses Diagnosis Mild persistent asthma, uncomplicated documented in this encounter Additional Health Concerns Assessment Noted Time PHQ-9 Depression Total Score: 11 023 9:39 AM EST documented as of this encounter Care Teams Vp Hr Diversity Relationship Specialty Start Date End Date Kristen Hanna ANP [address] [place] [address] PCP - General Family Medicine 10/23/19 documented as of this encounter
--- OUTSIDE RECORDS SUMMARY | 2024-07-24 08:18 | XMS_ITS | Encounter Summary ---
Author Organization [employer] Address [address] [place] [address] Care Team Providers Care Franchise Development Manager Name Role Phone Kristen Hanna Primary Care Provider [phone] Reason for Visit * Reason Onset Date Comments Med Refill 06/16/2024 Encounter Details Date Type Department Care Team (Late st Contact Info) Description 06/16/2024 Refill [facility] [address] [place], [place] [phone] Kristen Hanna ANP [address] [place], [place] [phone] Other chronic pain Social History Tobacco Use [...] Description 10/24/2024 9:15 AM EDT Office Visit [facility] MED[facility]INE [address] [place] [phone] Kristen Hanna ANP [address] [place] [address] documented as of this encounter Visit Diagnoses Diagnosis Other chronic pain documented in this encounter Additional Health Concerns Assessment Noted Time PHQ-9 Depression Total Score: 5 12/27/19 24 2:52 PM EDT documented as of this encounter Care Teams Franchise Development Manager Relationship Specialty Start Date End Date Kristen Hanna ANP [address] [place] [address] PCP - General Family Medicine 10/23/19 documented as of this encounter
--- OUTSIDE RECORDS SUMMARY | 2024-07-24 08:19 | XMS_ITS | Encounter Summary ---
Author Organization [employer] Address [address] 7[address] [place] [address] Care Team Providers Care Business Solutions Director Name Role Phone Kristen Hanna Primary Care Provider [phone] Reason for Visit * Reason Onset Date Comments Prior Authorization 10/08/2023 Encounter Details Date Type Department Care Team ([facility] st Contact Info) Description 10/08/2023 Telephone [facility] [address] [place], [place] [phone] Kristen Hanna ANP [address] [place], [place] [phone] Prior Authorization Social History Tobacco Use Types [...] for oxy generated signed and faxed to [facility]. Awaiting response. PA scanned into chart under [...] Office Visit [facility] [address] [place] [address] Kristen Hanna ANP [address] [place] [address] documented as of this encounter Visit Diagnoses Not on filedocumented in this encounter Additional Health Concerns Assessment Noted Time PHQ-9 Depression Total Score: 11 023 9:39 AM EST documented as of this encounter Care Teams Business Solutions Director Relationship Specialty Start Date End Date Kristen Hanna ANP [address] [place] [address] PCP - General Family Medicine 10/23/19 documented as of this encounter
--- OUTSIDE RECORDS SUMMARY | 2024-07-24 08:19 | XMS_ITS | Encounter Summary ---
Author Organization [employer] Address [address] [place] [address] Care Team Providers Care Die Engraving Supervisor Name Role Phone Kristen Hanna Primary Care Provider [phone] Reason for Visit * Reason Comments Med Refill Encounter Details Date Type Department Care Team ([facility] st Contact Info) Description 07/16/2023 Refill [facility]INE [address] [place], [place] [phone] Kristen Hanna ANP [address] [place], [place] [phone] Other chronic pain Social History Tobacco Use [...] Description 10/24/2024 9:15 AM EDT Office Visit [facility] MEDICINE [address] [place] [phone] Kristen Hanna ANP [address] [place] [phone] documented as of this encounter Visit Diagnoses Diagnosis Other chronic pain documented in this encounter Additional Health Concerns Assessment Noted Time PHQ-9 Depression Total Score: 11 023 9:39 AM EST documented as of this encounter Care Teams Die Engraving Supervisor Relationship Specialty Start Date End Date Kristen Hanna ANP [address] [place] [address] PCP - General Family Medicine 10/23/19 documented as of this encounter
--- OUTSIDE RECORDS SUMMARY | 2024-07-24 08:19 | XMS_ITS | Clinical Summary ---
Author Organization [employer] Address [address] [facility] [address] [place] [address] Care Team Providers Care Bedspread Cutter Hand Name Role Phone Kristen Hanna BERNADETTE Primary Care Provider [phone] Allergies Active Allergy Reactions Criticality Noted Date Comments Amoxicillin Hives,Swelling 03/30/2021 Other reaction(s): Itching Medications aspirin 81 MG EC tablet Take 1 tablet by mouth in the morning. Active atorvastatin (Lipitor) 40 MG tablet Take 1 tablet by mouth in the morning. Active cholecalciferol (Vitamin D-3) 1.25 MG (46997 UT) capsule Take 1 capsule by mouth 1 (one) time per week. 09/27/19 22 Active metoprolol tartrate (Lopressor) 25 MG tablet Take 12.5 mg by mouth in the morning and at bedtime. 04/24/20 22 Active tamsulosin (Flomax) 0.4 MG 24 hr capsule Take 0.4 mg by mouth in the morning. 04/13/20 23 Active docusate sodium (Colace) 100 MG capsuleIndicatio [...] BREATH 18 g 2 06/24/19 25 Active oxyCODONE-acetam inophen (Percocet) 10-325 MG tabletIndication s:Other chronic pain Take 1 tablet by mouth every 6 (six) hours if needed for severe pain. 112 tablet 07/11/19 25 Active esomeprazole (NexIUM) [address] capsuleIndicatio ns:Gastroesophag eal reflux disease, unspecified whether esophagitis present Take 1 capsule (20 mg) by mouth 2 times daily. Do not open capsule. 180 capsule 3 07/23/19 25 2025 Active Brilinta 60 MG tablet Take 60 mg by mouth 2 times daily. 08/27/19 24 2024 Discontinued(T herapy completed) famotidine (Pepcid) 20 MG tabletIndication s:Chronic GERD Take 1 tablet as needed for acid reflux 90 tablet 1 04/17/20 24 2024 Discontinued(I neffective) pantoprazole (ProtoNix) 20 MG EC tabletIndication s:Chronic GERD TAKE 1 TABLET BY MOUTH TWICE DAILY 180 tablet 1 06/11/19 25 2024 Discontinued(I neffective) oxyCODONE-acetam inophen (Percocet) 10-325 MG tabletIndication s:Other chronic pain TAKE 1 TABLET BY MOUTH EVERY 6 HOURS NEEDED FOR SEVERE PAIN 112 tablet 06/17/19 25 2024 Discontinued(R eorder (will not trigger notification to Pharmacy)) Active Problems Problem Noted Date Diagnosed Date emt intermediate (current) use of opiate analgesic 04/06 Chronic GERD 04/17/2024 Dental abscess 2024 Screening for malignant neoplasm of colon 2023 Overview (01/15/2024): Referred to [facility] 03/2023 Other chronic pain 10/26/2023 Microscopic hematuria 04/27/2022 Overview (01/15/2024): Negative on repeat UAs Stented coronary artery 10/31/2021 Overview (01/15/2024): Following w/ Dr. Head at [facility] Coronary artery disease with drug-eluting stent to circumflex artery 2 years ago 10/2021. Continue dual antiplatelet therapy for total of 30 months. Beyond that continue low-dose aspirin therapy. Continue high-intensity statin therapy. Target goal LDL closer to 60 mg/dL. Blood pressure is well optimized at this point time. Complete smoking cessation was advised. Myocardial infarction 10/31/2021 Overview (01/15/2024): 10/2021, s/p GLENAN to circumflex artery Mild persistent asthma 07/06/2015 Finding of above normal blood pressure 6 Smoking 07/06/2015 Overview (01/15/2024): LDCT (started smoking at 14 until HI in 10/2021, now 2-3 cigs/d) (did have Chest CTA 12/13/23, can defer sending until next year) 37 PYH Resolved Problems Problem Noted Date Diagnosed Date Resolved Date Bacterial urinary infection 11/20/2022 01/15/2024 Encounters Date Type Department Care Team Description 07/23/2024 Telephone [facility] MEDICINE [address] [place] [phone] Kristen Hanna ANP Prior Authorization (Nexium) 07/22/2024 11:00 AM EDT Office Visit [facility] MEDICINE [address] [place] [address] Kristen Hanna ANP Gastroesophageal reflux disease, unspecified whether esophagitis present (Primary Dx); Elevated blood pressure reading 07/22/2024 Travel 07/10/2024 Refill [facility] & PEDS [address] [place] [address] Naty Barth, RN Other chronic pain 07/10/2024 Refill [facility] MEDICINE [address] [place] [address] Kristen Hanna ANP Other chronic pain 06/24/2024 Refill [facility] MEDICINE [address] [place] [address] Kristen Hanna ANP Mild persistent asthma, uncomplicated 06/16/2024 [facility]ill [facility] [place] [address] Kristen Hanna ANP Other chronic pain 06/16/2024 Refill [facility] [address] [place] [address] Kristen Hanna ANP Other chronic pain 06/11/2024 Orders Only [facility] [address] [place] [address] Kristen Hanna ANP 06/10/2024 Refill [facility] [address] [place] [address] Kristen Hanna ANP Chronic GERD 06/05/2024 Telephone [facility] MEDICINE [address] [place] [address] Kristen Hanna ANP Nurse Triage 06/02/2024 Refill [facility] [address] [place] [address] Kristen Hanna ANP Mild persistent asthma, uncomplicated 05/28/2024 Orders Only GENERIC EXTERNAL DATA DEPARTMENT Provider, Generic External Data 05/20/2024 Refill [facility] MEDICINE [address] [place] [address] Kristen Hanna ANP Other chronic pain 05/19/2024 Telephone [facility] MEDICINE [address] [place] [address] Loly Erwin [place] July recall from Last 3 Months Immunizations Name Administration [...] Mass Index 22.67 07/22/2024 10:58 AM EDT Plan of Treatment Upcoming Encounters Date Type Department Care Team (Late st Contact Info) Description 10/24/2024 9:15 AM EDT Office Visit [facility] MEDICINE [address] [place] [address] Kristen Hanna, BERNADETTE [address] [place] [address] Health Maintenance Due Date Last Done Comments [...] Postponed from 01/05 (Patient Refused) Pneumococcal Vaccine: 50+ Years (1 of 2 - PCV) 07/22/2025 Postponed from 01/05 (Patient Refused) Tobacco Screening 07/22/2025 07/22/2024 Dental X-Ray: Full Mouth 2027 024, 12/28/2022, [...] 8:46 AM EDT Elevated blood pressure reading CBC WITH AUTO DIFFERENTIAL Routine 07/23/2024 8:46 AM EDT Anorexia TISSUE TRANSGLUTAMINASE AB, IGA Routine 05/28/2024 11:59 [...] 8:25 AM EDT Coronary artery disease involving [place] coronary artery of [place] heart without angina pectoris [facility] HISTORICAL HEPATITIS C ANTIBODY RFLX Routine 09/24/2021 7:59 AM EDT [facility] HISTORICAL HIV AB/AG Routine 022 7:59 AM EDT from Last 3 Months or Most Recently Relevant to Health Maintenance Results * (ABNORMAL) CBC auto differential (07/23/2024 8:46 AM EDT) White Blood Count 10.5 4.8 - 10.8 X10*3/uL [facility] Red Blood Count 4.59(L) 4.60 - 5.80 X10*6/uL [facility] Hemoglobin 14.2 14.0 - 18.0 g/dl [facility] Hematocrit 42.1 42.0 - 52.0 % [facility] Mean Corpuscular Volume 91.7 80.0 - 98.0 fL [facility] Mean Corpuscular Hemoglobin 30.9 27.0 - 33.0 pg [facility] Mean Corpuscular HGB Conc 33.7 31.0 - 36.0 g/dl [facility] Red Cell Distribution Width 13.3 11.0 - 16.0 % [facility] Platelet Count 212 160 - 400 X10*3/uL [facility] Mean Platelet Volume 12.4 9.4 - 12.4 fL [facility] Neutrophils Percent Auto 66.0 45 - 73 % [facility] Imm Gran Pct Auto 0.2 0.0 - 0.4 % [facility] Lymphocytes Percent Auto 23.7 20 - 40 % [facility] Monocytes Percent Auto 6.4 2 - 11 % [facility] Eosinophils Percent Auto 3.2 0 - 4 % [facility] Basophils Percent Auto 0.5 0 - 2 % [facility] NRBC Pct Auto 0.0 0.0 - 0.2 /100WBC [facility] Neutrophils Absolute Auto 6.9 2.0 - 8.3 x10*3/uL [facility] Imm Gran Abs Auto 0.02 0.00 - 0.03 X10*3/uL [facility] Lymphocytes Absolute Auto 2.5 1.2 - 4.9 X10*3/uL [facility] Monocytes Absolute Auto 0.7 0.1 - 1.2 X10*3/uL [facility] Eosinophils Absolute Auto 0.3 0.0 - 0.4 X10*3/uL [facility] Basophils Absolute Auto 0.1 0.0 - 0.2 X10*3/uL [facility] NRBC Abs Auto 0.000 0.0 - 0.012 X10*3/uL [facility] Blood Venous blood specimen / Unknown 07/23/2024 8:46 AM EDT 07/23/2024 8:46 AM EDT Kristen Hanna ANP LAB BLOOD ORDERABLES Final Resul t [facility] [address] [place] [address] [phone] * Basic Metabolic Panel (07/23/2024 8:46 AM EDT) Sodium 140 135 - 145 mmol/L [facility] Potassium 4.5 3.3 - 5.1 mmol/L [facility] Chloride 106 96 - 108 mmol/L [facility] Carbon Dioxide 26 22 - 29 mmol/L [facility] Anion Gap 13 12 - 20 [facility] Urea Nitrogen (BUN) 10 9 - 16 mg/dL [facility] Creatinine, Serum 0.78 0.5 - 1.4 mg/dL [facility] Estimated Glomerular Filt Rate >60 [facility] Comment:Chronic Kidney Disea se: Estimated GFR < 60 mL/min/1.66z9Yhavfl Kidney Disease: Estimated GFR < 15 mL/min/1.73m2 Glucose 111 60 - 115 mg/dL [facility] Calcium 9.7 8.4 - 10.2 mg/dL [facility] Blood Venous blood specimen / Unknown 07/23/2024 8:46 AM EDT 07/23/2024 8:46 AM EDT us Kristen Hanna ANP LAB BLOOD ORDERABLES Final Resul t Performing Organization Address [facility]/ZIP Co de Phone Number [facility] [address] [place] [address] [phone] * Vitamin B12 (Cobalamin) and Folate Panel, Serum (05/28/2024 11:59 AM EST) Vitamin B12 417 200 - 900 pg/mL [facility] Comment:NORMAL 200-900 PG/ML INDETERMINATE 160-199 PG/ML DEFICIENT < 160 PG/ML Folate 9.7 > or = 4.0 ng/mL [facility] Comment:Reference Values:> o r = 4.0 ng/mL< 4.0 ng/mL suggests folate deficiency Methotrexate, aminopterin and folinic acid(leucovorin) are chemotherapeutic agents whose molecularstructures are similar to folate; therefore, the Architectfolate assay cannot be used for patients using these drugs. 05/28/2024 11:5 9 AM EST 05/28/2024 11:59 AM EST us Generic External Data Provider LAB BLOOD ORDERAB LES Final Result Performing Organization Address [facility] Co de Phone Number [facility] [address] [place] [address] [phone] * Iron And Total Iron Binding Capacity (05/28/2024 11:59 AM EST) Iron 79 45 - 160 mcg/dL [facility] Total Iron Binding Capacity 341 228 - 428 mcg/dL [facility] Percent Iron Saturation 23 15 - 50 % [facility] Unsaturated Iron Binding 262 ug/dL [facility] 05/28/2024 11:5 9 AM EST 05/28/2024 11:59 AM EST us Generic External Data Provider LAB BLOOD ORDERAB LES Final Result Performing Organization Address [facility] Co de Phone Number [facility] [address] [place] [phone] * Tissue Transglutaminase Antibody, IgA (05/28/2024 11:59 AM EST) Transglutaminase IgA <1.0 U/mL [facility] Comment:Value Interpretation ----- <15.0 Antibody not detected> or = 15.0 Antibody detectedTHIS TEST WAS PERFORMED AT:[facility] [place] [id number] WHITMAN MD 05/28/2024 11:5 9 AM EST 05/28/2024 11:59 AM EST us Generic External Data Provider LAB BLOOD ORDERAB LES Final Result [facility] [address] [place] [address] [phone] * (ABNORMAL) CBC (05/28/2024 11:59 AM EST) White Blood Count 7.5 4.8 - 10.8 X10*3/uL [facility] Red Blood Count 4.46(L) 4.60 - 5.80 X10*6/uL [facility] Hemoglobin 14.2 14.0 - 18.0 g/dl [facility] Hematocrit 41.5(L) 42.0 - 52.0 % [facility] Mean Corpuscular Volume 93.0 80.0 - 98.0 fL [facility] Mean Corpuscular Hemoglobin 31.8 27.0 - 33.0 pg [facility] Mean Corpuscular HGB Conc 34.2 31.0 - 36.0 g/dl [facility] Red Cell Distribution Width 13.8 11.0 - 16.0 % [facility] Platelet Count 215 160 - 400 X10*3/uL [facility] Mean Platelet Volume 12.0 9.4 - 12.4 fL [facility] NRBC Pct Auto 0.0 0.0 - 0.2 /100WBC [facility] NRBC Abs Auto 0.000 0.0 - 0.012 X10*3/uL [facility] 05/28/2024 11:5 9 AM EST 05/28/2024 11:59 AM EST Generic External Data Provider LAB BLOOD ORDERAB LES Final Result Performing Organization Address [facility] Co de Phone Number [facility] [address] [place] [phone] * Immunoglobulin A (05/28/2024 11:59 AM EST) Immunoglobulin A 286 47 - 310 mg/dL [facility] Comment:THIS TEST WAS PERFOR MED AT:[facility] [place] [phone] WHITMAN MD 05/28/2024 11:5 9 AM EST 05/28/2024 11:59 AM EST Generic External Data Provider LAB BLOOD ORDERAB LES Final Result Performing Organization Address [facility] Co de Phone Number [facility] [address] [place] [phone] * Ferritin (05/28/2024 11:59 AM EST) Ferritin 39 20 - 250 ng/mL [facility] 05/28/2024 11:5 9 AM EST 05/28/2024 11:59 AM EST Generic External Data Provider LAB BLOOD ORDERAB LES Final Result Performing Organization Address [facility] de Phone Number [facility] [address] [place] [phone] * (ABNORMAL) Comprehensive Metabolic Panel (05/28/2024 11:59 AM EST) Sodium 139 135 - 145 mmol/L [facility] Potassium 3.8 3.3 - 5.1 mmol/L [facility] Chloride 108 96 - 108 mmol/L [facility] Carbon Dioxide 22 22 - 29 mmol/L [facility] Anion Gap 13 12 - 20 [facility] Urea Nitrogen (BUN) 11 9 - 16 mg/dL [facility] Creatinine, Serum 0.70 0.5 - 1.4 mg/dL [facility] Estimated Glomerular Filt Rate >60 [facility] Comment:Chronic Kidney Disea se: Estimated GFR < 60 mL/min/1.41m9Nispby Kidney Disease: Estimated GFR < 15 mL/min/1.73m2 Glucose 80 60 - 115 mg/dL [facility] Calcium 9.9 8.4 - 10.2 mg/dL [facility] Bilirubin, Total 0.6 0.0 - 1.0 mg/dL [facility] Aspartate Amino Transferase 32 5 - 37 U/L [facility] Alanine Aminotransferase 29 0 - 40 U/L [facility] Total Protein 8.3(H) 6.5 - 8.0 g/dL [facility] Albumin Level 4.3 3.5 - 5.0 g/dL [facility] Alkaline Phosphatase 114 39 - 117 U/L [facility] 05/28/2024 11:5 9 AM EST 05/28/2024 11:59 AM EST us Generic External Data Provider LAB BLOOD ORDERAB LES Final Result [facility] [address] [place] [phone] * Lipid Panel, Standard (10/11/2022 8:25 AM EDT) Cholesterol, Total 115 <200 mg/dL [facility] HDL Cholesterol 41 > OR = 40 mg/dL [facility] Triglycerides 81 <150 mg/dL [facility] LDL Cholesterol 58 mg/dL (calc) [facility] Comment: Reference range: <100 Desirable range <100 mg/dL for primary prevention; ?? <70 mg/dL for patients with CHD or diabetic patients with > or = 2 CHD risk factors. LDL-C is now calculated using the Russell calculation, which is a validated novel method providing better accuracy than the Friedewald equation in the estimation of LDL-C. Kojo HOLLAND et al. BRITTANY. 2013;310(19): 7916-1508 (http://education.MJH/faq/SLN228) Chol/HDLC Ratio 2.8 <5.0 (calc) [facility] Non-HDL Cholesterol 74 <130 mg/dL (calc) [facility] Comment: For patients with diabetes plus 1 major ASCVD risk factor, treating to a non-HDL-C goal of <100 mg/dL (LDL-C of <70 mg/dL) is considered a therapeutic option. Blood Venous blood specimen / Unknown 10/11/2022 8:25 AM EDT 10/11/2022 8:25 AM EDT Narrative [facility] - 10/11/2022 9:21 PM EDT FASTING:YES FASTING: YES Kristen Hanna [facility] LAB BLOOD ORDERABLES Final Resul t Performing Organization Address City/[facility]/ZIP Co de Phone Number [facility] [address], [place] [address] [facility] [address] [place] [phone] * HEPATITIS C ANTIBODY RFLX (09/24/2021 7:59 AM EDT) Pathologist [facility] Hepatitis C Antibody Nonreactive Nonreactive [facility] Comment: Antibodies to HCV not detected; does not exclude early acute HCV infection. 09/24/2021 7:59 AM EDT us Kristen Hanna ANP HISTORICAL/NON ORDERABLE LABS Fi nal Result Performing Organization Address City/[facility]/ZIP Co de Phone Number [facility] [address] * HIV AB/AG (09/24/2021 7:59 AM EDT) Pathologist [facility] HIV AB/AG Nonreactive Nonreactive [facility] [...] detection of this assay. ?? [facility] Administrative Assistant HIV Ag/Ab Combo assay result and supplemental assay results should be interpreted in conjunction with the patient's clinical presentation, history and other laboratory results. ??If the results are inconsistent with clinical evidence, additional testing is suggested to confirm the result. 09/24/2021 7:59 AM EDT us Kristen Hanna ANP HISTORICAL/NON ORDERABLE LABS Fi nal Result [facility] [address] from Last 3 Months or Most Recently Relevant to Health Maintenance Insurance [facility] Care Teams Bedspread Cutter Hand Relationship Specialty Start Date End Date Kristen Hanna ANP [address] [place] [phone] PCP - General Family Medicine 10/23/19
--- OUTSIDE RECORDS SUMMARY | 2024-07-24 08:19 | XMS_ITS | Encounter Summary ---
Author Organization [employer] Address [address] [place] [address] Care Team Providers Care Broth Mixer Name Role Phone Kristen Hanna Primary Care Provider [phone] Reason for Visit * Reason Comments Med Refill Encounter Details Date Type Department Care Team ([facility] st Contact Info) Description 06/02/2024 Refill [facility] MEDICINE [address] [place], [place] [phone] Kristen Hanna ANP [address] [place], [place] [phone] Mild persistent asthma, uncomplicated Social History Tobacco [...] Description 10/24/2024 9:15 AM EDT Office Visit [facility] MEDICINE [address] [place] [address] Kristen Hanna ANP [address] [place] [address] documented as of this encounter Visit Diagnoses Diagnosis Mild persistent asthma, uncomplicated documented in this encounter Additional Health Concerns Assessment Noted Time PHQ-9 Depression Total Score: 5 12/27/19 24 2:52 PM EDT documented as of this encounter Care Teams Broth Mixer Relationship Specialty Start Date End Date Kristen Hanna ANP [address] [place] [phone] PCP - General Family Medicine 10/23/19 documented as of this encounter
--- OUTSIDE RECORDS SUMMARY | 2024-07-24 08:19 | XMS_ITS | Encounter Summary ---
Author Organization [employer] Address [address] [facility] [address] [place] [address] Care Team Providers Care Painter And Grader Cork Name Role Phone Kristen Hanna Primary Care Provider [phone] Reason for Visit * Reason Onset Date Comments Med Refill 04/22/2024 Encounter Details Date Type Department Care Team ([facility] st Contact Info) Description 04/22/2024 Telephone [facility] MEDICINE [address] [place], [place] [phone] Kristen Hanna ANP [address] [place], [place] [phone] Med Refill Social History Tobacco Use Types [...] 10-325 MG tablet To be sent to: [facility] - [place], [place] - [address] [place] [address] documented in this encounter Plan of Treatment Upcoming Encounters Date Type Department Care Team ([facility] st Contact Info) Description 10/24/2024 9:15 AM EDT Office Visit [facility] MEDICINE [address] [place] [address] Kristen Hanna ANP [address] [place] [address] documented as of this encounter Visit Diagnoses Not on filedocumented in this encounter Additional Health Concerns Assessment Noted Time PHQ-9 Depression Total Score: 5 12/27/19 24 2:52 PM EDT documented as of this encounter Care Teams Painter And Grader Cork Relationship Specialty Start Date End Date Kristen Hanna ANP [address] [place] [phone] PCP - General Family Medicine 6/18/20 documented as of this encounter
[2024-07-24] MEDS: iohexoL 350 MG/ML 100 ML INFUS..BTL IV (08:59)
== END 2024-07-24 08:11 | disposition home or self-care (01) ==
LOC: HO.CT 08:10
PROVIDERS: PCP Nurse Practitioner Primary Care; Visit Provider Internal Medicine
DX: R10.9 Unspecified abdominal pain (principal); R63.4 Abnormal weight loss
CPT/HCPCS: 74174; Q9967

== ENCOUNTER → 2024-07-24 08:12 | Outpatient (BNV) | payer OTHER, SELFPAY | PROVIDERS: PCP Nurse Practitioner Primary Care; Visit Provider Specialist | DX: R63.4 Abnormal weight loss (principal) | CPT/HCPCS: 74174 ==

== ENCOUNTER 2024-08-08 08:31 | Outpatient (REF) | payer OTHER, SELFPAY ==
--- NOTE | ~2024-08-08 | US_ITS ---
EXAMINATION: US ABDOMEN HISTORY: R10.9 - Unspecified abdominal pain TECHNIQUE: Real-time grayscale ultrasound imaging of the abdomen was performed and images were reviewed. COMPARISON: Correlation is made with a CT angiogram of the abdomen dated 07/14/2024. FINDINGS: Liver: The right lobe of the liver measures 13.6 cm in size. The left lobe of the liver measures 8.4 cm in size. The liver demonstrates normal homogeneous echotexture. No focal mass or intrahepatic biliary ductal dilatation is identified. There is normal hepatopedal flow in the portal vein. Gallbladder and biliary tree: The gallbladder is unremarkable, without evidence of calculi, wall thickening, or pericholecystic fluid. There is no sonographic Cortes sign. The common bile duct is normal in caliber measuring 3 mm. Kidneys: The right kidney measures 10.6 cm in length. The left kidney measures 10.9 cm in length. The kidneys are unremarkable, without evidence of masses, hydronephrosis, or calculi. Pancreas: The pancreatic head, neck, and body are unremarkable. The pancreatic tail is obscured by bowel gas. Spleen: The spleen is normal in size and contour, measuring 8.5 cm in length. Abdominal aorta and inferior vena cava: The visualized portions of the abdominal aorta and inferior vena cava are normal in caliber. There is no free fluid in the abdomen. US/US abdomen complete IMPRESSION: Unremarkable abdominal ultrasound. Electronically signed by: Manas Wolff MD 08/08/2024 09:24 AM EDT
--- OUTSIDE RECORDS SUMMARY | 2024-08-08 08:57 | XMS_ITS | Encounter Summary ---
Author Organization [email or web address] Address [address] [facility] [address] [place] [address] Care Team Providers Care Chip Frier Name Role Phone Kristen Hanna Primary Care Provider [phone] Reason for Visit * Reason Comments Med Refill Encounter Details Date Type Department Care Team ([facility] st Contact Info) Description 11/05/[address] [facility] MEDICINE [address] [place], [place] [phone] Kristen Hanna ANP [address] [place], [place] [phone] Mild persistent asthma, uncomplicated Social History Tobacco [...] AM EDT Office Visit [facility] MEDICINE [address] [place] [phone] Kristen Hanna ANP [address] [place] [phone] documented as of this encounter Visit Diagnoses Diagnosis Mild persistent asthma, uncomplicated documented in this encounter Additional Health Concerns Assessment Noted Time PHQ-9 Depression Total Score: 11 023 9:39 AM EST documented as of this encounter Care Teams Chip Frier Relationship Specialty Start Date End Date Kristen Hanna ANP [address] [place] [phone] PCP - General Family Medicine 10/23/19 documented as of this encounter
--- OUTSIDE RECORDS SUMMARY | 2024-08-08 08:57 | XMS_ITS | Encounter Summary ---
Author Organization [employer] Address [address] [facility] [address] [place] [address] Care Team Providers Care Timber Management Professor Name Role Phone Kristen Hanna Primary Care Provider [phone] Reason for Visit * Reason Comments Med Refill Encounter Details Date Type Department Care Team ([facility] st Contact Info) Description 04/24/2023 Refill [facility] MEDICINE [address] [place], [place] [phone] Kristen Hanna ANP [address] [place], [place] [phone] Other chronic pain Social History Tobacco Use [...] Description 10/24/2024 9:15 AM EDT Office Visit [facility] MEDICINE [address] [place] [phone] Kristen Hanna ANP [address] [place] [phone] documented as of this encounter Visit Diagnoses Diagnosis Other chronic pain documented in this encounter Additional Health Concerns Assessment Noted Time PHQ-9 Depression Total Score: 11 023 9:39 AM EST documented as of this encounter Care Teams Timber Management Professor Relationship Specialty Start Date End Date Kristen Hanna ANP [address] [place] [phone] PCP - General Family Medicine 10/23/19 documented as of this encounter
--- OUTSIDE RECORDS SUMMARY | 2024-08-08 08:57 | XMS_ITS | Encounter Summary ---
Author Organization [employer] Address 75 [facility] 7t [place] [address] Care Team Providers Care Under Presser Name Role Phone Kristen Hanna Primary Care Provider [phone] Reason for Visit * Reason Comments Med Refill Encounter Details Date Type Department Care Team (Late Contact Info) Description 12/29/2022 Refill [facility] MEDICINE [address] [place] [phone] Kristen Hanna ANP 230 [place], [place] [phone] Mild persistent asthma, uncomplicated Social History Tobacco [...] 9:15 AM EDT Office Visit [facility] MEDICINE 230 [place], [place] [phone] Kirsten Hanna ANP 230 [place], [place] [phone] documented as of this encounter Visit Diagnoses Diagnosis Mild persistent asthma, uncomplicated documented in this encounter Care Teams Under Presser Relationship Specialty Start Date End Date Kristen Hanna ANP 230 [place] [address] PCP - General Family Medicine 10/23/19 documented as of this encounter
--- OUTSIDE RECORDS SUMMARY | 2024-08-08 08:57 | XMS_ITS | Encounter Summary ---
Author Organization [employer] Address [address] [facility] [address] 7t [place] [address] Care Team Providers Care Apartment Assistant Manager Name Role Phone Kristen Hanna Primary Care Provider [phone] Reason for Visit * Reason Comments Med Refill Encounter Details Date Type Department Care Team ([facility] st Contact Info) Description 06/02/2024 Refill [facility] MEDICINE 230 [place], [place] [phone] Kristen Hanna ANP 230 [place], [place] [phone] Mild persistent asthma, uncomplicated Social History Tobacco [...] Description 10/24/2024 9:15 AM EDT Office Visit [facility] MEDICINE 230 [place] [address] Kristen Hanna ANP 230 [place] [address] documented as of this encounter Visit Diagnoses Diagnosis Mild persistent asthma, uncomplicated documented in this encounter Additional Health Concerns Assessment Noted Time PHQ-9 Depression Total Score: 5 12/27/19 24 2:52 PM EDT documented as of this encounter Care Teams Apartment Assistant Manager Relationship Specialty Start Date End Date Kristen Hanna ANP [address] [place] [address] PCP - General Family Medicine 10/23/19 documented as of this encounter
--- OUTSIDE RECORDS SUMMARY | 2024-08-08 08:57 | XMS_ITS | Encounter Summary ---
Author Organization [employer] Address [address] [facility] [address] 7t [place] [address] Care Team Providers Care Compilation Clerk Name Role Phone Kristen Hanna Primary Care Provider [phone] Reason for Visit * Reason Comments Med Refill Encounter Details Date Type Department Care Team ([facility] st Contact Info) Description 12/04/2023 Refill [facility] MEDICINE 230 [place], [place] [phone] Kristen Hanna ANP 230 [place], [place] [phone] Other chronic pain Social History Tobacco Use [...] Description 10/24/2024 9:15 AM EDT Office Visit [facility] MEDICINE [address] [place] [address] Kristen Hanna ANP [address] [place] [address] documented as of this encounter Visit Diagnoses Diagnosis Other chronic pain documented in this encounter Additional Health Concerns Assessment Noted Time PHQ-9 Depression Total Score: 11 023 9:39 AM EST documented as of this encounter Care Teams Compilation Clerk Relationship Specialty Start Date End Date Kristen Hanna ANP [address] [place] [address] PCP - General Family Medicine 10/23/19 documented as of this encounter
--- OUTSIDE RECORDS SUMMARY | 2024-08-08 08:57 | XMS_ITS | Encounter Summary ---
Author Organization [employer] Address 75 [facility] 7t [place] [address] Care Team Providers Care Silk Screen Repairer Name Role Phone Kristen Hanna Primary Care Provider [phone] Reason for Visit * Reason Onset Date Comments Prior Authorization 07/23/2024 Nexium Encounter Details Date Type Department Care Team ([facility] Contact Info) Description 07/23/2024 Telephone [facility] 230 [place], [place] [phone] Kristen Hanna ANP 230 [place], [place] [phone] Prior Authorization (Nexium) Social History Tobacco Use [...] * Telephone Encounter - Jackeline Martinez - 08/04/2024 4:06 PM EDT PA initiated on Covermymeds for Nexium . Approval/denial pending. Gallego: [id number] PA * Telephone Encounter - Dori Mccabe - 07/25/2024 8:42 AM EDT Tc from pt requesting status * Telephone Encounter - Jackeline Martinez - 07/23/2024 11:38 AM EDT PA for Nexium from [facility] placed on PCP desk for review and signature. * Telephone Encounter - Jackeline Martinez - 07/23/2024 11:38 AM EDT ----- Message from Kristen Hanna sent at 07/22/2024 11:30 AM EDT ----- Please pursue PA for nexium documented in this encounter Plan of Treatment Upcoming Encounters Date Type Department Care Team (Late st Contact Info) Description 10/24/2024 9:15 AM EDT Office Visit [facility] 230 [place] [address] Kristen Hanna ANP 230 [place] [address] documented as of this encounter Visit Diagnoses Not on filedocumented in this encounter Additional Health Concerns Assessment Noted Time PHQ-9 Depression Total Score: 5 12/27/19 24 2:52 PM EDT documented as of this encounter Care Teams Silk Screen Repairer Relationship Specialty Start Date End Date Kristen Hanna ANP [address] [place] [address] PCP - General Family Medicine 10/23/19 documented as of this encounter
--- OUTSIDE RECORDS SUMMARY | 2024-08-08 08:57 | XMS_ITS | Encounter Summary ---
Author Organization [employer] Address [address] [facility] [address] 7t [place] [address] Care Team Providers Care Agility Instructor Name Role Phone Kristen Hanna Primary Care Provider [phone] Reason for Visit * Reason Comments Med Refill Encounter Details Date Type Department Care Team ([facility] st Contact Info) Description 05/22/2023 Refill [facility] MEDICINE 230 [place], [place] [phone] Kristen Hanna ANP 230 [place], [place] [phone] Other chronic pain Social History Tobacco Use [...] Description 10/24/2024 9:15 AM EDT Office Visit [facility] MEDICINE [address] [place] [address] Kristen Hanna ANP [address] [place] [address] documented as of this encounter Visit Diagnoses Diagnosis Other chronic pain documented in this encounter Additional Health Concerns Assessment Noted Time PHQ-9 Depression Total Score: 11 023 9:39 AM EST documented as of this encounter Care Teams Agility Instructor Relationship Specialty Start Date End Date Kristen Hanna ANP [address] [place] [address] PCP - General Family Medicine 10/23/19 documented as of this encounter
--- OUTSIDE RECORDS SUMMARY | 2024-08-08 08:57 | XMS_ITS | Encounter Summary ---
Author Organization [employer] Address [address] [facility] [address] 7t [place] [address] Care Team Providers Care Center Line Cutter Operator Name Role Phone Kristen Hanna Primary Care Provider [phone] Reason for Visit * Reason Comments Med Refill Encounter Details Date Type Department Care Team ([facility] st Contact Info) Description 05/17/2023 Refill [facility] MEDICINE 230 [place], [place] [phone] Kristen Hanna ANP 230 [place], [place] [phone] Other chronic pain Social History Tobacco Use [...] Description 10/24/2024 9:15 AM EDT Office Visit [facility] MEDICINE [address] [place] [address] Kristen Hanna ANP [address] [place] [address] documented as of this encounter Visit Diagnoses Diagnosis Other chronic pain documented in this encounter Additional Health Concerns Assessment Noted Time PHQ-9 Depression Total Score: 11 023 9:39 AM EST documented as of this encounter Care Teams Center Line Cutter Operator Relationship Specialty Start Date End Date Kristen Hanna ANP [address] [place] [address] PCP - General Family Medicine 10/23/19 documented as of this encounter
--- OUTSIDE RECORDS SUMMARY | 2024-08-08 08:57 | XMS_ITS | Encounter Summary ---
Author Organization [employer] Address [address] [facility] [address] 7t [place] [address] Care Team Providers Care Stage Producer Name Role Phone Kristen Hanna Primary Care Provider [phone] Reason for Visit * Reason Comments Med Refill Encounter Details Date Type Department Care Team ([facility] st Contact Info) Description 07/16/2023 Refill [facility] MEDICINE 230 [place], [place] [phone] Kristen Hanna ANP 230 [place], [place] [phone] Other chronic pain Social History Tobacco Use [...] Description 10/24/2024 9:15 AM EDT Office Visit [facility] MEDICINE [address] [place] [address] Kristen Hanna ANP [address] [place] [address] documented as of this encounter Visit Diagnoses Diagnosis Other chronic pain documented in this encounter Additional Health Concerns Assessment Noted Time PHQ-9 Depression Total Score: 11 023 9:39 AM EST documented as of this encounter Care Teams Stage Producer Relationship Specialty Start Date End Date Kristen Hanna ANP [address] [place] [address] PCP - General Family Medicine 10/23/19 documented as of this encounter
--- OUTSIDE RECORDS SUMMARY | 2024-08-08 08:57 | XMS_ITS | Encounter Summary ---
Author Organization [employer] Address [address] [facility] [address] 7t [place] [address] Care Team Providers Care Accounting Intern Name Role Phone Kristen Hanna Primary Care Provider [phone] Reason for Visit * Reason Onset Date Comments Med Refill 02/20/2023 Encounter Details Date Type Department Care Team ([facility] st Contact Info) Description 02/20/2023 Telephone [facility] MEDICINE 230 [place], [place] [phone] Kristen Hanna ANP 230 [place], [place] [phone] Med Refill Social History Tobacco Use Types [...] 1:26 PM EDT Medication was sent to [facility] on 01/11/23 with 1 refill. * Telephone Encounter - Leatha Musa - 02/20/2023 1:24 PM EDT Tc from pt requesting med refill on Ventolin HFA 108 (90 Base) MCG/ACT inhaler documented in this encounter Plan of Treatment Upcoming Encounters Date Type Department Care Team (Late st Contact Info) Description 10/24/2024 9:15 AM EDT Office Visit [facility] MEDICINE 230 [place] [address] Kristen Hanna ANP 230 [place] [address] documented as of this encounter Visit Diagnoses Not on filedocumented in this encounter Care Teams Accounting Intern Relationship Specialty Start Date End Date Kristen Hanna ANP 230 [place] [address] PCP - General Family Medicine 10/23/19 documented as of this encounter
--- OUTSIDE RECORDS SUMMARY | 2024-08-08 08:57 | XMS_ITS | Encounter Summary ---
Author Organization [employer] Address [address] [facility] [address] 7t [place] [address] Care Team Providers Care Biomedical Engineer Name Role Phone Kristen Hanna Primary Care Provider [phone] Reason for Visit * Reason Onset Date Comments Med Refill 02/27/2023 Encounter Details Date Type Department Care Team ([facility] st Contact Info) Description 02/27/2023 Telephone [facility] MEDICINE 230 [place], [place] [phone] Kristen Hanna ANP 230 [place], [place] [phone] Med Refill Social History Tobacco Use Types [...] Description 10/24/2024 9:15 AM EDT Office Visit [facility] MEDICINE 230 [place] [address] Kristen Hanna ANP 230 [place] [address] documented as of this encounter Visit Diagnoses Not on filedocumented in this encounter Care Teams Biomedical Engineer Relationship Specialty Start Date End Date Kristen Hanna ANP 230 [place] [address] PCP - General Family Medicine 10/23/19 documented as of this encounter
--- OUTSIDE RECORDS SUMMARY | 2024-08-08 08:57 | XMS_ITS | Encounter Summary ---
Author Organization [employer] Address [address] [facility] [address] 7t [place] [address] Care Team Providers Care Core Driller Name Role Phone Kristen Hanna Primary Care Provider [phone] Encounter Details Date Type Department Care Team (Late st Contact Info) Description 04/03/2023 Telephone [facility] MEDICINE 230 [place] [address] Kristen Hanna ANP 230 [place] [address] Social History Tobacco Use Types Packs/Day Years [...] Description 10/24/2024 9:15 AM EDT Office Visit [facility] MEDICINE [address] [place] [address] Kristen Hanna ANP 230 [place] [address] documented as of this encounter Visit Diagnoses Not on filedocumented in this encounter Additional Health Concerns Assessment Noted Time PHQ-9 Depression Total Score: 11 023 9:39 AM EST documented as of this encounter Care Teams Core Driller Relationship Specialty Start Date End Date Kristen Hanna ANP [address] [place] [address] PCP - General Family Medicine 10/23/19 documented as of this encounter
--- OUTSIDE RECORDS SUMMARY | 2024-08-08 08:58 | XMS_ITS | Encounter Summary ---
Author Organization [employer] Address [address] [facility] [address] 7t [place] [address] Care Team Providers Care Staking Technician Name Role Phone Kristen Hanna Primary Care Provider [phone] Reason for Visit * Reason Onset Date Comments Med Refill 04/22/2024 Encounter Details Date Type Department Care Team ([facility] st Contact Info) Description 04/22/2024 Telephone [facility] MEDICINE 230 [place], [place] [phone] Kristen Hanna ANP 230 [place], [place] [phone] Med Refill Social History Tobacco Use Types [...] 10-325 MG tablet To be sent to: [facility] - [place], [place] - [address] [place] [address] documented in this encounter Plan of Treatment Upcoming Encounters Date Type Department Care Team ([facility] st Contact Info) Description 10/24/2024 9:15 AM EDT Office Visit [facility] MEDICINE 230 [place] [address] Kristen Hanna ANP 230 [place] [address] documented as of this encounter Visit Diagnoses Not on filedocumented in this encounter Additional Health Concerns Assessment Noted Time PHQ-9 Depression Total Score: 5 12/27/19 24 2:52 PM EDT documented as of this encounter Care Teams Staking Technician Relationship Specialty Start Date End Date Kristen Hanna ANP [address] [place] [address] PCP - General Family Medicine 6/18/20 documented as of this encounter
--- OUTSIDE RECORDS SUMMARY | 2024-08-08 08:58 | XMS_ITS | Encounter Summary ---
Author Organization [employer] Address [address] [facility] [address] 7t [place] [address] Care Team Providers Care Motion Picture Projectionist Name Role Phone Kristen Hanna Primary Care Provider [phone] Reason for Visit * Reason Comments Med Refill Encounter Details Date Type Department Care Team ([facility] st Contact Info) Description 08/07/2024 Refill [facility] MEDICINE 230 [place], [place] [phone] Kristen Hanna ANP 230 [place], [place] [phone] Other chronic pain Social History Tobacco Use [...] AM EDT Office Visit [facility] MEDICINE [address] [place] [address] Kristen Hanna ANP 230 [place] [address] documented as of this encounter Visit Diagnoses Diagnosis Other chronic pain documented in this encounter Additional Health Concerns Assessment Noted Time PHQ-9 Depression Total Score: 5 12/27/19 24 2:52 PM EDT documented as of this encounter Care Teams Motion Picture Projectionist Relationship Specialty Start Date End Date Kristen Hanna ANP [address] [place] [address] PCP - General Family Medicine 10/23/19 documented as of this encounter
--- OUTSIDE RECORDS SUMMARY | 2024-08-08 08:58 | XMS_ITS | Encounter Summary ---
Author Organization [employer] Address 75 [facility] 7t [place] [address] Care Team Providers Care Cushion Builder Name Role Phone Kristen Hanna Primary Care Provider [phone] Reason for Visit * Reason Onset Date Comments Prior Auth Prescription 08/05/2024 Encounter Details Date Type Department Care Team ([facility] st Contact Info) Description 08/05/2024 Telephone [facility] MEDICINE 230 [place], [place] [phone] Kristen Hanna ANP 230 [place], [place] [phone] Prior Auth Prescription Social History Tobacco Use Types Packs/Day Years [...] * Telephone Encounter - Jackeline Martinez - 08/05/2024 8:25 AM EDT PA approval received for Nexium and scanned into media. Emergency Room Tech called [facility] pharmacy/[facility] who req faxed approval. Approval faxed as requested. Emergency Room Tech attempted to call patient however call not accepted. Pt notified of PA approval via response to Pt advise request pt portal message. documented in this encounter Plan of Treatment Upcoming Encounters Date Type Department Care Team (Late st Contact Info) Description 10/24/2024 9:15 AM EDT Office Visit [facility] MEDICINE 230 [place] [address] Kristen Hanna ANP 230 [place] [address] documented as of this encounter Visit Diagnoses Not on filedocumented in this encounter Additional Health Concerns Assessment Noted Time PHQ-9 Depression Total Score: 5 12/27/19 24 2:52 PM EDT documented as of this encounter Care Teams Cushion Builder Relationship Specialty Start Date End Date Kristen Hanna ANP [address] [place] [address] PCP - General Family Medicine 10/23/19 documented as of this encounter
--- OUTSIDE RECORDS SUMMARY | 2024-08-08 08:58 | XMS_ITS | Encounter Summary ---
Author Organization [employer] Address 75 [facility] 7t [place] [address] Care Team Providers Care Flexographic Printing Press Operator Name Role Phone Kristen Hanna Primary Care Provider [phone] Reason for Visit * Reason Onset Date Comments Lab Orders 09/22/2022 Encounter Details Date Type Department Care Team ([facility] st Contact Info) Description 09/22/2022 Telephone [facility] MEDICINE 230 [place], [place] [phone] Kristen Hanna ANP 230 [place], [place] [phone] Lab Orders Social History Tobacco Use Types [...] active lab orders to be sent to [facility]. Patient is requesting a call back when orders have been sent due to going to [facility] twice and no orders found. documented in this encounter Plan of Treatment Upcoming Encounters Date Type Department Care Team (Late st Contact Info) Description 10/24/2024 9:15 AM EDT Office Visit [facility] MEDICINE 230 [place] [address] Kristen Hanna ANP 230 [place] [address] documented as of this encounter Visit Diagnoses Not on filedocumented in this encounter Care Teams Flexographic Printing Press Operator Relationship Specialty Start Date End Date Kristen Hanna ANP [address] [place] [address] PCP - General Family Medicine 10/23/19 documented as of this encounter
--- OUTSIDE RECORDS SUMMARY | 2024-08-08 08:58 | XMS_ITS | Encounter Summary ---
Author Organization [employer] Address [address] [facility] [address] 7t [place] [address] Care Team Providers Care Chemical Economist Name Role Phone Kristen Hanna Primary Care Provider [phone] Reason for Visit * Reason Comments Med Refill Encounter Details Date Type Department Care Team ([facility] st Contact Info) Description 01/21/2024 Refill [facility] MEDICINE 230 [place], [place] [phone] Kristen Hanna ANP 230 [place], [place] [phone] Mild persistent asthma, uncomplicated Social History Tobacco [...] Description 10/24/2024 9:15 AM EDT Office Visit [facility] MEDICINE 230 [place] [address] Kristen Hanna ANP 230 [place] [address] documented as of this encounter Visit Diagnoses Diagnosis Mild persistent asthma, uncomplicated documented in this encounter Additional Health Concerns Assessment Noted Time PHQ-9 Depression Total Score: 5 12/27/19 24 2:52 PM EDT documented as of this encounter Care Teams Chemical Economist Relationship Specialty Start Date End Date Kristen Hanna ANP [address] [place] [address] PCP - General Family Medicine 10/23/19 documented as of this encounter
--- OUTSIDE RECORDS SUMMARY | 2024-08-08 08:58 | XMS_ITS | Encounter Summary ---
Author Organization [employer] Address 75 [facility] 7t [place] [address] Care Team Providers Care Car Inspection And Repair Manager Name Role Phone Kristen Hanna Primary Care Provider [phone] Reason for Visit * Reason Onset Date Comments Med Refill 08/04/2024 Encounter Details Date Type Department Care Team (Late st Contact Info) Description 08/04/[address] [facility] MEDICINE 230 [place], [place] [phone] Kristen Hanna ANP 230 [place], [place] [phone] Gastroesophageal reflux disease, unspecified whether esophagitis present Social History Tobacco Use Types Packs/Day Years [...] 10/24/2024 9:15 AM EDT Office Visit [facility] MEDICINE 230 [place] [address] Kristen Hanna ANP 230 [place] [address] documented as of this encounter Visit Diagnoses Diagnosis Gastroesophageal reflux disease, unspecified whether esophagitis present documented in this encounter Additional Health Concerns Assessment Noted Time PHQ-9 Depression Total Score: 5 12/27/19 24 2:52 PM EDT documented as of this encounter Care Teams Car Inspection And Repair Manager Relationship Specialty Start Date End Date Kristen Hanna ANP [address] [place] [address] PCP - General Family Medicine 10/23/19 documented as of this encounter
--- OUTSIDE RECORDS SUMMARY | 2024-08-08 08:58 | XMS_ITS | Encounter Summary ---
Author Organization [employer] Address [address] [facility] [address] 7t [place] [address] Care Team Providers Care Proof Passer Name Role Phone Kristen Hanna Primary Care Provider [phone] Encounter Details Date Type Department Care Team (Late st Contact Info) Description 08/04/2024 Orders Only [facility] MEDICINE 230 [place], [place] [phone] Kristen Hanna ANP 230 [place] [address] Social History Tobacco Use Types Packs/Day Years [...] encounter Progress Notes * BERNADETTE Lazcano - 08/04/2024 10:21 AM EDT [facility] not [facility] documented in this encounter Plan of Treatment Upcoming Encounters Date Type Department Care Team (Late st Contact Info) Description 10/24/2024 9:15 AM EDT Office Visit [facility] MEDICINE 230 [place] [address] Kristen Hanna ANP 230 [place] [address] documented as of this encounter Visit Diagnoses Not on filedocumented in this encounter Additional Health Concerns Assessment Noted Time PHQ-9 Depression Total Score: 5 12/27/19 24 2:52 PM EDT documented as of this encounter Care Teams Proof Passer Relationship Specialty Start Date End Date Kristen Hanna ANP 230 [place] [address] PCP - General Family Medicine 10/23/19 documented as of this encounter
--- OUTSIDE RECORDS SUMMARY | 2024-08-08 08:58 | XMS_ITS | Encounter Summary ---
Author Organization [employer] Address [address] [facility] [address] [place] [address] Care Team Providers Care Furnace Combustion Tester Name Role Phone Kristen Hanna Primary Care Provider [phone] Reason for Visit * Reason Onset Date Comments Med Refill 07/30/2024 Encounter Details Date Type Department Care Team (Late st Contact Info) Description 07/30/2024 Refill [facility] [address] [place], [place] [phone] Kristen Hanna ANP [address] [place], [place] [phone] Gastroesophageal reflux disease, unspecified whether esophagitis present [...] Description 10/24/2024 9:15 AM EDT Office Visit [facility] [address] [place] [address] Kristen Hanna ANP [address] [place] [address] documented as of this encounter Visit Diagnoses Diagnosis Gastroesophageal reflux disease, unspecified whether esophagitis present documented in this encounter Additional Health Concerns Assessment Noted Time PHQ-9 Depression Total Score: 5 12/27/19 24 2:52 PM EDT documented as of this encounter Care Teams Furnace Combustion Tester Relationship Specialty Start Date End Date Kristen Hanna ANP [address] [place] [id number] PCP - General Family Medicine 10/23/19 documented as of this encounter
--- OUTSIDE RECORDS SUMMARY | 2024-08-08 08:58 | XMS_ITS | Encounter Summary ---
Author Organization [employer] Address [address] [facility] [address] [place] [address] Care Team Providers Care Varnish Melter Name Role Phone Kristen Hanna Primary Care Provider [phone] Reason for Visit * Reason Onset Date Comments Med Refill 06/16/2024 Encounter Details Date Type Department Care Team (Late st Contact Info) Description 06/16/2024 Refill [facility] [address] [place], [place] [phone] Kristen Hanna ANP [address] [place], [place] [phone] Other chronic pain Social History Tobacco Use [...] Description 10/24/2024 9:15 AM EDT Office Visit [facility] [address] [place] [phone] Kristen Hanna ANP [address] [place] [address] documented as of this encounter Visit Diagnoses Diagnosis Other chronic pain documented in this encounter Additional Health Concerns Assessment Noted Time PHQ-9 Depression Total Score: 5 12/27/19 24 2:52 PM EDT documented as of this encounter Care Teams Varnish Melter Relationship Specialty Start Date End Date Kristen Hanna ANP [address] [place] [phone] PCP - General Family Medicine 10/23/19 documented as of this encounter
--- OUTSIDE RECORDS SUMMARY | 2024-08-08 08:58 | XMS_ITS | Encounter Summary ---
Author Organization [employer] Address [address] [facility] [address] [place] [address] Care Team Providers Care Narrow Fabrics Weaver Name Role Phone Kristen Hanna Primary Care Provider Reason for Visit * Reason Onset Date Comments Prior Authorization 10/08/2023 Encounter Details Date Type Department Care Team ([facility] st Contact Info) Description 10/08/2023 Telephone [facility] [address] [place], [place] [phone] Kristen Hanna ANP [address] [place], [place] [phone] Prior Authorization Social History Tobacco Use Types [...] for oxy generated signed and faxed to [facility]. Awaiting response. PA scanned into chart under [...] Description 10/24/2024 9:15 AM EDT Office Visit [facility] [address] [place] [address] Kristen Hanna ANP [address] [place] [address] documented as of this encounter Visit Diagnoses Not on filedocumented in this encounter Additional Health Concerns Assessment Noted Time PHQ-9 Depression Total Score: 11 023 9:39 AM EST documented as of this encounter Care Teams N[employer] Fabrics Weaver Relationship Specialty Start Date End Date Kristen Hanna ANP [address] [place] [phone] PCP - General Family Medicine 10/23/19 documented as of this encounter
--- OUTSIDE RECORDS SUMMARY | 2024-08-08 08:58 | XMS_ITS | Encounter Summary ---
Author Organization [employer] Address [address] [facility] [address] [place] [address] Care Team Providers Care Folder Seamer Name Role Phone Kristen Hanna Primary Care Provider [phone] Reason for Visit * Reason Comments Med Change Request Encounter Details Date Type Department Care Team ([facility] st Contact Info) Description 08/07/2024 Refill [facility] MED[facility]INE [address] [place], [place] [phone] Kristen Hanna ANP [address] [place], [place] [phone] Chronic GERD Social History Tobacco Use Types [...] 9:15 AM EDT Office Visit [facility] MED[facility]INE [address] [place] [address] Kristen Hanna ANP [address] [place] [address] documented as of this encounter Visit Diagnoses Diagnosis Chronic GERD documented in this encounter Additional Health Concerns Assessment Noted Time PHQ-9 Depression Total Score: 5 12/27/19 24 2:52 PM EDT documented as of this encounter Care Teams Folder Seamer Relationship Specialty Start Date End Date Kristen Hanna ANP [address] [place] [phone] PCP - General Family Medicine 10/23/19 documented as of this encounter
--- OUTSIDE RECORDS SUMMARY | 2024-08-08 08:58 | XMS_ITS | Clinical Summary ---
Author Organization [employer] Address [address] [facility] [address] [place] [address] Care Team Providers Care Freelance Photographer Name Role Phone Otis Sage BERNADETTE Primary Care Provider [phone] Allergies Active Allergy Reactions Criticality Noted Date Comments Amoxicillin Hives,Swelling 03/30/2021 Other reaction(s): Itching Medications aspirin 81 MG EC tablet Take 1 tablet by mouth in the morning. Active atorvastatin (Lipitor) 40 MG tablet Take 1 tablet by mouth in the morning. Active cholecalciferol (Vitamin D-3) 1.25 MG (42293 UT) capsule Take 1 capsule by mouth [...] severe pain. 112 tablet 07/11/19 25 Active NexIUM 24HR [address] capsuleIndicatio ns:Chronic GERD Take 1 capsule (20 mg) by mouth 2 times daily. Do not open capsule. 60 capsule 11 08/08/19 25 2025 Active Brilinta 60 MG tablet [...] eorder (will not trigger notification to Pharmacy)) esomeprazole (NexIUM) [address] capsuleIndicatio ns:Gastroesophag eal reflux disease, unspecified whether esophagitis present Take 1 capsule (20 mg) by mouth 2 times daily. Do not open capsule. 180 capsule 3 07/23/19 25 2024 Discontinued(F ormulary change) esomeprazole (NexIUM) [address] capsuleIndicatio ns:Chronic GERD Take 1 capsule (20 mg) by mouth 2 times daily. Do not open capsule. 60 capsule 11 08/08/19 25 2024 Discontinued(F ormulary change) Active Problems Problem Noted Date Diagnosed Date penitentiary (current) use of opiate analgesic 04/06 Chronic GERD 04/17/2024 Dental abscess 2024 Screening for malignant neoplasm of colon 2023 Overview (01/15/2024): Referred to [facility] GI 03/2023 Other chronic pain 10/26/2023 Microscopic hematuria 04/27/2022 Overview (01/15/2024): Negative on repeat UAs Stented coronary artery 10/31/2021 Overview (01/15/2024): Following w/ Dr. Head at [facility] cards Coronary artery disease with drug-eluting stent [...] (01/15/2024): LDCT (started smoking at 14 until [place] in 10/2021, now 2-3 cigs/d) (did have Chest CTA 12/13/23, can defer sending until next year) 37 PYH Resolved Problems Problem Noted Date Diagnosed Date Resolved Date Bacterial urinary infection 11/20/2022 01/15/2024 Encounters Date Type Department Care Team Description 08/07/2024 Orders Only [facility] MEDICINE [address] [place] [address] Ezra Sumner, PharmD Chronic GERD 08/07/2024 Refill [facility] MEDICINE [address] [place] [address] Otis Sage ANP Chronic GERD 08/07/2024 Telephone [facility] MEDICINE [address] [place] [address] Otis Sage ANP Prior Auth Prescription 08/07/2024 Telephone [facility] ADULT DENTAL [address] [place] [address] Locke-Gale, Dagmar, DDS 08/07/2024 Refill [facility] MEDICINE [address] [place] [address] Otis Sage ANP Other chronic pain 08/05/2024 Telephone [facility] MEDICINE [address] [place] [address] Otis Sage ANP Prior Auth Prescription 08/05/2024 Telephone [facility] MEDICINE [address] [place] [phone] Otis Sage ANP Prior Auth Prescription (Nexium) 08/04/2024 Orders Only [facility] MEDICINE [address] [place] [address] Otis Sage ANP 08/04/2024 Refill [facility] MEDICINE [address] [place] [phone] Otis Sage ANP Gastroesophageal reflux disease, unspecified whether esophagitis present 07/30/2024 Refill [facility] MEDICINE [address] [place] [phone] Otis Sage ANP Gastroesophageal reflux disease, unspecified whether esophagitis present 07/24/2024 Orders Only [facility] External Provider, [facility] 07/23/2024 Telephone [facility] MEDICINE [address] [place] [phone] Otis Sage ANP Prior Authorization (Nexium) 07/22/2024 11:00 AM EDT Office Visit [facility] MEDICINE [address] [place] [phone] Otis Sage ANP Gastroesophageal reflux disease, unspecified whether esophagitis present (Primary Dx); Elevated blood pressure reading 07/22/2024 Travel 07/10/2024 Refill [facility]EDS [address] [place] [address] Naty Barth RN Other chronic pain 07/10/2024 Refill [facility] MEDICINE [address] [place] [address] Otis Sage ANP Other chronic pain 06/24/2024 [facility] [address] [facility] [place] [address] Otis Sage ANP Mild persistent asthma, uncomplicated 06/16/2024 [facility]ill [facility] [address] [facility] [place] [address] Otis Sage ANP Other chronic pain 06/16/2024 [facility] [address] [facility] [place] [address] Otis Sage ANP Other chronic pain 06/11/2024 Orders Only [facility] [address] [place] [address] Otis Sage ANP 06/10/2024 [facility] [address] [facility] [place] [address] Otis Sage ANP Chronic GERD 06/05/2024 Telephone [facility] MEDICINE [address] [place] [address] Otis Sage ANP Nurse Triage 06/02/2024 Refill [facility] MEDICINE [address] [place] [address] Otis Sage ANP Mild persistent asthma, uncomplicated 05/28/2024 Orders Only GENERIC EXTERNAL DATA DEPARTMENT Provider, Generic External Data 05/20/2024 Refill [facility] [address] [facility] [place] [address] Otis Sage ANP Other chronic pain 05/19/2024 Telephone [facility] MEDICINE [address] [place] [address] Loly Erwin MA July recall from Last [...] Description 10/24/2024 9:15 AM EDT Office Visit [facility] MEDICINE [address] [place] [address] Otis Sage ANP [address] [place] [address] Health Maintenance Due Date Last Done Comments [...] Procedure Name Priority Date/Time Associated Diagnosis Comments CTA ABDOMEN PELVIS W AND WO CONTRAST Routine 07/25/2024 8:07 AM EDT BASIC METABOLIC PANEL Routine 07/23/2024 8:46 AM [...] 8:25 AM EDT Coronary artery disease involving newtok coronary artery of newtok heart without angina pectoris [facility] HISTORICAL HEPATITIS C ANTIBODY RFLX Routine 09/24/2021 7:59 AM EDT [facility] HISTORICAL HIV AB/AG Routine 022 7:59 AM EDT from Last 3 Months or Most Recently Relevant to Health Maintenance Results * CTA Abdomen Pelvis w/ and w/o Contrast (07/25/2024 8:07 AM EDT) Anatomical Region Laterality Modality Body, Pelvis, Abdomen Computed T omography 07/25/2024 8:07 AM EDT Narrative 07/25/2024 8:08 AM EDT ? [facility] ?[address] ?[place] [address] ? CT Scan Report ? Signed ? Patient: Hernandez,Stanislav ?MR#: [id number] ?? 17 ? : 1970 ?Acct:[id number] ? Age/Sex: 54 / M ?ADM Date: 07/24/24 ? Loc: HO.CT ? Attending Dr: Annelise Yen MD ? Ordering Physician: Annelise Yen MD ?? Date of Service: 07/24/24 ?? Procedure(s): CT angio abdomen pelvis ?? Accession Number(s): [id number] ? cc: OTIS SAGE NP; Annelise Yen MD ? Report Number: ?? [id number]: Total DLP = ??231.00 mGy-cm ? CLINICAL HISTORY: R63.4 - Abnormal weight loss ? CT angiography abdomen and pelvis with contrast. 3-D post processing. ? Comparison: 12/13/2023 ? Findings: ?? Aorta, mesenteric/renal arteries, and iliofemoral systems are within ?? normal limits. ? No consolidation or effusion. ?? There is bilateral lower lobe bronchiectasis more pronounced on the right. ? Unremarkable gallbladder and solid organs. No urolithiasis. ?? No bowel obstruction, pneumoperitoneum, or pneumatosis. ? Pelvic contents unremarkable. Normal appendix. ?? The bones are intact. ? IMPRESSION: ?? No acute findings. ? This document has been electronically signed by: Vasquez Briceno MD on ?? 07/25/2024 08:07:01 ? Dictated By: ?Vasquez Briceno MD ? Signed By: ?<Electronically signed by Vasquez Briceno MD in OV> ?07/25/24 08 ? DD/ 0807 ? TD/TT: 07/25/24 0807 ? Windows And Doors Installer: ? Procedure Note Donotuseinterpreter, Image - 07/25/[address] [address] [address] Scan Report Signed Patient: Carmen Hernandez#: [id number] 17 : 1970Acct:[id number] Age/Sex: 54 / MADM Date: 07/24/24 Loc: HO.CT Attending Dr: Annelise Yen MD Ordering Physician: Annelise Yen MD Date of Service: 07/24/24 Procedure(s): CT angio abdomen pelvis Accession Number(s): [id number] cc: OTIS SAGE ELECTRIC MELT OPERATOR; Annelise Yen MD Report Number: [id number]: Total DLP = 231.00 mGy-cm CLINICAL HISTORY: R63.4 - Abnormal weight loss CT angiography abdomen and pelvis with contrast. 3-D post processing. Comparison: 12/13/2023 Findings: Aorta, mesenteric/renal arteries, and iliofemoral systems are within normal limits. No consolidation or effusion. There is bilateral lower lobe bronchiectasis more pronounced on the right. Unremarkable gallbladder and solid organs. No urolithiasis. No bowel obstruction, pneumoperitoneum, or pneumatosis. Pelvic contents unremarkable. Normal appendix. The bones are intact. IMPRESSION: No acute findings. This document has been electronically signed by: Vasquez Briceno MD on 07/25/2024 08:07:01 Dictated By: Vasquez Briceno MD Signed By: <Electronically signed by Vasquez Briceno MD in OV> 07/25/24 08 DD/ 08 TD/TT: 07/25/24 08 Windows And Doors Installer: [facility] External Provider IMG CT PROCEDURES Final Result * (ABNORMAL) CBC auto differential (07/23/2024 8:46 AM EDT) Pathologist [facility] White Blood Count 10.5 4.8 - 10.8 X10*3/uL [facility] Red Blood Count 4.59(L) 4.60 - 5.80 X10*6/uL [facility] Hemoglobin 14.2 14.0 - 18.0 g/dl [facility] Hematocrit 42.1 42.0 - 52.0 % [facility] Mean Corpuscular Volume 91.7 80.0 - 98.0 fL [facility] Mean Corpuscular Hemoglobin 30.9 27.0 - 33.0 pg [facility] Mean Corpuscular HGB Conc 33.7 31.0 - 36.0 g/dl [facility] Red Cell Distribution Width 13.3 11.0 - 16.0 % [facility] Platelet Count 212 160 - 400 X10*3/uL [facility] Mean Platelet Volume 12.4 9.4 - 12.4 fL [facility] Neutrophils Percent Auto 66.0 45 - 73 % [facility] Imm Gran Pct Auto 0.2 0.0 - 0.4 % [facility] Lymphocytes Percent Auto 23.7 20 - 40 % [facility] Monocytes Percent Auto 6.4 2 - 11 % [facility] Eosinophils Percent Auto 3.2 0 - 4 % [facility] Basophils Percent Auto 0.5 0 - 2 % [facility] NRBC Pct Auto 0.0 0.0 - 0.2 /100WBC [facility] Neutrophils Absolute Auto 6.9 2.0 - 8.3 x10*3/uL [facility] Imm Gran Abs Auto 0.02 0.00 - 0.03 X10*3/uL [facility] Lymphocytes Absolute Auto 2.5 1.2 - 4.9 X10*3/uL [facility] Monocytes Absolute Auto 0.7 0.1 - 1.2 X10*3/uL [facility] Eosinophils Absolute Auto 0.3 0.0 - 0.4 X10*3/uL [facility] Basophils Absolute Auto 0.1 0.0 - 0.2 X10*3/uL [facility] NRBC Abs Auto 0.000 0.0 - 0.012 X10*3/uL [facility] Blood Venous blood specimen / Unknown 07/23/2024 8:46 AM EDT 07/23/2024 8:46 AM EDT Otis Sage [facility] LAB BLOOD ORDERABLES Final Resul t Performing Organization Address [facility] de Phone Number [facility] [address] [place] [phone] * Basic Metabolic Panel (07/23/2024 8:46 AM EDT) Sodium 140 135 - 145 mmol/L [facility] Potassium 4.5 3.3 - 5.1 mmol/L [facility] Chloride 106 96 - 108 mmol/L [facility] Carbon Dioxide 26 22 - 29 mmol/L [facility] Anion Gap 13 12 - 20 [facility] Urea Nitrogen (BUN) 10 9 - 16 mg/dL [facility] Creatinine, Serum 0.78 0.5 - 1.4 mg/dL [facility] Estimated Glomerular Filt Rate >60 [facility] Comment:Chronic Kidney Disea se: Estimated GFR < 60 mL/min/[id number] Kidney Disease: Estimated GFR < 15 mL/min/1.73m2 Glucose 111 60 - 115 mg/dL [facility] Calcium 9.7 8.4 - 10.2 mg/dL [facility] Blood Venous blood specimen / Unknown 07/23/2024 8:46 AM EDT 07/23/2024 8:46 AM EDT Otis Sage ANP LAB BLOOD ORDERABLES Final Resul t Performing Organization Address [facility] de Phone Number [facility] [address] [place] [phone] * Vitamin B12 (Cobalamin) and Folate Panel, Serum (05/28/2024 11:59 AM EST) Vitamin B12 417 200 - 900 pg/mL [facility] Comment:NORMAL 200-900 PG/ML INDETERMINATE 160-199 PG/ML DEFICIENT < 160 PG/ML Folate 9.7 > or = 4.0 ng/mL [facility] Comment:Reference Values:> o r = 4.0 ng/mL< 4.0 ng/mL suggests folate deficiency Methotrexate, aminopterin and folinic acid(leucovorin) are chemotherapeutic agents whose molecularstructures are similar to folate; therefore, the Architectfolate assay cannot be used for patients using these drugs. 05/28/2024 11:5 9 AM EST 05/28/2024 11:59 AM EST Generic External Data Provider LAB BLOOD ORDERAB LES Final Result Performing Organization Address [facility] Co de Phone Number [facility] [address] [place] [phone] * Iron And Total Iron Binding Capacity (05/28/2024 11:59 AM EST) [facility] Iron 79 45 - 160 mcg/dL [facility] Total Iron Binding Capacity 341 228 - 428 mcg/dL [facility] Percent Iron Saturation 23 15 - 50 % [facility] Unsaturated Iron Binding 262 ug/dL [facility] 05/28/2024 11:5 9 AM EST 05/28/2024 11:59 AM EST Generic External Data Provider LAB BLOOD ORDERAB LES Final Result Performing Organization Address [facility]/ZIP Co de Phone Number [facility] [address] [place] [phone] * Tissue Transglutaminase Antibody, IgA (05/28/2024 11:59 AM EST) [facility] Transglutaminase IgA <1.0 U/mL [facility] Comment:Value Interpretation ----- <15.0 Antibody not detected> or = 15.0 Antibody detectedTHIS TEST WAS PERFORMED AT:[email or web address] [place] [phone] WHITMAN MD 05/28/2024 11:5 9 AM EST 05/28/2024 11:59 AM EST us Generic External Data Provider LAB BLOOD ORDERAB LES Final Result Performing Organization Address City/[facility]/ZIP Co de Phone Number [facility] [address] [place] [phone] * (ABNORMAL) CBC (05/28/2024 11:59 AM EST) White Blood Count 7.5 4.8 - 10.8 X10*3/uL [facility] Red Blood Count 4.46(L) 4.60 - 5.80 X10*6/uL [facility] Hemoglobin 14.2 14.0 - 18.0 g/dl [facility] Hematocrit 41.5(L) 42.0 - 52.0 % [facility] Mean Corpuscular Volume 93.0 80.0 - 98.0 fL [facility] Mean Corpuscular Hemoglobin 31.8 27.0 - 33.0 pg [facility] Mean Corpuscular HGB Conc 34.2 31.0 - 36.0 g/dl [facility] Red Cell Distribution Width 13.8 11.0 - 16.0 % [facility] Platelet Count 215 160 - 400 X10*3/uL [facility] Mean Platelet Volume 12.0 9.4 - 12.4 fL [facility] NRBC Pct Auto 0.0 0.0 - 0.2 /100WBC [facility] NRBC Abs Auto 0.000 0.0 - 0.012 X10*3/uL [facility] 05/28/2024 11:5 9 AM EST 05/28/2024 11:59 AM EST us Generic External Data Provider LAB BLOOD ORDERAB LES Final Result Performing Organization Address City/[facility]/ZIP Co de Phone Number [facility] [address] [place] [address] [phone] * Immunoglobulin A (05/28/2024 11:59 AM EST) Immunoglobulin A 286 47 - 310 mg/dL [facility] Comment:THIS TEST WAS PERFOR MED AT:[email or web address] [place] [phone] WHITMAN MD 05/28/2024 11:5 9 AM EST 05/28/2024 11:59 AM EST Generic External Data Provider LAB BLOOD ORDERAB LES Final Result Performing Organization Address [facility] Phone Number [facility] [address] [place] [phone] * Ferritin (05/28/2024 11:59 AM EST) Pathologist [facility] Ferritin 39 20 - 250 ng/mL [facility] 05/28/2024 11:5 9 AM EST 05/28/2024 11:59 AM EST Generic External Data Provider LAB BLOOD ORDERAB LES Final Result Performing Organization Address [facility] de Phone Number [facility] [address] [place] [phone] * (ABNORMAL) Comprehensive Metabolic Panel (05/28/2024 11:59 AM EST) Pathologist [facility] Sodium 139 135 - 145 mmol/L [facility] Potassium 3.8 3.3 - 5.1 mmol/L [facility] Chloride 108 96 - 108 mmol/L [facility] Carbon Dioxide 22 22 - 29 mmol/L [facility] Anion Gap 13 12 - 20 [facility] Urea Nitrogen (BUN) 11 9 - 16 mg/dL [facility] Creatinine, Serum 0.70 0.5 - 1.4 mg/dL [facility] Estimated Glomerular Filt Rate >60 [facility] Comment:Chronic Kidney Disea se: Estimated GFR < 60 mL/min/1.72o2Dpbnrg Kidney Disease: Estimated GFR < 15 mL/min/1.73m2 Glucose 80 60 - 115 mg/dL [facility] Calcium 9.9 8.4 - 10.2 mg/dL [facility] Bilirubin, Total 0.6 0.0 - 1.0 mg/dL [facility] Aspartate Amino Transferase 32 5 - 37 U/L [facility] Alanine Aminotransferase 29 0 - 40 U/L [facility] Total Protein 8.3(H) 6.5 - 8.0 g/dL [facility] Albumin Level 4.3 3.5 - 5.0 g/dL [facility] Alkaline Phosphatase 114 39 - 117 U/L [facility] 05/28/2024 11:5 9 AM EST 05/28/2024 11:59 AM EST us Generic External Data Provider LAB BLOOD ORDERAB LES Final Result [facility] [address] [place] [phone] * Lipid Panel, Standard (10/11/2022 8:25 AM EDT) Cholesterol, Total 115 <200 mg/dL [facility] HDL Cholesterol 41 > OR = 40 mg/dL [facility] Triglycerides 81 <150 mg/dL [facility] LDL Cholesterol 58 mg/dL (calc) [facility] Comment: Reference range: <100 Desirable range <100 mg/dL for primary prevention; ?? <70 mg/dL for patients with CHD or diabetic patients with > or = 2 CHD risk factors. LDL-C is now calculated using the Russell calculation, which is a validated novel method providing better accuracy than the Friedewald equation in the estimation of LDL-C. Kojo HOLLAND et al. BRITTANY. 2013;310(19): 0013-0064 (http://education.Nautit/faq/FSW419) Chol/HDLC Ratio 2.8 <5.0 (calc) [facility] Non-HDL Cholesterol 74 <130 mg/dL (calc) [facility] Comment: For patients with diabetes plus 1 major ASCVD risk factor, treating to a non-HDL-C goal of <100 mg/dL (LDL-C of <70 mg/dL) is considered a therapeutic option. Blood Venous blood specimen / Unknown 10/11/2022 8:25 AM EDT 10/11/2022 8:25 AM EDT Narrative [facility] - 10/11/2022 9:21 PM EDT FASTING:YES FASTING: YES us Otis FLEMING LAB BLOOD ORDERABLES Final Resul t Performing Organization Address City/[facility]/ZIP Co de Phone Number [address], [place] [phone] [facility] [address] [place] [phone] * HEPATITIS C ANTIBODY RFLX (09/24/2021 7:59 AM EDT) Hepatitis C Antibody Nonreactive Nonreactive [facility] Comment: Antibodies to HCV not detected; does not exclude early acute HCV infection. 09/24/2021 7:59 AM EDT us Otis Sage ANP HISTORICAL/NON ORDERABLE LABS Fi nal Result Performing Organization Address City/[facility]/ZIP Co de Phone Number [facility], [address] * HIV AB/AG (09/24/2021 7:59 AM EDT) HIV AB/AG Nonreactive Nonreactive [facility] [...] detection of this assay. ?? The [employer] HIV Ag/Ab Combo assay result and supplemental assay results should be interpreted in conjunction with the patient's clinical presentation, history and other laboratory results. ??If the results are inconsistent with clinical evidence, additional testing is suggested to confirm the result. 09/24/2021 7:59 AM EDT us Otis Sage ANP HISTORICAL/NON ORDERABLE LABS Fi nal Result [facility] [address] [place] [address], from Last 3 Months or Most Recently Relevant to Health Maintenance Insurance * Guarantor: Daniel Hernandezo Account Type Relation to Patient Date of Phone Billing Address Personal/Family Self 1970 [address] [place] [address] [facility] * Guarantor: Daniel Hernandezo Account Type Relation to Patient Date of Phone Billing Address Dental Self 1970 [address] [place] [address] D[facility]AL - [facility] Care Teams Freelance Photographer Relationship Specialty Start Date End Date Otis Sage ANP [address] [place] [phone] PCP - General Family Medicine 10/23/19
--- OUTSIDE RECORDS SUMMARY | 2024-08-08 08:58 | XMS_ITS | Encounter Summary ---
Author Organization [employer] Address [address] [facility] [address] [place] [address] Care Team Providers Care Communications Programmer Name Role Phone Kristen Hanna Primary Care Provider [phone] Reason for Visit * Reason Onset Date Comments Prior Auth Prescription 08/07/2024 Encounter Details Date Type Department Care Team ([facility] st Contact Info) Description 08/07/2024 Telephone [facility] [address] [place], [place] [phone] Kristen Hanna ANP [address] [place], [place] [phone] Prior Auth Prescription Social History Tobacco Use [...] encounter Miscellaneous Notes * Telephone Encounter - Leora Hensley RN - 08/07/2024 1:22 PM EDT Images from the original note were not included. TC placed to pt to inform and advise of below PCP message. Advised pt that medication should be allset now and that the PCP spoke to the pharmacy and it should be all set now. Pt verbalized understanding and denies questions at this time. BERNADETTE Lazcano P [facility] Team Nurses Caller: Unspecified (Today, 11:04 AM) Med should be all set now - I spoke w/ pharmacy and they will fill and should have zero copay. please apologize to pt for the delay in him getting the right med. We know it's very important and unfortunate this was caught in the bureaucracy of health care. We appreciate his patience while we got the matter resolved. * Telephone Encounter - BERNADETTE Lazcano - 08/07/2024 12:41 PM EDT Med should be all set now - I spoke w/ pharmacy and they will fill and should have zero copay. please apologize to pt for the delay in him getting the right med. We know it's very important and unfortunate this was caught in the bureaucracy of health care. We appreciate his patience while we got the matter resolved. * Telephone Encounter - BERNADETTE Lazcano - 08/07/2024 12:35 PM EDT I spoke w/ [facility] and I sent brand name nexium with note no substitution. * Telephone Encounter - Jackeline Martinez - 08/07/2024 12:00 PM EDT Call placed to [facility] pharmacy/[facility] who stated PA approval only applies to Nexium and options are to send new Rx for brand Nexium or process another PA for the generic esomeprazole. Please advise if changing rx to brand. Thank you. * Telephone Encounter - Trey Delvalle - 08/07/2024 11:04 AM EDT Tc from pt stating that he needs a PA for med esomeprazole (NexIUM) [address] capsule due to pcp prescribing the Expensive medication. Contact pt at [phone] documented in this encounter Plan of Treatment Upcoming Encounters Date Type Department Care Team (Late st Contact Info) Description 10/24/2024 9:15 AM EDT Office Visit [facility] MED[facility]INE [address] [place] [address] Kristen Hanna ANP [address] [place] [address] documented as of this encounter Visit Diagnoses Diagnosis Chronic GERD- Primary documented in this encounter Additional Health Concerns Assessment Noted Time PHQ-9 Depression Total Score: 5 12/27/19 24 2:52 PM EDT documented as of this encounter Care Teams Communications Programmer Relationship Specialty Start Date End Date Kristen Hanna ANP [address] [place] [address] PCP - General Family Medicine 10/23/19 documented as of this encounter
--- OUTSIDE RECORDS SUMMARY | 2024-08-08 08:58 | XMS_ITS | Encounter Summary ---
Author Organization [employer] Address [address] [facility] [address] [place] [address] Care Team Providers Care Tieing Machine Operator Name Role Phone Jacques Kristen FLEMING Primary Care Provider [phone] Encounter Details Date Type Department Care Team (Late st Contact Info) Description 08/07/2024 Telephone [facility] [address] [place] [address] Dagmar Serra DDS [address] [place] [address] Social History Tobacco Use Types Packs/Day Years [...] encounter Miscellaneous Notes * Telephone Encounter - Juliane Hester - 08/07/2024 10:05 AM EDT PATIENT WAS REFER FROM MEDICAL MESSAGE RECIEVED REQUESTING DENTAL APPOINTMENT. CALLED PATIENT AND LEFT MESSAGE TO CALL US BACK TO SCHEDULE DENTAL VISIT. documented in this encounter Plan of Treatment Upcoming Encounters Date Type Department Care Team (Late st Contact Info) Description 10/24/2024 9:15 AM EDT Office Visit [facility] MED[facility]INE [address] [place] [address] Kristen Hanna ANP [address] [place] [address] documented as of this encounter Visit Diagnoses Not on filedocumented in this encounter Additional Health Concerns Assessment Noted Time PHQ-9 Depression Total Score: 5 12/27/19 24 2:52 PM EDT documented as of this encounter Care Teams Tieing Machine Operator Relationship Specialty Start Date End Date Kristen Hanna ANP [address] [place] [id number] PCP - General Family Medicine 10/23/19 documented as of this encounter
--- OUTSIDE RECORDS SUMMARY | 2024-08-08 08:58 | XMS_ITS | Encounter Summary ---
Author Organization [employer] Address [address] [facility] [address] [place] [address] Care Team Providers Care Manager Architecture Name Role Phone Jacques Kristen FLEMING Primary Care Provider [phone] Encounter Details Date Type Department Care Team ([facility] st Contact Info) Description 08/07/2024 Orders Only [facility] [address] [place], [place] [phone] Ezra Sumner, PharmD [address] [place], [place] [phone] Chronic GERD Social History Tobacco Use Types [...] encounter Progress Notes * BERNADETTE Lazcano - 08/07/2024 3:47 PM EDT Nexium re-sent documented in this encounter Plan of Treatment Upcoming Encounters Date Type Department Care Team (Late st Contact Info) Description 10/24/2024 9:15 AM EDT Office Visit [facility] [address] [place] [address] Kristen Hanna ANP [address] [place] [address] documented as of this encounter Visit Diagnoses Diagnosis Chronic GERD documented in this encounter Additional Health Concerns Assessment Noted Time PHQ-9 Depression Total Score: 5 12/27/19 24 2:52 PM EDT documented as of this encounter Care Teams Manager Architecture Relationship Specialty Start Date End Date Kristen Hanna ANP [address] [place] [address] PCP - General Family Medicine 10/23/19 documented as of this encounter
--- OUTSIDE RECORDS SUMMARY | 2024-08-08 08:58 | XMS_ITS | Encounter Summary ---
Author Organization [employer] Address [address] [facility] 7[address] [place] [address] Care Team Providers Care Fiscal Technician Name Role Phone Kristen Hanna Primary Care Provider [phone] Reason for Visit * Reason Onset Date Comments Prior Auth Prescription 08/05/2024 Nexium Encounter Details Date Type Department Care Team ([facility] Contact Info) Description 08/05/2024 Telephone [facility] MEDICINE [address] [place], [place] [phone] Kristen Hanna ANP [address] [place], [place] [phone] Prior Auth Prescription (Nexium) Social History Tobacco Use Types Packs/Day [...] Telephone Encounter - Jackeline Martinez - 08/05/2024 8:04 AM EDT I resubmitted the PA request yesterday in CM. PA approval was received this morning and has been scanned into media. * Telephone Encounter - Jackeline Martinez - 08/05/2024 8:04 AM EDT ----- Message from Kristen Hanna sent at 08/04/2024 10:24 AM EDT ----- Hi team can we please check the status of this Nexium PA? I do not see anything in scans and the patient will be out of meds very soon documented in this encounter Plan of Treatment Upcoming Encounters Date Type Department Care Team (Late st Contact Info) Description 10/24/2024 9:15 AM EDT Office Visit [facility] MEDICINE [address] [place] [address] Kristen Hanna, ANP [address] [place] [address] documented as of this encounter Visit Diagnoses Not on filedocumented in this encounter Additional Health Concerns Assessment Noted Time PHQ-9 Depression Total Score: 5 12/27/19 24 2:52 PM EDT documented as of this encounter Care Teams Fiscal Technician Relationship Specialty Start Date End Date Kristen Hanna ANP [address] [place] [address] PCP - General Family Medicine 10/23/19 documented as of this encounter
--- OUTSIDE RECORDS SUMMARY | 2024-08-08 08:58 | XMS_ITS | Encounter Summary ---
Author Organization [employer] Address [address] [facility] [address] [place] [address] Care Team Providers Care Wool Washer Feeder Name Role Phone Kristen Hanna Primary Care Provider [phone] Reason for Visit * Reason Onset Date Comments Med Refill 04/22/2024 Encounter Details Date Type Department Care Team (Late st Contact Info) Description 04/22/2024 Refill [facility] MED[facility]INE [address] [place], [place] [phone] Kristen Hanna ANP [address] [place], [place] [phone] Other chronic pain Social History Tobacco Use [...] Office Visit [facility] MEDICINE [address] [place] [phone] Kristen Hanna ANP [address] [place] [address] documented as of this encounter Visit Diagnoses Diagnosis Other chronic pain documented in this encounter Additional Health Concerns Assessment Noted Time PHQ-9 Depression Total Score: 5 12/27/19 24 2:52 PM EDT documented as of this encounter Care Teams Wool Washer Feeder Relationship Specialty Start Date End Date Kristen Hanna ANP [address] [place] [id number] PCP - General Family Medicine 10/23/19 documented as of this encounter
== END 2024-08-08 08:32 | disposition home or self-care (01) ==
LOC: HO.US 08:31
PROVIDERS: PCP Nurse Practitioner Primary Care; Visit Provider Internal Medicine
DX: R10.9 Unspecified abdominal pain (principal)
CPT/HCPCS: 76700

== ENCOUNTER → 2024-08-08 08:32 | Outpatient (BNV) | payer OTHER, SELFPAY | PROVIDERS: PCP Nurse Practitioner Primary Care; Visit Provider Radiology Diagnostic Radiology | DX: R10.9 Unspecified abdominal pain (principal) | CPT/HCPCS: 76700 ==

== ENCOUNTER → 2024-08-11 23:59 | Outpatient (BNV) | payer OTHER, SELFPAY ==
--- NOTE | 2024-08-15 13:40 | A.OFFVIS_ITS ---
Intake Visit Reasons: Remote ILR check- [employer] Allergies amoxicillin Allergy (Mild, Verified 05/28/24 10:52) unknown latex Allergy (Unknown, Uncoded 05/28/24 10:52) itching PFSH Medical History CAD (coronary artery disease) On beta tri at home NSTEMI (non-ST elevated myocardial infarction) GERD (gastroesophageal reflux disease) Acid reflux Collapsed lung Surgical History Stented coronary artery History of esophagogastroduodenoscopy (EGD) History of foot surgery Family History Mother Diverticulitis HTN (hypertension) Brother Diverticulitis Brother Diverticulitis HTN (hypertension) Brother Diverticulitis HTN (hypertension) Diabetes Brother Diverticulitis Sister HTN (hypertension) Sister Diverticulitis HTN (hypertension) Diabetes Sister HTN (hypertension) Family/Other Cancer Social History Household Members: Family Housing: Apartment Alcohol intake: former Patient Tobacco Use Status: Former Tobacco user Tobacco use type: Cigarette Cigarettes Per Day: 3 Years Smoked: 30+/- Substance Use Type: Marijuana service: No Current occupational status: disabled Office Procedures Cardiac Device Check Cardiac Device Check Details: Remote implantable loop recorder report generated 08/11/2024. No pauses or atrial fibrillation noted. Frequent PVCs noted at 7.5% [id number] Cardiac Interrogation, subcut cardiac rhythm monitor Procedure code (CPT) selection complete Assessment & Plan Assessment & Plan (1) Implantable loop recorder present: Code(s): Z95.818 - Presence of other cardiac implants and grafts Category: Medical Plan: See above Coding Level of Care Code Procedure Only Diagnoses Implantable loop recorder present Z95.818 CPT Codes Cardiac Device Check - Cardiac Device 16: [id number] Cardiac Interrogation, s ubcut cardiac rhythm monitor ([id number])
== END ==
PROVIDERS: PCP Nurse Practitioner Primary Care; Visit Provider Internal Medicine Cardiovascular Disease
DX: I49.3 Ventricular premature depolarization (principal); Z95.818 Presence of other cardiac implants and grafts
CPT/HCPCS: 93298

== ENCOUNTER → 2024-09-10 23:59 | Outpatient (BNV) | payer OTHER, SELFPAY ==
--- NOTE | 2024-09-17 17:20 | MHC.OFFVIS ---
Intake Visit Reasons: Remote ILR check- [employer] Allergies amoxicillin Allergy (Mild, Verified 05/28/24 10:52) unknown latex Allergy (Unknown, Uncoded 05/28/24 10:52) itching PFSH Medical History CAD (coronary artery disease) On beta tri at home NSTEMI (non-ST elevated myocardial infarction) GERD (gastroesophageal reflux disease) Acid reflux Collapsed lung Surgical History Stented coronary artery History of esophagogastroduodenoscopy (EGD) History of foot surgery Family History Mother Diverticulitis HTN (hypertension) Brother Diverticulitis Brother Diverticulitis HTN (hypertension) Brother Diverticulitis HTN (hypertension) Diabetes Brother Diverticulitis Sister HTN (hypertension) Sister Diverticulitis HTN (hypertension) Diabetes Sister HTN (hypertension) Family/Other Cancer Social History Household Members: Family Housing: Apartment Alcohol intake: former Patient Tobacco Use Status: Former Tobacco user Tobacco use type: Cigarette Cigarettes Per Day: 3 Years Smoked: 30+/- Substance Use Type: Marijuana service: No Current occupational status: disabled Office Procedures Cardiac Device Check Cardiac Device Check Details: Remote implantable loop recorder report generated 09/10/2024. No episodes of atrial fibrillation or pauses noted. Frequent PVCs noted with total burden of 7.9% [id number] Cardiac Interrogation, subcut cardiac rhythm monitor Procedure code (CPT) selection complete Assessment & Plan Assessment & Plan (1) Implantable loop recorder present: Code(s): Z95.818 - Presence of other cardiac implants and grafts Category: Medical Plan: See above Coding Level of Care Code Procedure Only Diagnoses Implantable loop recorder present Z95.818 CPT Codes Cardiac Device Check - Cardiac Device 16: [id number] Cardiac Interrogation, subcut cardiac rhythm monitor ([id number])
== END ==
PROVIDERS: PCP Nurse Practitioner Primary Care; Visit Provider Internal Medicine Cardiovascular Disease
DX: I49.3 Ventricular premature depolarization (principal); Z95.818 Presence of other cardiac implants and grafts
CPT/HCPCS: 93298

== ENCOUNTER → 2024-10-10 23:59 | Outpatient (BNV) | payer OTHER, SELFPAY ==
--- NOTE | 2024-10-15 16:53 | MHC.OFFVIS ---
Intake Visit Reasons: Remote ILR check- [employer] Allergies amoxicillin Allergy (Mild, Verified 05/28/24 10:52) unknown latex Allergy (Unknown, Uncoded 05/28/24 10:52) itching PFSH Medical History CAD (coronary artery disease) On beta tri at home NSTEMI (non-ST elevated myocardial infarction) GERD (gastroesophageal reflux disease) Acid reflux Collapsed lung Surgical History Stented coronary artery History of esophagogastroduodenoscopy (EGD) History of foot surgery Family History Mother Diverticulitis HTN (hypertension) Brother Diverticulitis Brother Diverticulitis HTN (hypertension) Brother Diverticulitis HTN (hypertension) Diabetes Brother Diverticulitis Sister HTN (hypertension) Sister Diverticulitis HTN (hypertension) Diabetes Sister HTN (hypertension) Family/Other Cancer Social History Household Members: Family Housing: Apartment Alcohol intake: former Patient Tobacco Use Status: Former Tobacco user Tobacco use type: Cigarette Cigarettes Per Day: 3 Years Smoked: 30+/- Substance Use Type: Marijuana service: No Current occupational status: disabled Office Procedures Cardiac Device Check Cardiac Device Check Details: Remote implantable loop recorder report generated October 10/2025. No pauses or atrial fibrillation noted. Frequent isolated PVCs noted [id number] Cardiac Interrogation, subcut cardiac rhythm monitor Procedure code (CPT) selection complete Assessment & Plan Assessment & Plan (1) Implantable loop recorder present: Code(s): Z95.818 - Presence of other cardiac implants and grafts Category: Medical Plan: See above Coding Level of Care Code Procedure Only Diagnoses Implantable loop recorder present Z95.818 CPT Codes Cardiac Device Check - Cardiac Device 16: [id number] Cardiac Interrogation, subcut cardiac rhythm monitor ([id number])
== END ==
PROVIDERS: PCP Nurse Practitioner Primary Care; Visit Provider Internal Medicine Cardiovascular Disease
DX: I49.3 Ventricular premature depolarization (principal); Z95.818 Presence of other cardiac implants and grafts
CPT/HCPCS: 93298

== ENCOUNTER → 2024-11-09 23:59 | Outpatient (BNV) | payer OTHER, SELFPAY ==
--- NOTE | 2024-11-13 13:24 | A.OFFVIS_ITS ---
Intake Visit Reasons: Remote ILR check- [employer] Allergies amoxicillin Allergy (Mild, Verified 05/28/24 10:52) unknown latex Allergy (Unknown, Uncoded 05/28/24 10:52) itching [facility] Medical History CAD (coronary artery disease) On beta tri at home NSTEMI (non-ST elevated myocardial infarction) GERD (gastroesophageal reflux disease) Acid reflux Collapsed lung Surgical History Stented coronary artery History of esophagogastroduodenoscopy (EGD) History of foot surgery Family History Mother Diverticulitis HTN (hypertension) Brother Diverticulitis Brother Diverticulitis HTN (hypertension) Brother Diverticulitis HTN (hypertension) Diabetes Brother Diverticulitis Sister HTN (hypertension) Sister Diverticulitis HTN (hypertension) Diabetes Sister HTN (hypertension) Family/Other Cancer Social History Household Members: Family Housing: Apartment Alcohol intake: former Patient Tobacco Use Status: Former Tobacco user Tobacco use type: Cigarette Cigarettes Per Day: 3 Years Smoked: 30+/- Substance Use Type: Marijuana service: No Current occupational status: disabled Office Procedures Cardiac Device Check Cardiac Device Check Details: Remote implantable loop recorder report generated 11/09/2024. Frequent PVCs noted at 9.8% burden mostly isolated. No atrial fibrillation or pauses noted [id number] Cardiac Interrogation, subcut cardiac rhythm monitor Procedure code (CPT) selection complete Assessment & Plan Assessment & Plan (1) Implantable loop recorder present: Code(s): Z95.818 - Presence of other cardiac implants and grafts Category: Medical Plan: See above Coding Level of Care Code Procedure Only Diagnoses Implantable loop recorder present Z95.818 CPT Codes Cardiac Device Check - Cardiac Device 16: [id number] Cardiac Interrogation, subcut cardiac rhythm monitor ([id number])
== END ==
PROVIDERS: PCP Nurse Practitioner Primary Care; Visit Provider Internal Medicine Cardiovascular Disease
DX: I49.3 Ventricular premature depolarization (principal); Z95.818 Presence of other cardiac implants and grafts
CPT/HCPCS: 93298

== ENCOUNTER → 2024-12-09 23:59 | Outpatient (BNV) | payer OTHER, SELFPAY ==
--- NOTE | 2024-12-16 09:31 | MHC.OFFVIS ---
Intake Visit Reasons: Remote ILR check- [employer] Allergies amoxicillin Allergy (Mild, Verified 05/28/24 10:52) unknown latex Allergy (Unknown, Uncoded 05/28/24 10:52) itching PFSH Medical History CAD (coronary artery disease) On beta tri at home NSTEMI (non-ST elevated myocardial infarction) GERD (gastroesophageal reflux disease) Acid reflux Collapsed lung Surgical History Stented coronary artery History of esophagogastroduodenoscopy (EGD) History of foot surgery Family History Mother Diverticulitis HTN (hypertension) Brother Diverticulitis Brother Diverticulitis HTN (hypertension) Brother Diverticulitis HTN (hypertension) Diabetes Brother Diverticulitis Sister HTN (hypertension) Sister Diverticulitis HTN (hypertension) Diabetes Sister HTN (hypertension) Family/Other Cancer Social History Household Members: Family Housing: Apartment Alcohol intake: former Patient Tobacco Use Status: Former Tobacco user Tobacco use type: Cigarette Cigarettes Per Day: 3 Years Smoked: 30+/- Substance Use Type: Marijuana service: No Current occupational status: disabled Office Procedures Cardiac Device Check Cardiac Device Check Details: Implantable loop recorder report generated 12/08/2024. Frequent PVCs noted. No pauses or other tachyarrhythmias noted [id number] Cardiac Interrogation, subcut cardiac rhythm monitor Procedure code (CPT) selection complete Assessment & Plan Assessment & Plan (1) Implantable loop recorder present: Code(s): Z95.818 - Presence of other cardiac implants and grafts Category: Medical Plan: See above Coding Level of Care Code Procedure Only Diagnoses Implantable loop recorder present Z95.818 CPT Codes Cardiac Device Check - Cardiac Device 16: [id number] Cardiac Interrogation, subcut cardiac rhythm monitor ([id number])
== END ==
PROVIDERS: PCP Nurse Practitioner Primary Care; Visit Provider Internal Medicine Cardiovascular Disease
DX: I49.3 Ventricular premature depolarization (principal); Z95.818 Presence of other cardiac implants and grafts
CPT/HCPCS: 93298

== ENCOUNTER 2024-12-16 09:35 | Outpatient (AMB) | payer OTHER, SELFPAY ==
[2024-12-16 09:47] VITALS: BP 110/70; PULSE 50; BMI 21.8
--- NOTE | 2024-12-16 09:47 | MHC.OFFVIS ---
Vital Signs 12/16/24 09:47 Height 5 ft 10 in Weight 152 lb 1.903 oz BMI 21.8 BP 110/70 Blood Pressure Location Lt brachial Position Sitting Pulse 50 Intake Visit Reasons: 6m follow up Intake Note: 6 month follow-up c/o palpitations but not too much Wood Hacker Required: No Allergies amoxicillin Allergy (Mild, Verified 05/28/24 10:52) unknown latex Allergy (Unknown, Uncoded 05/28/24 10:52) itching Medication List - Last Reconciled 12/16/24 by Pérez Head MD albuterol sulfate 90 mcg/actuation (ProAir HFA) 2 puffs PO Q4-6H PRN aspirin 81 mg PO QAM atorvastatin 40 mg PO BEDTIME esomeprazole magnesium 20 mg PO BID 90 days metoprolol tartrate 25 mg PO BID 90 days oxycodone-acetaminophen 10-325 mg 1 tab PO QID PRN sodium,potassium,mag sulfates 17.5-3.13-1.6 gram (Suprep Bowel Prep Kit) DILUTE; drink full amount early evening before AND next morning at least 2 hr before procedure; follow w 960 mL water PO HPI Comments Details: Stanislav comes for follow-up. Overall he feels well. He occasionally feels orthostatic lightheadedness. He said he drinks about 2 glasses of water and tries to drink 1 Gatorade every day. His symptoms of palpitation have improved significantly on metoprolol therapy. Implantable loop recorder still shows PVCs which are frequent. No other pauses or tachyarrhythmias. He has no exertional chest pain. Unfortunately continues smoke but smokes only 2 cigarettes a day and on trying to cut down. Takes all his medications. [facility], [facility] Medical History CAD (coronary artery disease) On beta tri at home NSTEMI (non-ST elevated myocardial infarction) GERD (gastroesophageal reflux disease) Acid reflux Collapsed lung Surgical History Stented coronary artery History of esophagogastroduodenoscopy (EGD) History of foot surgery Family History Mother Diverticulitis HTN (hypertension) Brother Diverticulitis Brother Diverticulitis HTN (hypertension) Brother Diverticulitis HTN (hypertension) Diabetes Brother Diverticulitis Sister HTN (hypertension) Sister Diverticulitis HTN (hypertension) Diabetes Sister HTN (hypertension) Family/Other Cancer Social History Household Members: Family Housing: Apartment Alcohol intake: former Patient Tobacco Use Status: Former Tobacco user Tobacco use type: Cigarette Cigarettes Per Day: 3 Years Smoked: 30+/- Substance Use Type: Marijuana service: No Current occupational status: disabled Review of Systems Const Denies chills, Denies fatigue, Denies fever(s), Denies frequent falls, Denies weakness, Denies weight gain and Denies weight loss ENT Denies dizziness Card Denies chest pain, Denies leg edema, Denies lightheadedness, Denies palpitations, Denies dyspnea, Denies dyspnea on exertion, Denies orthopnea and Denies other (loss of consciousness) Resp Denies cough, Denies dyspnea and Denies dyspnea on exertion GI Denies hematochezia and Denies change in stool character Musc Denies abnormal gait, Denies muscle weakness, Denies numbness, Denies radiating pain into limb and Denies tingling Neuro Denies abnormal gait, Denies dizziness, Denies frequent falls, Denies numbness, Denies tingling and Denies weakness Endo Denies fatigue and Denies palpitations Physical Exam Vital Signs: Last Vital Signs Pulse 50 12/16/24 09:47 BP 110/70 12/16/24 09:47 BMI result Body Mass Index 21.8 Const General: cooperative, healthy appearing, comfortable and no acute distress Nutritional Appearance: thin and underweight Orientation/consciousness: patient oriented x3 Neck Neck: Yes normal visual inspection and Yes no JVD Resp Effort & Inspection: normal respiratory effort Auscultation: clear to auscultation bilaterally, no crackles, no rales, no rhonchi and no wheezes Cardio Jugular venous distension: no JVD Rate: regular rate Rhythm: regular rhythm Heart sounds: S1 normal heart sound present, S2 normal heart sound present, no gallops, no murmurs and no rubs Peripheral pulses: Peripheral pulses 2+ throughout GI Inspection: Yes normal to inspection Neuro General: patient oriented x3 Extrem Other: Right radial catheterization site well healed General: Yes normal to inspection, No no pedal edema and No calf tenderness Psych Appearance: grossly normal Mental Status: mental status grossly normal Speech and movement: Normal speech and movement present Assessment & Plan Assessment & Plan (1) CAD (coronary artery disease): Code(s): I25.10 - Atherosclerotic heart disease of [place] coronary artery without angina pectoris Category: Medical Plan: Coronary artery disease with prior stent to the circumflex artery without any recurrent symptoms at this point time. Continue lifelong aspirin therapy. Continue high-intensity statin therapy with target goal LDL less than 60 mg/dL. Complete smoking cessation was advised. He is working on it. Encouraged to maintain activity level as tolerated. Various other forms of exercise were discussed. (2) PVC (premature ventricular contraction): Code(s): I49.3 - Ventricular premature depolarization Category: Medical Plan: PVCs with much improved symptoms of metoprolol therapy. Avoidance of stimulants was discussed. Benign nature of overall isolated PVCs were discussed. No change in therapy. Stress mitigation strategies was advised. (3) Implantable loop recorder present: Code(s): Z95.818 - Presence of other cardiac implants and grafts Category: Medical Plan: Implantable loop recorder in place place for syncopal episodes. There has been no significant tachyarrhythmias or pauses or av conduction abnormalities. Will remove the implantable loop recorder. This was discussed with him. Risks and benefits were discussed. Follow up in the clinic in 6 weeks after removal for wound check and in 1 year with me. Thank you for allowing me to partake in his care Coding Level of Care Code Est Pt Level 4 (17543) Complex EM visit Add On G2211 Diagnoses CAD (coronary artery disease) I25.10 PVC (premature ventricular contraction) I49.3 Implantable loop recorder present Z95.818
--- OUTSIDE RECORDS SUMMARY | 2024-12-16 10:15 | XMS_ITS | Encounter Summary ---
Author Organization [employer] Address [address] [facility] 7t [place] [address] Care Team Providers Care Financial Analysis Advisor Name Role Phone Kristen Hanna Primary Care Provider [phone] Reason for Visit * Reason Onset Date Comments Med Refill 02/20/2023 Encounter Details Date Type Department Care Team ([facility] st Contact Info) Description 02/20/2023 Telephone [facility] MEDICINE [address] [place], [place] [phone] Kristen Hanna ANP [address] [place], [place] [phone] Med Refill Social History Tobacco Use Types [...] 1:26 PM EDT Medication was sent to [facility] on 01/11/23 with 1 refill. * Telephone Encounter - Leatha Musa - 02/20/2023 1:24 PM EDT Tc from pt requesting med refill on Ventolin HFA 108 (90 Base) MCG/ACT inhaler documented in this encounter Plan of Treatment Upcoming Encounters Date Type Department Care Team (Late st Contact Info) Description 02/24/2025 10:15 AM EDT Office Visit [facility] [address] [place] [address] Kristen Hanna ANP [address] [place] [address] documented as of this encounter Visit Diagnoses Not on filedocumented in this encounter Care Teams Financial Analysis Advisor Relationship Specialty Start Date End Date Kristen Hanna ANP [address] [place] [address] PCP - General Family Medicine 10/23/19 documented as of this encounter
--- OUTSIDE RECORDS SUMMARY | 2024-12-16 10:16 | XMS_ITS | Patient Health Record ---
Author Organization [facility] Address [address] [place] [address] Care Team Providers Care Marine Fisheries Technician Name Role Phone Romulo BARBOSA, Boyd Primary Care Provider Manas Roe Unavailable [phone] Reason For Referral No Information Medications Medication SIG (Take, Route, Fr equency, Duration) Notes Start Date End Date Status Protonix 05/07/2024 05/07/2024 Active hydrOXYzine HCl Acti ve Percocet Active Problems Problem Type SNOMED Code ICD Code Onset Dates Problem Status W/U Status Risk Notes Problem Esophageal reflux (647016521) Esophageal reflux (530.81) Active confirmed Problem Abdominal pain, epigastric (789.06) Active confirmed Plan Of Treatment No Information Insurance Providers Payer Name Payer Address Payer Phone Subscriber Number Group Number Insured Name Patient Relationship to Insured Coverage Start Date Coverage End Date [facility] [address] [place], [place] [id number] ADAMA WOODRUFF Self - patient is the insured Medical (General) History Medical History History ICD Code GERD Anxiety Denies [place],DM,CVA,Lung disease,renal dise ase asthma Surgical History Surgery Date(Month/Year) Foot surgery Pneumothorax
== END 2024-12-16 10:28 | disposition home or self-care (01) ==
LOC: HO.HCS 09:35
PROVIDERS: PCP Nurse Practitioner Primary Care; Visit Provider Internal Medicine Cardiovascular Disease
DX: I25.10 Atherosclerotic heart disease of native coronary artery without angina pectoris (principal); I49.3 Ventricular premature depolarization; Z95.818 Presence of other cardiac implants and grafts
CPT/HCPCS: 99214; G2211

== ENCOUNTER → 2024-12-16 09:35 | Outpatient (BNVA) | payer OTHER, SELFPAY | PROVIDERS: PCP Nurse Practitioner Primary Care; Visit Provider Internal Medicine Cardiovascular Disease | DX: I25.10 Atherosclerotic heart disease of native coronary artery without angina pectoris (principal); Z95.818 Presence of other cardiac implants and grafts; I49.3 Ventricular premature depolarization | CPT/HCPCS: 99212 ==

== ENCOUNTER 2024-12-24 10:39 | Outpatient (AMB) | payer OTHER, SELFPAY ==
--- NOTE | 2024-12-24 10:42 | A.OFFVIS_ITS ---
Vital Signs 12/24/24 10:44 Height 5 ft 10 in Weight 145 lb 8.081 oz BMI 20.9 Blood Pressure Location Lt brachial Position Sitting Intake Visit Reasons: pos cologuard Intake Note: Stanislav presents in the office as a follow up for a positive cologuard. CC: all his life with constipation - nothing new. Some abdominal pains and states its due to acid reflux. Appetite has increased and he is eating breakfast and he is not used to that. He is familiar with colouard results and he thinks it is hemorrhoids. Allergies amoxicillin Allergy (Mild, Verified 12/24/24 10:45) unknown latex Allergy (Unknown, Uncoded 12/24/24 10:45) itching HPI Comments Details: 54 y.o M with PMH of CAD s/p PCI and GLENNA 2021 on DAPT, smoking, COPD, who is here for abd complaints. Reports main complaint is early satiety and feeling of unwellness right after he eats. Does not get abd pain post prandially but does get palpitations. Not assoc with N/V, lightheadedness. No changes in BMs. Does get bloating. Lost almost 10 lbs due to this because he avoids eating due to palpitations. Also reports early satiety. Smokes 3 cigs/day. No etOH. Takes ibuprofen twice a day 1200mg/day x years. No fam hx of colon ca or stomach ca. In terms of palpitations, has a loop monitor that does show PVCs - has been recommended to increase BB by his humid system operator which pt is hesitant to do until he gets GI work up done. 12/24/24: Pt lost to follow up as didnt wish to pursue endoscopy. He is here after positive cologuard. Reports chronic issue with hemorrhoidal bleeding and is fairly positive he had some rectal bleeding after he collected the BM for the cologuard. In terms of GERD, has no sx since starting esomeprazole. However agreeable to egd to screen for BE since will be undergoing anesthesia anyway for the colonoscopy. [facility] Medical History CAD (coronary artery disease) On beta tri at home NSTEMI (non-ST elevated myocardial infarction) GERD (gastroesophageal reflux disease) Acid reflux Collapsed lung Surgical History Stented coronary artery History of esophagogastroduodenoscopy (EGD) History of foot surgery Family History Mother Diverticulitis HTN (hypertension) Brother Diverticulitis Brother Diverticulitis HTN (hypertension) Brother Diverticulitis HTN (hypertension) Diabetes Brother Diverticulitis Sister HTN (hypertension) Sister Diverticulitis HTN (hypertension) Diabetes Sister HTN (hypertension) Family/Other Cancer Social History Household Members: Family Housing: Apartment Alcohol intake: former Patient Tobacco Use Status: Former Tobacco user Tobacco use type: Cigarette Cigarettes Per Day: 3 Years Smoked: 30+/- Substance Use Type: Marijuana service: No Current occupational status: disabled Review of Systems Const All systems reviewed & are unremarkable except as noted in HPI and below Physical Exam Exam Exam: No apparent distress Nonicteric Abdomen soft, nondistended Alert and oriented x3, normal gait Vital Signs: BMI result Body Mass Index 20.9 Assessment & Plan Assessment & Plan (1) CAD (coronary artery disease): Code(s): I25.10 - Atherosclerotic heart disease of [place] coronary artery without angina pectoris Category: Medical (2) PVC (premature ventricular contraction): Code(s): I49.3 - Ventricular premature depolarization Category: Medical (3) GERD (gastroesophageal reflux disease): Code(s): K21.9 - Gastro-esophageal reflux disease without esophagitis Category: Medical (4) Positive colorectal cancer screening using Cologuard test: Code(s): R19.5 - Other fecal abnormalities Category: Medical Plan Was lost to follow up. Had been ordered EGD colonoscopy at least 3 times in the last 2 years, which he has canceled. Now coming in the positive Cologuard which was actually collected in the setting of active hemorrhoidal bleeding per his report. Again reviewed with the patient, that are colonoscopies indicated. He is agreeable today. He also agrees to having an upper endoscopy at the same time screen for Argueta's esophagus. Plan: - Decrease nexium 20 once daily - Can take pepcid 20 at bedtime for break through sx - EGD/colo to be booked. - Pt requests suprep. Instructions reviewed and handout provided Follow-up after EGD colonoscopy Medications: New famotidine (Pepcid) 20 mg PO BEDTIME 90 tabs 1RF 90 days sodium,potassium,mag sulfates 17.5-3.13-1.6 gram (Suprep Bowel Prep Kit) DILUTE as per instructions 354 mL 0RF Changed From esomeprazole magnesium 20 mg PO BID 90 days 180 caps 0RF To esomeprazole magnesium 20 mg PO DAILY 90 caps 1RF 90 days Coding Level of Care Code Est Pt Level 4 (02829) Diagnoses CAD (coronary artery disease) I25.10 PVC (premature ventricular contraction) I49.3 GERD (gastroesophageal reflux disease) K21.9 Positive colorectal cancer screening using Cologuard test R19.5
[2024-12-24 10:44] VITALS: BMI 20.9
--- OUTSIDE RECORDS SUMMARY | 2024-12-24 11:59 | XMS_ITS | Encounter Summary ---
Author Organization [email or web address] Address [address] [facility] 7t [place] [address] Care Team Providers Care Ict Customer Support Officer Name Role Phone Kristen Hanna Primary Care Provider [phone] Reason for Visit * Reason Onset Date Comments Med Refill 02/20/2023 Encounter Details Date Type Department Care Team ([facility] st Contact Info) Description 02/20/2023 Telephone [facility] MEDICINE [address] [place], [place] [phone] Kristen Hanna ANP [address] [place], [place] [phone] Med Refill Social History Tobacco Use Types [...] 1:26 PM EDT Medication was sent to [facility] on 01/11/23 with 1 refill. * Telephone Encounter - Leatha Musa - 02/20/2023 1:24 PM EDT Tc from pt requesting med refill on Ventolin HFA 108 (90 Base) MCG/ACT inhaler documented in this encounter Plan of Treatment Upcoming Encounters Date Type Department Care Team (Late st Contact Info) Description 02/24/2025 10:15 AM EDT Office Visit [facility] MEDICINE [address] [place] [address] Kristen Hanna ANP [address] [place] [address] documented as of this encounter Visit Diagnoses Not on filedocumented in this encounter Care Teams Ict Customer Support Officer Relationship Specialty Start Date End Date Kristen Hanna ANP [address] [place] [address] PCP - General Family Medicine 10/23/19 documented as of this encounter
--- OUTSIDE RECORDS SUMMARY | 2024-12-24 11:59 | XMS_ITS | Patient Health Record ---
Author Organization [facility] Address [address] [place] [address] Care Team Providers Care Associate Professor Of Literature Name Role Phone Romulo BARBOSA, Boyd Primary Care Provider Manas Roe Unavailable [phone] Reason For Referral No Information Medications Medication SIG (Take, Route, Fr equency, Duration) Notes Start Date End Date Status Protonix 05/07/2024 05/07/2024 Active hydrOXYzine HCl Acti ve Percocet Active Problems Problem Type SNOMED Code ICD Code Onset Dates Problem Status W/U Status Risk Notes Problem Esophageal reflux (486154372) Esophageal reflux (530.81) Active confirmed Problem Epigastric pain (92717790) Abdominal pain, epigastric (789.06) Active confirmed Plan Of Treatment No Information Insurance Providers Payer Name Payer Address Payer Phone Subscriber Number Group Number Insured Name Patient Relationship to Insured Coverage Start Date Coverage End Date [facility] [address] [place], [place] [id number] [phone] [id number] ADAMA WOODRUFF Self - patient is the insured Medical (General) History Medical History History ICD Code GERD Anxiety Denies [place],DM,CVA,Lung disease,renal dise ase asthma Surgical History Surgery Date(Month/Year) Foot surgery Pneumothorax
== END 2024-12-24 11:40 | disposition home or self-care (01) ==
LOC: HO.HGI 10:40
PROVIDERS: PCP Nurse Practitioner Primary Care; Visit Provider Internal Medicine
DX: I25.10 Atherosclerotic heart disease of native coronary artery without angina pectoris (principal); I49.3 Ventricular premature depolarization; K21.9 Gastro-esophageal reflux disease without esophagitis; R19.5 Other fecal abnormalities
CPT/HCPCS: 99214

== ENCOUNTER → 2024-12-24 10:39 | Outpatient (BNVA) | payer OTHER, SELFPAY | PROVIDERS: PCP Nurse Practitioner Primary Care; Visit Provider Internal Medicine | DX: Z01.818 Encounter for other preprocedural examination (principal); I25.10 Atherosclerotic heart disease of native coronary artery without angina pectoris; I49.3 Ventricular premature depolarization; K21.9 Gastro-esophageal reflux disease without esophagitis; R19.5 Other fecal abnormalities | CPT/HCPCS: 99212 ==

== ENCOUNTER 2025-01-14 12:50 | Outpatient (REF) | payer OTHER, SELFPAY ==
[2025-01-14 13:15] VITALS: BP 178/85; PULSE 57; RESP 17; O2SAT 100; BMI 21.4
--- NOTE | 2025-01-14 14:35 | PM.OP ---
Brief Operative Note Date of Service: 01/14/25 Pre-op diagnosis: Implantable loop recorder in place Post-op diagnosis: same Procedure: Removal of implantable loop recorder Implants: After obtaining informed consent patient was brought to the minor surgery suite and laid supine on the operating table. Patient's device was then identified and then the precordial area above it was prepped and draped in a sterile fashion. Patient was then given 2% lidocaine with epinephrine intradermally and subcutaneously around the head of the device. A small incision was then made. After some blunt dissection the device was then removed with help of a Ashley forcep. The wound was then closed with Steri-Strips and pressure dressing applied. Patient tolerated the procedure well. Surgeon: Pérez Head MD Was an Child Development Associate Teacher used for this Procedure?: Yes Child Development Associate Teacher: Christopher Edmonds Estimated blood loss (mL): 5 Pathology: none sent Condition: stable Disposition: same day
--- OUTSIDE RECORDS SUMMARY | 2025-01-14 15:50 | XMS_ITS | Encounter Summary ---
Author Organization [employer] Address [address] [facility] 7t [place] [address] Care Team Providers Care Building Services Engineer Name Role Phone Kristen Hanna Primary Care Provider [phone] Reason for Visit * Reason Comments Med Refill Encounter Details Date Type Department Care Team ([facility] st Contact Info) Description 07/16/2023 Refill [facility] MEDICINE [address] [place], [place] [phone] Kristen Hanna ANP [address] [place], [place] [phone] Other chronic pain Social History Tobacco Use [...] Description 02/24/2025 10:15 AM EDT Office Visit [facility]INE [address] [place] [address] Kristen Hanna ANP [address] [place] [phone] documented as of this encounter Visit Diagnoses Diagnosis Other chronic pain documented in this encounter Additional Health Concerns Assessment Noted Time PHQ-9 Depression Total Score: 11 023 9:39 AM EST documented as of this encounter Care Teams Building Services Engineer Relationship Specialty Start Date End Date Kristen Hanna ANP [address] [place] [id number] PCP - General Family Medicine 10/23/19 documented as of this encounter
--- OUTSIDE RECORDS SUMMARY | 2025-01-14 15:50 | XMS_ITS | Encounter Summary ---
Author Organization [employer] Address [address] [facility] [address] 7[address] [place] [address] Care Team Providers Care Pole Peeling Machine Operator Name Role Phone Kristen Hanna Primary Care Provider [phone] Encounter Details Date Type Department Care Team (Late st Contact Info) Description 04/03/[address] [facility] MEDICINE [address] [place], [place] [phone] Kristen Hanna ANP [address] [place], [place] [phone] Social History Tobacco Use Types Packs/Day Years [...] Description 02/24/2025 10:15 AM EDT Office Visit [facility] MEDICINE [address] [place] [phone] Kristen Hanna ANP [address] [place] [address] documented as of this encounter Visit Diagnoses Not on filedocumented in this encounter Additional Health Concerns Assessment Noted Time PHQ-9 Depression Total Score: 11 023 9:39 AM EST documented as of this encounter Care Teams Pole Peeling Machine Operator Relationship Specialty Start Date End Date Kristen Hanna ANP [address] [place] [address] PCP - General Family Medicine 10/23/19 documented as of this encounter
--- OUTSIDE RECORDS SUMMARY | 2025-01-14 15:50 | XMS_ITS | Encounter Summary ---
Author Organization [employer] Address [address] [facility] 7t [place] [address] Care Team Providers Care Application Support Intern Name Role Phone Kristen Hanna Primary Care Provider [phone] Reason for Visit * Reason Onset Date Comments Med Refill 04/22/2024 Encounter Details Date Type Department Care Team ([facility] st Contact Info) Description 04/22/2024 Telephone [facility] MEDICINE [address] [place], [place] [phone] Kristen Hanna ANP [address] [place], [place] [phone] Med Refill Social History Tobacco Use Types [...] 10-325 MG tablet To be sent to: [facility] - [place], [place] - [address] [place] [address] documented in this encounter Plan of Treatment Upcoming Encounters Date Type Department Care Team ([facility] st Contact Info) Description 02/24/2025 10:15 AM EDT Office Visit [facility] MEDICINE [address] [place] [address] Kristen Hanna ANP [address] [place] [address] documented as of this encounter Visit Diagnoses Not on filedocumented in this encounter Additional Health Concerns Assessment Noted Time PHQ-9 Depression Total Score: 5 12/27/19 24 2:52 PM EDT documented as of this encounter Care Teams Application Support Intern Relationship Specialty Start Date End Date Kristen Hanna ANP [address] [place] [address] PCP - General Family Medicine 10/23/19 documented as of this encounter
--- OUTSIDE RECORDS SUMMARY | 2025-01-14 15:50 | XMS_ITS | Encounter Summary ---
Author Organization [employer] Address [address] [place] [address] 7t [place] [address] Care Team Providers Care Registered Nurse Cardiac Telemetry Name Role Phone Kristen Hanna Primary Care Provider [phone] Reason for Visit * Reason Comments Med Refill Encounter Details Date Type Department Care Team (Late Contact Info) Description 12/29/2022 Refill [facility] MEDICINE [address] [place] [phone] Kristen Hanna ANP [address] [place] [address] Mild persistent asthma, uncomplicated Social History Tobacco [...] Encounters Date Type Department Care Team (Late Contact Info) Description 02/24/2025 10:15 AM EDT Office Visit [facility] MEDICINE [address] [place] [phone] Kristen Hanna ANP [address] [place], [place] [phone] documented as of this encounter Visit Diagnoses Diagnosis Mild persistent asthma, uncomplicated documented in this encounter Care Teams Registered Nurse Cardiac Telemetry Relationship Specialty Start Date End Date Kristen Hanna ANP [address] [place] [address] PCP - General Family Medicine 10/23/19 documented as of this encounter
--- OUTSIDE RECORDS SUMMARY | 2025-01-14 15:50 | XMS_ITS | Patient Health Record ---
Author Organization [facility] Address [address] [place] [address] Care Team Providers Care Maintenance Advisor Name Role Phone Romulo BARBOSA, Boyd Primary Care Provider Manas Roe Unavailable [phone] Reason For Referral No Information Medications Medication SIG (Take, Route, Fr equency, Duration) Notes Start Date End Date Status Protonix 05/07/2024 05/07/2024 Active hydrOXYzine HCl Acti ve Percocet Active Problems Problem Type SNOMED Code ICD Code Onset Dates Problem Status W/U Status Risk Notes Problem Esophageal reflux (255750383) Esophageal reflux (530.81) Active confirmed Problem Epigastric pain (21945308) Abdominal pain, epigastric (789.06) Active confirmed Plan Of Treatment No Information Insurance Providers Payer Name Payer Address Payer Phone Subscriber Number Group Number Insured Name Patient Relationship to Insured Coverage Start Date Coverage End Date [facility] [address] [place], [place] [id number] ADAMA WOODRUFF Self - patient is the insured Medical (General) History Medical History History ICD Code GERD Anxiety Denies [place],DM,CVA,Lung disease,renal dise ase asthma Surgical History Surgery Date(Month/Year) Foot surgery Pneumothorax
--- OUTSIDE RECORDS SUMMARY | 2025-01-14 15:50 | XMS_ITS | Encounter Summary ---
Author Organization [employer] Address 75 [facility] 7t [place] [address] Care Team Providers Care Antique Finisher Name Role Phone Kristen Hanna Primary Care Provider [phone] Reason for Visit * Reason Onset Date Comments Med Refill 09/03/2024 Encounter Details Date Type Department Care Team ([facility] st Contact Info) Description 09/03/2024 Refill [facility] 230 [place], [place] [phone] Kristen Hanna ANP 230 [place], [place] [phone] Other chronic pain Social History Tobacco Use [...] Description 02/24/2025 10:15 AM EDT Office Visit [facility] 230 [place] [address] Kristen Hanna ANP 230 [place] [address] documented as of this encounter Visit Diagnoses Diagnosis Other chronic pain documented in this encounter Additional Health Concerns Assessment Noted Time PHQ-9 Depression Total Score: 5 12/27/19 24 2:52 PM EDT documented as of this encounter Care Teams Antique Finisher Relationship Specialty Start Date End Date Kristen Hanna ANP [address] [place] [phone] PCP - General Family Medicine 10/23/19 documented as of this encounter
--- OUTSIDE RECORDS SUMMARY | 2025-01-14 15:50 | XMS_ITS | Encounter Summary ---
Author Organization [employer] Address 75 [facility] 7t [place] [address] Care Team Providers Care Student Financial Services Counselor Name Role Phone Kristen Hanna Primary Care Provider [phone] Reason for Visit * Reason Comments Med Refill Encounter Details Date Type Department Care Team ([facility] st Contact Info) Description 08/07/2024 Refill [facility] 230 [place], [place] [phone] Kristen Hanna ANP 230 [place], [place] [phone] Other chronic pain Social History Tobacco Use [...] Description 02/24/2025 10:15 AM EDT Office Visit [facility] 230 [place] [address] Kristen Hanna ANP 230 [place] [address] documented as of this encounter Visit Diagnoses Diagnosis Other chronic pain documented in this encounter Additional Health Concerns Assessment Noted Time PHQ-9 Depression Total Score: 5 12/27/19 24 2:52 PM EDT documented as of this encounter Care Teams Student Financial Services Counselor Relationship Specialty Start Date End Date Kristen Hanna ANP [address] [place] [address] PCP - General Family Medicine 10/23/19 documented as of this encounter
--- OUTSIDE RECORDS SUMMARY | 2025-01-14 15:50 | XMS_ITS | Encounter Summary ---
Author Organization [employer] Address 75 [facility] 7t [place] [address] Care Team Providers Care Table Worker Packager Name Role Phone Kristen Hanna Primary Care Provider [phone] Reason for Visit * Reason Onset Date Comments Med Refill 09/04/2024 Encounter Details Date Type Department Care Team ([facility] st Contact Info) Description 09/04/2024 Telephone [facility] 230 [place], [place] [phone] Kristen Hanna ANP 230 [place], [place] [phone] Med Refill Social History Tobacco Use Types [...] encounter Miscellaneous Notes * Telephone Encounter - Trye Delvalle - 09/04/2024 1:14 PM EDT TC from pt requesting medication refill. Medications needing refill : [phone] To be sent to: [facility] - [place], [place] - [address] [place] [address] documented in this encounter Plan of Treatment Upcoming Encounters Date Type Department Care Team ([facility] st Contact Info) Description 02/24/2025 10:15 AM EDT Office Visit [facility] 230 [place] [address] Kristen Hanna ANP 230 [place] [address] documented as of this encounter Visit Diagnoses Not on filedocumented in this encounter Additional Health Concerns Assessment Noted Time PHQ-9 Depression Total Score: 5 12/27/19 24 2:52 PM EDT documented as of this encounter Care Teams Table Worker Packager Relationship Specialty Start Date End Date Kristen Hanna ANP [address] [place] [address] PCP - General Family Medicine 10/23/19 documented as of this encounter
--- OUTSIDE RECORDS SUMMARY | 2025-01-14 15:50 | XMS_ITS | Encounter Summary ---
Author Organization [employer] Address 75 [facility] 7t [place] [address] Care Team Providers Care Typewriter Mechanic Name Role Phone Kristen Hanna Primary Care Provider [phone] Reason for Visit * Reason Comments Med Refill Encounter Details Date Type Department Care Team ([facility] st Contact Info) Description 05/17/2023 Refill [facility] 230 [place], [place] [phone] Kristen Hanna ANP 230 [place], [place] [phone] Other chronic pain Social History Tobacco Use [...] 10:15 AM EDT Office Visit [facility] [address] [place] [address] Kristen Hanna ANP [address] [place] [address] documented as of this encounter Visit Diagnoses Diagnosis Other chronic pain documented in this encounter Additional Health Concerns Assessment Noted Time PHQ-9 Depression Total Score: 11 023 9:39 AM EST documented as of this encounter Care Teams Typewriter Mechanic Relationship Specialty Start Date End Date Kristen Hanna ANP [address] [place] [address] PCP - General Family Medicine 10/23/19 documented as of this encounter
--- OUTSIDE RECORDS SUMMARY | 2025-01-14 15:50 | XMS_ITS | Encounter Summary ---
Author Organization [employer] Address 75 [facility] 7t [place] [address] Care Team Providers Care Telegraph Messenger Name Role Phone Kristen Hanna Primary Care Provider [phone] Reason for Visit * Reason Comments Med Refill Encounter Details Date Type Department Care Team ([facility] Contact Info) Description 06/02/2024 Refill [facility] 230 [place], [place] [phone] Kristen Hanna ANP 230 [place], [place] [phone] Mild persistent asthma, uncomplicated Social History Tobacco [...] Description 02/24/2025 10:15 AM EDT Office Visit [facility] [address] [place] [address] Kristen Hanna ANP 230 [place] [address] documented as of this encounter Visit Diagnoses Diagnosis Mild persistent asthma, uncomplicated documented in this encounter Additional Health Concerns Assessment Noted Time PHQ-9 Depression Total Score: 5 12/27/19 24 2:52 PM EDT documented as of this encounter Care Teams Telegraph Messenger Relationship Specialty Start Date End Date Kristen Hanna ANP [address] [place] [address] PCP - General Family Medicine 10/23/19 documented as of this encounter
--- OUTSIDE RECORDS SUMMARY | 2025-01-14 15:50 | XMS_ITS | Clinical Summary ---
Author Organization [email or web address] Address 75 [facility] 7t [place] [address] Care Team Providers Care Apiculture Teacher Name Role Phone Kristen Hanna BERNADETTE Primary Care Provider [phone] Allergies Active Allergy Reactions Criticality Noted Date Comments Amoxicillin Hives,Swelling 03/30/2021 Other reaction(s): Itching Medications aspirin 81 MG EC tablet Take 1 tablet by mouth in the morning. Active atorvastatin (Lipitor) 40 MG tablet Take 1 tablet by mouth in the morning. Active metoprolol tartrate (Lopressor) 25 MG tablet Take 12.5 mg by mouth in the morning and at bedtime. 04/24/20 22 Active naloxone (Narcan) 4 mg/0.1 mL nasal sprayIndications :Other chronic pain Administer 1 spray (4 mg) into affected nostril(s) if needed in the morning and at bedtime for opioid reversal. 2 each 2 01/02/20 24 Active NexIUM 24HR [address] capsuleIndicatio ns:Chronic GERD Take 1 capsule (20 mg) by mouth 2 times daily. Do not open capsule. 60 capsule 11 08/08/19 25 2025 Active albuterol (Ventolin HFA) 108 (90 Base) MCG/ACT inhalerIndicatio ns:Mild persistent asthma, uncomplicated INHALE 2 PUFFS BY MOUTH EVERY 4 HOURS NEEDED FOR WHEEZING OR SHORTNESS OF BREATH 18 g 2 08/15/19 25 Active oxyCODONE-acetam inophen (Percocet) 10-325 MG tabletIndication s:Other chronic pain Take 1 tablet by mouth every 6 (six) hours if needed for severe pain. Do not start before December 25, 2024. 112 tablet 12/26/19 Active oxyCODONE-acetam inophen (Percocet) 10-325 MG tabletIndication s:Other chronic pain Take 1 tablet by mouth every 6 (six) hours if needed for severe pain. Do not start before November 28, 2024. 112 tablet 11/29/19 25 2024 Discontinued(R eorder (will not trigger notification to Pharmacy)) Active Problems Problem Noted Date Diagnosed Date Positive colorectal cancer screening using Colog uard test 11/24/2024 senior care (current) use of opiate analgesic 04/06 Chronic GERD 04/17/2024 Dental abscess 2024 Screening for malignant neoplasm of colon 2023 Overview (01/15/2024): [place] to [facility] 03/2023 Other chronic pain 10/26/2023 Microscopic hematuria 04/27/2022 Overview (01/15/2024): Negative on repeat UAs Stented coronary artery 10/31/2021 Overview (01/15/2024): Following w/ [facility]. Head at [facility] [place] Coronary artery disease with drug-eluting stent [...] Finding of above normal blood pressure 6 Cigarette nicotine dependence without complicati on 07/06/2015 Overview (01/15/2024): LDCT (started smoking at 14 until CA in 10/2021, now 2-3 cigs/d) (did have Chest CTA 12/13/23, can defer sending until next year) 37 PYH Resolved Problems Problem Noted Date Diagnosed Date Resolved Date Bacterial urinary infection 11/20/2022 01/15/2024 Encounters Date Type Department Care Team Description 12/23/2024 Refill [facility] [address] [place] [address] Kristen Hanna ANP Other chronic pain 12/09/2024 Telephone [facility] [address] [place] [address] Kristen Hanna ANP October recall 11/26/2024 Refill [facility] [address] [place] [address] Kristen Hanna ANP Other chronic pain 11/24/2024 11:30 AM EDT Office Visit [facility] [address] [place] [address] Kristen Hanna ANP Positive colorectal cancer screening using Cologuard test (Primary Dx); Chronic GERD 11/24/2024 Travel 11/21/[address] [address] Kristen Hanna ANP CHART PREP 11/20/2024 Orders Only [facility] [address] [place] [address] Adriana Byrne MD Positive colorectal cancer screening using Cologuard test (Primary Dx) 11/17/[address] [address] Kristen Hanna ANP Results; Appointment Request 10/30/2024 Refill [facility] [address] [place] [address] Kristen Hanna ANP Other chronic pain 10/24/2024 9:15 AM EDT Office Visit [address] [address] Kristen Hanna ANP Chronic GERD (Primary Dx); Cigarette nicotine dependence without complication; Screening for malignant neoplasm of colon; Screening for colon cancer; Positive colorectal cancer screening using Cologuard test 10/24/2024 Travel 10/22/[address] [address] Kristen Hanna ANP Chart Prep from Last 3 Months Immunizations Immunization Administration Dates Next Due Isidro SARS-CoV-2 Vaccination 10/26/2020 Tdap 04/13/2021 Family History Medical History Relation Name Comments Lung cancer Brother Relation Name Status Comments Brother Social History Tobacco Use Types Packs/Day Years Used Date Smoking Tobacco: Every Day Cigarettes 0.3 0.5 Passive Smoke Exposure: Never Smokeless Tobacco: Former Tobacco Cessation:Ready to Q uit: No; Counseling Given: No Alcohol Use Standard Drinks/Week Comments Never 0 [...] Sign Reading Time Taken Comments Blood Pressure 130/82 11/24/2024 12:04 PM EDT Pulse 68 11/24/2024 11:41 AM EDT Temperature 36.3 C (97.3 F) 10/24/2024 9:22 AM EDT Respiratory Rate 16 11/24/2024 11:41 AM EDT Oxygen Saturation 96% 10/24/2024 9:22 AM EDT Inhaled Oxygen Concentration - - Weight 68 kg (150 lb) 11/24/2024 11:41 AM EDT Height 177.8 cm (5' 10 ) 11/24/2024 11:41 AM EDT Body Mass Index 21.52 11/24/2024 11:41 AM EDT Plan of Treatment Upcoming Encounters Date Type Department Care Team (Late st Contact Info) Description 02/24/2025 10:15 AM EDT Office Visit [facility] [address] [place], [place] [phone] Kristen Hanna, ANP [address] [place], [place] [phone] Health Maintenance Due Date Last Done Comments CT Colonography 1968 Colonoscopy 1968 Dental Oral Exam 1968 Dental Prophylaxis 1968 Dental X-Ray: Bitewings 1968 FIT 1968 Sigmoidoscopy 1968 Zoster Vaccines (1 of 2) 01/21/2018 Depression Screening 12/26/2024 12/27/2023, 12/27/2023 SDOH Screening 12/26/2024 12/27/2023 COVID-19 Vaccine (2 - 2024-2 6 season) 2025 10/26/2020 Influenza Vaccine (#1) 2025 Alcohol/Substance Use Screening 04/17/2025 04/17/2024 Pneumococcal Vaccine: 50+ Years (1 of 2 - PCV) 07/22/2025 Postponed from 01/05 (Patient Refused) Disability Screening 10/24/2025 10/24/2024 FOBT 11/07/2025 11/07/2024 Hepatitis B Vaccines (1 of 3 - 19+ 3-dose series) 11/24/2025 Postponed from 01/05 (Patient Refused) Tobacco Screening 11/24/2025 11/24/2024 Dental X-Ray: Full Mouth 2027 024, 12/28/2022, 07/21/2022 Lipid Panel 10/12/2027 10/11/2022, 09/24/2021, 05/11/2020 Colorectal Cancer Screening 11/08/2027 FIT DNA/Cologuard 11/08/2027 11/07/2024 DTaP/Tdap/Td Vaccines (2 - T d or [...] patient's age to complete this topic Meningococcal B Vaccine Aged Out No l onger eligible based on patient's age to complete [...] Procedure Name Priority Date/Time Associated Diagnosis Comments LAB COLOGUARD COLON CANCER SCREEN Routine 11/07/2024 8:10 AM EDT Screening for colon cancer PANORAMIC RADIOGRAPHIC IMAGE Routine 2024 8:30 AM EDT LIPID PANEL, STANDARD Routine 10/11/2022 8:25 AM EDT Coronary artery disease involving [place] coronary artery of [place] heart without angina pectoris [facility] HISTORICAL HEPATITIS C ANTIBODY RFLX Routine 09/24/2021 7:59 AM EDT [facility] HISTORICAL HIV AB/AG Routine 09/24/2021 7:59 AM EDT from Last 3 Months or Most Recently Relevant to Health Maintenance Results * (ABNORMAL) Cologuard?? colon cancer screening (11/07/2024 8:10 AM EDT) Cologuard Result Positive( A) Negative 11/13/2024 1:36 PM EDT [facility] (CLIA #:[id number]) Comment: The Cologuard (TM) test was performed on this specimen. POSITIVE TEST RESULT. A positive Cologuard result should be followed with a colonoscopy or visual examination of the colon. The normal value (reference range) for this assay is negative. TEST DESCRIPTION: Composite algorithmic analysis of stool DNA-biomarkers with hemoglobin immunoassay. Quantitative values of individual biomarkers are not reportable and are not associated with individual biomarker result reference ranges. Cologuard is intended for colorectal cancer screening of adults of either sex, 45 years or older, who are at average-risk for colorectal cancer (CRC). Cologuard has been approved for use by the U.S. FDA. The performance of Cologuard was established in a cross sectional study of average-risk adults aged 50-84. Cologuard performance in patients ages 45 to 49 years was estimated by sub-group analysis of near-age groups. Colonoscopies performed for a positive result may find as the most clinically significant lesion: colorectal cancer [4.0%], advanced adenoma (including sessile serrated polyps greater than or equal to 1cm diameter) [20%] or non- advanced adenoma [31%]; or no colorectal neoplasia [45%]. These estimates are derived from a prospective cross-sectional screening study of 10,000 individuals at average risk for colorectal cancer who were screened with both Cologuard and colonoscopy. (Veronika Denson al, N Engl J Med 2014;370(14):8309-0038.) Cologuard may produce a false negative or false positive result (no colorectal cancer or precancerous polyp present at colonoscopy follow up). A negative Cologuard test result does not guarantee the absence of CRC or advanced adenoma (pre-cancer). The current Cologuard screening interval is every 3 years. ([place] [employer] Society and U.S. Multi-Society Task Force). Cologuard performance data in a 10,000 patient pivotal study using colonoscopy as the reference method can be accessed at the following location: www.exactlabs.com/results. Additional description of the Cologuard test process, warnings and precautions can be found at www.[employer]imosa Systemsrd.com. Stool specimen (specimen) 11/07/2024 8:10 AM EDT 11/10/2024 11:09 AM EDT [facility] MOLECULAR DIAGNOSTICS ORDERA BLES Final Result [facility] (CLIA #:[id number]) [address] [place] [address], * Lipid Panel, Standard (10/11/2022 8:25 AM EDT) Pathologist [facility] Cholesterol, Total 115 <200 mg/dL [facility] [employer] HDL Cholesterol 41 > OR = 40 mg/dL [facility] [employer] [facility] [employer] Triglycerides 81 <150 mg/dL [facility] [employer] LDL Cholesterol 58 mg/dL (calc) [facility] [employer] Comment: Reference range: <100 Desirable range <100 mg/dL for primary prevention; <70 mg/dL for patients with CHD or diabetic patients with > or = 2 CHD risk factors. LDL-C is now calculated using the Kojo-Fung calculation, which is a validated novel method providing better accuracy than the Friedewald equation in the estimation of LDL-C. Kojo SS et al. BRITTANY. 2013;310(19): 6535-6727 (http://education.Blottr.GetHired.com/faq/KUR477) Chol/HDLC Ratio 2.8 <5.0 (calc) [facility] [employer] [employer] Non-HDL Cholesterol 74 <130 mg/dL (calc) [facility] [employer] Comment: For patients with diabetes plus 1 major ASCVD risk factor, treating to a non-HDL-C goal of <100 mg/dL (LDL-C of <70 mg/dL) is considered a therapeutic option. Blood Venous blood specimen / Unknown 10/11/2022 8:25 AM EDT 10/11/2022 8:25 AM EDT Narrative [facility] - 10/11/2022 9:21 PM EDT FASTING:YES FASTING: YES Kristen Hanna [facility] BLOOD ORDERABLES Final Resul t Performing Organization Address City/[facility]/ZIP Co de Phone Number [facility] [address], [place] [address] [facility] [address] [place] [address] * HEPATITIS C ANTIBODY RFLX (09/24/2021 7:59 AM EDT) Pathologist [facility] Hepatitis C Antibody Nonreactive Nonreactive [facility] Comment: Antibodies to HCV not detected; does not exclude early acute HCV infection. 09/24/2021 7:59 AM EDT Kristen Hanna ANP HISTORICAL/NON ORDERABLE LABS Fi nal Result Performing Organization Address [facility] Phone Number [facility] [address] * HIV AB/AG (09/24/2021 7:59 AM EDT) [facility] HIV AB/AG Nonreactive Nonreactive [facility] Comment: HIV-1 p24 Ag and/or HIV-1/HIV-2 Ab not detected. A test result that is nonreactive does not exclude the possibility of exposure to or infection with HIV-1 and/or HIV-2. Nonreactive results in this assay for individuals with prior exposure to HIV-1 and/or HIV-2 may be due to antigen and antibody levels that are below the limit of detection of this assay. The [employer] HIV Ag/Ab Combo assay result and supplemental assay results should be interpreted in conjunction with the patient's clinical presentation, history and other laboratory results. If the results are inconsistent with clinical evidence, additional testing is suggested to confirm the result. 09/24/2021 7:59 AM EDT us Kristen Hanna ANP HISTORICAL/NON ORDERABLE LABS Fi nal Result Performing Organization Address [facility] Co de Phone Number [facility] [address] from Last 3 Months or Most Recently Relevant to Health Maintenance Insurance CCA ONE CARE < 65 CCA ONE CARE < 65 DENTAL - [facility] Care Teams Apiculture Teacher Relationship Specialty Start Date End Date Kristen Hanna ANP [address] [place] [phone] PCP - General Family Medicine 10/23/19
--- OUTSIDE RECORDS SUMMARY | 2025-01-14 15:50 | XMS_ITS | Encounter Summary ---
Author Organization [employer] Address 75 [facility] 7t [place] [address] Care Team Providers Care Starch And Prosize Mixer Name Role Phone Kristen Hanna Primary Care Provider [phone] Reason for Visit * Reason Onset Date Comments Med Refill 02/27/2023 Encounter Details Date Type Department Care Team ([facility] st Contact Info) Description 02/27/[address] [facility] [address] [place], [place] [phone] Kristen Hanna ANP [address] [place], [place] [phone] Med Refill Social History Tobacco Use Types [...] [facility] [address] [place] [address] Kristen Hanna ANP [address] [place] [address] documented as of this encounter Visit Diagnoses Not on filedocumented in this encounter Care Teams Starch And Prosize Mixer Relationship Specialty Start Date End Date Kristen Hanna ANP [address] [place] [address] PCP - General Family Medicine 10/23/19 documented as of this encounter
--- OUTSIDE RECORDS SUMMARY | 2025-01-14 15:50 | XMS_ITS | Encounter Summary ---
Author Organization [employer] Address 75 [facility] 7t [place] [address] Care Team Providers Care Cadd Manager Name Role Phone Kristen Hanna Primary Care Provider [phone] Reason for Visit * Reason Onset Date Comments Med Refill 06/16/2024 Encounter Details Date Type Department Care Team ([facility] st Contact Info) Description 06/16/2024 Refill [facility] [address] [place], [place] [phone] Kristen Hanna ANP 230 [place], [place] [phone] Other chronic pain Social History Tobacco Use [...] Description 02/24/2025 10:15 AM EDT Office Visit [facility] [address] [place] [address] Kristen Hanna ANP [address] [place] [address] documented as of this encounter Visit Diagnoses Diagnosis Other chronic pain documented in this encounter Additional Health Concerns Assessment Noted Time PHQ-9 Depression Total Score: 5 12/27/19 24 2:52 PM EDT documented as of this encounter Care Teams Cadd Manager Relationship Specialty Start Date End Date Kristen Hanna ANP [address] [place] [address] PCP - General Family Medicine 10/23/19 documented as of this encounter
--- OUTSIDE RECORDS SUMMARY | 2025-01-14 15:50 | XMS_ITS | Encounter Summary ---
Author Organization [employer] Address [address] 7t [place] [address] Care Team Providers Care Tree Fruit And Nut Crops Farmer Name Role Phone Kirsten Hanna Primary Care Provider [phone] Reason for Visit * Reason Comments Med Refill Encounter Details Date Type Department Care Team ([facility] st Contact Info) Description 11/05/2023 Refill [facility] MED[facility]INE [address] [place], [place] [phone] Kristen Hanna ANP 230 [place], [place] [phone] Mild persistent asthma, uncomplicated Social History Tobacco [...] Description 02/24/2025 10:15 AM EDT Office Visit [facility] [address] [place] [address] Kristen Hanna ANP 230 [place] [address] documented as of this encounter Visit Diagnoses Diagnosis Mild persistent asthma, uncomplicated documented in this encounter Additional Health Concerns Assessment Noted Time PHQ-9 Depression Total Score: 11 023 9:39 AM EST documented as of this encounter Care Teams Tree Fruit And Nut Crops Farmer Relationship Specialty Start Date End Date Kristen Hanna ANP [address] [place] [address] PCP - General Family Medicine 10/23/19 documented as of this encounter
--- OUTSIDE RECORDS SUMMARY | 2025-01-14 15:50 | XMS_ITS | Encounter Summary ---
Author Organization [employer] Address 75 [facility] 7t [place] [address] Care Team Providers Care Lapel Stitcher Name Role Phone Kristen Hanna Primary Care Provider [phone] Reason for Visit * Reason Comments Med Refill Encounter Details Date Type Department Care Team ([facility] st Contact Info) Description 04/24/2023 Refill [facility] 230 [place], [place] [phone] Kristen Hanna ANP 230 [place], [place] [phone] Other chronic pain Social History Tobacco Use [...] Description 02/24/2025 10:15 AM EDT Office Visit [facility] MEDICINE [address] [place] [address] Kristen Hanna ANP [address] [place] [address] documented as of this encounter Visit Diagnoses Diagnosis Other chronic pain documented in this encounter Additional Health Concerns Assessment Noted Time PHQ-9 Depression Total Score: 11 023 9:39 AM EST documented as of this encounter Care Teams Lapel Stitcher Relationship Specialty Start Date End Date Kristen Hanna ANP [address] [place] [address] PCP - General Family Medicine 10/23/19 documented as of this encounter
--- OUTSIDE RECORDS SUMMARY | 2025-01-14 15:50 | XMS_ITS | Encounter Summary ---
Author Organization [email or web address] Address [address] [facility] 7t [place] [address] Care Team Providers Care Licensed Prosthetist/Orthotist Name Role Phone Kristen Hanna Primary Care Provider [phone] Reason for Visit * Reason Comments Med Change Request Encounter Details Date Type Department Care Team ([facility] Contact Info) Description 08/07/2024 Refill [facility] MEDICINE 230 [place], [place] [phone] Kristen Hanna ANP 230 [place], [place] [phone] Chronic GERD Social History Tobacco Use Types [...] Description 02/24/2025 10:15 AM EDT Office Visit [facility] MEDICINE 230 [place] [address] Kristen Hanna ANP 230 [place] [address] documented as of this encounter Visit Diagnoses Diagnosis Chronic GERD documented in this encounter Additional Health Concerns Assessment Noted Time PHQ-9 Depression Total Score: 5 12/27/19 24 2:52 PM EDT documented as of this encounter Care Teams Licensed Prosthetist/Orthotist Relationship Specialty Start Date End Date Kristen Hanna ANP [address] [place] [address] PCP - General Family Medicine 10/23/19 documented as of this encounter
--- OUTSIDE RECORDS SUMMARY | 2025-01-14 15:50 | XMS_ITS | Encounter Summary ---
Author Organization [employer] Address [address] [facility] 7t [place] [address] Care Team Providers Care Unit Aide Name Role Phone Kristen Hanna Primary Care Provider [phone] Reason for Visit * Reason Onset Date Comments Med Refill 08/04/2024 Encounter Details Date Type Department Care Team ([facility] st Contact Info) Description 08/04/2024 Refill [facility] MEDICINE 230 [place], [place] [phone] Kristen Hanna ANP 230 [place], [place] [phone] Gastroesophageal reflux disease, unspecified whether esophagitis present [...] Description 02/24/2025 10:15 AM EDT Office Visit [facility] MEDICINE [address] [place] [address] Kristen Hanna ANP 230 [place] [address] documented as of this encounter Visit Diagnoses Diagnosis Gastroesophageal reflux disease, unspecified whether esophagitis present documented in this encounter Additional Health Concerns Assessment Noted Time PHQ-9 Depression Total Score: 5 12/27/19 24 2:52 PM EDT documented as of this encounter Care Teams Unit Aide Relationship Specialty Start Date End Date Kristen Hanna ANP [address] [place] [address] PCP - General Family Medicine 10/23/19 documented as of this encounter
--- OUTSIDE RECORDS SUMMARY | 2025-01-14 15:50 | XMS_ITS | Encounter Summary ---
Author Organization [employer] Address [address] [facility] 7t [place] [address] Care Team Providers Care Comic Writer Name Role Phone Kristen Hanna Primary Care Provider [phone] Reason for Visit * Reason Comments Med Refill Encounter Details Date Type Department Care Team ([facility] st Contact Info) Description 05/22/2023 Refill [facility] MEDICINE 230 [place], [place] [phone] Kristen Hanna ANP 230 [place], [place] [phone] Other chronic pain Social History Tobacco Use [...] Description 02/24/2025 10:15 AM EDT Office Visit [facility] MEDICINE [address] [place] [address] Kristen Hanna ANP [address] [place] [address] documented as of this encounter Visit Diagnoses Diagnosis Other chronic pain documented in this encounter Additional Health Concerns Assessment Noted Time PHQ-9 Depression Total Score: 11 023 9:39 AM EST documented as of this encounter Care Teams Comic Writer Relationship Specialty Start Date End Date Kristen Hanna ANP [address] [place] [address] PCP - General Family Medicine 10/23/19 documented as of this encounter
--- OUTSIDE RECORDS SUMMARY | 2025-01-14 15:50 | XMS_ITS | Encounter Summary ---
Author Organization [employer] Address [address] [facility] 7t [place] [address] Care Team Providers Care Grievance Coordinator Name Role Phone Kristen Hanna Primary Care Provider [phone] Reason for Visit * Reason Onset Date Comments Med Refill 02/20/2023 Encounter Details Date Type Department Care Team ([facility] st Contact Info) Description 02/20/2023 Telephone [facility] MEDICINE 230 [place], [place] [phone] Kristen Hanna ANP 230 [place], [place] [phone] Med Refill Social History Tobacco Use Types [...] EDT Medication was sent to [facility] on 01/11/23 with 1 refill. * Telephone Encounter - Leatha Musa - 02/20/2023 1:24 PM EDT Tc from pt requesting med refill on Ventolin HFA 108 (90 Base) MCG/ACT inhaler documented in this encounter Plan of Treatment Upcoming Encounters Date Type Department Care Team (Late st Contact Info) Description 02/24/2025 10:15 AM EDT Office Visit [facility] MEDICINE [address] [place] [address] Kristen Hanna ANP 230 [place] [address] documented as of this encounter Visit Diagnoses Not on filedocumented in this encounter Care Teams Grievance Coordinator Relationship Specialty Start Date End Date Kristen Hanna ANP 230 [place] [address] PCP - General Family Medicine 10/23/19 documented as of this encounter
--- OUTSIDE RECORDS SUMMARY | 2025-01-14 15:50 | XMS_ITS | Encounter Summary ---
Author Organization [employer] Address [address] [facility] 7t [place] [address] Care Team Providers Care Sales Director Name Role Phone Kristen Hanna Primary Care Provider [phone] Reason for Visit * Reason Onset Date Comments Med Refill 09/08/2024 Encounter Details Date Type Department Care Team ([facility] st Contact Info) Description 09/08/2024 Refill [facility] MEDICINE 230 [place], [place] [phone] Kristen Hanna ANP 230 [place], [place] [phone] Other chronic pain Social History Tobacco Use [...] Description 02/24/2025 10:15 AM EDT Office Visit [facility] MEDICINE 230 [place] [address] Kristen Hanna ANP 230 [place] [address] documented as of this encounter Visit Diagnoses Diagnosis Other chronic pain documented in this encounter Additional Health Concerns Assessment Noted Time PHQ-9 Depression Total Score: 5 12/27/19 24 2:52 PM EDT documented as of this encounter Care Teams Sales Director Relationship Specialty Start Date End Date Kristen Hanna ANP [address] [place] [address] PCP - General Family Medicine 10/23/19 documented as of this encounter
--- OUTSIDE RECORDS SUMMARY | 2025-01-14 15:50 | XMS_ITS | Encounter Summary ---
Author Organization [employer] Address [address] [facility] 7t [place] [address] Care Team Providers Care Senior Actuarial Analyst Name Role Phone Kristen Hanna Primary Care Provider [phone] Reason for Visit * Reason Onset Date Comments Med Refill 04/22/2024 Encounter Details Date Type Department Care Team ([facility] st Contact Info) Description 04/22/2024 Refill [facility] MEDICINE 230 [place], [place] [phone] Kristen Hanna ANP 230 [place], [place] [phone] Other chronic pain Social History Tobacco Use [...] Description 02/24/2025 10:15 AM EDT Office Visit [facility] MEDICINE [address] [place] [address] Kristen Hanna ANP 230 [place] [address] documented as of this encounter Visit Diagnoses Diagnosis Other chronic pain documented in this encounter Additional Health Concerns Assessment Noted Time PHQ-9 Depression Total Score: 5 12/27/19 24 2:52 PM EDT documented as of this encounter Care Teams Senior Actuarial Analyst Relationship Specialty Start Date End Date Kristen Hanna ANP [address] [place] [address] PCP - General Family Medicine 10/23/19 documented as of this encounter
--- OUTSIDE RECORDS SUMMARY | 2025-01-14 15:50 | XMS_ITS | Encounter Summary ---
Author Organization [employer] Address [address] [facility] 7t [place] [address] Care Team Providers Care Desktop Publisher Name Role Phone Kristen Hanna Primary Care Provider [phone] Reason for Visit * Reason Onset Date Comments Prior Authorization 10/08/2023 Encounter Details Date Type Department Care Team ([facility] st Contact Info) Description 10/08/2023 Telephone [facility] MEDICINE 230 [place], [place] [phone] Kristen Hanna ANP 230 [place], [place] [phone] Prior Authorization Social History Tobacco Use Types [...] for oxy generated signed and faxed to [facility]. Awaiting response. PA scanned into chart under [...] Description 02/24/2025 10:15 AM EDT Office Visit [facility] MEDICINE 230 [place] [address] Kristen Hanna ANP 230 [place] [address] documented as of this encounter Visit Diagnoses Not on filedocumented in this encounter Additional Health Concerns Assessment Noted Time PHQ-9 Depression Total Score: 11 03/23/ 023 9:39 AM EST documented as of this encounter Care Teams Desktop Publisher Relationship Specialty Start Date End Date Kristen Hanna ANP 230 [place] [address] PCP - General Family Medicine 10/23/19 documented as of this encounter
--- OUTSIDE RECORDS SUMMARY | 2025-01-14 15:50 | XMS_ITS | Encounter Summary ---
Author Organization [employer] Address 75 [facility] 7t [place] [address] Care Team Providers Care Medicare Insurance Specialist Name Role Phone Kristen Hanna Primary Care Provider [phone] Reason for Visit * Reason Onset Date Comments Med Refill 07/30/2024 Encounter Details Date Type Department Care Team ([facility] st Contact Info) Description 07/30/2024 Refill [facility]INE 230 [place], [place] [phone] Kristen Hanna ANP 230 [place], [place] [phone] Gastroesophageal reflux disease, unspecified whether esophagitis present [...] 10:15 AM EDT Office Visit [facility]INE [address] [place] [address] Kristen Hanna ANP [address] [place] [address] documented as of this encounter Visit Diagnoses Diagnosis Gastroesophageal reflux disease, unspecified whether esophagitis present documented in this encounter Additional Health Concerns Assessment Noted Time PHQ-9 Depression Total Score: 5 12/27/19 24 2:52 PM EDT documented as of this encounter Care Teams Medicare Insurance Specialist Relationship Specialty Start Date End Date Kristen Hanna ANP [address] [place] [address] PCP - General Family Medicine 10/23/19 documented as of this encounter
--- OUTSIDE RECORDS SUMMARY | 2025-01-14 15:50 | XMS_ITS | Encounter Summary ---
Author Organization [employer] Address 75 [facility] 7t [place] [address] Care Team Providers Care Thermoscrew Operator Name Role Phone Kristen Hanna Primary Care Provider [phone] Reason for Visit * Reason Comments Med Refill Encounter Details Date Type Department Care Team ([facility] st Contact Info) Description 01/21/[address] [facility] MEDICINE 230 [place], [place] [phone] Kristen Hanna ANP 230 [place], [place] [phone] Mild persistent asthma, uncomplicated Social History Tobacco [...] Description 02/24/2025 10:15 AM EDT Office Visit [facility] MEDICINE 230 [place] [address] Kristen Hanna ANP 230 [place] [address] documented as of this encounter Visit Diagnoses Diagnosis Mild persistent asthma, uncomplicated documented in this encounter Additional Health Concerns Assessment Noted Time PHQ-9 Depression Total Score: 5 12/27/19 24 2:52 PM EDT documented as of this encounter Care Teams Thermoscrew Operator Relationship Specialty Start Date End Date Kristen Hanna ANP [address] [place] [address] PCP - General Family Medicine 10/23/19 documented as of this encounter
--- OUTSIDE RECORDS SUMMARY | 2025-01-14 15:50 | XMS_ITS | Encounter Summary ---
Author Organization [employer] Address [address] [place] [address] 7t [place] [address] Care Team Providers Care Shutdown Planner Name Role Phone Kristen Hanna Primary Care Provider [phone] Reason for Visit * Reason Onset Date Comments Lab Orders 09/22/2022 Encounter Details Date Type Department Care Team ([facility] st Contact Info) Description 09/22/2022 Telephone [facility] MEDICINE 230 [place], [place] [phone] Kristen Hanna ANP 230 [place], [place] [phone] Lab Orders Social History Tobacco Use Types [...] Miscellaneous Notes * Telephone Encounter - Leslie Nunez - 09/22/2022 8:53 AM EDT Tc from patient requesting for all active lab orders to be sent to [facility]. Patient is requesting a call back when orders have been sent due to going to [facility] twice and no orders found. documented in this encounter Plan of Treatment Upcoming Encounters Date Type Department Care Team (Late st Contact Info) Description 02/24/2025 10:15 AM EDT Office Visit [facility] MEDICINE 230 [place] [address] Kristen Hanna ANP 230 [place] [address] documented as of this encounter Visit Diagnoses Not on filedocumented in this encounter Care Teams Shutdown Planner Relationship Specialty Start Date End Date Kristen Hanna ANP [address] [place] [address] PCP - General Family Medicine 10/23/19 documented as of this encounter
--- OUTSIDE RECORDS SUMMARY | 2025-01-14 15:50 | XMS_ITS | Encounter Summary ---
Author Organization [employer] Address [address] [facility] 7t [place] [address] Care Team Providers Care Dba Name Role Phone Kristen Hanna Primary Care Provider [phone] Reason for Visit * Reason Comments Med Refill Encounter Details Date Type Department Care Team ([facility] st Contact Info) Description 12/04/2023 Refill [facility] MEDICINE 230 [place], [place] [phone] Kristen Hanna ANP 230 [place], [place] [phone] Other chronic pain Social History Tobacco Use [...] Description 02/24/2025 10:15 AM EDT Office Visit [facility] MEDICINE [address] [place] [address] Kristen Hanna ANP [address] [place] [address] documented as of this encounter Visit Diagnoses Diagnosis Other chronic pain documented in this encounter Additional Health Concerns Assessment Noted Time PHQ-9 Depression Total Score: 11 023 9:39 AM EST documented as of this encounter Care Teams Dba Relationship Specialty Start Date End Date Kristen Hanna ANP [address] [place] [address] PCP - General Family Medicine 10/23/19 documented as of this encounter
== END 2025-01-14 12:51 | disposition home or self-care (01) ==
LOC: HO.MS 12:50
PROVIDERS: PCP Nurse Practitioner Primary Care; Visit Provider Internal Medicine Cardiovascular Disease
PROC: (CPT 33286; principal; 2025-01-14 14:00)
DX: Z45.09 Encounter for adjustment and management of other cardiac device (principal); Z95.818 Presence of other cardiac implants and grafts
CPT/HCPCS: 33286; J2004

== ENCOUNTER → 2025-01-14 12:50 | Outpatient (BNV) | payer OTHER, SELFPAY | PROVIDERS: PCP Nurse Practitioner Primary Care; Visit Provider Internal Medicine Cardiovascular Disease | DX: Z45.09 Encounter for adjustment and management of other cardiac device (principal) | CPT/HCPCS: 33286 ==

== ENCOUNTER 2025-01-22 07:46 | Day surgery (SDC) | payer OTHER, SELFPAY ==
[2025-01-20 10:38] VITALS: BMI 20.9
--- NOTE | 2025-01-22 08:31 | MHC.SHP ---
Pre-Procedural Eval Section A - 24 Hr Update-Section A only Date of Service: 01/22/25 The patient is an INPATIENT: No The patient has been examined within 24 hours of the surgical procedure. The History & Physical has been completed within 30 days and I have reviewed it.: Yes Section B - Complete if H&P > 30 days Chief Complaint: anemia,gerd,fecal abnormalities Allergies: Allergies Allergy/AdvReac Type Severity Reaction Status Date / Time amoxicillin Allergy Mild unknown Verified 01/22/25 08:28 latex Allergy Unknown itching Uncoded 01/22/25 08:28 Plan Diagnosis/Plan: Unchanged I have reviewed the history and physical and performed a pertinent physical examination on my patient. No changes have occurred unless specified. Time Spent With Patient Time: Total time managing care of this patient today ____ minutes.
[2025-01-22 08:53] VITALS: BP 129/63; PULSE 58; RESP 14; TEMP 36.7; O2SAT 98; BMI 20.9
[2025-01-22] MEDS: Lactated Ringers 1,000 ML 100 ML IVCONT (08:56)
--- NOTE | 2025-01-22 09:02 | HO.ANESPROP2 ---
Documented by User: Portia Rider NP 01/20/25 13:36 HPI - Anesthesia Eval Consult details Narrative: 54 yr old male for upper endoscopy, colonoscopy Implantable loop recorder in place place for h/o syncopal episodes, PVCs; per 12/2024 [facility] cards note: There has been no significant tachyarrhythmias or pauses or av conduction abnormalities. Plan to remove the implantable loop recorder.His PVCs are reportedly better on beta tri H/O CAD with stenting: prior stent to the circumflex artery without any recurrent symptoms at this time per [facility] cards note 12/2024 [facility] Active Problems Active Problems: All Active Problems (Updated 12/24/24 @ 11:18 by Annelise Yen MD) Positive colorectal cancer screening using Cologuard test (Acute) PVC (premature ventricular contraction) (Acute) Unintentional weight loss (Acute) Abdominal pain (Acute) Anemia (Acute) Implantable loop recorder present (Acute) CAD (coronary artery disease) (Acute) GERD (gastroesophageal reflux disease) (Acute) BRBPR (bright red blood per rectum) (Acute) Arthritis of right acromioclavicular joint (Acute) Right rotator cuff tendinitis (Acute) Acromioclavicular joint arthritis (Acute) Chronic constipation (Acute) Past Medical History Medical History CAD (coronary artery disease) On beta tri at home NSTEMI (non-ST elevated myocardial infarction) GERD (gastroesophageal reflux disease) Acid reflux Collapsed lung Family History Family History Mother Diverticulitis HTN (hypertension) Brother Diverticulitis Brother Diverticulitis HTN (hypertension) Brother Diverticulitis HTN (hypertension) Diabetes Brother Diverticulitis Sister HTN (hypertension) Sister Diverticulitis HTN (hypertension) Diabetes Sister HTN (hypertension) Family/Other Cancer Surgical History Surgical History Stented coronary artery History of esophagogastroduodenoscopy (EGD) History of foot surgery Social History Social History Household Members: Family Housing: Apartment Are you a primary small animal caretaker to a significant other at home: No Do you presently have visiting nurse or other home services: No Alcohol intake: former Patient Tobacco Use Status: Current everyday Tobacco user Tobacco use type: Cigarette Cigarettes Per Day: 3 Years Smoked: 30+/- Use of substances other than those prescribed or required for medical reasons: No Substance Use Type: Marijuana Substance Use Frequency: Daily Have you been hit, kicked, punched, or otherwise hurt by someone within the past year? If so, by whom?: No Are you DNR?: No Advance Directives: No Advance Directives Information Provided: Yes Poor oral hygiene: No service: No Current occupational status: disabled Meds Allergies Allergy/AdvReac Type Severity Reaction Status Date / Time amoxicillin Allergy Mild Hives Verified 01/22/25 08:52 latex Allergy Mild itching Uncoded 01/22/25 08:52 Home Medications ?Medication ?Instructions ?Recorded ?Confirmed ?Last Taken ?Type albuterol sulfate 90 mcg/actuation 2 puff PO Q4-6H PRN Wheezing 09/22/21 01/22/25 Unknown History aerosol inhaler (ProAir HFA) oxycodone-acetaminophen 10 mg-325 1 tab PO QID PRN Pain (Scale Score 05/28/24 01/22/25 Unknown History mg tablet 1-3) Exam Height,Weight and Vital Signs: Height 5 ft 10 in Weight 65.998 kg Narrative Narrative: EKG 05/2024 Sinus yulia; no acute ST-T wave changes, rate 51 ECHO 12/2023 Conclusions: - Normal study with mild dilatation of the aortic root Documented by User: Angi Murphy DO 01/22/25 09:03 [facility] Past Medical History Medical History CAD (coronary artery disease) On beta tri at home NSTEMI (non-ST elevated myocardial infarction) GERD (gastroesophageal reflux disease) Acid reflux Collapsed lung Family History Family History Mother Diverticulitis HTN (hypertension) Brother Diverticulitis Brother Diverticulitis HTN (hypertension) Brother Diverticulitis HTN (hypertension) Diabetes Brother Diverticulitis Sister HTN (hypertension) Sister Diverticulitis HTN (hypertension) Diabetes Sister HTN (hypertension) Family/Other Cancer Family history of problems with anesthesia: No Surgical History Surgical History Stented coronary artery History of esophagogastroduodenoscopy (EGD) History of foot surgery History of Problems with Anesthesia: No Social History Social History Household Members: Family Housing: Apartment Are you a primary small animal caretaker to a significant other at home: No Do you presently have visiting nurse or other home services: No Alcohol intake: former Patient Tobacco Use Status: Current everyday Tobacco user Tobacco use type: Cigarette Cigarettes Per Day: 3 Years Smoked: 30+/- Use of substances other than those prescribed or required for medical reasons: No Substance Use Type: Marijuana Substance Use Frequency: Daily Have you been hit, kicked, punched, or otherwise hurt by someone within the past year? If so, by whom?: No Are you DNR?: No Advance Directives: No Advance Directives Information Provided: Yes Poor oral hygiene: No service: No Current occupational status: disabled Meds Allergies Allergy/AdvReac Type Severity Reaction Status Date / Time amoxicillin Allergy Mild Hives Verified 01/22/25 08:52 latex Allergy Mild itching Uncoded 01/22/25 08:52 Home Medications ?Medication ?Instructions ?Recorded ?Confirmed ?Last Taken ?Type albuterol sulfate 90 mcg/actuation 2 puff PO Q4-6H PRN Wheezing 09/22/21 01/22/25 Unknown History aerosol inhaler (ProAir HFA) oxycodone-acetaminophen 10 mg-325 1 tab PO QID PRN Pain (Scale Score 05/28/24 01/22/25 Unknown History mg tablet 1-3) Exam Exam Date and Time: 01/22/25 0855 Height,Weight and Vital Signs: Height 5 ft 10 in Weight 65.998 kg Vital Signs Temperature 98.0 F 01/22/25 08:53 Pulse Rate 58 01/22/25 08:53 Respiratory Rate 14 01/22/25 08:53 Blood Pressure 129/63 01/22/25 08:53 Pulse Oximetry 98 01/22/25 08:53 Oxygen Delivery Method Room Air 01/22/25 08:53 Temperature 98.0 F 01/22/25 08:53 Pulse Rate 58 01/22/25 08:53 Respiratory Rate 14 01/22/25 08:53 Blood Pressure 129/63 01/22/25 08:53 Pulse Oximetry 98 01/22/25 08:53 Oxygen Delivery Method Room Air 01/22/25 08:53 Airway Mallampati Class: I TM Dist: >3cm Neck ROM: Full Loose/Missing/Broken Teeth: Yes (multiple broken and missing teeth) Heart: S1S2 Lungs: CTAB Assessment and Plan Assessment Anesthesia Assessment: Anesthesia Plan Discussed and Chart Reviewed Final Anesthetic Review Family History of Problems with Anesthesia: No History of Problems with Anesthesia: No NPO: Yes ASA Class: III Final Preanesthetic Review: No Changes in Pt Med Stat, Meds/Allgs Chart Reviewed, Consent Obtained/Reviewed and Anes Risks/Benef Reviewed Patient Risk: Low Procedure Risk: Low Anesthetic Plan Anesthetic Plan: MAC: and Agree w/ Assess. and Plan Disposition: Standard PACU
--- NOTE | 2025-01-22 10:12 | P.OPN-COLO_ITS ---
Colonoscopy Operative Note Operative Note Date of Service: 01/22/25 Narrative: Procedure: Upper endoscopy and colonoscopy Indication: GERD, pos cologuard Endoscopist: Annelise Yen MD Anesthesia Provider: Amy Negrete CRNA Anesthesia type: MAC Instrument: [id number] and [id number] EGD Procedure:?? The procedure, indications, preparation and potential complications were reviewed with the patient, who indicated understanding and gave written informed consent to proceed. The endoscope was introduced through the mouth, and advanced to the 2nd part of the duodenum. The mucosa was carefully examined on slow withdrawal of the endoscope. The patient tolerated the procedure well. There were no immediate complications.? EGD Findings:? * Esophagus:? Normal esophageal mucosa was noted. The Z-line was at 40 cm. * Stomach:? Normal gastric mucosa. Retroflexion was performed in the cardia. Random cold forceps biopsies were taken from the stomach. * Duodenum:? Erythema and erosions in the duodenal bulb. Cold forceps biopsies were taken for histology. Colonoscopy Procedure:? The patient was then turned for the colonoscopy. A digital rectal exam was performed which was normal.? A distal attachment cap was affixed to the tip of t he scope and the colonoscope was then inserted through the anus and advanced through the colon and advanced to the cecum at 75 cm and terminal ileum.? Appendiceal orifice and ileocecal valve were identified. Mucosa was carefully examined under high definition white light as the instrument was slowly withdrawn in a retrograde panoramic fashion. Retroflexion was performed in rectum. The procedure was not difficult. The quality of the prep was BBPS: 2+2+2 = adequate Withdrawal time 13 minutes Limitations: No limitations Findings: Mucosa: Normal colon and terminal ileum mucosa. Protruding lesions: * 1 sessile polyp of size 12 mm (Apulette classification 0-IIa) in hepatic flexure. 2 cc of epinephrine was injected in the base of the polyp. Hot snare polypectomy was performed. The polyp was removed en-bloc and completely retrieved. The polypectomy defect was closed with resolution 360 clip to prevent post-polypectomy bleeding. The site was marked with endo kulwant 5 cm DISTAL to the polyp. * 1 sessile polyp of size 4 mm in transverse colon. Cold snare polypectomy was performed. The polyp was completely removed and retrieved. * 1 pedunculated polyp of size 8 mm noted in the sigmoid colon at 30 cm. 1 cc of epinephrine was injected in the stalk of the polyp. Hot snare polypectomy was found. The polyp was completely removed and retrieved. The polypectomy defect was closed with resolution 360 clip to prevent post-polypectomy bleeding. * DISTAL to the polyp. * 1 sessile polyp of size 3 mm in sigmoid colon. Cold snare polypectomy was performed. The polyp was completely removed and retrieved. * Medium internal hemorrhoids without stigmata of recent bleeding. Excavated lesions: * Mild diverticulosis of sigmoid colon. Impression: 1. Normal esophagus 2. Normal stomach (biopsy) 3. Duodenitis (biopsy) 4. Normal colon and terminal ileum mucosa 5. Total of 4 polyps removed (hot snare, epinephrine, endoclip, Endomark) 6. Diverticulosis 7. Internal hemorrhoids Recommendations:?? * Follow-up path results * Avoid NSAIDs * Cont esomeprazole and famotidine * Avoid smoking and alcohol * H Pylori treatment if biopsies + * Timing of repeat colonoscopy contingent on results
[2025-01-22 10:17] VITALS: BP 147/92; PULSE 60; RESP 15; TEMP 36.6; O2SAT 100
[2025-01-22 10:32] VITALS: BP 151/89; PULSE 60; RESP 16; O2SAT 100
[2025-01-22 10:47] VITALS: BP 148/78; PULSE 63; RESP 16; TEMP 36.6; O2SAT 99
== END 2025-01-22 11:15 | disposition home or self-care (01) ==
PROVIDERS: PCP Nurse Practitioner Primary Care; Visit Provider Internal Medicine
PROC: (CPT 45385; principal; 2025-01-22 10:10)
DX: R19.5 Other fecal abnormalities (principal); D64.9 Anemia, unspecified; D12.3 Benign neoplasm of transverse colon; D12.5 Benign neoplasm of sigmoid colon; K57.30 Diverticulosis of large intestine without perforation or abscess without bleeding; K64.8 Other hemorrhoids; K21.9 Gastro-esophageal reflux disease without esophagitis; K29.80 Duodenitis without bleeding; I25.10 Atherosclerotic heart disease of native coronary artery without angina pectoris; I25.2 Old myocardial infarction; I49.3 Ventricular premature depolarization; J44.9 Chronic obstructive pulmonary disease, unspecified; Z79.01 Long term (current) use of anticoagulants; Z79.1 Long term (current) use of non-steroidal anti-inflammatories (NSAID); Z79.899 Other long term (current) drug therapy; Z88.1 Allergy status to other antibiotic agents; Z91.040 Latex allergy status; Z87.891 Personal history of nicotine dependence
CPT/HCPCS: 45385; 45381; 43239; 88305; 88313; 88342; J2003; J2250; J2704; J3010

== ENCOUNTER → 2025-01-22 07:46 | Outpatient (BNV) | payer OTHER, SELFPAY | PROVIDERS: PCP Nurse Practitioner Primary Care; Visit Provider Internal Medicine | DX: Z12.11 Encounter for screening for malignant neoplasm of colon (principal); R19.5 Other fecal abnormalities; D12.3 Benign neoplasm of transverse colon; D12.5 Benign neoplasm of sigmoid colon; K57.30 Diverticulosis of large intestine without perforation or abscess without bleeding; K64.8 Other hemorrhoids | CPT/HCPCS: 45381; 45385 ==

== ENCOUNTER 2025-01-29 09:24 | Outpatient (AMB) | payer OTHER, SELFPAY ==
[2025-01-29 09:43] VITALS: BP 124/72; PULSE 54; BMI 21.4
--- NOTE | 2025-01-29 09:43 | MHC.OFFVIS ---
Vital Signs 01/29/25 09:43 Height 5 ft 10 in Weight 149 lb 7.574 oz BMI 21.4 BP 124/72 Blood Pressure Location Lt brachial Position Sitting Pulse 54 Pulse Source Pulse Oximeter Intake Visit Reasons: wound ck Typo Machine Operator Required: No Allergies amoxicillin Allergy (Mild, Verified 01/29/25 09:46) Hives latex Allergy (Mild, Uncoded 01/29/25 09:46) itching Medication List - Last Reconciled 01/29/25 by Yolis Paez, MINO-C albuterol sulfate 90 mcg/actuation (ProAir HFA) 2 puffs PO Q4-6H PRN aspirin 81 mg PO QAM atorvastatin 40 mg PO BEDTIME esomeprazole magnesium 20 mg PO DAILY 90 days famotidine (Pepcid) 20 mg PO BEDTIME 90 days metoprolol tartrate 25 mg PO BID 90 days oxycodone-acetaminophen 10-325 mg 1 tab PO QID PRN PFSH Medical History (Updated 01/29/25 @ 11:40 by Yolis Paez, MINO-C) CAD (coronary artery disease) On beta tri at home NSTEMI (non-ST elevated myocardial infarction) GERD (gastroesophageal reflux disease) Acid reflux Collapsed lung Surgical History (Updated 01/29/25 @ 11:40 by Yolis Paez NP-C) Stented coronary artery History of esophagogastroduodenoscopy (EGD) History of foot surgery Family History Mother Diverticulitis HTN (hypertension) Brother Diverticulitis Brother Diverticulitis HTN (hypertension) Brother Diverticulitis HTN (hypertension) Diabetes Brother Diverticulitis Sister HTN (hypertension) Sister Diverticulitis HTN (hypertension) Diabetes Sister HTN (hypertension) Family/Other Cancer Social History Household Members: Family Housing: Apartment Are you a primary career and transition teacher to a significant other at home: No Do you presently have visiting nurse or other home services: No Alcohol intake: former Patient Tobacco Use Status: Current everyday Tobacco user Tobacco use type: Cigarette Cigarettes Per Day: 3 Years Smoked: 30+/- Substance Use Type: Marijuana service: No Current occupational status: disabled Review of Systems Const All systems reviewed & are unremarkable except as noted in HPI and below ENT Denies dizziness Card Details: Dressing over ILR removal site intact and getting itchy Denies chest pain, Denies chest pain at rest, Denies chest pain with activity, Denies rapid heart rate, Denies pedal edema, Denies edema, Denies leg edema, Denies lightheadedness, Denies palpitations, Denies dyspnea, Denies dyspnea on exertion and Denies orthopnea Resp Denies cough, Denies dyspnea and Denies dyspnea on exertion GI Denies hematochezia and Denies change in stool character Musc Denies abnormal gait, Denies limited range of motion, Denies muscle cramps, Denies muscle weakness, Denies numbness, Denies radiating pain into limb, Denies stiffness and Denies tingling Neuro Denies abnormal gait, Denies dizziness, Denies numbness and Denies tingling Endo Denies palpitations Physical Exam Vital Signs: Last Vital Signs Pulse 54 01/29/25 09:43 BP 124/72 01/29/25 09:43 BMI result Body Mass Index 21.4 Const General: cooperative, healthy appearing, comfortable and no acute distress Orientation/consciousness: patient oriented x3 Chest Other: Outer dressing removed from ILR removal site. Steri-Strips intact, gently removed. Small incision line well approximated and healed. No signs of infection. Chest palpation & inspection: normal inspection of the chest Resp Effort & Inspection: normal respiratory effort Auscultation: clear to auscultation bilaterally, no rales, no rhonchi and no wheezes Cardio Rate: regular rate Rhythm: regular rhythm Heart sounds: S1 normal heart sound present, S2 normal heart sound present, no gallops, no murmurs and no rubs Neuro General: patient oriented x3 Extrem General: Yes normal to inspection Psych Appearance: grossly normal Mental Status: mental status grossly normal Speech and movement: Normal speech and movement present Assessment & Plan Assessment & Plan (1) Visit for wound check: Code(s): Z51.89 - Encounter for other specified aftercare Category: Medical Plan: Implanted loop recorder removed on 01/14/2025. Wound check today shows site is fully healed, well approximated, no sign of infection or problems. (2) CAD (coronary artery disease): Code(s): I25.10 - Atherosclerotic heart disease of [place] coronary artery without angina pectoris Category: Medical Plan: History of CAD with LCX stent. Currently denying anginal symptoms. Continue aspirin indefinitely. Continue atorvastatin with ideal LDL goal less than 70. Continue metoprolol. Signs and symptoms of angina reviewed. Cardiology follow-up scheduled for 12/2025, sooner if needed. (3) PVC (premature ventricular contraction): Code(s): I49.3 - Ventricular premature depolarization Category: Medical Plan: History of PVCs. Currently denying heart palpitations. Continue metoprolol. (4) Stented coronary artery: Comment: 10/27/21 LAD mild diffuse disease, mid 40% stenosis, left circumflex mild diffuse disease, mid 90% stenosis, culprit lesion, GLENNA placed, RCA minimal luminal irregularities, mid proximal subsection 60% stenosis Code(s): Z95.5 - Presence of coronary angioplasty implant and graft Category: Surgical Plan: As above Plan Time spent on chart review, documentation, interview and assessment Coding Level of Care Code Est Pt Level 3 (23740) Diagnoses Visit for wound check Z51.89 CAD (coronary artery disease) I25.10 PVC (premature ventricular contraction) I49.3 Stented coronary artery Z95.5
--- OUTSIDE RECORDS SUMMARY | 2025-01-29 10:34 | XMS_ITS | Patient Health Record ---
Author Organization [facility] Address [address] [place] [id number] Care Team Providers Care Drill Press Set Up Operator Name Role Phone Romulo BARBOSA, Boyd Primary Care Provider Manas Roe Unavailable [phone] Reason For Referral No Information Medications Medication SIG (Take, Route, Fr equency, Duration) Notes Start Date End Date Status Protonix 05/07/2024 05/07/2024 Active hydrOXYzine HCl Acti ve Percocet Active Problems Problem Type SNOMED Code ICD Code Onset Dates Problem Status W/U Status Risk Notes Problem Esophageal reflux (375610432) Esophageal reflux (530.81) Active confirmed Problem Epigastric pain (08462282) Abdominal pain, epigastric (789.06) Active confirmed Plan Of Treatment No Information Insurance Providers Payer Name Payer Address Payer Phone Subscriber Number Group Number Insured Name Patient Relationship to Insured Coverage Start Date Coverage End Date [employer] [address] [place], [place] [id number] ADAMA WOODRUFF Self - patient is the insured Medical (General) History Medical History History ICD Code GERD Anxiety Denies [place],DM,CVA,Lung disease,renal dise ase asthma Surgical History Surgery Date(Month/Year) Foot surgery Pneumothorax
== END 2025-01-29 10:58 | disposition home or self-care (01) ==
LOC: HO.HCS 09:24
PROVIDERS: PCP Nurse Practitioner Primary Care; Visit Provider Nurse Practitioner Family
DX: Z51.89 Encounter for other specified aftercare (principal); I25.10 Atherosclerotic heart disease of native coronary artery without angina pectoris; I49.3 Ventricular premature depolarization; Z95.5 Presence of coronary angioplasty implant and graft
CPT/HCPCS: 99213

== ENCOUNTER → 2025-01-29 09:24 | Outpatient (BNVA) | payer OTHER, SELFPAY | PROVIDERS: PCP Nurse Practitioner Primary Care; Visit Provider Nurse Practitioner Family | DX: Z51.89 Encounter for other specified aftercare (principal); I25.10 Atherosclerotic heart disease of native coronary artery without angina pectoris; I49.3 Ventricular premature depolarization; Z95.5 Presence of coronary angioplasty implant and graft | CPT/HCPCS: 99212 ==

== ENCOUNTER 2025-03-16 09:37 | Outpatient (REF) | payer OTHER, SELFPAY ==
--- OUTSIDE RECORDS SUMMARY | 2025-03-16 09:15 | XMS_ITS | Encounter Summary ---
Author Organization [employer] Address [address] [facility] [address] [place] [address] Care Team Providers Care Supervisor Cereal Name Role Phone Jacques Kristen FLEMING Primary Care Provider [phone] Encounter Details Date Type Department Care Team (Late st Contact Info) Description 03/16/2025 9:15 AM EST Office Visit [facility] [address] [place], [place] [phone] Temi Araujo MD [address] [place], [place] [phone] Preoperative examination (Primary Dx) Social History Tobacco Use Types Packs/Day Years [...] housing situation today? I have facundo wu 02/24/[address] you li ve. Do you have problems with any of the following? None of the above 02/24/2025 Food Insecurity Answer Date Recorded Within the past 12 months, y ou worried that your food would run out before you got money to buy more: Never True 02/24/2025 Within the past 12 months,th e food you bought just didn't last and you didn't have enough money to get more: Never True Transportation Answer Date Recorded In the past 12 months, has l ack of transportation kept you from medical appts, meetings, work or from getting things needed for daily living? No 02/24/2025 Utilities Answer Date Recorded In the past 12 months, has t he electric, gas, oil or water company threatened to shut off services in your home? No 02/24/2025 Depression Answer Date Recorded Patient Health Questionnaire-2 Score 2 12/27/2023 Internet Access Answer Date Recorded Internet Access Q1 Yes 02/24/2025 Internet Access Q2 Not on file 02/24/2025 Sex and Gender Information Value Date Recorded Sex Assigned at Male 03/06/2022 10:29 AM EDT Legal Sex Male 10:29 AM EDT Gender Identity Male 03/06/2022 10:29 AM EDT Sexual Orientation Choose not to disclose 2021 10:29 AM EDT documented as of this encounter Last Filed Vital Signs Vital Sign Reading Time Taken Comments Blood Pressure 130/66 03/16/2025 9:09 AM EST Pulse 52 03/16/2025 9:09 AM EST Temperature 36.2 C (97.1 F) 03/16/2025 9:09 AM EST Respiratory Rate 16 03/16/2025 9:09 AM EST Oxygen Saturation - - Inhaled Oxygen Concentration - - Weight 69.3 kg (152 lb 12.8 oz) 03/16/2025 9:09 AM EST Height 177.8 cm (5' 10 ) 03/16/2025 9:09 AM EST Body Mass Index 21.92 03/16/2025 9:09 AM EST documented in this encounter Miscellaneous Notes * Assessment & Plan Note - Temi Araujo MD - 03/16/2025 9:45 AM EST Associated Problem(s): Preoperative examination 55 yo patient with multiple medical conditions here for preop evaluation. xxxxxxxxxxxxxxxxxxxxxxxxxxxxxxxxxxxxxxxxxxxxxxxxxxxxxxxxxxxxxxxxx Most of her/his medical conditions are stable enough so that she/he can safely undergo planned procedure. He is a LOW risk patient. His CAD is stable in current meds and he doesn't have exertional CP/MILES. He's undergoing an LOW risk procedure. The risk of CV complication according to RCRI is 1.1%. XXXXXXXXXXXXX AT THIS TIME HE IS IN OPTIMAL CONDITION FOR PLANNED PROCEDURExxxxxxxxxxxxxxxx -Meds adjusted for the day of surgery: Hold Nexium only, he will take all other meds with a sip of water on the day of the procedure, including ASA. We discussed about additional pressure on precautions in case of postop bleeding because of ASA Rx, additional precautions as per surgery -He will call back ADDY should he develops fever, cough, SOB, CP, UTI sxs or any other acute issueXXXXXXXXXXXXXXXXXXXXXXXXXXXXXXXXXXXXXXXXXX documented in this encounter Plan of Treatment Upcoming Encounters Date Type Department Care Team (Late st Contact Info) Description 07/03/2025 9:00 AM EST Clinical Support [facility] [address] [place] [address] Naty Barth, LUIS [address] [place], [place] [phone] Scheduled Orders Name Type Priority Associated Diagnoses Orde r Schedule CBC auto differential Lab Routine Preoperative examination Expected: 03/16/2025 (Approximate), Expires: 03/16/2026 Basic Metabolic Panel Lab Routine Preoperative examination Expected: 03/16/2025 (Approximate), Expires: 03/16/2026 Prothrombin Time-INR Lab Routine Preoperative examination Expected: 03/16/2025, Expires: 03/16/2026 documented as of this encounter Procedures Procedure Name Priority Date/Time Associated Diagnosis Comments ECG 12-LEAD Routine 03/16/2025 9:46 AM EST Preoperative examination documented in this encounter Results * ECG 12 lead (03/16/2025 9:46 AM EST) Narrative Temi Araujo MD - 03/16/2025 9:46 AM EST NSR@52 bpm, normal axis. No ST/T abn. Normal EKG us Temi Araujo MD ECG ORDERABLES Final Re sult documented in this encounter Visit Diagnoses Diagnosis Preoperative examination- Primary Unspecified pre-operative examination documented in this encounter Additional Health Concerns Assessment Noted Time PHQ-9 Depression Total Score: 5 12/27/19 24 2:52 PM EDT documented as of this encounter Care Teams Supervisor Cereal Relationship Specialty Start Date End Date Kristen Hanna ANP [address] [place] [address] PCP - General Family Medicine 10/23/19 documented as of this encounter
--- OUTSIDE RECORDS SUMMARY | 2025-03-16 10:56 | XMS_ITS | Encounter Summary ---
Author Organization [employer] Address [address] [facility] [address] [place] [address] Care Team Providers Care Reliability Engineer Name Role Phone Kristen Hanna Primary Care Provider [phone] Reason for Visit * Reason Onset Date Comments Med Refill 09/08/2024 Encounter Details Date Type Department Care Team ([facility] st Contact Info) Description 09/08/2024 Refill [facility] [address] [place], [place] [phone] Kristen Hanna ANP [address] [place], [place] [phone] Other chronic pain Social History Tobacco Use [...] Description 07/03/2025 9:00 AM EST Clinical Support [facility] [address] [place] [id number] Naty Barth, LUIS [address] [place] [address] documented as of this encounter Visit Diagnoses Diagnosis Other chronic pain documented in this encounter Additional Health Concerns Assessment Noted Time PHQ-9 Depression Total Score: 5 12/27/19 24 2:52 PM EDT documented as of this encounter Care Teams Reliability Engineer Relationship Specialty Start Date End Date Kristen Hanna ANP [address] [place] [id number] PCP - General Family Medicine 10/23/19 documented as of this encounter
--- OUTSIDE RECORDS SUMMARY | 2025-03-16 10:56 | XMS_ITS | Encounter Summary ---
Author Organization [employer] Address 75 [facility] 7t [place] [address] Care Team Providers Care Beater Worker Helper Name Role Phone Kristen Hanna Primary Care Provider [phone] Reason for Visit * Reason Onset Date Comments Med Refill 09/03/2024 Encounter Details Date Type Department Care Team ([facility] st Contact Info) Description 09/03/2024 Refill [facility] 230 [place], [place] [phone] Kristen Hanna ANP 230 [place], [place] [phone] Other chronic pain Social History Tobacco Use [...] Description 07/03/2025 9:00 AM EST Clinical Support [facility] MED[facility]INE [address] [place] [address] Naty Barth, LUIS 505 [place] [address] documented as of this encounter Visit Diagnoses Diagnosis Other chronic pain documented in this encounter Additional Health Concerns Assessment Noted Time PHQ-9 Depression Total Score: 5 12/27/19 24 2:52 PM EDT documented as of this encounter Care Teams Beater Worker Helper Relationship Specialty Start Date End Date Kristen Hanna ANP [address] [place] [address] PCP - General Family Medicine 10/23/19 documented as of this encounter
--- OUTSIDE RECORDS SUMMARY | 2025-03-16 10:56 | XMS_ITS | Encounter Summary ---
Author Organization [employer] Address 75 [facility] 7t [place] [address] Care Team Providers Care Personal Injury Litigation Paralegal Name Role Phone Kristen Hanna Primary Care Provider [phone] Reason for Visit * Reason Comments Med Refill Encounter Details Date Type Department Care Team ([facility] st Contact Info) Description 11/05/2023 Refill [facility] 230 [place], [place] [phone] Kristen Hanna ANP 230 [place], [place] [phone] Mild persistent asthma, uncomplicated Social History Tobacco [...] Description 07/03/2025 9:00 AM EST Clinical Support [facility] [address] [place] [address] Naty Barth RN 505 [place] [address] documented as of this encounter Visit Diagnoses Diagnosis Mild persistent asthma, uncomplicated documented in this encounter Additional Health Concerns Assessment Noted Time PHQ-9 Depression Total Score: 11 023 9:39 AM EST documented as of this encounter Care Teams Personal Injury Litigation Paralegal Relationship Specialty Start Date End Date Kristen Hanna ANP 230 [place] [address] PCP - General Family Medicine 10/23/19 documented as of this encounter
--- OUTSIDE RECORDS SUMMARY | 2025-03-16 10:56 | XMS_ITS | Encounter Summary ---
Author Organization [employer] Address [address] [facility] [address] 7t [place] [address] Care Team Providers Care Systems Mechanic Name Role Phone Jacques Kristen FLEMING Primary Care Provider [phone] Encounter Details Date Type Department Care Team (Latest Contact Info) Description 03/16/2025 Travel Social History Tobacco Use Types Packs/Day [...] 07/03/2025 9:00 AM EST Clinical Support [facility] MEDICINE 230 [place] [address] Naty Barth, RN 505 [place] [address] documented as of this encounter Visit Diagnoses Not on filedocumented in this encounter Additional Health Concerns Assessment Noted Time PHQ-9 Depression Total Score: 5 12/27/19 24 2:52 PM EDT documented as of this encounter Care Teams Systems Mechanic Relationship Specialty Start Date End Date Kristen Hanna ANP 230 [place] [address] PCP - General Family Medicine 10/23/19 documented as of this encounter
--- OUTSIDE RECORDS SUMMARY | 2025-03-16 10:56 | XMS_ITS | Encounter Summary ---
Author Organization [employer] Address [address] [facility] [address] 7t [place] [address] Care Team Providers Care Beef Cattle Farm Manager Name Role Phone Kristen Hanna Primary Care Provider Encounter Details Date Type Department Care Team (Late st Contact Info) Description 04/03/2023 Telephone [facility]INE 230 [place], [place] [phone] Kristen Hanna ANP 230 [place], [place] [phone] Social History Tobacco Use Types Packs/Day Years [...] Description 07/03/2025 9:00 AM EST Clinical Support [facility] 230 [place] [address] Naty Barth RN 505 [place] [address] documented as of this encounter Visit Diagnoses Not on filedocumented in this encounter Additional Health Concerns Assessment Noted Time PHQ-9 Depression Total Score: 11 023 9:39 AM EST documented as of this encounter Care Teams Beef Cattle Farm Manager Relationship Specialty Start Date End Date Kristen Hanna ANP [address] [place] [address] PCP - General Family Medicine 10/23/19 documented as of this encounter
--- OUTSIDE RECORDS SUMMARY | 2025-03-16 10:56 | XMS_ITS | Encounter Summary ---
Author Organization [employer] Address 75 [facility] 7t [place] [address] Care Team Providers Care Spool Carrier Name Role Phone Kristen Hanna Primary Care Provider [phone] Reason for Visit * Reason Onset Date Comments Med Refill 02/27/2023 Encounter Details Date Type Department Care Team ([facility] st Contact Info) Description 02/27/2023 Telephone [facility]INE 230 [place], [place] [phone] Kristen Hanna ANP 230 [place], [place] [phone] Med Refill Social History Tobacco Use Types [...] Description 07/03/2025 9:00 AM EST Clinical Support [facility] 230 [place] [address] Naty Barth, LUIS 505 [place] [address] documented as of this encounter Visit Diagnoses Not on filedocumented in this encounter Care Teams Spool Carrier Relationship Specialty Start Date End Date Kristen Hanna ANP 230 [place] [address] PCP - General Family Medicine 10/23/19 documented as of this encounter
--- OUTSIDE RECORDS SUMMARY | 2025-03-16 10:56 | XMS_ITS | Encounter Summary ---
Author Organization [employer] Address 75 [facility] 7t [place] [address] Care Team Providers Care Travel Counselor Automobile Club Name Role Phone Kristen Hanna Primary Care Provider [phone] Reason for Visit * Reason Onset Date Comments Med Refill 02/20/2023 Encounter Details Date Type Department Care Team ([facility] st Contact Info) Description 02/20/2023 Telephone [facility] MEDICINE 230 [place], [place] [phone] Kristen Hanna ANP 230 [place], [place] [phone] Med Refill Social History Tobacco Use Types [...] 1:26 PM EDT Medication was sent to [facility] on 01/11/23 with 1 refill. * Telephone Encounter - Leatha Musa - 02/20/2023 1:24 PM EDT Tc from pt requesting med refill on Ventolin HFA 108 (90 Base) MCG/ACT inhaler documented in this encounter Plan of Treatment Upcoming Encounters Date Type Department Care Team (Late st Contact Info) Description 07/03/2025 9:00 AM EST Clinical Support [facility] MEDICINE [address] [place] [address] Naty Barth RN 505 [place] [address] documented as of this encounter Visit Diagnoses Not on filedocumented in this encounter Care Teams Travel Counselor Automobile Club Relationship Specialty Start Date End Date Kristen Hanna ANP [address] [place] [address] PCP - General Family Medicine 10/23/19 documented as of this encounter
--- OUTSIDE RECORDS SUMMARY | 2025-03-16 10:56 | XMS_ITS | Encounter Summary ---
Author Organization [employer] Address 75 [facility] 7t [place] [address] Care Team Providers Care Trans Router Name Role Phone Kristen Hanna Primary Care Provider [phone] Reason for Visit * Reason Comments Med Refill Encounter Details Date Type Department Care Team ([facility] st Contact Info) Description 07/16/2023 Refill [facility] MEDICINE 230 [place], [place] [phone] Kristen Hanna ANP 230 [place], [place] [phone] Other chronic pain Social History Tobacco Use [...] Description 07/03/2025 9:00 AM EST Clinical Support [facility] MEDICINE [address] [place] [address] Naty Barth RN 505 [place] [address] documented as of this encounter Visit Diagnoses Diagnosis Other chronic pain documented in this encounter Additional Health Concerns Assessment Noted Time PHQ-9 Depression Total Score: 11 023 9:39 AM EST documented as of this encounter Care Teams Trans Router Relationship Specialty Start Date End Date Kristen Hanna ANP 230 [place] [address] PCP - General Family Medicine 10/23/19 documented as of this encounter
--- OUTSIDE RECORDS SUMMARY | 2025-03-16 10:56 | XMS_ITS | Encounter Summary ---
Author Organization [employer] Address [address] [facility] [address] 7t [place] [address] Care Team Providers Care Orthopedic Surgeon Name Role Phone Kristen Hanna Primary Care Provider [phone] Reason for Visit * Reason Comments Med Refill Encounter Details Date Type Department Care Team ([facility] Contact Info) Description 01/21/2025 Refill [facility] & PEDS [address] [place], [place] [phone] Kristen Hanna ANP 230 [facility] [place] [address] Other chronic pain Social History Tobacco Use [...] Clinical Support [facility] MEDICINE 230 [place] [address] Naty Barth RN 505 [place] [address] documented as of this encounter Visit Diagnoses Diagnosis Other chronic pain documented in this encounter Additional Health Concerns Assessment Noted Time PHQ-9 Depression Total Score: 5 12/27/19 24 2:52 PM EDT documented as of this encounter Care Teams Orthopedic Surgeon Relationship Specialty Start Date End Date Kristen Hanna ANP 230 [place] [address] PCP - General Family Medicine 10/23/19 documented as of this encounter
--- OUTSIDE RECORDS SUMMARY | 2025-03-16 10:56 | XMS_ITS | Encounter Summary ---
Author Organization [employer] Address 75 [facility] 7t [place] [address] Care Team Providers Care Senior Solutions Architect Name Role Phone Kristen Hanna Primary Care Provider [phone] Reason for Visit * Reason Comments Med Refill Encounter Details Date Type Department Care Team ([facility] st Contact Info) Description 05/22/2023 Refill [facility] 230 [place], [place] [phone] Kristen Hanna ANP 230 [place], [place] [phone] Other chronic pain Social History Tobacco Use [...] 9:00 AM EST Clinical Support [facility]INE [address] [place] [address] Naty Barth RN 505 [place] [address] documented as of this encounter Visit Diagnoses Diagnosis Other chronic pain documented in this encounter Additional Health Concerns Assessment Noted Time PHQ-9 Depression Total Score: 11 023 9:39 AM EST documented as of this encounter Care Teams Senior Solutions Architect Relationship Specialty Start Date End Date Kristen Hanna ANP 230 [place] [address] PCP - General Family Medicine 10/23/19 documented as of this encounter
--- OUTSIDE RECORDS SUMMARY | 2025-03-16 10:56 | XMS_ITS | Encounter Summary ---
Author Organization [employer] Address 75 [facility] 7t [place] [address] Care Team Providers Care Math Professor Name Role Phone Kristen Hanna Primary Care Provider [phone] Reason for Visit * Reason Comments Med Refill Encounter Details Date Type Department Care Team ([facility] st Contact Info) Description 04/24/2023 Refill [facility] MEDICINE 230 [place], [place] [phone] Kristen Hanna ANP 230 [place], [place] [phone] Other chronic pain Social History Tobacco Use [...] Description 07/03/2025 9:00 AM EST Clinical Support [facility] MEDICINE [address] [place] [address] Naty Barth RN 505 [place] [address] documented as of this encounter Visit Diagnoses Diagnosis Other chronic pain documented in this encounter Additional Health Concerns Assessment Noted Time PHQ-9 Depression Total Score: 11 023 9:39 AM EST documented as of this encounter Care Teams Math Professor Relationship Specialty Start Date End Date Kristen Hanna ANP 230 [place] [address] PCP - General Family Medicine 10/23/19 documented as of this encounter
--- OUTSIDE RECORDS SUMMARY | 2025-03-16 10:56 | XMS_ITS | Encounter Summary ---
Author Organization [employer] Address 75 [facility] 7t [place] [address] Care Team Providers Care Dye Range Feeder Name Role Phone Kristen Hanna Primary Care Provider [phone] Reason for Visit * Reason Comments Med Refill Encounter Details Date Type Department Care Team ([facility] Contact Info) Description 06/02/2024 Refill [facility] MEDICINE 230 [place], [place] [phone] Kristen Hanna ANP 230 [place], [place] [phone] Mild persistent asthma, uncomplicated Social History Tobacco [...] Description 07/03/2025 9:00 AM EST Clinical Support [facility] MED[facility]INE 230 [place] [address] Naty Barth, LUIS 505 [place] [address] documented as of this encounter Visit Diagnoses Diagnosis Mild persistent asthma, uncomplicated documented in this encounter Additional Health Concerns Assessment Noted Time PHQ-9 Depression Total Score: 5 12/27/19 24 2:52 PM EDT documented as of this encounter Care Teams Dye Range Feeder Relationship Specialty Start Date End Date Kristen Hanna ANP 230 [place] [address] PCP - General Family Medicine 10/23/19 documented as of this encounter
--- OUTSIDE RECORDS SUMMARY | 2025-03-16 10:56 | XMS_ITS | Encounter Summary ---
Author Organization [employer] Address 75 [facility] 7t [place] [address] Care Team Providers Care Naval Engineer Name Role Phone Kristen Hanna Primary Care Provider [phone] Reason for Visit * Reason Onset Date Comments Med Refill 09/04/2024 Encounter Details Date Type Department Care Team ([facility] st Contact Info) Description 09/04/2024 Telephone [facility] MED[facility]INE 230 [place], [place] [phone] Kristen Hanna ANP 230 [place], [place] [phone] Med Refill Social History Tobacco Use Types [...] encounter Miscellaneous Notes * Telephone Encounter - Trey eDlvalle - 09/04/2024 1:14 PM EDT TC from pt requesting medication refill. Medications needing refill : [id number] To be sent to: [facility] - [place], [place] - [address] [place] [address] documented in this encounter Plan of Treatment Upcoming Encounters Date Type Department Care Team ([facility] st Contact Info) Description 07/03/2025 9:00 AM EST Clinical Support [facility] MEDICINE [address] [place] [address] Naty Barth RN 505 [place] [address] documented as of this encounter Visit Diagnoses Not on filedocumented in this encounter Additional Health Concerns Assessment Noted Time PHQ-9 Depression Total Score: 5 12/27/19 24 2:52 PM EDT documented as of this encounter Care Teams Naval Engineer Relationship Specialty Start Date End Date Kristen Hanna ANP 230 [place] [address] PCP - General Family Medicine 10/23/19 documented as of this encounter
--- OUTSIDE RECORDS SUMMARY | 2025-03-16 10:56 | XMS_ITS | Encounter Summary ---
Author Organization [employer] Address 75 [facility] 7t [place] [address] Care Team Providers Care Cell Geneticist Name Role Phone Kristen Hanna Primary Care Provider [phone] Reason for Visit * Reason Comments Med Refill Encounter Details Date Type Department Care Team ([facility] st Contact Info) Description 05/17/2023 Refill [facility] MEDICINE 230 [place], [place] [phone] Kristen Hanna ANP 230 [place], [place] [phone] Other chronic pain Social History Tobacco Use [...] Description 07/03/2025 9:00 AM EST Clinical Support [facility] MEDICINE [address] [place] [address] Naty Barth RN 505 [place] [address] documented as of this encounter Visit Diagnoses Diagnosis Other chronic pain documented in this encounter Additional Health Concerns Assessment Noted Time PHQ-9 Depression Total Score: 11 023 9:39 AM EST documented as of this encounter Care Teams Cell Geneticist Relationship Specialty Start Date End Date Kristen Hanna ANP 230 [place] [address] PCP - General Family Medicine 10/23/19 documented as of this encounter
--- OUTSIDE RECORDS SUMMARY | 2025-03-16 10:56 | XMS_ITS | Encounter Summary ---
Author Organization [employer] Address 75 [facility] 7t [place] [address] Care Team Providers Care Customer Relations Advisor Name Role Phone Kristen Hanna Primary Care Provider Reason for Visit * Reason Comments Med Refill Encounter Details Date Type Department Care Team ([facility] st Contact Info) Description 12/04/2023 Refill [facility] MEDICINE 230 [place], [place] [phone] Kristen Hanna ANP 230 [place], [place] [phone] Other chronic pain Social History Tobacco Use [...] Description 07/03/2025 9:00 AM EST Clinical Support [facility] MEDICINE [address] [place] [address] Naty Barth RN 505 [place] [address] documented as of this encounter Visit Diagnoses Diagnosis Other chronic pain documented in this encounter Additional Health Concerns Assessment Noted Time PHQ-9 Depression Total Score: 11 023 9:39 AM EST documented as of this encounter Care Teams Customer Relations Advisor Relationship Specialty Start Date End Date Kristen Hanna ANP 230 [place] [address] PCP - General Family Medicine 10/23/19 documented as of this encounter
--- OUTSIDE RECORDS SUMMARY | 2025-03-16 10:56 | XMS_ITS | Encounter Summary ---
Author Organization [employer] Address 75 [facility] 7t [place] [address] Care Team Providers Care Grocery Stock Clerk Name Role Phone Kristen Hanna Primary Care Provider [phone] Reason for Visit * Reason Onset Date Comments Med Refill 03/16/2025 Encounter Details Date Type Department Care Team ([facility] Contact Info) Description 03/16/2025 Refill [facility] MED & PEDS [address] [place] [address] Kristen Hanna ANP 230 [facility] [place] [address] Other chronic pain Social History Tobacco Use [...] Description 07/03/2025 9:00 AM EST Clinical Support [facility] MEDICINE [address] [place] [address] Naty Barth, LUIS 505 [place] [address] documented as of this encounter Visit Diagnoses Diagnosis Other chronic pain documented in this encounter Additional Health Concerns Assessment Noted Time PHQ-9 Depression Total Score: 5 12/27/19 24 2:52 PM EDT documented as of this encounter Care Teams Grocery Stock Clerk Relationship Specialty Start Date End Date Kristen Hanna ANP 230 [place] [address] PCP - General Family Medicine 10/23/19 documented as of this encounter
--- OUTSIDE RECORDS SUMMARY | 2025-03-16 10:56 | XMS_ITS | Encounter Summary ---
Author Organization [employer] Address 75 [facility] 7t [place] [address] Care Team Providers Care Business Education Instructor Name Role Phone Jacques Kristen FLEMING Primary Care Provider [phone] Reason for Visit * Reason Onset Date Comments Pre-op Exam 03/12/2025 Encounter Details Date Type Department Care Team ([facility] st Contact Info) Description 03/12/2025 Telephone [facility] 230 [place] [address] 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, RN 230 [place] [address] Pre-op Exam Social History Tobacco Use Types Packs/Day Years [...] encounter Miscellaneous Notes * Telephone Encounter - 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 RN - 03/12/2025 11:54 AM EST Received fax from [facility] requesting pre-op appointment for pt. Form not well filled out and illegible. Telephone call placed to their office to clarify. Spoke with Milena. Surgery details: Procedure: Extractions and alveoplasty Date: TBD after pre-op Anaesthesia: general Requests: EKG, BMP, CBC, PT/INR Surgeon: Dr Rivas Josue Office: [facility] Telephone call placed to pt to book preop. Pt upset, didn't know that he would need a preop. Stateshe has been waiting for this procedure for a year. Explained what dental surgeon's office is requiring and offered ADDY pre-op for Sunday03/16/25 with Gayle so that he can get procedure ADDY. Pt agreeable. documented in this encounter Plan of Treatment Upcoming Encounters Date Type Department Care Team (Late st Contact Info) Description 07/03/2025 9:00 AM EST Clinical Support [facility] MEDICINE 230 [place] [address] Naty Barth, LUIS 505 [place] [address] documented as of this encounter Visit Diagnoses Not on filedocumented in this encounter Additional Health Concerns Assessment Noted Time PHQ-9 Depression Total Score: 5 12/27/19 24 2:52 PM EDT documented as of this encounter Care Teams Business Education Instructor Relationship Specialty Start Date End Date Kristen Hanna ANP 230 [place] [address] PCP - General Family Medicine 10/23/19 documented as of this encounter
--- OUTSIDE RECORDS SUMMARY | 2025-03-16 10:56 | XMS_ITS | Encounter Summary ---
Author Organization [employer] Address [address] [place] [address] 7t [place] [address] Care Team Providers Care Scan Coordinator Name Role Phone Kristen Hanna Primary Care Provider [phone] Reason for Visit * Reason Comments Med Refill Encounter Details Date Type Department Care Team (Late st Contact Info) Description 12/29/2022 Refill [facility] MEDICINE 230 [place] [address] Kristen Hanna ANP 230 [place] [address] Mild persistent asthma, uncomplicated Social History Tobacco [...] Description 07/03/2025 9:00 AM EST Clinical Support [facility] MEDICINE 230 [place] [address] Naty Barth RN 505 [place] [address] documented as of this encounter Visit Diagnoses Diagnosis Mild persistent asthma, uncomplicated documented in this encounter Care Teams Scan Coordinator Relationship Specialty Start Date End Date Kristen Hanna ANP 230 [place] [address] PCP - General Family Medicine 10/23/19 documented as of this encounter
--- OUTSIDE RECORDS SUMMARY | 2025-03-16 10:57 | XMS_ITS | Encounter Summary ---
Author Organization [employer] Address 75 [facility] 7t [place] [address] Care Team Providers Care Telecommunications Equipment Installer Name Role Phone Kristen Hanna Primary Care Provider [phone] Reason for Visit * Reason Onset Date Comments Med Refill 07/30/2024 Encounter Details Date Type Department Care Team ([facility] st Contact Info) Description 07/30/2024 Refill [facility] MEDICINE 230 [place], [place] [phone] Kristen Hanna ANP 230 [place] [address] Gastroesophageal reflux disease, unspecified whether esophagitis present [...] Description 07/03/2025 9:00 AM EST Clinical Support [facility] MEDICINE 230 [place] [address] Naty Barth, LUIS 505 [place] [address] documented as of this encounter Visit Diagnoses Diagnosis Gastroesophageal reflux disease, unspecified whether esophagitis present documented in this encounter Additional Health Concerns Assessment Noted Time PHQ-9 Depression Total Score: 5 12/27/19 24 2:52 PM EDT documented as of this encounter Care Teams Telecommunications Equipment Installer Relationship Specialty Start Date End Date Kristen Hanna ANP 230 [place] [address] PCP - General Family Medicine 10/23/19 documented as of this encounter
--- OUTSIDE RECORDS SUMMARY | 2025-03-16 10:57 | XMS_ITS | Encounter Summary ---
Author Organization [facility] Address [address] [facility] 7t [place] [address] Care Team Providers Care Unit Control Clerk Name Role Phone Kristen Hanna Primary Care Provider [phone] Reason for Visit * Reason Onset Date Comments Med Refill 04/22/2024 Encounter Details Date Type Department Care Team ([facility] st Contact Info) Description 04/22/2024 Refill [facility] MED[facility]INE [address] [place], [place] [phone] Kristen Hanna ANP [address], [place] [phone] Other chronic pain Social History Tobacco Use [...] Description 07/03/2025 9:00 AM EST Clinical Support [facility] MEDICINE [address] [place] [phone] Naty Barth, LUIS [address] [place] [address] documented as of this encounter Visit Diagnoses Diagnosis Other chronic pain documented in this encounter Additional Health Concerns Assessment Noted Time PHQ-9 Depression Total Score: 5 12/27/19 24 2:52 PM EDT documented as of this encounter Care Teams Unit Control Clerk Relationship Specialty Start Date End Date Kristen Hanna ANP [address] [place] [address] PCP - General Family Medicine 10/23/19 documented as of this encounter
--- OUTSIDE RECORDS SUMMARY | 2025-03-16 10:57 | XMS_ITS | Encounter Summary ---
Author Organization [facility] Address [address] [facility] 7t [place] [address] Care Team Providers Care Form Builder Name Role Phone Kristen Hanna Primary Care Provider [phone] Reason for Visit * Reason Comments Med Refill Encounter Details Date Type Department Care Team ([facility] st Contact Info) Description 08/07/2024 Refill [facility] MEDICINE [address] [place], [place] [phone] Kristen Hanna ANP [address] [place], [place] [phone] Other chronic pain Social History Tobacco Use [...] Description 07/03/2025 9:00 AM EST Clinical Support [facility] MEDICINE [address] [place] [address] Naty Barth, LUIS [address] [place] [address] documented as of this encounter Visit Diagnoses Diagnosis Other chronic pain documented in this encounter Additional Health Concerns Assessment Noted Time PHQ-9 Depression Total Score: 5 12/27/19 24 2:52 PM EDT documented as of this encounter Care Teams Form Builder Relationship Specialty Start Date End Date Kristen Hanna ANP [address] [place] [address] PCP - General Family Medicine 10/23/19 documented as of this encounter
--- OUTSIDE RECORDS SUMMARY | 2025-03-16 10:57 | XMS_ITS | Clinical Summary ---
Author Organization [facility] Address [address] [facility] 7t [place] [address] Care Team Providers Care Open Claims Representative Name Role Phone Otis Sage BERNADETTE Primary Care Provider [phone] Allergies Active Allergy Reactions Criticality Noted Date Comments Amoxicillin Hives,Swelling 03/30/2021 Other reaction(s): Itching Latex Itching Low 12/13/2023 Allergy Medications aspirin 81 MG EC tablet Take [...] reversal. 2 each 2 01/02/20 24 Active albuterol (Ventolin HFA) 108 (90 Base) MCG/ACT inhalerIndicatio ns:Mild persistent asthma, uncomplicated INHALE 2 PUFFS BY MOUTH EVERY 4 HOURS NEEDED FOR WHEEZING OR SHORTNESS OF BREATH 18 g 2 02/03/20 25 Active oxyCODONE-acetam inophen (Percocet) 10-325 MG tabletIndication s:Other chronic pain Take 1 tablet by mouth every 6 (six) hours if needed for severe pain. 112 tablet 02/18/20 25 Active famotidine (Pepcid) 20 MG tablet Take 20 mg by mouth at bedtime. 10/29/19 [address] capsule Take 20 mg by mouth before breakfast. 12/12/19 Active NexIUM 24HR 20 MG capsuleIndicatio ns:Chronic GERD Take 1 capsule (20 mg) by mouth 2 times daily. Do not open capsule. 60 capsule 11 08/08/19 25 2024 Discontinued(D uplicate order (will not trigger notification to Pharmacy)) oxyCODONE-acetam inophen (Percocet) 10-325 MG tabletIndication s:Other chronic pain Take 1 tablet by mouth every 6 (six) hours if needed for severe pain. 112 tablet 01/22/202024 Discontinued(R eorder (will not trigger notification to Pharmacy)) Active Problems Problem Noted Date Diagnosed Date Preoperative examination Assessment & Plan (03/16/2025 9:58 AM EST): 55 yo patient with multiple medical conditions [...] UTI sxs or any other acute issueXXXXXXXXXXXXXXXXXXXXXXXXXXXXXXXXXXXXXXXXXX Adenomatous polyp of sigmoid colon 02/24 025 Overview (02/24/2025): and transverse, repeat 01/2028 w/ Dr. 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 Head at [facility] cards Coronary artery disease with drug-eluting stent to circumflex artery 2 years ago 10/2021. Continue dual antiplatelet therapy for total of 30 months. Beyond that continue low-dose aspirin therapy. Continue high-intensity statin therapy. Target goal LDL closer to 60 mg/dL. Blood pressure is well optimized at this point time. Complete smoking cessation was advised. Myocardial infarction 022 Overview (01/15/2024): 10/2021, s/p GLENNA to circumflex artery Mild persistent asthma 016 Finding of above normal blood pressure 0 016 Cigarette nicotine dependence without co mplication 016 Overview (01/15/2024): LDCT (started smoking at 14 until [place] in 10/2021, now 2-3 cigs/d) (did have Chest CTA 12/13/23, can defer sending until next year) 37 PYH Resolved Problems Problem Noted Date Diagnosed Date Resolved Date Bacterial urinary infection 11/20/2022 01/15/2024 Encounters Date Type Department Care Team Description 03/16/2025 9:15 AM EST Office Visit [facility] [address] [place] [phone] Temi Araujo MD Preoperative examination (Primary Dx) 03/16/2025 Refill [facility] [address] [place] [address] Otis Sage ANP Other chronic pain 03/16/2025 Travel 03/12/[address] [address] 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, LUIS Pre-op Exam 02/27/2025 8:30 AM EDT Clinical Support [address] [address] Naty Barth RN Other chronic pain (Primary Dx) 02/27/2025 Travel 02/24/2025 10:15 AM EDT Office Visit [address] [address] Otis Sage ANP Chronic GERD (Primary Dx); Coronary artery disease involving king island coronary artery of king island heart without angina pectoris; retirement (current) use of opiate analgesic; Other chronic pain; Cigarette nicotine dependence without complication; Non-ST elevation myocardial infarction (NSTEMI) ([facility]); Screening for lung cancer; Adenomatous polyp of sigmoid colon 02/24/2025 Travel 02/23/[address] [address] Otis Sage ANP chart prep 02/17/2025 Patient Outreach [address] [address] Otis Sage ANP Pre-visit Planning (Pre-visit planning - LVM ) 02/17/2025 Travel 02/17/2025 Refill [facility] [address] [place] [address] Otis Sage ANP Other chronic pain 02/16/[address] [address] Otis Sage ANP Appointment Request 01/31/[address] [phone] Otis Sage ANP Mild persistent asthma, uncomplicated 01/27/2025 1:00 PM EDT Office Visit [facility] [address] [place] [phone] Bryan Bentley 01/27/2025 Travel 2025 Orders Only GENERIC EXTERNAL DATA DEPARTMENT Provider, Generic External Data 01/21/2025 Refill [facility] [address] [place] [address] Otis Sage ANP Other chronic pain 01/20/2025 Refill [facility] [address] [place] [address] Otis Sage ANP Other chronic pain 12/23/2024 Refill [facility] [address] [place] [address] Otis Sage ANP Other chronic pain from Last 3 Months Immunizations Immunization Administration [...] 16 03/16/2025 9:09 AM EST Oxygen Saturation 98% 02/24/2025 10: 17 AM EDT Inhaled Oxygen Concentration - - Weight 69.3 kg (152 lb 12.8 oz) 03/16/2025 9:09 AM EST Height 177.8 cm (5' 10 ) 03/16/2025 9:09 AM EST Body Mass Index 21.92 03/16/2025 9:09 AM EST Plan of Treatment Upcoming Encounters Date Type Department Care Team (Late st Contact Info) Description 07/03/2025 9:00 AM EST Clinical Support [facility] [address] [place] [phone] Naty Barth RN [address] [place] [address] Health Maintenance Due Date Last Done Comments CT Colonography 1970 Dental Oral Exam 1970 Dental Prophylaxis 1970 FIT 1970 Sigmoidoscopy 1970 Zoster Vaccines (1 of 2) 01/21/2018 Depression Screening 12/26/2024 12/27/2023, 12/27/2023 Alcohol/Substance Use Screening 04/17/2025 04/17/2024 Pneumococcal Vaccine: 50+ Years (1 of 2 - PCV) 07/22/2025 Postponed from 01/05 (Patient Refused) Disability Screening 10/24/2025 10/24/2024 Influenza Vaccine (#1) 2025 Postp oned from 01/05/2025 (Patient Refused) FOBT 11/07/2025 11/07/2024 Hepatitis B Vaccines (1 of 3 - 19+ 3-dose series) 11/24/2025 Postponed from 01/05 (Patient Refused) Dental X-Ray: Bitewings 01/28/2026 01/27/2025 COVID-19 Vaccine (2 - 2024-2 6 season) 2026 10/26/2020 Postponed from 01/05 (Patient Refused) SDOH Screening 02/24/2026 02/24/2025 Tobacco Screening 03/16/2026 03/16/2025 Dental X-Ray: Full Mouth 2027 024, 12/28/2022, 07/21/2022 Lipid Panel 10/12/2027 10/11/2022, 09/24/2021, 05/11/2020 FIT DNA/Cologuard 11/08/2027 11/07/2024 Colonoscopy 01/23/2028 Colorectal Cancer Screening 01/23/2028 DTaP/Tdap/Td Vaccines (2 - T d or [...] Routine 03/16/2025 9:46 AM EST Preoperative examination POCT ZAKI-14 URINE DRUG SCREEN Routine 02/27/2025 8:49 AM EDT Other chronic pain INTRAORAL - PERIAPICAL FIRST RADIOGRAPHIC IMAGE Routine 01/27/2025 1:00 PM EDT PALLIATIVE (EMERGENCY) TREATMENT OF DENTAL PAIN - MINOR PROCEDURE Routine 01/27/2025 1:00 PM EDT BITEWING - SINGLE RADIOGRAPHIC IMAGE Routine 01/27/2025 1:00 PM EDT HEMATOXYLIN AND EOSIN STAIN Routine 2025 9:46 AM EDT LAB COLOGUARD COLON CANCER SCREEN Routine 11/07/2024 8:10 AM EDT Screening for colon cancer PANORAMIC RADIOGRAPHIC IMAGE Routine 2024 8:30 AM EDT LIPID PANEL, STANDARD Routine 10/11/2022 8:25 AM EDT Coronary artery disease involving king [place] coronary artery of [place] heart without angina pectoris ZZZ HISTORICAL HEPATITIS C ANTIBODY RFLX Routine 09/24/2021 7:59 AM EDT ZZZ HISTORICAL HIV AB/AG Routine 09/24/2021 7:59 AM EDT from Last 3 Months or Most Recently Relevant to Health Maintenance Results * ECG 12 lead (03/16/2025 9:46 AM EST) Temi Alberto MD - 03/16/2025 9:46 AM EST NSR@52 bpm, normal axis. No ST/T abn. Normal EKG us Temi Araujo MD ECG ORDERABLES Final Re sult * (ABNORMAL) POCT ZAKI-14 Urine Drug Screen (02/27/2025 8:49 AM EDT) THC Positive(A) Negative Cocaine Screen, Urine Negative Negative Opiate Screen, Urine Negative Negative Methamphetamine Screen Urine Negative Negative Amphetamine Screen, Urine Negative Negative Benzodiazepines Screen, Urine Negative Negative Barbiturate Screen, Urine Negative Negative Methadone Screen, Urine Negative Negative Buprenophine Screen, Urine Negative Negative TCA, Urine Negative Negative MDMA Urine Negative Negative ng/mL Oxycodone Screen, Urine Positive(A) Negative Phencyclidine (PCP), Urine Negative Negative Propoxyphene, Urine Negative Negative Fentanyl, Urine Negative Negative Urine Urine specimen obtained by clean catch procedure / Unknown 02/27/2025 8:49 AM EDT Narrative Naty Barth RN - 02/27/2025 8:49 AM EDT .UTOX cup Lot#[id number] Exp. 02/10/26 Internal Pass Control [facility] POINT OF CARE TEST ENTER/EDIT OR DERABLES Edited Result - Final * Hematoxylin and Eosin Stain (2025 9:46 AM EDT) 2025 9:46 AM EDT 2025 10:45 AM EDT Juan [facility] - 01/26/2025 4:57 PM EDT ----- ------- Name: Stanislav Hernandez Age/Sex: 55/M : 1970 Unit#: [id number] Attend Dr: Annelise Yen MD Re01/22/25 Status: [facility] Location: [facility] Disch: ----- ------- SPEC : [id number] RECD: 01/22/25 STATUS: WAYNE GRIFFITH NUM: [id number] ZEYAD: 01/22/25 [facility] DR: Annelise Yen MD ENTERED: 01/22/25 SP TYPE: Surgical OTHR DR: OTIS SAGE NP ORDERED: HE Stain/18, Gross Micro L4/6, IHC, Special st. 2/, H. pylori, AB/PAS/3 Diagnosis A. Duodenum, biopsy: Duodenal mucosa within normal limits. B. Stomach, random, biopsy: Oxyntic mucosa with mild chronic inactive inflammation; no Helicobacter organisms seen. C. Colon, hepatic flexure, polypectomy: Tubular adenoma; negative for high-grade dysplasia or carcinoma. D. Colon, transverse, polypectomy: Tubular adenoma; negative for high-grade dysplasia or carcinoma; abundant fragments of food/vegetable material. E. Colon, sigmoid at 30 cm, polypectomy: Tubular adenoma; negative for high-grade dysplasia or carcinoma. F. Colon, sigmoid, polypectomy: Tubular adenoma; negative for high-grade dysplasia or carcinoma. Clinical History Pre-Op Dx: GERD, positive ColoGuard Post-Op Dx: Duodenitis, colon polyps, diverticulosis, hemorrhoids Microscopic Description A-F. Microscopic sections examined. No metaplastic changes are seen, supported by AB/PAS stains (A and B); no Helicobacter organisms are seen, supported by H. pylori immunostain (B). Material Received A. Duodenum bx's B. Random gastric bx's C. Hepatic flexure colon polyp D. Transverse colon polyp E. Sigmoid colon polyp at 30 cm F. Sigmoid colon polyp CONTINUED ON NEXT PAGE ----- ------- Name: Stanislav Hernandez Age/Sex: 55/M : 1970 Unit#: [id number] Attend Dr: Annelise Yen MD Re01/22/25 Status: [facility] Location: [facility] Disch: ----- ------- SPEC : [id number] RECD: 01/22/25 STATUS: WAYNE GRIFFITH NUM: [id number] ZEYAD: 01/22/25 [facility] DR: Annelise Yen MD ENTERED: 01/22/25 SP TYPE: Surgical OTHR DR: OTIS SAGE NP ORDERED: HE Stain, Gross Micro L4/6, IHC, Special st. 2, H. pylori, AB/PAS/3 Gross Description Received in six parts. Part A: Received in formalin labeled duodenum bx's are four pickard-pink irregular and rectangular tissue fragments ranging from 0.25-0.35 cm, submitted in toto in a cassette labeled A. Part B: Received in formalin labeled random gastric bx's are four pickard-pink irregular tissue fragments ranging from 0.2-0.35 cm, submitted in toto in a cassette labeled B. Part C: Received in formalin labeled hepatic flexure colon polyp is a 1.0 x 0.9 x 0.6 cm lobular, pickard-pink pedunculated polyp with an attached 0.4 cm in length and 0.6 cm in diameter pickard stalk. The resected base is inked and the specimen is bisected and entirely submitted in a cassette labeled C. Part D: Received in formalin labeled transverse colon polyp along with copious mucus, debris and blood aggregating 1.0 x 0.8 x 0.3 cm is a 0.25 cm pickard-pink irregular tissue fragment, submitted in toto in a cassette labeled D. Part E: Received in formalin labeled sigmoid colon polyp at 30 cm is a 0.6 x 0.5 x 0.45 cm congested and hemorrhagic red-maroon pedunculated polyp with an attached pedicle of pickard mucosa measuring 0.6 x 0.4 x 0.2 cm. The resected base is inked and the specimen is bisected and entirely submitted in a cassette labeled E. Part F: Received in formalin labeled sigmoid colon polyp is a 1.1 x 0.3 x 0.1 cm thin and delicate rectangular fragment of pickard, pink-red mucosa, submitted in toto in a cassette labeled F. CEDS Special studies ordered and performed: Immunostain for H. pylori on B; AB/PAS stains on A and B IHC S/NG Disclaimer NOTE: Unless otherwise stated, all tissue is formalin-fixed and paraffin-embedded. Some or all of the immunohistochemical tests reported herein may have been developed and their performance characteristics determined by Laboratory. They have not been cleared or approved by the U.S. Food and Drug Administration (FDA). However, the FDA has determined that such clearance or approval is not necessary. This laboratory is certified under the Clinical Laboratory Improvement Amendments of 1988 (CLIA) as qualified to perform high complexity clinical laboratory testing. CONTINUED ON NEXT PAGE ----- ------- Name: Stanislav Hernandez Age/Sex: 55/M : 1970 Unit#: [id number] Attend Dr: Annelise Yen MD Re01/22/25 Status: [facility] Location: [facility] Disch: ----- ------- SPEC : [id number] RECD: 01/22/25-1045 STATUS: WAYNE GRIFFITH NUM: [id number] ZEYAD: 01/22/25-[address]: Annelise Yen MD ENTERED: 01/22/25-1059 SP TYPE: Surgical OTHR DR: OTIS SAGE NP ORDERED: HE Stain/, Gross Micro L4/6, IHC, Special st. 2/, H. pylori, AB/PAS/3 Copies To: OTIS SAGE NP [address] [place] [address] Annelise Yen MD [facility] [address] [place] [phone] [email or web address] ----- ------- Signed (signature on file) Chase Beard MD 01/26/25 1657 ----- ------- END OF REPORT us Generic External Data Provider LAB BLOOD ORDERAB LES Final Result [facility] [address] [place] [phone] [phone] * (ABNORMAL) Cologuard?? colon cancer screening (11/07/2024 8:10 AM EDT) Cologuard Result Positive( A) Negative 11/13/2024 1:36 PM EDT [facility] (CLIA #:[id number]) Comment: The Cologuard (TM) test was performed [...] (Veronika Denson al, N Engl J Med 2014;370(14):8937-4943.) Cologuard may produce a false negative or false positive result (no colorectal cancer or precancerous polyp present at colonoscopy follow up). A negative Cologuard test result does not guarantee the absence of CRC or advanced adenoma (pre-cancer). The current Cologuard screening interval is every 3 years. ([place] Cancer Society and U.S. Multi-Society Task Force). Cologuard performance data in a 10,000 patient pivotal study using colonoscopy as the reference method can be accessed at the following location: [email or web address]/results. Additional description of the Cologuard test process, warnings and precautions can be found at [email or web address] [email or web address]. Stool specimen (specimen) 11/07/2024 8:10 AM EDT 11/10/2024 11:09 AM EDT Otis Sage [facility] MOLECULAR DIAGNOSTICS ORDERA BLES Final Result [facility] (CLIA #:[id number]) [address] [place] [address], [place] [phone] * Lipid Panel, Standard (10/11/2022 8:25 AM EDT) Pathologist [facility] Cholesterol, Total 115 <200 mg/dL [facility] HDL Cholesterol 41 > OR = 40 mg/dL [facility] Triglycerides 81 <150 mg/dL [facility] LDL Cholesterol 58 mg/dL (calc) [facility] Comment: Reference range: <100 Desirable range <100 mg/dL for primary prevention; <70 mg/dL for patients with CHD or diabetic patients with > or = 2 CHD risk factors. LDL-C is now calculated using the Kojo-Kenton calculation, which is a validated novel method providing better accuracy than the Friedewald equation in the estimation of LDL-C. Kojo SS et al. BRITTANY. 2013;310(19): 4241-1818 (http://education.FastDue/faq/ZLI966) Chol/HDLC Ratio 2.8 <5.0 (calc) [facility] Non-HDL Cholesterol 74 <130 mg/dL (calc) [facility] Comment: For patients with diabetes plus 1 major ASCVD risk factor, treating to a non-HDL-C goal of <100 mg/dL (LDL-C of <70 mg/dL) is considered a therapeutic option. Blood Venous blood specimen / Unknown 10/11/2022 8:25 AM EDT 10/11/2022 8:25 AM EDT Narrative [facility] - 10/11/2022 9:21 PM EDT FASTING:YES FASTING: YES Otis Sage [facility] BLOOD ORDERABLES Final Resul t Performing Organization Address City/[facility]/ZIP Co de Phone Number [facility] [address], [place] [address] [facility] [address] [place] [address] * HEPATITIS C ANTIBODY RFLX (09/24/2021 7:59 AM EDT) Pathologist [facility] Hepatitis C Antibody Nonreactive Nonreactive [facility] Comment: Antibodies to HCV not detected; does not exclude early acute HCV infection. 09/24/2021 7:59 AM EDT Otis Sage ANP HISTORICAL/NON ORDERABLE LABS Fi nal Result Performing Organization Address [facility] de Phone Number [facility] [address] * HIV AB/AG (09/24/2021 7:59 AM EDT) Pathologist [facility] HIV AB/AG Nonreactive Nonreactive [facility] Comment: HIV-1 p24 Ag and/or [...] of detection of this assay. [facility] HIV Ag/Ab Combo assay result and supplemental assay results should be interpreted in conjunction with the patient's clinical presentation, history and other laboratory results. If the results are inconsistent with clinical evidence, additional testing is suggested to confirm the result. 09/24/2021 7:59 AM EDT Otis Sage ANP HISTORICAL/NON ORDERABLE LABS Fi nal Result Performing Organization Address [facility] Co de Phone Number [facility] [address] from Last 3 Months or Most Recently Relevant to Health Maintenance Insurance [employer] [facility] < 65 DENTAL - [facility] Care Teams Open Claims Representative Relationship Specialty Start Date End Date Otis Sage ANP [address] [place], [place] PCP - General Family Medicine 10/23/19
--- OUTSIDE RECORDS SUMMARY | 2025-03-16 10:57 | XMS_ITS | Encounter Summary ---
Author Organization [facility] Address [address] [facility] 7t [place] [address] Care Team Providers Care Workday Consultant Name Role Phone Kristen Hanna Primary Care Provider [phone] Reason for Visit * Reason Comments Med Refill Encounter Details Date Type Department Care Team ([facility] st Contact Info) Description 01/21/2024 Refill [facility] [address] [place], [place] [phone] Kristen Hanna ANP [address] [place], [place] [phone] Mild persistent asthma, uncomplicated Social History Tobacco [...] 9:00 AM EST Clinical Support [facility] [address] [place] [address] Naty Barth, LUIS [address] [place] [address] documented as of this encounter Visit Diagnoses Diagnosis Mild persistent asthma, uncomplicated documented in this encounter Additional Health Concerns Assessment Noted Time PHQ-9 Depression Total Score: 5 12/27/19 24 2:52 PM EDT documented as of this encounter Care Teams Workday Consultant Relationship Specialty Start Date End Date Kristen Hanna ANP [address] [place] [address] PCP - General Family Medicine 10/23/19 documented as of this encounter
--- OUTSIDE RECORDS SUMMARY | 2025-03-16 10:57 | XMS_ITS | Encounter Summary ---
Author Organization [employer] Address [address] [facility] 7t [place] [address] Care Team Providers Care Estate Planning Director Name Role Phone Kristen Hanna Primary Care Provider [phone] Reason for Visit * Reason Onset Date Comments Med Refill 08/04/2024 Encounter Details Date Type Department Care Team ([facility] st Contact Info) Description 08/04/2024 Refill [facility] [address] [place], [place] [phone] Kristen Hanna ANP [address] [place] [address] Gastroesophageal reflux disease, unspecified whether esophagitis present [...] Description 07/03/2025 9:00 AM EST Clinical Support [facility] [address] [place] [address] Naty Barth, LUIS [address] [place] [address] documented as of this encounter Visit Diagnoses Diagnosis Gastroesophageal reflux disease, unspecified whether esophagitis present documented in this encounter Additional Health Concerns Assessment Noted Time PHQ-9 Depression Total Score: 5 12/27/19 24 2:52 PM EDT documented as of this encounter Care Teams Estate Planning Director Relationship Specialty Start Date End Date Kristen Hanna ANP [address] [place] [address] PCP - General Family Medicine 10/23/19 documented as of this encounter
--- OUTSIDE RECORDS SUMMARY | 2025-03-16 10:57 | XMS_ITS | Encounter Summary ---
Author Organization [employer] Address [address] [facility] 7t [place] [address] Care Team Providers Care Top Dyeing Machine Tender Name Role Phone Kristen Hanna Primary Care Provider [phone] Reason for Visit * Reason Comments Med Change Request Encounter Details Date Type Department Care Team ([facility] Contact Info) Description 08/07/2024 Refill [facility] [address] [place], [place] [phone] Kristen Hanna ANP [address] [place], [place] [phone] Chronic GERD Social History Tobacco Use Types [...] 07/03/2025 9:00 AM EST Clinical Support [facility] [address] [place] [address] Naty Barth, LUIS [address] [place] [address] documented as of this encounter Visit Diagnoses Diagnosis Chronic GERD documented in this encounter Additional Health Concerns Assessment Noted Time PHQ-9 Depression Total Score: 5 12/27/19 24 2:52 PM EDT documented as of this encounter Care Teams Top Dyeing Machine Tender Relationship Specialty Start Date End Date Kristen Hanna ANP [address] [place] [address] PCP - General Family Medicine 10/23/19 documented as of this encounter
--- OUTSIDE RECORDS SUMMARY | 2025-03-16 10:57 | XMS_ITS | Encounter Summary ---
Author Organization [employer] Address [address] [facility] 7t [place] [address] Care Team Providers Care Oyster Bed Worker Name Role Phone Kristen Hanna Primary Care Provider [phone] Reason for Visit * Reason Onset Date Comments Med Refill 04/22/2024 Encounter Details Date Type Department Care Team ([facility] Contact Info) Description 04/22/2024 Telephone [facility]INE [address] [place], [place] [phone] Kristen Hanna ANP [address] [place], [place] [phone] Med Refill Social History Tobacco Use Types [...] 10-325 MG tablet To be sent to: [facility] - [place], [place] - [address] [place] [address] documented in this encounter Plan of Treatment Upcoming Encounters Date Type Department Care Team (Late st Contact Info) Description 07/03/2025 9:00 AM EST Clinical Support [facility] [address] [place] [address] Naty Barth RN [address] [place] [address] documented as of this encounter Visit Diagnoses Not on filedocumented in this encounter Additional Health Concerns Assessment Noted Time PHQ-9 Depression Total Score: 5 12/27/19 24 2:52 PM EDT documented as of this encounter Care Teams Oyster Bed Worker Relationship Specialty Start Date End Date Kristen Hanna ANP [address] [place] [address] PCP - General Family Medicine 10/23/19 documented as of this encounter
--- OUTSIDE RECORDS SUMMARY | 2025-03-16 10:57 | XMS_ITS | Encounter Summary ---
Author Organization [employer] Address [address] [facility] 7t [place] [address] Care Team Providers Care Motor Checker Name Role Phone Kristen Hanna Primary Care Provider [phone] Reason for Visit * Reason Onset Date Comments Prior Authorization 10/08/2023 Encounter Details Date Type Department Care Team ([facility] st Contact Info) Description 10/08/2023 Telephone [facility] [address] [place], [place] [phone] Kristen Hanna ANP [address] [place], [place] [phone] Prior Authorization Social History Tobacco Use Types [...] generated signed and faxed to [facility]. Awaiting response. PA scanned into chart under [...] EST Clinical Support [facility] [address] [place] [address] Naty Barth, RN [address] [place], [place] [phone] documented as of this encounter Visit Diagnoses Not on filedocumented in this encounter Additional Health Concerns Assessment Noted Time PHQ-9 Depression Total Score: 11 03/23/ 023 9:39 AM EST documented as of this encounter Care Teams Motor Checker Relationship Specialty Start Date End Date Kristen Hanna ANP [address] [place] [address] PCP - General Family Medicine 10/23/19 documented as of this encounter
--- OUTSIDE RECORDS SUMMARY | 2025-03-16 10:57 | XMS_ITS | Encounter Summary ---
Author Organization [employer] Address [address] [place] [address] 7[address] [place] [address] Care Team Providers Care Payroll Services Analyst Name Role Phone Kristen Hanna Primary Care Provider [phone] Reason for Visit * Reason Onset Date Comments Lab Orders 09/22/2022 Encounter Details Date Type Department Care Team ([facility] st Contact Info) Description 09/22/2022 Telephone [facility] MEDICINE [address] [place], [place] [phone] Kristen Hanna ANP [address] [place], [place] [phone] Lab Orders Social History Tobacco Use Types [...] active lab orders to be sent to [facility]. Patient is requesting a call back when orders have been sent due to going to [facility] twice and no orders found. documented in this encounter Plan of Treatment Upcoming Encounters Date Type Department Care Team ([facility] st Contact Info) Description 07/03/2025 9:00 AM EST Clinical Support [facility] [address] [place] [address] Naty Barth, LUIS [address] [place] [address] documented as of this encounter Visit Diagnoses Not on filedocumented in this encounter Care Teams Payroll Services Analyst Relationship Specialty Start Date End Date Kristen Hanna ANP [address] [place] [address] PCP - General Family Medicine 10/23/19 documented as of this encounter
--- OUTSIDE RECORDS SUMMARY | 2025-03-16 10:57 | XMS_ITS | Encounter Summary ---
Author Organization [employer] Address [address] [facility] 7t [place] [address] Care Team Providers Care Basket Bottom Machine Operator Name Role Phone Kristen Hanna Primary Care Provider [phone] Reason for Visit * Reason Onset Date Comments Med Refill 06/16/2024 Encounter Details Date Type Department Care Team ([facility] st Contact Info) Description 06/16/2024 Refill [facility] [address] [place], [place] [phone] Kristen Hanna ANP [address] [place], [place] [phone] Other chronic pain Social History Tobacco Use [...] Description 07/03/2025 9:00 AM EST Clinical Support [facility] [address] [place] [phone] Naty Barth, LUIS [address] [place] [address] documented as of this encounter Visit Diagnoses Diagnosis Other chronic pain documented in this encounter Additional Health Concerns Assessment Noted Time PHQ-9 Depression Total Score: 5 12/27/19 24 2:52 PM EDT documented as of this encounter Care Teams Basket Bottom Machine Operator Relationship Specialty Start Date End Date Kristen Hanna ANP [address] [place] [phone] PCP - General Family Medicine 10/23/19 documented as of this encounter
[2025-03-16 11:33] LABS: MANUAL DIFF FLAG NO
[2025-03-16 11:39] LABS: Hematocrit 42.1 % (42.0-52.0); Hemoglobin 14.1 g/dl (14.0-18.0); Imm Gran Abs Auto 0.03 X10*3/uL (0.00-0.03); Imm Gran Pct Auto 0.3 % (0.0-0.4); Lymphocytes Absolute Auto 3.1 X10*3/uL (1.2-4.9); Mean Corpuscular HGB Conc 33.5 g/dl (31.0-36.0); Mean Corpuscular Hemoglobin 31.3 pg (27.0-33.0); Mean Corpuscular Volume 93.6 fL (80.0-98.0); NRBC Abs Auto 0.000 X10*3/uL (0.0-0.012); NRBC Pct Auto 0.0 /100WBC (0.0-0.2); Platelet Count 223 X10*3/uL (160-400); Red Blood Count 4.50 X10*6/uL (4.60-5.80); White Blood Count 10.0 X10*3/uL (4.8-10.8)
[2025-03-16 11:46] LABS: INTERNATIONAL NORM RATIO 1.1 (0.9-1.1); Prothrombin Time 13.2 SEC (11.2-13.5)
[2025-03-16 12:08] LABS: Anion Gap 12 (12-20); Blood Urea Nitrogen 14 mg/dL (9-16); Calcium 9.3 mg/dL (8.4-10.2); Carbon Dioxide 25 mmol/L (22-29); Chloride 107 mmol/L (96-108); Estimated Glomerular Filt Rate > 60; Potassium 3.8 mmol/L (3.3-5.1); Sodium 140 mmol/L (135-145)
== END 2025-03-16 09:38 | disposition home or self-care (01) ==
LOC: HO.HHCL 09:37
PROVIDERS: PCP Nurse Practitioner Primary Care; Visit Provider Internal Medicine
DX: Z51.81 Encounter for therapeutic drug level monitoring (principal); Z01.812 Encounter for preprocedural laboratory examination
CPT/HCPCS: 36415; 80048; 85025; 85610

== ENCOUNTER 2025-03-23 09:39 | Outpatient (AMB) | payer OTHER, SELFPAY ==
--- NOTE | 2025-03-23 09:48 | A.OFFVIS_ITS ---
Vital Signs 03/23/25 09:50 Height 5 ft 10 in Weight 149 lb 14.629 oz BMI 21.5 BP 155/84 H Blood Pressure Location Lt brachial Position Sitting Pulse 53 Intake Visit Reasons: s/p colo egd Intake Note: Stanislav presents in the office as a follow up for EGD and COLO. CC: States that issues with losing weight - he is feeling way better now! Butter Wrapper Required: No Allergies amoxicillin Allergy (Mild, Verified 01/29/25 09:46) Hives latex Allergy (Mild, Uncoded 01/29/25 09:46) itching HPI Comments Details: 54 y.o M with PMH of CAD s/p PCI and GLENNA 2021 on DAPT, smoking, COPD, who is here for abd complaints. Reports main complaint is early satiety and feeling of unwellness right after he eats. Does not get abd pain post prandially but does get palpitations. Not assoc with N/V, lightheadedness. No changes in BMs. Does get bloating. Lost almost 10 lbs due to this because he avoids eating due to palpitations. Also reports early satiety. Smokes 3 cigs/day. No etOH. Takes ibuprofen twice a day 1200mg/day x years. No fam hx of colon ca or stomach ca. In terms of palpitations, has a loop monitor that does show PVCs - has been recommended to increase BB by his coal cutting machine operator which pt is hesitant to do until he gets GI work up done. 12/24/24: Pt lost to follow up as didnt wish to pursue endoscopy. He is here after posi tive cologuard. Reports chronic issue with hemorrhoidal bleeding and is fairly positive he had some rectal bleeding after he collected the BM for the cologuard. In terms of GERD, has no sx since starting esomeprazole. However agreeable to egd to screen for BE since will be undergoing anesthesia anyway for the colonoscopy. 01/22/25: 1. Normal esophagus 2. Normal stomach (biopsy) 3. Duodenitis (biopsy) 4. Normal colon and terminal ileum mucosa 5. Total of 4 polyps removed (hot snare, epinephrine, endoclip, Endomark) 6. Diverticulosis 7. Internal hemorrhoids Path: A. Duodenum, biopsy: Duodenal mucosa within normal limits. B. Stomach, random, biopsy: Oxyntic mucosa with mild chronic inactive inflammation; no Helicobacter organisms seen. C. Colon, hepatic flexure, polypectomy: Tubular adenoma; negative for high-grade dysplasia or carcinoma. D. Colon, transverse, polypectomy: Tubular adenoma; negative for high-grade dysplasia or carcinoma; abundant fragments of food/vegetable material. E. Colon, sigmoid at 30 cm, polypectomy: Tubular adenoma; negative for high- grade dysplasia or carcinoma. F. Colon, sigmoid, polypectomy: Tubular adenoma; negative for high-grade dysplasia or carcinoma. 03/23/25: Here for follow up. Reports no GI sx. Intermittent rectal bleeding has now resolved. Suspect could have been 2/2 friable pedunculated sigmoid polyp. No abd pain, N,V, change in st ool. GERD controlled on nexium alone. Results of the procedure were already mailed to him. He is aware of recall colo in 3 years. He was also reminded to advise any younger siblings to start their colo early at 40 y.o. He does not have biological children. [facility] Medical History Nicotine dependence, cigarettes, uncomplicated CAD (coronary artery disease) On beta tri at home NSTEMI (non-ST elevated myocardial infarction) GERD (gastroesophageal reflux disease) Collapsed lung Surgical History Hx of colonoscopy Stented coronary artery History of esophagogastroduodenoscopy (EGD) History of foot surgery Family History Mother Diverticulitis HTN (hypertension) Brother Diverticulitis Brother Diverticulitis HTN (hypertension) Brother Diverticulitis HTN (hypertension) Diabetes Brother Diverticulitis Sister HTN (hypertension) Sister Diverticulitis HTN (hypertension) Diabetes Sister HTN (hypertension) Family/Other Cancer Social History Household Members: Family Housing: Apartment Are you a primary lawn care professional to a significant other at home: No Do you presently have visiting nurse or other home services: No Alcohol intake: former Patient Tobacco Use Status: Current everyday Tobacco user Tobacco use type: Cigarette Cigarettes Per Day: 3 Years Smoked: 30+/- Substance Use Type: Marijuana service: No Current occupational status: disabled Review of Systems Const All systems reviewed & are unremarkable except as noted in HPI and below Physical Exam Exam Exam: No apparent distress Nonicteric Abdomen soft, nondistended Alert and oriented x3, normal gait Vital Signs: Last Vital Signs Pulse 53 03/23/25 09:50 BP 155/84 H 03/23/25 09:50 BMI result Body Mass Index 21.5 Assessment & Plan Assessment & Plan (1) GERD (gastroesophageal reflux disease): Code(s): K21.9 - Gastro-esophageal reflux disease without esophagitis Category: Medical (2) Personal history of colonic polyps: Code(s): Z86.010 - Personal history of colon polyps Category: Medical Plan Results of procedures reviewed. Pt currently without any GI concerns. He is aware to get repeat colo in 3 years. Will NOT be eligible for stool based testing due to hx of advanced polyps. GERD well controlled on PPI monotherapy. Pt self discontinued pepcid. Plan: - Cont nexium 20 once daily - Repeat colo in 2027. Reminder set. PRN follow up. Coding Level of Care Code Est Pt Level 4 (81601) Diagnoses GERD (gastroesophageal reflux disease) K21.9 Personal history of colonic polyps Z86.010
[2025-03-23 09:50] VITALS: BP 155/84; PULSE 53; BMI 21.5
== END 2025-03-23 10:07 | disposition home or self-care (01) ==
LOC: HO.HGI 09:40
PROVIDERS: Visit Provider Internal Medicine
DX: K21.9 Gastro-esophageal reflux disease without esophagitis (principal); Z86.0100 Personal history of colon polyps, unspecified
CPT/HCPCS: 99214

== ENCOUNTER → 2025-03-23 09:39 | Outpatient (BNVA) | payer OTHER, SELFPAY | PROVIDERS: Visit Provider Internal Medicine | DX: Z71.2 Person consulting for explanation of examination or test findings (principal); K21.9 Gastro-esophageal reflux disease without esophagitis; Z86.0100 Personal history of colon polyps, unspecified | CPT/HCPCS: 99212 ==